=== PATIENT | male | born 1940 | race Caucasian/White ===

== ENCOUNTER → 2019-10-11 15:04 | Outpatient (BNVA) | payer MEDICARE, SELFPAY | PROVIDERS: Family Provider Internal Medicine; PCP Internal Medicine; Visit Provider Specialist | DX: M19.011 Primary osteoarthritis, right shoulder (principal); S46.001A Unspecified injury of muscle(s) and tendon(s) of the rotator cuff of right shoulder, initial encounter; X58.XXXA Exposure to other specified factors, initial encounter | CPT/HCPCS: 73030 ==

== ENCOUNTER 2019-10-12 20:00 | Outpatient (CLI) | payer MEDICARE, SELFPAY | END 2019-10-12 20:01 | disposition home or self-care (01) | LOC: SLEEP 10-13 09:45 | PROVIDERS: Family Provider Internal Medicine; PCP Internal Medicine; Visit Provider Student in an Organized Health Care Education/Training Program | DX: G47.33 Obstructive sleep apnea (adult) (pediatric) (principal) | CPT/HCPCS: 95810 ==

== ENCOUNTER 2019-11-13 20:00 | Outpatient (CLI) | payer MEDICARE, SELFPAY | END 2019-11-13 20:01 | disposition home or self-care (01) | LOC: SLEEP 11-14 08:49 | PROVIDERS: Family Provider Internal Medicine; PCP Internal Medicine; Visit Provider Student in an Organized Health Care Education/Training Program | DX: G47.33 Obstructive sleep apnea (adult) (pediatric) (principal) | CPT/HCPCS: 95810; 95811 ==

== ENCOUNTER → 2019-12-06 15:41 | Outpatient (BNVA) | payer MEDICARE, SELFPAY | PROVIDERS: Family Provider Internal Medicine; PCP Internal Medicine; Visit Provider Specialist | DX: M25.562 Pain in left knee (principal); M17.12 Unilateral primary osteoarthritis, left knee | CPT/HCPCS: 73560; 73565 ==

== ENCOUNTER → 2019-12-12 13:09 | Outpatient (BNVA) | payer MEDICARE, SELFPAY | PROVIDERS: Family Provider Internal Medicine; PCP Internal Medicine; Visit Provider Urology | DX: N40.1 Benign prostatic hyperplasia with lower urinary tract symptoms (principal); N13.8 Other obstructive and reflux uropathy | CPT/HCPCS: 81001 ==

== ENCOUNTER 2019-12-18 08:00 | Day surgery (SDC) | payer MEDICARE, SELFPAY ==
--- NOTE | 2019-12-18 09:43 | ECG_ITS ---
Measurements Intervals [place] Rate: 56 P: 29 [place]: 253 QRS: -17 QRSD: 107 T: -13 QT: 408 QTc: 396 SINUS BRADYCARDIA WITH FIRST DEGREE AV BLOCK VOLTAGE CRITERIA FOR LVH [MEETS CRITERIA IN ONE OF: R(aVL), S(V1), R(V5), R(V5/V6) +S(V1)] INFERIOR MYOCARDIAL INFARCTION [40+ ms Q WAVE AND/OR ST/T ABNORMALITY IN II/aVF], PROBABLY OLD Compared to ECG 11/23/2018 10:07:38 Sinus rhythm no longer present Myocardial infarct finding still present Electronically Signed On 12-18-2019 19:28:27 CDT by Kim Locke M.D. [id number]
--- NOTE | 2019-12-18 10:12 | ANES.PREANE2 ---
Pre-Anesthetic Assessment Pre-Anesthetic Assessment: Height/Weight: Height 1.88 m Weight 91.626 kg Preop Diagnosis: Left knee DJD Proposed Procedure: Operation Date: 12/26/19 07:00 Proposed Procedures p Total Knee Arthroplasty 76609 M17.12(Left) - Estella Luciano MD Familial anesthetic complications: None Social: Social History: No alcohol and No tobacco Comment: former smoker Exam: Pre-Anes Outpt Exam: alert, oriented x 3, clear to auscultation bilaterally and regular rate & rhythm Airway: Cervical ROM: WNL MP: 3 Additional comments: upper dentures Pulmonary: Pulmonary: Sleep apnea (has gotten his machine yet) CV/HEM: CV/HEM: CAD and HTN Comments: 2 stents ( 7 months ago) - not sure if its KRISTINA or BMS, states he on blood thinner but he's not sure which one, per patient dr. gruber said he could do surgery 6 months out EKG - Sinus norberto w/ 1st heartblock, old inferior OK : : None reported Hepatic: Hepatic: None reported GI: GI: None reported Metabolic: Metabolic: DM Musc/skel: Musc/skel: OA/DJD Neuropsych: Neuropsych: None reported Anesthetic Plan: ASA status: 3 Anesthesia: General and Regional (specify below) Risk of > 500 ml blood loss (7ml/kg in children): No PFSH Anesthesia PFSH: Surgical History History of heart artery stent Social History (Updated 12/08/19 @ 15:34 by STEPH Hagen) Smoking and tobacco status: former smoker Alcohol intake: former Adopted: No Caregiver/support person: No Lives independently: No Household members: spouse Marital status: Current occupational status: retired History of recent travel: No Current gender identity: Male Data Anesthesia Cardiac Studies: No Data to Display
[2019-12-18 10:23] LABS: Basophils % 0.4 %; Eosinophils # 0.1 10^3/uL (0.0-0.8); Eosinophils % 3.7 %; Hematocrit 32.1 % (42.0-52.0); Hemoglobin 10.7 g/dL (11.7-16.6); Lymphocytes # 0.6 10^3/uL (0.8-4.8); Lymphocytes % 22.7 %; Mean Corpuscular HGB Conc 33.3 g/dL (30.0-36.0); Mean Corpuscular Hemoglobin 33.4 pg (28.0-34.0); Mean Corpuscular Volume 100.3 fL (80-94); Mean Platelet Volume 11.5 fL (7.4-10.4); Monocytes # 0.6 10^3/uL (0.2-0.9); Monocytes % 20.4 %; Neutrophils # 1.4 10^3/uL (1.8-7.7); Neutrophils % 52.4 %; Nucleated Red Blood Cells % 0 %; Platelet Count 262 10^3/cmm (130-400); Red Cell Distribution Width 14.9 % (12.1-15.1); White Blood Count 2.7 10^3/uL (4.0-10.0)
--- NOTE | 2019-12-18 10:27 | PC.NURSE ---
Notified Dr. Luciano's office of abnormal preop labs. left message with CHELO.
[2019-12-18 10:29] LABS: Add Urine Microscopic? YES; Bilirubin Urine Neg (NEGATIVE); Blood Urine Neg (Negative); Glucose Urine UA 4+ (Normal); Ketones Urine Negative (Negative); Leukocyte Esterase Urine Negative (Negative); Nitrate Urine Negative (Negative); Protein Urine 1+ (Negative); Urine Appearance Clear (CLEAR); Urine Color Yellow (Yellow); Urobilinogen Urine Norm (Negative); pH Urine 5 (5-7)
[2019-12-18 10:35] LABS: Add Urine Culture? No; Bacteria Urine TRACE; Hyaline Casts Urine 0-4; Squamous Epithelial Cell Urine 0-4 (0-5)
[2019-12-18 10:40] LABS: Alanine Aminotransferase 15 U/L (0-41); Albumin Level 4.3 g/dL (3.5-5.2); Alkaline Phosphatase 48 IU/L (40-130); Anion Gap 18.8 (5-19); Aspartate Amino Transferase 18 U/L (0-40); Blood Urea Nitrogen 26 mg/dL (8-23); Calcium 9.7 mg/dL (8.5-10.5); Carbon Dioxide 25 mmol/L (22-29); Chloride 98 mmol/L (98-107); Globulin 2.6 g/dL (1.3-4.6); Glucose 301 mg/dL (65-115); Osmolality Calculated 294 mOsm/kg (285-295); Potassium 3.8 mmol/L (3.5-5.1); Sodium 138 mmol/L (136-145); Total Bilirubin 0.7 mg/dL (0.15-1.2); Total Protein 6.9 g/dL (6.6-8.7)
== END 2019-12-18 09:00 | disposition home or self-care (01) ==
LOC: OR 05-14 14:04
PROVIDERS: PCP Internal Medicine; Visit Provider Specialist
DX: Z01.818 Encounter for other preprocedural examination (principal); I44.0 Atrioventricular block, first degree; G47.30 Sleep apnea, unspecified; I25.10 Atherosclerotic heart disease of native coronary artery without angina pectoris; I25.2 Old myocardial infarction; I10 Essential (primary) hypertension; E11.9 Type 2 diabetes mellitus without complications; Z87.891 Personal history of nicotine dependence; Z95.5 Presence of coronary angioplasty implant and graft
CPT/HCPCS: 36415; 80053; 81001; 85025; 93005

== ENCOUNTER → 2020-01-17 11:26 | Outpatient (BNVA) | payer MEDICARE, SELFPAY | PROVIDERS: Family Provider Internal Medicine; PCP Internal Medicine; Visit Provider Specialist | DX: M25.512 Pain in left shoulder (principal) | CPT/HCPCS: 73030 ==

== ENCOUNTER 2020-01-22 09:50 | Outpatient (CLI) | payer MEDICARE, SELFPAY ==
--- NOTE | 2020-01-22 09:58 | MR_ITS ---
WS: [id number] MRI LEFT SHOULDER NONCONTRAST TECHNIQUE: Sagittal T2, coronal T1, T2 and proton density imaging. Axial gradient PDE imaging. CLINICAL INFORMATION: pain COMPARISON: None. FINDINGS: Prior postoperative changes rotator cuff surgery with rotator cuff anchors. Susceptibility artifact f rom rotator cuff anchors degraded images. Moderate degenerative arthritis at the AC joint with mild d ownsloping of the acromion. Small amount of subacromial/subdeltoid fluid. Supraspinatus and infraspin atus appear intact. Normal teres minor. Subscapularis is intact distally. Biceps tendon not visualized in the bicipital g roove. This is likely chronically torn with atrophy. Glenoid labrum appears grossly intact. Degenerat dc arthritis glenohumeral joint. Normal visualized soft tissues. MR/MR shoulder LT wo con* [id number] IMPRESSION: 1. Prior postoperative changes rotator cuff anchors. 2. Rotator cuff appears intact. No full-thickness rotator cuff tears. 3. Biceps tendon is absent within the bicipital groove likely due to chronic t ear with atrophy. 4. Glenoid labrum appears grossly intact. 5. Moderate degenerative arthritis AC joint with a small amount of subacromial /subdeltoid fluid.
== END 2020-01-22 09:51 | disposition home or self-care (01) ==
LOC: RADWPI 09:56
PROVIDERS: Family Provider Internal Medicine; PCP Internal Medicine; Visit Provider Specialist
DX: M25.512 Pain in left shoulder (principal); M19.012 Primary osteoarthritis, left shoulder
CPT/HCPCS: 73221

== ENCOUNTER 2020-02-27 09:54 | Observation (INO) | payer MEDICARE, SELFPAY ==
[2020-02-20 09:16] LABS: Add Urine Culture? No; Add Urine Microscopic? YES; Bacteria Urine TRACE; Bilirubin Urine Neg (NEGATIVE); Blood Urine Neg (Negative); Glucose Urine UA 4+ (Normal); Ketones Urine Negative (Negative); Leukocyte Esterase Urine Negative (Negative); Nitrate Urine Negative (Negative); Protein Urine 1+ (Negative); Specific Gravity, Urine 1.015 (1.005-1.030); Squamous Epithelial Cell Urine 0-4 (0-5); Urine Appearance Clear (CLEAR); Urine Color Yellow (Yellow); Urobilinogen Urine Norm (Negative)
--- NOTE | 2020-02-20 09:18 | SUR.PREOP ---
Anesthesia was involved with an epidural and suggested to run off Anesthesia evaluation when patient was here for preop in November 2019 and then canceled. And they would update it day of surgery. 02/27/20
[2020-02-20 09:22] LABS: Basophils % 0.4 %; Eosinophils # 0.1 10^3/uL (0.0-0.8); Eosinophils % 3.5 %; Hematocrit 32.5 % (42.0-52.0); Hemoglobin 10.8 g/dL (11.7-16.6); Lymphocytes # 0.6 10^3/uL (0.8-4.8); Lymphocytes % 23.2 %; Mean Corpuscular HGB Conc 33.2 g/dL (30.0-36.0); Mean Corpuscular Hemoglobin 32.5 pg (28.0-34.0); Mean Corpuscular Volume 97.9 fL (80-94); Mean Platelet Volume 11.3 fL (7.4-10.4); Monocytes # 0.4 10^3/uL (0.2-0.9); Monocytes % 17.3 %; Neutrophils # 1.4 10^3/uL (1.8-7.7); Neutrophils % 55.2 %; Nucleated Red Blood Cells % 0 %; Platelet Count 269 10^3/cmm (130-400); Red Blood Count 3.32 10^6/uL (4.1-5.3); Red Cell Distribution Width 14.6 % (12.1-15.1); White Blood Count 2.5 10^3/uL (4.0-10.0)
[2020-02-20 09:53] LABS: Alanine Aminotransferase 19 U/L (0-41); Albumin Level 4.4 g/dL (3.5-5.2); Alkaline Phosphatase 48 IU/L (40-130); Anion Gap 16.7 (5-19); Aspartate Amino Transferase 20 U/L (0-40); Blood Urea Nitrogen 33 mg/dL (8-23); Calcium 9.9 mg/dL (8.5-10.5); Carbon Dioxide 25 mmol/L (22-29); Chloride 97 mmol/L (98-107); Globulin 2.9 g/dL (1.3-4.6); Glucose 265 mg/dL (65-115); Osmolality Calculated 287 mOsm/kg (285-295); Potassium 3.7 mmol/L (3.5-5.1); Sodium 135 mmol/L (136-145); Total Protein 7.3 g/dL (6.6-8.7)
[2020-02-27] VITALS (22 sets, daily range): BP systolic 91–148; BP diastolic 61–96; PULSE 56–113; RESP 12–26; TEMP 36.2–37.2; O2SAT 91–98
[2020-02-27 06:01] LABS: Glucose Point of Care 258 mg/dL (70-110)
[2020-02-27] MEDS: sodium chloride 0.9% 1,000 ML 30 ML IV (06:09)
--- NOTE | 2020-02-27 06:53 | W.PM.OPSUD ---
Surgery/Procedure H&P Update DATE OF PROCEDURE: February 27, 2020 DATE H&P PERFORMED: 12/06/19 H&P UPDATE INFORMATION: I have reviewed H&P completed within last 30 days, I have examined patient prior to procedure and H&P is in [facility] EMR on date indicated PREOP DIAGNOSIS: Left knee DJD PLANNED PROCEDURE: Operation Date: 02/27/20 07:00 Proposed Procedures p Total Knee Arthroplasty 79745 M17.11(Left) - Estella Luciano MD
[2020-02-27] MEDS: fentaNYL 50 mcg/mL INJ 2mL 100 MCG IVP (07:05)
[2020-02-27] MEDS: midazolam 1 mg/mL INJ 2 mL 2 MG IVP (07:06)
--- NOTE | 2020-02-27 07:08 | P.ANESASSM_ITS ---
Pre-Anesthetic Assessment Pre-Anesthetic Assessment: Height/Weight: Height 1.88 m Weight 92.079 kg Temp Pulse Resp BP Pulse Ox 97.2 F L 87 18 118/96 95 02/27/20 05:59 02/27/20 05:59 02/27/20 05:59 02/27/20 05:59 02/27/20 05:59 Preop Diagnosis: Left knee DJD Proposed Procedure: Operation Date: 02/27/20 07:00 Proposed Procedures p Total Knee Arthroplasty 25801 M17.11(Left) - Estella Luciano MD Last intake: Intake Last Liquid Date 02/27/20 Last Liquid Time 04:00 Last Solid Date 02/26/20 Last Solid Time 18:00 Social: Social History: No alcohol and No tobacco Exam: Pre-Anes Outpt Exam: alert, oriented x 3, clear to auscultation bilat erally and regular rate & rhythm Airway: Submandibular: WNL Cervical ROM: WNL MP: 2 Dentition: Other (teeth ok) History/ROS: No significant history except as noted Pulmonary: Pulmonary: COPD CV/HEM: CV/HEM: CAD and HTN : : None reported Hepatic: Hepatic: None reported GI: GI: GERD Metabolic: Metabolic: Hyperlipidemia Musc/skel: Musc/skel: OA/DJD Neuropsych: Neuropsych: None reported Anesthetic Plan: ASA status: 3 Anesthesia: Anesthesia Evaluation, Eval. for regional block and General Risk of > 500 ml blood loss (7ml/kg in children): Yes, adequate IV access and fluids planned Meds/Allergies Current Medications: Current Medications Generic Name Dose Route Start Last Admin Trade Name Freq PRN Reason Stop Dose Admin Sodium Chloride 1,000 mls @ 30 ml s/hr 02/27/20 06:15 02/27/20 06:09 Sodium Chloride 0.9% IV 02/28/20 06:14 30 mls/hr .Q24H NIMO Administration Midazolam HCl 2 mg 02/27/20 06:04 02/27/20 07:06 Versed IVP 2 mg Q5M PRN Administration Preop Anxiety PFSH Anesthesia PFSH: Medical History Abnormal PSA Atherosclerotic heart disease Benign essential hypertension with target blood pressure below 140/90 BPH NOS w ur obs/LUTS CAD (coronary artery disease) Depression Dyslipidemia Erectile dysfunction due to diseases classified elsewhere Hyperlipidemia Hypertension Hypogonadism male SOB (shortness of breath) Type 2 diabetes mellitus Surgical History History of heart artery stent Hx of cholecystectomy Status post laser cataract surgery of both eyes Family History Father , AT AGE 86 HEART DISEASE,[place],DIABETES Diabetes CAD (coronary artery disease) Mother , AT AGE 80 No problems noted. Social History Smoking and tobacco status: former smoker Alcohol intake: former Adopted: No Caregiver/support person: No Lives independently: No Household members: spouse Marital status: Current occupational status: retired History of recent travel: No Current gender identity: Male Data Anesthesia CBC & Chem 7: 02/20/20 09:07 02/20/20 09:07 Other Labs: Laboratory Results - last 48 hr 02/27/20 05:57 POC Glucose 258 Cardiac Studies: No Data to Display
[2020-02-27] MEDS: ceFAZolin 1,000 mg SDV 1000 MG IRRIGATION ×2 (07:51)
[2020-02-27] MEDS: vancomycin 1,000 MG SDV 1000 MG XX (07:51)
--- NOTE | 2020-02-27 08:14 | SUR.OPER ---
ATTEMPTED TO CALL FAMILY TO GIVE AN UPDATE ON SURGERY. NO ONE ANSWERED THE PHONE NUMBERS I HAVE AVAILABLE.
--- NOTE | 2020-02-27 09:48 | SUR.PHASEI ---
0944 PATIENT TO PACU AT THIS TIME FROM OR. RR EVEN AND UNLABORED. ORAL AIRWAY IN PLACE. DRESSING TO LEFT HIP, CDI, LEFT PEDAL PULSE MARKED. WARREN CATH IN PLACE, DRAINING CLEAR, YELLOW URINE.
--- NOTE | 2020-02-27 10:02 | XR_ITS ---
WS: [id number] XR knee LT 1-2V 90311 REASON FOR EXAM: Status post total knee arthroplasty FINDINGS: Total knee arthroplasty on the left side in satisfactory alignment. The prosthesis are seen in good position. There is soft tissue air under the anterior aspects of the knee. XR/XR knee LT 1-2V [id number] IMPRESSION: Total knee replacement satisfactory aligned on the left knee.
--- NOTE | 2020-02-27 10:02 | SUR.PHASEI ---
1001 ORAL AIRWAY REMOVED AT THIS TIME. SPO2 94% ON SIMPLE MASK AT 8L.
--- NOTE | 2020-02-27 10:17 | PM.OP ---
Operative Report Date of procedure: February 27, 2020 Pre-op Diagnosis: Left knee DJD Post-op diagnosis: same Post-op Findings: Severe varus deformity which was not correctable even under general anesthesia Procedure Done: Left Total knee arthroplasty utilizing the following components of the [place] triathlon total knee system: A size 5 triathlon Tritanium posterior stabilized right femoral component, a size 6 triathlon titanium tibial component with a size 6 x 11 mm X3 posterior stabilized tibial bearing insert, and an asymmetric patella size 35 mm x 1 mm Specimens removed/disposition: Bone, disposed of Pathology: none sent Surgeon: Estella Luciano Aircraft Lay Out Worker: [facility] OR technicians Anesthesia: General (Intubated, ASA 3, with preoperative regional block) Estimated blood loss (mL): 25 Tourniquet time (min): 106 Tourniquet time: at 250 mmHg IV fluids (mL): 800 Urine output (mL): 200 Complications: None Findings: Significant degenerative osteoarthritis with fixed varus flexion contracture Condition: stable Disposition: PACU (Then to floor for observation, pain management, and gait training.) Brief History: This 79-year-old gentleman presented with complaints of severe left knee pain. He is having significant impact in his activities of daily living from his left knee. He wishes to proceed with total knee arthroplasty. Risks and complications are explained to him. Consents are signed. Questions are answered. Procedure: The patient was brought to the operating theater, and after undergoing adequate general intubated anesthesia with supplemental regional block, the left lower extremity was prepped with Dura-Prep and draped in usual fashion following placement of a tourniquet high on the leg. The leg was then draped free. Following prepping and draping, the leg was exsanguinated, and the tourniquet was elevated to 250 mmHg for a total tourniquet time of 106 minutes. Prior to elevation of the tourniquet, but following exposure of the site of surgery, a surgical pause was performed. At the time of the surgical pause, we confirmed the site and side of surgery. Additionally, we confirmed the appropriate and timely administration of preoperative antibiotics, Ancef 2 g and transexemic acid 1 g. The availability of equipment was confirmed, and the patient's identity was verbalized as well. Following the surgical pause, an incision was made centering over the patella continuing proximally and distally as necessary to allow access to the knee joint. Dissection continued through skin and soft tissues using a scalpel. Hemostasis was obtained using electrocautery. The skin incision was followed by a median parapatellar arthrotomy. The leg was extended and the patella was everted. Following this, the leg was returned to flexed position. The distal femur was exposed and a drill hole was made in this for placement of the distal femoral jig. The distal femoral jig was set at 5? of valgus. The distal femoral cutting block was then placed in appropriate position, and an ludin wing was used to confirm an appropriate amount of distal femur would be resected. The distal femoral resection was accomplished with 8 mm of bone being resected distally. After the distal femoral resection had been accomplished, the femur was measured and it measured a size 5. Medial lateral dimension also measured a size 5. A size 5 femoral cutting block was placed in position, and we were then able to accomplish the anterior, posterior and chamfer cuts. This jig was then removed and the notch guide was placed in position. With the notch guide in appropriate position, the notch was excised including resection of the anterior and posterior cruciate ligaments. This notch was to allow for the posterior stabilized femoral component. At this point, the femur was prepared and attention was directed to the proximal tibia. The posterior knee retractor was placed along with medial and lateral retractors. Further resection of the menisci was accomplished as we had better visualization. A complete meniscectomy was performed both medially and laterally with care being taken to protect the popliteus. Retractors were then placed so that the proximal tibia was well visualized. A drill hole was then made in the tibia for placement of the intramedullary guide. This guide was placed so that approximately 2 mm of bone would be resected from the deficient medial tibial plateau. The intramedullary guide was utilized supplemented with an extramedullary guide to assure appropriate alignment for the proximal tibial resection. The proximal tibial jig was then evaluated, pinned in position, and the proximal tibial resection was accomplished without difficulty. The jig was removed and the proximal tibia was measured. It measured a size 6. Initially, a trial reduction was accomplished with a 9 mm insert, but there was imbalance to the knee. Medial release was more extensively accomplished. We then had good balance to the knee with full extension and excellent varus valgus stability when we performed a trial reduction with an 11 mm insert into the size 6 tray. The femoral component was placed in position for the trial reduction, and the knee was placed through range of motion. There was excellent stability with excellent varus-valgus alignment with appropriate patellar tracking. This was felt to be the appropriate size insert. There was full extension and flexion without lift off and the rotation of the tibia was marked. Alignment was checked from the hip to the ankle, and this was noted to be appropriate as well. Attention was then directed to the patella. The patella was measured with a caliper. We resected sufficient patella to leave approximately 15 mm of patella remaining. Measurements of the patella then indicated that a size asymmetric 35 mm x 10 mm was the appropriate patellar size. We then placed the jig to drill for the 3 pegs of the press-fit patella, and these drill holes were made without incident. A trial patella was then placed and the knee was placed through range of motion. The patella was noted to track nicely without evidence of subluxation. The femur was prepared for a press-fit femur by drilling 2 holes for the femoral pegs. All trial components were subsequently removed. The tibial tray was then pinned into position, and we broached the tibia for the stem of the tibial component. Subsequently, 4 drill holes were made for placement of the press-fit tibia. This was accomplished without difficulty. Care was taken to assure appropriate rotation of the tibia as well as appropriate position on the proximal tibia. The tibial tray was completely seated on the proximal tibia. Following broaching, the tibial guide was removed, and all surfaces were copiously irrigated. The surfaces were then dried and a bone plug was placed into the distal femur. Exparel was also injected at this point. The Tritanium tibia was impacted into position. The beaded femur was then impacted into position in a cementless fashion. The tibial insert was placed. The patella was pressed into position with a patellar clamp. The knee was irrigated with 20 mL of Betadine and 500 mL of normal saline, and this was allowed to remain in the knee for 3-4 minutes. The knee was then copiously irrigated and suctioned dry. Attention was then directed to closure. Closure was accomplished with 0 Vicryl in the fascial tissues, 2-0 Monocryl was used in the subcutaneous tissues, and the skin was closed with skin shasta followed by Exofin. A sterile dressing was then placed consisting of Telfa, 4 x 4's, ABDs, sterile soft roll, and an Joe wrap. The patient was returned the Recovery Room in a satisfactory condition. X-rays were obtained there. The patient will be discharged to the floor for postoperative rehabilitation and pain management. He'll be under observation status with plans to discharge home with home health. Associated Problem List Diagnoses (1) Osteoarthritis of left knee: Qualifiers: Osteoarthritis type: primary Qualified Code(s): M17.12 - Unilateral primary osteoarthritis, left knee
--- NOTE | 2020-02-27 10:20 | ANES.PROC ---
Anesthesia Procedures Procedure/Date: 02/27/20 Nerve Block ^: Nerve Block 1: Main Anesthesia: general anesthesia Time Out Performed: Yes Consent: requested by attending/covering physician, risks and benefits reviewed and patient agrees to proceed Nerve block location: adductor canal (left) and popliteal (left) Anesthesia monitors applied: pulse oximetry, EKG, BP cuff and oxygen Nerve block position: other (supine for the AC and RLD for the Pop) Anesthetic Used: ropivicaine 0.5% Amount of anesthesia used (mL): 40 (20ml for each blk) Ultrasound used to: recognize landmarks Nerve Stimulator Used?: Yes Interscalene/Femoral BLK: 4 stimuplex 21 g needle used for position and inplane approach, visualize local anesthetic spread and no vascular puncture identified Injection: neg aspiration of heme Patient Tolerated Procedure: well and no complications Complications: none
--- NOTE | 2020-02-27 11:06 | SUR.PHASEI ---
1058 PATIENT TO MED SURG AT THIS TIME. DENIES PAIN. DRESSING TO LEFT KNEE, CDI.
[2020-02-27] MEDS: chlorhexidine gluconate 0.12% Btl 473 mL 30 ML MUCOUS MEM ×3 (13:23→21:12)
[2020-02-27] MEDS: metformin 500 mg Tablet 1000 MG PO (16:45)
[2020-02-27] MEDS: calcium carbonate 500 mg Chew Tablet 1000 MG PO (16:45)
[2020-02-27] MEDS: sodium chloride 0.9% 1,000 ML 50 ML IV (16:45)
[2020-02-27] MEDS: iron polysaccharide complex 150 mg Capsule PO (16:45)
[2020-02-27] MEDS: sennosides-docusate Tablet 2 TAB PO (16:46)
[2020-02-27] MEDS: tamsulosin 0.4 mg Capsule PO (16:46)
--- NOTE | 2020-02-27 18:15 | NUR.SHIFT ---
SHIFT SUMMARY PATIENT HAS DONE WELL AFTER SURGERY TODAY. SURGICAL INCISION DRESSING IS C/D/I. GOOD NEUROVASCULAR CHECKS. 1000ML OF URINE OUTPUT. PATIENT HAS HAD ZERO COMPLAINTS OF PAIN. UP WITH PHYSICAL THERAPY AND ON THE CPM. TOLERATING WELL.
[2020-02-28] VITALS (7 sets, daily range): BP systolic 129–150; BP diastolic 72–79; PULSE 66–117; RESP 16–20; TEMP 36.6–37.4; O2SAT 96–98
[2020-02-28 04:46] LABS: Basophils % 0.1 %; Hematocrit 27.6 % (42.0-52.0); Lymphocytes # 0.5 10^3/uL (0.8-4.8); Lymphocytes % 4.4 %; Mean Corpuscular HGB Conc 32.6 g/dL (30.0-36.0); Mean Corpuscular Volume 101.1 fL (80-94); Mean Platelet Volume 11.9 fL (7.4-10.4); Monocytes # 1.4 10^3/uL (0.2-0.9); Neutrophils # 8.9 10^3/uL (1.8-7.7); Neutrophils % 81.9 %; Nucleated Red Blood Cells % 0 %; Platelet Count 219 10^3/cmm (130-400); Red Blood Count 2.73 10^6/uL (4.1-5.3); Red Cell Distribution Width 15.3 % (12.1-15.1); White Blood Count 10.9 10^3/uL (4.0-10.0)
[2020-02-28] MEDS: oxyCODONE 5 mg IR Tab/Cap PO ×2 (04:53→11:13)
[2020-02-28 04:58] LABS: Blood Urea Nitrogen 29 mg/dL (8-23); Calcium 8.3 mg/dL (8.5-10.5); Carbon Dioxide 23 mmol/L (22-29); Chloride 99 mmol/L (98-107); Glucose 331 mg/dL (65-115); Osmolality Calculated 290 mOsm/kg (285-295); Sodium 135 mmol/L (136-145)
--- NOTE | 2020-02-28 07:47 | ANE.PACU2 ---
Inpatient post-anesthesia follow up: Airway intact: Yes Vital signs: Temperature 98.5 F Pulse Rate 66 Respiratory Rate 18 Blood Pressure 130/72 Pulse Oximetry 98 Oxygen Delivery Me thod Room Air Oxygen Flow Rate 3 Fraction of Inspir ed Oxygen Hydration adequate: Yes Nausea and vomiting: No Pain level: 7 Mental status: Baseline
[2020-02-28] MEDS: escitalopram 10 mg Tablet 20 MG PO (08:24)
[2020-02-28] MEDS: amitriptyline 25 mg Tablet PO (08:25)
[2020-02-28] MEDS: calcium carbonate 500 mg Chew Tablet 1000 MG PO (08:25)
[2020-02-28] MEDS: metformin 500 mg Tablet 1000 MG PO (08:26)
[2020-02-28] MEDS: atorvastatin 40 mg Tablet 20 MG PO (08:26)
[2020-02-28] MEDS: finasteride 5 mg Tablet PO (08:26)
[2020-02-28] MEDS: aspirin 325 mg EC Tablet PO (08:27)
[2020-02-28] MEDS: cholecalciferol (vitamin D3) 1,000 unit Tablet 1000 UNIT PO (08:27)
[2020-02-28] MEDS: sennosides-docusate Tablet 2 TAB PO (08:27)
[2020-02-28] MEDS: tamsulosin 0.4 mg Capsule PO (08:27)
[2020-02-28] MEDS: multivitamin therapeutic Tablet 1 TAB PO (08:27)
[2020-02-28] MEDS: metoprolol succinate ER (24 HR) 50 mg Tablet PO (08:27)
[2020-02-28] MEDS: iron polysaccharide complex 150 mg Capsule PO (08:28)
[2020-02-28] MEDS: clopidogrel 75 mg Tablet PO (08:28)
[2020-02-28] MEDS: chlorhexidine gluconate 0.12% Btl 473 mL 30 ML MUCOUS MEM (08:28)
[2020-02-28] MEDS: TRAMadol 50 mg Tablet PO ×2 (08:36→14:36)
[2020-02-28] MEDS: mupirocin oint 22 gm 1 APPLIC NASAL (08:37)
--- NOTE | 2020-02-28 08:53 | PC.CHAP ---
Pastoral Care Encounter/Spiritual Assessment Type of Contact [] Declined resistor tester visit [] Patient/Family/Request visit [] Outpatient visit [] Follow-up visit [] Physician referral [] Code/Alert [x] Routine visit [] Staff referral [] Actively dying [] Patient sleeping [] Family support [] [] Out of room [] Palliative care [] [] Receiving care in room [] Pre-surgical visit [] Trauma [] Long length of stay [] ICU visit [] Other: Relational/Emotional Strength [] Patient feels connected with others/family/visitors/staff [] Distress [] Loneliness/isolation [] Abandonment Spirituality of Patient [] Person of Linn [] Attends Uatsdin of their Linn [] Believes in Prayer [] Reads Bible or Mormonism materials [] There are Spiritual issues to be addressed Manager Trading Interventions [x] Prayer [] Active listening [] Non-anxious presence [] Spiritual/emotional support [] Crisis/trauma care [] Spiritual counseling [] Bereavement support [] Provided bereavement packet [] Provided Bible/devotional materials [] Provided toy/stuffed animal, coloring book to patient or family member [] Provided Communion [] Anointing/[place] [] Salvation [x] Completed spiritual assessment [] Other: Impact on Illness or Injury [] Angry [] Fearful [] Anxious [] Often cries [] Exhaustion [] Unable to work [] Unable to attend caodaism [] Unable to walk/stand [] Unable to read [] Unable to drive [] Unable to eat/drink [] Unable to sleep [] Unable to be with family [] Patient intubated [] Other: Summary Patient ready to discharge. Surgery went well. Patient has questions before leaving. Time spent with patient 15min
[2020-02-28] MEDS: acetaminophen 500 mg Tablet 1000 MG PO (14:36)
--- NOTE | 2020-02-28 16:46 | P.DS_ITS ---
Discharge Providers Date of Admission: 02/27/20 09:54 Date of Discharge: February 28, 2020 Attending Provider at Admission: Estella Luciano MD Attending Provider at Discharge: Estella Luciano MD Primary Care Provider: Ferdinand Arteaga MD Diagnoses at Discharge Discharge Diagnosis (1) Osteoarthritis of left knee: Status: Acute Qualifiers: Osteoarthritis type: primary Qualified Code(s): M17.12 - Unilateral primary osteoarthritis, left knee Reason for Visit Reason for Visit: Osteoarthritis of the left knee Hospital Course Hospital Course: Patient was admitted for same-day surgery for the following procedure: Left Total knee arthroplasty utilizing the following components of the Genemation triathlon total knee system: A size 5 triathlon Tritanium posterior stabilized right femoral component, a size 6 triathlon titanium tibial component with a size 6 x 11 mm X3 posterior stabilized tibial bearing insert, and an asymmetric patella size 35 mm x 10 mm. His procedure was uneventful, and he did well on the first postoperative day. On the second postoperative day, he did have some posterior knee pain, but he felt comfortable and confident enough with his physical therapy to be discharged to home. Therefore, the patient was discharged home on the first postoperative day. He was given tramadol for pain. He will follow-up with me as scheduled. Discharge Summary: Patient was admitted for same-day surgery and was discharged the following day to follow-up with me in the office as scheduled. Physical Exam Const: COMMON NORMALS: no acute distress, average body habitus, patient orien david x3 and alert GENERAL APPEARANCE: cooperative and comfortable ORIENTATION/CONSCIOUSNESS: Yes awake HENMT: COMMON NORMALS: normocephalic and atraumatic HEAD & SCALP: normocephalic and atraumatic Eye: GENERAL EYE: appearance normal, both eyes and all related structures Chest: COMMONS NORMALS: normal inspection of the chest Resp: COMMON NORMALS: normal respiratory effort EFFORT & INSPECTION: Yes able to speak in complete sentences and Yes symmetric chest movement Extremity: GENERAL: Yes normal exam except as noted LEFT LOWER EXTREMITY: Yes knee joint Left knee: Yes inspection (Dressing is removed. The wound is benign. There is no evidence of DVT, no drainage, and no ecchymosis.), Yes palpation (Minimal tenderness to palpation.) and Yes neurovascular exam (Intact with no evidence of DVT.) Neuro: COMMON NORMALS: patient oriented x3 SENSORIUM/ORIENTATION: Yes alert Psych: COMMON NORMALS: mental status grossly normal APPEARANCE: Yes grossly normal ATTITUDE: Yes calm and Yes engaged ATTENTION/CONCENTRATION: Yes attention grossly intact Skin: COMMON NORMALS: no rashes or lesions noted GENERAL SKIN EXAM: no rashes or lesions noted Urinary Catheter Management^: F: Cath Placed During This Visit: yes Reason for Continuing Indwelling Catheter: Assist Healing of Perineal & Sacral Wounds- Incontinent Patients Urinary Catheter Date of Insertion: 02/27/20 Urinary Catheter Time of Insertion: 07:30 Discharge Data Data Completed and Pending: Completed Studies During Hospitalization Category Date Time Status XR knee LT 1-2V 7 3560 Routine Exams 02/27/20 10:02 Completed Labs from last 24 hours 02/28/20 02/28/20 04:20 04:20 WBC 10.9 H RBC 2.73 L Hgb 9.0 L Hct 27.6 L MCV 101.1 H MCH 33.0 MCHC 32.6 RDW 15.3 H Plt Count 219 MPV 11.9 H Neut % (Auto) 81.9 Lymph % (Auto) 4.4 [place] % (Auto) 13.0 Eos % (Auto) 0.0 Baso % (Auto) 0.1 Neut # (Auto) 8.9 H Lymph # (Auto) 0.5 L [place] # (Auto) 1.4 H Eos # (Auto) 0.0 Baso # (Auto) 0.0 Nucleated RBC % (a uto) 0 Nucleated RBCs # 0.0 Sodium 135 L Potassium 4.0 Chloride 99 Carbon Dioxide 23 Anion Gap 17.0 BUN 29 H Creatinine 1.6 H Glucose 331 H Calculated Osmolal ity 290 Calcium 8.3 L Vitals: Last Vital Signs Temp 99.4 F 02/28/20 11:07 Pulse 95 02/28/20 11:07 Resp 20 H 02/28/20 15:06 BP 136/77 02/28/20 11:07 Pulse Ox 96 02/28/20 11:07 Discharge Plan Discharge Patient Disposition: Home Health Service Condition: Stable Prescriptions: New acetaminophen 500 mg Tablet 1,000 mg PO Q8H 15 Days Qty: 0 RF: 0 aspirin 325 mg Tablet,Delayed Release (Dr/Ec) 325 mg PO DAILY 30 Days Qty: 0 RF: 0 tramadol 50 mg Tablet 50 mg PO Q4H PRN (Reason: Mild To Moderate Pain) Qty: 30 RF: 0 Continued escitalopram oxalate 20 mg tablet 20 mg PO DAILY RF: 0 simvastatin 40 mg tablet 40 mg PO DAILY RF: 0 amitriptyline 25 mg tablet 25 mg PO DAILY RF: 0 aspirin [Adult Aspirin Regimen] 81 mg tablet,delayed release (DR/EC) 81 mg PO DAILY RF: 0 metformin 500 mg tablet 1,000 mg PO BID RF: 0 triamterene-hydrochlorothiazid 75-50 mg tablet 0.5 tab PO DAILY RF: 0 diltiazem HCl 120 mg capsule,extended release 12 hr 120 mg PO BID RF: 0 metoprolol succinate 50 mg capsule,sprinkle,ER 24hr 50 mg PO DAILY RF: 0 triamcinolone acetonide 0.05 % ointment 1 applic TOPICAL BID PRN (Reason: Skin Irritation) RF: 0 testosterone cypionate 200 mg/mL kit 200 mg IM .ONCE MONTHLY RF: 0 multivitamin Tablet 1 tab PO DAILY RF: 0 tamsulosin 0.4 mg capsule 0.4 mg PO BID Qty: 180 RF: 3 clopidogrel 75 mg tablet 75 mg PO DAILY Qty: 90 RF: 3 finasteride 5 mg tablet 5 mg PO DAILY RF: 0 naproxen sodium [Aleve] 220 mg Tablet 440 mg PO BID RF: 0 docusate sodium 100 mg Tablet 100 mg PO BID PRN (Reason: Constipation) RF: 0 Discharge Orders: Discharge Order (Routine); Ordered 02/27/20 Ordered By: Estella Luciano Other Ambulatory Orders: DME: Walker (Order) Location: None Selected Ordered By: Estella Luciano Referrals: Estella Luciano MD [Physician] - 03/13/20 11:45 am (Follow-up for x-ray and wound evaluation.) Discharge Diet: Advance as tolerated and Cardiac Discharge Activity: Increase activity as tolerated, Use walker/crutches as instructed and As per PT/OT instructions Patient Instructions: Acetaminophen (By mouth), Aspirin (By mouth), Tramadol (By mouth), Total Knee Replacement (DC) Activity Restrictions/Additional Instructions: Ice and elevation to left lower extremity. Range of motion, ambulation, and strengthening as instructed by physical therapy. Discharge Date/Time: 02/28/20 15:06 Discharge Attestations Time Spent in Discharge Care*: greater than 30 min Specific Discharge Activities: Specific discharge activities: educating patient, discussing with hospice case manager/social workers/dc planners and docu menting/other paperwork Status at Discharge: Cognitive status at discharge: cognitively intact , Behavioral status at discharge: cooperative , Functional status at discharge: uses cane/walker Quality Metrics Clinical Quality Measures During this hospital stay, did patient experience: None Coding Level of Care Code Acute Floor Associate for Gissel Fontenot Diagnoses Osteoarthritis of left knee M17.12 Osteoarthritis type: primary
== END 2020-02-28 15:06 | disposition home health service (06) ==
LOC: MEDSURG 09:54
PROVIDERS: Admitting Provider Specialist; PCP Internal Medicine; Visit Provider Specialist
PROC: (CPT 27447; principal; 2020-02-27 07:00)
DX: M17.12 Unilateral primary osteoarthritis, left knee (principal); J44.9 Chronic obstructive pulmonary disease, unspecified; I25.10 Atherosclerotic heart disease of native coronary artery without angina pectoris; I10 Essential (primary) hypertension; K21.9 Gastro-esophageal reflux disease without esophagitis; E78.5 Hyperlipidemia, unspecified; M19.90 Unspecified osteoarthritis, unspecified site; N40.1 Benign prostatic hyperplasia with lower urinary tract symptoms; N13.8 Other obstructive and reflux uropathy; F32.9 Major depressive disorder, single episode, unspecified; E11.9 Type 2 diabetes mellitus without complications; Z79.82 Long term (current) use of aspirin; Z79.84 Long term (current) use of oral hypoglycemic drugs
CPT/HCPCS: 27447; 12345; 36415; 36416; 51702; 73560; 80048; 80053; 81001; 82962; 85025; 96365; 96374; 96375; 97116; 97162; 97165; 97530; A9281; C1776; C9290; G0378; J0131; J0690; J1100; J2001; J2250; J2270; J2405; J2704; J2710; J2795; J3010; J3370; J3490; J7030

== ENCOUNTER → 2020-03-11 16:12 | Outpatient (BNVA) | payer MEDICARE, SELFPAY | PROVIDERS: PCP Internal Medicine; Visit Provider Specialist | DX: Z96.652 Presence of left artificial knee joint (principal); Z47.1 Aftercare following joint replacement surgery | CPT/HCPCS: 73560; 73565 ==

== ENCOUNTER → 2020-03-28 08:03 | Outpatient (BNVA) | payer MEDICARE, SELFPAY | PROVIDERS: PCP Internal Medicine; Visit Provider Specialist | DX: Z96.652 Presence of left artificial knee joint (principal) | CPT/HCPCS: 73560; 73565 ==

== ENCOUNTER 2020-04-09 15:27 | Inpatient (IN) | payer MEDICARE, SELFPAY ==
[2020-04-09] VITALS (7 sets, daily range): BP systolic 107–144; BP diastolic 71–95; PULSE 79–139; RESP 15–21; TEMP 36.5–36.8; O2SAT 94–99; BMI 25.0
--- NOTE | 2020-04-09 16:16 | ECG_ITS ---
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 Measurements Intervals [place] Rate: 105 P: 55 MD: 227 QRS: -32 QRSD: 88 T: 59 QT: 360 QTc: 478 Interpretive Statements SINUS TACHYCARDIA WITH FIRST DEGREE AV BLOCK WITH FREQUENT SUPRAVENTRICULAR PREMATURE COMPLEXES LEFT AXIS DEVIATION [QRS AXIS < -30] MODERATE VOLTAGE CRITERIA FOR LVH, CONSIDER NORMAL VARIANT [MEETS CRITERIA IN ONE OF: R(aVL), S(V1), R(V5), R(V5/V6)+S(V1)] INFERIOR MYOCARDIAL INFARCTION , PROBABLY OLD [40+ ms Q WAVE AND/OR ST/T ABNORMALITY IN II/aVF] Compared to ECG 12/18/2019 10:03:47 Left-axis deviation now present Sinus bradycardia no longer present Myocardial infarct finding still present Electronically Signed On 04-09-2020 19:17:50 CDT by Salena Zepeda M.D. [email or web address]/[id number]
[2020-04-09 17:05] LABS: Troponin(5th) Baseline 65 ng/L (0-15)
--- NOTE | 2020-04-09 17:17 | XRR_ITS ---
PROCEDURE INFORMATION: Exam: XR Chest, 1 View Exam date and time: 04/09/2020 5:27 PM Age: 79 years old Clinical indication: Other: Post exercise; Prior surgery; Surgery date: 6+ months; Surgery type: Stents. Recent knee replacement; Patient HX: C/O irregular hr; Chest pain after physical therapy TECHNIQUE: Imaging protocol: XR of the chest Views: 1 view. COMPARISON: No relevant prior studies available. FINDINGS: Lungs: No pneumonia or pulmonary edema. Suspect atelectasis in the posteromedial left lower lobe adjacent to the descending thoracic aorta. Pleural space: No pleural effusion or pneumothorax. Heart/Mediastinum: The cardiac silhouette is not enlarged. The mediastinal contours are normal. Vasculature: The thoracic aorta is atherosclerotic and slightly tortuous. Bones/joints: Degenerative changes present in the shoulders, more so on the right. Prior left rotator cuff surgery with 2 humeral anchors present. XR/XR chest 1V portable [id number] IMPRESSION: No pneumonia or pulmonary edema.
[2020-04-09 17:50] LABS: Basophils % 0.4 %; Eosinophils # 0.1 10^3/uL (0.0-0.8); Eosinophils % 1.9 %; Hematocrit 29.4 % (42.0-52.0); Hemoglobin 9.1 g/dL (11.7-16.6); Lymphocytes # 0.8 10^3/uL (0.8-4.8); Lymphocytes % 31.1 %; Mean Corpuscular Hemoglobin 32.3 pg (28.0-34.0); Mean Corpuscular Volume 104.3 fL (80-94); Mean Platelet Volume 11.2 fL (7.4-10.4); Monocytes # 0.5 10^3/uL (0.2-0.9); Monocytes % 18.1 %; Neutrophils % 48.1 %; Nucleated Red Blood Cells % 0 %; Platelet Count 347 10^3/cmm (130-400); Red Blood Count 2.82 10^6/uL (4.1-5.3); Red Cell Distribution Width 15.9 % (12.1-15.1); White Blood Count 2.7 10^3/uL (4.0-10.0)
[2020-04-09 17:56] LABS: INR 1.12 (0.8-1.2)
[2020-04-09 17:59] LABS: D Dimer 3.74 ug/mIFEU (0-0.59)
[2020-04-09 18:02] LABS: Alanine Aminotransferase 16 U/L (0-41); Albumin Level 4.3 g/dL (3.5-5.2); Alkaline Phosphatase 71 IU/L (40-130); Anion Gap 19.9 (5-19); Aspartate Amino Transferase 19 U/L (0-40); Blood Urea Nitrogen 33 mg/dL (8-23); Calcium 9.5 mg/dL (8.5-10.5); Carbon Dioxide 22 mmol/L (22-29); Chloride 98 mmol/L (98-107); Globulin 2.5 g/dL (1.3-4.6); Glucose 156 mg/dL (65-115); Lactate (Lactic Acid level) 3.3 mmol/L (0.5-2.2); Osmolality Calculated 282 mOsm/kg (285-295); Potassium 3.9 mmol/L (3.5-5.1); Sodium 136 mmol/L (136-145); Total Bilirubin 0.6 mg/dL (0.15-1.2); Total Protein 6.8 g/dL (6.6-8.7)
--- NOTE | 2020-04-09 18:18 | ECG_ITS ---
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 Measurements Intervals [place] Rate: 125 P: 11 IN: 225 QRS: -30 QRSD: 103 T: 46 QT: 369 QTc: 533 Interpretive Statements SINUS TACHYCARDIA WITH FIRST DEGREE AV BLOCK VOLTAGE CRITERIA FOR LVH [MEETS CRITERIA IN ONE OF: R(aVL), S(V1), R(V5), R(V5/V6)+S(V1)] INFERIOR MYOCARDIAL INFARCTION , PROBABLY OLD [40+ ms Q WAVE AND/OR ST/T ABNORMALITY IN II/aVF] Compared to ECG 04/09/2020 16:30:01 Left-axis deviation no longer present Myocardial infarct finding still present Electronically Signed On 04-10-2020 22:46:54 CDT by Lorri Lin M.D. [id number]
--- NOTE | 2020-04-09 19:09 | PC.NURSE ---
Report received from YAMILA Diez and care transferred to YAMILA [place]
[2020-04-09 19:10] LABS: Troponin 5 2HR 69.28 ng/L (0-15); Troponin 5 2HR Delta 4.28 ABS# (0-10)
--- NOTE | 2020-04-09 19:12 | ED_ITS ---
HPI - General Adult General: Chief complaint: General Medical Stated complaint: irregular hr Time Seen by Provider: 04/09/20 16:25 History of Present Illness: HPI narrative: This patient is a pleasant 79-year-old gentleman presenting with rapid heart rate. He was at physical therapy for his recent total knee replacement and the physical therapist noted a fast and irregular heart rate. She thought he was probably in atrial fibrillation and sent him over to the ER at his doctor's recommendation. The patient says he has been having dizzy spells and a little bit of chest pain off and on. He has never had any problems with an irregular heart rate before. He has had stents most recently in November 2018. He sees Dr. Locke for his carbonator. He says that he took his blood pressure and heart rate at home a couple of days ago because he was not feeling well and at that time his heart rate was in the 150s. He says that he recently saw Dr. Locke and he took him off a couple of his blood pressure medicines but is not sure which ones. Associated symptoms: Reports chest pain and dyspnea; Deny headache(s), malaise, nausea, rash or vomiting Review of Systems General: Reports: 10 or more systems reviewed and unremarkable except in HPI and below Const: Denies: fever(s), chills, fatigue or malaise Eyes: Denies: change in vision ENMT: Denies: odynophagia Card: Reports: chest pain; Denies: swelling of feet/ankles Resp: Reports: dyspnea; Denies: productive cough or non-productive cough GI: Denies: abdominal pain, nausea or vomiting : Denies: flank pain Musc: Denies: neck pain or back pain Skin/Breast: Denies: rash Neuro: Reports: dizziness; Denies: headache(s), numbness in extremities or weakness in extremities Arsen/Lymph: Denies: easy bruising or easy bleeding PFSH ED PFSH: Medical History Abnormal PSA Atherosclerotic heart disease Benign essential hypertension with target blood pressure below 140/90 BPH NOS w ur obs/LUTS CAD (coronary artery disease) Depression Dyslipidemia Erectile dysfunction due to diseases classified elsewhere Hyperlipidemia Hypertension Hypogonadism male SOB (shortness of breath) Type 2 diabetes mellitus Surgical History History of heart artery stent Hx of cholecystectomy Status post laser cataract surgery of both eyes Family History Father , AT AGE 86 HEART DISEASE,AL,DIABETES Diabetes CAD (coronary artery disease) Mother , AT AGE 80 No problems noted. Social History Smoking and tobacco status: former smoker Alcohol intake: former Adopted: No Caregiver/support person: No Lives independently: No Household members: spouse Marital status: Current occupational status: retired History of recent travel: No Current gender identity: Male Physical Exam Const: COMMON NORMALS: no acute distress, patient oriented x3, no limitations and alert GENERAL APPEARANCE: cooperative and comfortable HENMT: HEAD & SCALP: normal to inspection FACE & SINUS: normal facial exam Eye: GENERAL EYE: appearance normal, both eyes and all related structures Neck/C-Spine: COMMON NORMALS: supple, no meningeal signs and no JVD Chest: COMMONS NORMALS: normal inspection of the chest Resp: COMMON NORMALS: normal respiratory effort, No use of accessory muscles and clear to auscultation bilaterally AUSCULTATION: clear to auscultation bilaterally Cardio: COMMON NORMALS: no JVD and No murmurs present (Cardio) RATE: tachycardic RHYTHM: abnormal rhythm irregularly irregular GI: COMMON NORMALS: Normal to inspection, nondistended, normoactive bowel sounds present, Soft to palpation and non-tender INSPECTION: Yes normal to inspection AUSCULTATION: Yes normoactive bowel sounds PALPATION: Yes Soft to palpation Back/Pelvis: COMMON NORMALS: thoracic and lumbar spine normal to inspection Extremity: COMMON NORMALS: normal to inspection Neuro: COMMON NORMALS: patient oriented x3, moves all extremities, no focal motor deficits and no sensory deficits noted SENSORIUM/ORIENTATION: Yes alert MENINGEAL SIGNS: Yes no meningeal signs Psych: COMMON NORMALS: mental status grossly normal, cooperative and normal affect Skin: COMMON NORMALS: no rashes or lesions noted and turgor normal GENERAL SKIN EXAM: no rashes or lesions noted and turgor normal Course ED course: Patient will be admitted to the hospitalist. He continues to have normal sinus rhythm although with a significant NH lengthening and first-degree AV block. Then he will have rapid heart rate in the 140s which appears to be sinus. At times he has ectopy which makes the rate irregular but for the most part he appears to be in sinus either normal sinus or sinus tachycardia. I gave a dose of IV metoprolol with really not much significant change. D-dimer was markedly elevated but his creatinine is 1.9, precluding a CT scan. I gave him a dose of Lovenox on a prophylactic basis and perhaps a nuclear medicine study can be done tomorrow or a CT can be done if his renal function improves with some hydration. Vital Signs: Vital signs: Vital Signs Temperature 97.7 F 04/09/20 16:09 Pulse Rate 82 04/09/20 19:23 Respiratory Rate 15 04/09/20 19:23 Blood Pressure 141/91 04/09/20 19:23 Pulse Oximetry 97 04/09/20 19:23 MDM - General Adult MDM Narrative: Medical decision making narrative: Irregular rate and tachycardia. Initially thought the patient was in A. fib as well however the EKG and monitor actually show what seems to be a sinus rhythm with multiple ectopic beats. Is rate consistently varies from 80s to 150s. He is symptomatic with the rapid heart rate. He was previously on Cardizem and metoprolol for blood pressure and apparently these were the meds that were stopped. This may be contributing to his irregular heart rate now. We will give him a dose of metoprolol here in the ER and see if that makes a difference. As he is symptomatic and persistently tachycardic at times I think he should probably be admitted for further management of these symptoms. He also has chronic cytopenia with a low white count and anemia. This is been going on for some time. His renal function is poor with a creatinine 1.9 and this is similar to recent tests although new over the past few years. Lab Data: Labs: Lab Results 04/09/20 04/09/20 04/09/20 Range/Units 16:30 16:30 16:30 WBC 2.7 L (4.0-10.0) 10^3/ uL RBC 2.82 L (4.1-5.3) 10^6/u L Hgb 9.1 L (11.7-16.6) g/dL Hct 29.4 L (42.0-52.0) % MCV 104.3 H (80-94) fL MCH 32.3 (28.0-34.0) pg MCHC 31.0 (30.0-36.0) g/dL RDW 15.9 H (12.1-15.1) % Plt Count 347 (130-400) 10^3/c mm MPV 11.2 H (7.4-10.4) fL Neut % (Auto) 48.1 % Lymph % (Auto) 31.1 % [place] % (Auto) 18.1 % Eos % (Auto) 1.9 % Baso % (Auto) 0.4 % Neut # (Auto) 1.30 L (1.8-7.7) 10^3/u L Lymph # (Auto) 0.8 (0.8-4.8) 10^3/u L [place] # (Auto) 0.5 (0.2-0.9) 10^3/u L Eos # (Auto) 0.1 (0.0-0.8) 10^3/u L Baso # (Auto) 0.0 (0.0-0.1) 10^3/u L Nucleated RBC % (a uto) 0 % Nucleated RBCs # 0.0 /100WBC PT 14.70 H (10.5-13.3) SECO NDS INR 1.12 (0.8-1.2) D-Dimer 3.74 H (0-0.59) ug/mIFE U Sodium (136-145) mmol/L Potassium (3.5-5.1) mmol/L Chloride (98-107) mmol/L Carbon Dioxide (22-29) mmol/L Anion Gap (5-19) BUN (8-23) mg/dL Creatinine (0.7-1.2) mg/dL Glucose (65-115) mg/dL Calculated Osmolal ity (285-295) mOsm/k g Lactate (0.5-2.2) mmol/L Calcium (8.5-10.5) mg/dL Total Bilirubin (0.15-1.2) mg/dL AST (0-40) U/L ALT (0-41) U/L Alkaline Phosphata se (40-130) IU/L Troponin T Baselin e 65 H (0-15) ng/L Troponin T 120 Min [place] (0-15) ng/L Delta Troponin T (0-10) ABS# Total Protein (6.6-8.7) g/dL Albumin (3.5-5.2) g/dL Globulin (1.3-4.6) g/dL 04/09/20 04/09/20 04/09/20 Range/Units 16:30 16:30 18:43 WBC (4.0-10.0) 10^3/ uL RBC (4.1-5.3) 10^6/u L Hgb (11.7-16.6) g/dL Hct (42.0-52.0) % MCV (80-94) fL MCH (28.0-34.0) pg MCHC (30.0-36.0) g/dL RDW (12.1-15.1) % Plt Count (130-400) 10^3/c mm MPV (7.4-10.4) fL Neut % (Auto) % Lymph % (Auto) % [place] % (Auto) % Eos % (Auto) % Baso % (Auto) % Neut # (Auto) (1.8-7.7) 10^3/u L Lymph # (Auto) (0.8-4.8) 10^3/u L [place] # (Auto) (0.2-0.9) 10^3/u L Eos # (Auto) (0.0-0.8) 10^3/u L Baso # (Auto) (0.0-0.1) 10^3/u L Nucleated RBC % (a uto) % Nucleated RBCs # /100WBC PT (10.5-13.3) SECO NDS INR (0.8-1.2) D-Dimer (0-0.59) ug/mIFE U Sodium 136 (136-145) mmol/L Potassium 3.9 (3.5-5.1) mmol/L Chloride 98 (98-107) mmol/L Carbon Dioxide 22 (22-29) mmol/L Anion Gap 19.9 H (5-19) BUN 33 H (8-23) mg/dL Creatinine 1.9 H (0.7-1.2) mg/dL Glucose 156 H (65-115) mg/dL Calculated Osmolal ity 282 L (285-295) mOsm/k g Lactate 3.3 H (0.5-2.2) mmol/L Calcium 9.5 (8.5-10.5) mg/dL Total Bilirubin 0.6 (0.15-1.2) mg/dL AST 19 (0-40) U/L ALT 16 (0-41) U/L Alkaline Phosphata se 71 (40-130) IU/L Troponin T Baselin e (0-15) ng/L Troponin T 120 Min [place] 69.28 H (0-15) ng/L Delta Troponin T 4.28 (0-10) ABS# Total Protein 6.8 (6.6-8.7) g/dL Albumin 4.3 (3.5-5.2) g/dL Globulin 2.5 (1.3-4.6) g/dL Discharge Plan Discharge Patient Disposition: Placed in Observation Clinical Impression: Tachycardia Condition: Stable Referrals: Ferdinand Arteaga MD [Primary Care Provider] - Coding Level of Care Code ED Senior Software Development Engineer for Chg Fwd Exam Comprehensive
[2020-04-09] MEDS: metoprolol tartrate 1 mg/1 mL SDV 5 mL 5 MG IV (19:20)
--- NOTE | 2020-04-09 19:59 | PC.NURSE ---
EKG done [id number] and shown to ER doctor
[2020-04-09] MEDS: enoxaparin 100 mg/mL Syringe 90 MG SUBCUT (20:30)
--- NOTE | 2020-04-09 21:50 | PC.NURSE ---
PATIENT UP TO BATHROOM
--- NOTE | 2020-04-09 22:18 | ECG_ITS ---
[facility] Test Date: 2020-04-10 Pat Name: Nicolás Menjivar Department: Room: 104 Gender: Male Recruiting Internship: LYNN : 1940 Requested By: Jovanna Sanchez Order Number: [id number] Funmilayo MD: Lorri Lin M.D. Measurements Intervals [place] Rate: 132 P: 250 AR: 173 QRS: -24 QRSD: 89 T: 11 QT: 214 QTc: 318 Interpretive Statements SINUS TACHYCARDIA MODERATE VOLTAGE CRITERIA FOR LVH, CONSIDER NORMAL VARIANT INFERIOR MYOCARDIAL INFARCTION, PROBABLY OLD WARNING: DATA QUALITY MAY AFFECT INTERPRETATION Compared to ECG 04/09/2020 20:02:08 First degree AV block no longer present Myocardial infarct finding still present Electronically Signed On 04-10-2020 17:02:08 CDT by Lorri Lin M.D. [email or web address]/store/[id number]
--- NOTE | 2020-04-09 22:45 | PC.NURSE ---
Patient arrived from ER via wheelchair. Patient alert and oriented. Patient placed on telemetry and vitals obtained. Patient visrosita Sykes Terry his and patient has a mask in his room. Dr. Anaya updated on patient Heartrate and awAITING further orders.
[2020-04-09 22:54] LABS: Troponin 5 6HR 62.03 ng/L (0-15)
[2020-04-09 22:57] LABS: Troponin 5 6HR Delta -2.97 ng/L (0-12)
--- NOTE | 2020-04-09 23:51 | PC.NURSE ---
PASSWORD: [id number]
[2020-04-10] VITALS (29 sets, daily range): BP systolic 119–173; BP diastolic 68–111; PULSE 56–126; RESP 8–25; TEMP 36.4–36.8; O2SAT 91–98
[2020-04-10 00:26] LABS: Magnesium 1.7 mg/dL (1.7-2.3); Thyroid Stimulating Hormone 3.01 uIU/mL (0.27-4.20)
--- NOTE | 2020-04-10 01:19 | P.HP_ITS ---
Providers/Chief Complaint Admitting Physician: Kade Crockett Primary Care Provider: Ferdinand Arteaga MD Chief Complaint: irregular hr History of Present Illness Nicolás Menjivar is a very pleasant 79 year old male with recurrent episodes of dizziness due to which he recently discontinued taking his diltiazem and metoprolol, he normally follows with cardiology Dr. Locke in office for coronary disease for which he had [facility] stenting back in November in [facility], although with noted other foci of coronary disease at the time, in February has also undergone left TKA, for which has been undergoing physical therapy currently, and while in therapy was noted to have fast heart rate up to 130s-140s. Irregular. There was concern for possible A. fib with RVR, although on evaluation in ER does appear to have P waves present. With MO prolongation. He says has been having some occasional twinge of chest discomfort in the left side on and off for last several days, however, nothing persistent. He otherwise has not been symptomatic from the tachycardia. 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 His heart rates are variable, with episodes of fast heart rates into 120s, intermittently blood pressures have remained stable. Troponin initially the 70s. With mild elevation, without significant rise on 2- hour 65-69.28. Review of Systems Const: Denies: fever(s), chills, body aches or malaise Eyes: Denies: change in vision or eye redness ENMT: Denies: throat pain, oral sores or ear or mastoid pain Card: Reports: pre-syncope (Intermittent episodes of dizziness); Denies: chest pain, edema or dyspnea on exertion Resp: Denies: dyspnea, productive cough, change in phlegm color or hemoptysis GI: Denies: abdominal pain, nausea, vomiting, diarrhea, constipation, hematochezia or melena : Denies: flank pain, difficulty urinating, urinary frequency or hematuria Musc: Denies: back pain, joint swelling or joint redness Skin/Breast: Denies: rash, sores or new lesions Neuro: Denies: headache(s), numbness in extremities, weakness in extremities, dizziness, confusion or seizure-like activity Endo: Denies: polyuria or polydipsia Arsen/Lymph: Denies: easy bleeding or purpura All/Imm: Denies: urticaria, throat swelling or tongue swelling Medications/Allergies Home Medications Medication Instructions Recorded Confirmed Last Taken Type amitriptyline 25 mg tablet 25 mg PO DAILY 10/11/19 04/08/20 02/26/20 History diltiazem HCl 120 mg 120 mg PO BID 10/11/19 04/08/20 02/26/20 History capsule,extended release 12 hr escitalopram oxalate 20 mg tablet 20 mg PO DAILY 10/11/19 04/08/20 02/26/20 History metformin 500 mg tablet 1,000 mg PO BID tab 10/11/19 04/08/20 02/26/20 History metoprolol succinate 50 mg capsule 50 mg PO DAILY 10/11/19 04/08/20 02/27/20 04:00 History sprinkle, ext. release 24 hr simvastatin 40 mg tablet 40 mg PO DAILY 10/11/19 04/08/20 02/26/20 History triamterene 75 0.5 tab PO DAILY 10/11/19 04/08/20 02/26/20 History mg-hydrochlorothiazide 50 mg tablet multivitamin 1 tab PO DAILY 12/12/19 04/08/20 02/26/20 History testosterone cypionate 200 mg/mL 200 mg IM .ONCE MONTHLY each 12/12/19 04/08/20 12/17/19 History intramuscular kit tamsulosin 0.4 mg capsule 0.4 mg PO BID #180 cap 12/15/19 04/08/20 02/26/20 Rx docusate sodium 100 mg PO BID PRN 12/18/19 04/08/20 02/26/20 History finasteride 5 mg PO DAILY 12/18/19 04/08/20 02/26/20 History naproxen sodium [Aleve] 440 mg PO BID 12/18/19 04/08/20 02/26/20 History clopidogrel 75 mg tablet 75 mg PO DAILY #90 tab 01/15/20 04/08/20 02/06/20 Rx tramadol 50 mg PO Q4H PRN #30 tab 02/28/20 04/08/20 Unknown Rx clindamycin HCl 300 mg capsule 300 mg PO Q6H #40 cap 02/29/20 04/08/20 Unknown Rx oxycodone 5 mg capsule 5 mg PO Q6H PRN 7 Days #28 cap 02/29/20 04/08/20 Unknown Rx oxycodone 5 mg tablet,oral ONLY 5 mg PO Q6H PRN 7 Days #28 each 02/29/20 04/08/20 Unknown Rx (not feeding tubes) sulfamethoxazole 800 1 tab PO BID 10 Days #20 tab 03/28/20 04/08/20 Unknown Rx mg-trimethoprim 160 mg tablet acetaminophen 500 mg tablet 1,000 mg PO Q8H PRN tab 04/01/20 04/08/20 Unknown History aspirin 325 mg tablet 325 mg PO DAILY 04/01/20 04/08/20 Unknown History furosemide 40 mg tablet 40 mg PO DAILY 04/01/20 04/08/20 Unknown History glipizide 5 mg tablet 5 mg PO BID tab 04/01/20 04/08/20 Unknown History isosorbide mononitrate 30 mg 30 mg PO DAILY tab 04/01/20 04/08/20 Unknown History tablet,extended release 24 hr metoprolol tartrate 50 mg tablet 50 mg PO BID 04/01/20 04/08/20 Unknown History pyridoxine (vitamin B6) 100 mg 100 mg PO QID 04/01/20 04/08/20 Unknown History tablet tizanidine 4 mg tablet 4 mg PO TID PRN tab 04/01/20 04/08/20 Unknown History vitamin B complex 1 tab PO DAILY 04/01/20 04/08/20 Unknown History Allergies Allergy/AdvReac Type Severity Reaction Status Date / Time bupropion [From Wellbutrin] Allergy Unknown Unknown Verified 04/09/20 16:14 celecoxib [From Celebrex] Allergy Unknown Unknown Verified 04/09/20 16:14 rofecoxib [From Vioxx] Allergy Unknown Verified 04/09/20 16:14 PFSH Acute PFSH: Medical History Abnormal PSA Atherosclerotic heart disease Benign essential hypertension with target blood pressure below 140/90 BPH NOS w ur obs/LUTS CAD (coronary artery disease) Depression Dyslipidemia Erectile dysfunction due to diseases classified elsewhere Hyperlipidemia Hypertension Hypogonadism male SOB (shortness of breath) Type 2 diabetes mellitus Surgical History History of heart artery stent Hx of cholecystectomy Status post laser cataract surgery of both eyes Family History Father , AT AGE 86 HEART DISEASE,IN,DIABETES Diabetes CAD (coronary artery disease) Mother , AT AGE 80 No problems noted. Social History Smoking and tobacco status: former smoker Alcohol intake: former Adopted: No Caregiver/support person: No Lives independently: No Household members: spouse Marital status: Current occupational status: retired History of recent travel: No Current gender identity: Male Vitals/I&O/Wt Last Vital Signs Temp 98.2 F 04/09/20 22:49 Pulse 125 H 04/09/20 22:49 Resp 21 H 04/09/20 22:49 BP 110/95 04/09/20 22:49 Pulse Ox 96 04/09/20 22:49 Weight last 48 hrs Weight 88.451 kg Physical Exam Const: COMMON NORMALS: no acute distress and patient oriented x3 GENERAL APPEARANCE: frail appearing HENMT: COMMON NORMALS: oropharynx normal Neck/C-Spine: COMMON NORMALS: no JVD Resp: COMMON NORMALS: normal respiratory effort and clear to auscultation bilaterally AUSCULTATION: clear to auscultation bilaterally Cardio: COMMON NORMALS: no JVD, regular rhythm, S1 normal heart sound present, S2 normal heart sound present and No murmurs present (Cardio) RATE: tach ycardic RHYTHM: regular rhythm HEART SOUNDS: S1 normal heart sound present and S2 normal heart sound present GI: COMMON NORMALS: Normal to inspection, nondistended, normoactive bowel sounds present, Soft to palpation and non-tender PALPATION: Yes Soft to palpation Extremity: COMMON NORMALS: no joint enlargement and no pedal edema OTHER: Left TKA wound appears clean, no erythema, no drainage or bleeding. Minimal if any swelling around the knee, down the left distal leg. Neuro: COMMON NORMALS: patient oriented x3 and moves all extremities Skin: COMMON NORMALS: no rashes or lesions noted GENERAL SKIN EXAM: no rashes or lesions noted Data : 04/09/20 16:30 04/09/20 16:30 A&P Assessment and plan (1) Tachycardia: Episodes of tachycardia, unclear exact etiology. At times appears irregular, but with ectopic beats. Intermittent sinus rhythm with prolonged MO. At the same time does appear to have progressive prolongation, and occasionally dropped beat, and appears may have Mobitz 1 second-degree block. Tachycardia is intermittently in 130s, possibly junctional escape rhythm. At this time does not have chest pain, although reports occasional twinge in the left side of the chest over the past week. Mild ovation of troponin 65-69. Will complete series to exclude myocardial ischemia given known coronary disease. Check TSH, magnesium. Last TTE in October 2018, EF 55%, no significant valvular abnormality. Will request for TTE, although this may be difficult to obtain right away given episodes of tachycardia. He has been stable in terms of blood pressure, and asymptomatic, so at this time given concern for second-degree block we will hold off restarting his metoprolol or Cardizem. He will require additional evaluation by cardiology. Given also tachycardia, recent orthopedic surgery, occasional mild chest discomfort, for now we will continue anticoagulation, request VQ scan, lower extremity Dopplers. Discussed patient's condition, as well as the assessment and plan with him, and he verbalized understanding, as well as agreement to proceed. Status: Acute (2) S/P total knee arthroplasty: On 02/26. Has been undergoing physical therapy. There is mild swelling below the left knee, possibly postoperative. Will request for venous duplex to rule out DVT. Status: Acute Qualifiers: Laterality: left Qualified Code(s): Z96.652 - Presence of left artificial knee joint (3) Acute kidney injury superimposed on CKD: Creatinine up to 1.9. Baseline appears to be around 1.6. At this time would discontinue Aleve. Appears perhaps secondary to NSAID. Hold also transferring-HCTZ. Monitor renal function, ANNA. Does have history of BPH, although does not give history of retention. Will request for renal ultrasound. Status: Acute Additional A&P Information Elevated troponin: 65-69.2. With known coronary disease. Currently does not have persistent chest pain. At this time acute IN is not suspected, however will complete troponin EKG series. Please follow-up symptoms and laboratory results. [place] leukopenia: no sign of acute infection on preliminary studies so far. Please reassess. Follow up counts. Follow up on outpatient basis as may need additional evaluation. Anemia: macrocytic. Hemoglobin appears stable. Consider additional evaluation on nonemergent basis. Attestations Medical Necessity Statement*: Admission of over 2 midnights is going to needed for assessment of management of arrhythmia, heart block, in the setting of known coronary disease, assessment for possible PE given recent orthopedic surgery, acute kidney injury, in the setting of other chronic medical comorbidities. Coding Level of Care Code Acute Diamond Setter for g Fwd Exam Comprehensive Diagnoses Tachycardia R00.0 S/P total knee arthroplasty Z96.652 Laterality: left Acute kidney injury superimposed on CKD N17.9; N18.9
--- NOTE | 2020-04-10 01:31 | USCV_ITS ---
Nicolás Menjivar Age: 79 Gender: M : 1940 Exam Date: 04/10/2020 07:59 Ordering Phys: Kade Crockett MD Technologist: Jonelle Doe Exam Location: [facility] – [place] Indication: TACHY DVT HISTORY: Tachy PROCEDURES: The venous duplex Doppler examination of both lower extremities was performed in the standard fashion. The following venous structures were evaluated: common femoral vein, profunda vein, proximal portion of the greater saphenous vein, superficial femoral vein, and the popliteal vein. In addition, the posterior tibial and peroneal trunk were evaluated. Serial compression, augmentation maneuvers, and spectral Doppler flow evaluation were performed. FINDINGS: No DVT seen in any vessel examined The veins were found to be easily compressible with spontaneous blood flow. Non pulsatile flow pattern. CONCLUSIONS No evidence of DVT in the above-mentioned identifiable veins. Dr Kim Locke MD [facility] (Electronically Signed) Final Date: 10 April 2020 22:34 S
--- NOTE | 2020-04-10 01:32 | NM_ITS ---
WS: [id number] NUCLEAR MEDICINE LUNG VENTILATION AND PERFUSION CLINICAL INFORMATION: assess for PE TECHNIQUE: Ventilation/perfusion lung scan with 27.3 mCi technetium 99m DTPA. 4.6 mCi technetium 99m MAA COMPARISON: None. FINDINGS: Radiographs August 10, 2020 reviewed. Patchy radiotracer deposition on the ventilation images with deposition along the central bronchi. Pa tchy uptake due to emphysematous changes. Normal symmetric perfusion images. No mismatched ventilation/perfusion defects to indicate pulmonary embolus. No lobar defects. Exam interpreted using the PIOPED II criteria 2008: 1. Normal 2. High probability (> 80%) 3. Intermediate probability (20-79%) 4. Low probability (10-19%) 5. Very low probability (<10%) JNM 2006 6. Indeterminate NM/NM pul vent and perfus* [id number] IMPRESSION: 1. Low probability for pulmonary embolus.
--- NOTE | 2020-04-10 01:43 | US_ITS ---
WS: [id number] ULTRASOUND RENAL TECHNIQUE: Ultrasound examination of both kidneys. CLINICAL INFORMATION: CHRISTIAN on CKD COMPARISON: None. FINDINGS: RIGHT: Right kidney is normal in size and appearance. Echogenicity: Normal. Cortical thickness: 1.5 cm; Normal. Hydronephrosis: None. Perinephric fluid: None. Right kidney measures: 11.4 cm x 6.0 cm x 7.0 cm. LEFT: Left kidney is normal in size and appearance. Echogenicity: Normal. Cortical thickness: cm; Normal. Hydronephrosis: None. Perinephric fluid: None. Left kidney measures: 11.3 cm x 6.5 cm x 6.0 cm. Normal visualized aorta. Distended bladder US/US renal BI with bladder IMPRESSION: 1. NORMAL RENAL ULTRASOUND. 2. DISTENDED BLADDER. 3. ENLARGED PROSTATE MEASURING 6.3 CM. RECOMMEND CORRELATION FOR BLADDER OUTLE T OBSTRUCTION
[2020-04-10 02:27] LABS: Magnesium 1.8 mg/dL (1.7-2.3)
[2020-04-10] MEDS: magnesium sulfate premix 2 GM/50 ML PIGGYBACK IV (02:36)
[2020-04-10 04:28] LABS: Magnesium 2.4 mg/dL (1.7-2.3)
--- NOTE | 2020-04-10 06:03 | PC.NURSE ---
PT HR RANGES FROM 110'S TO 150'S. HOSPITALIST IS AWARE AND DOESN'T WANT TO GIVE ANYTHING AT THIS TIME. DR IS AWAITING DR ATKINS TO ASSESS PT. PT DENIES PAIN AT THIS TIME. WILL GIVE REPORT TO ON COMING NURSE.
[2020-04-10 06:52] LABS: Glucose Point of Care 180 mg/dL (70-110)
[2020-04-10] MEDS: metoprolol tartrate 1 mg/1 mL SDV 5 mL 5 MG IV (07:34)
--- NOTE | 2020-04-10 07:39 | PC.NURSE ---
Physician Notification Patient in SVT on telemetry. Nurse assessed patient. Patient asymptomatic. BP WNL. Nurse instructed patient on vagal maneuvers at bedside. Patient HR would drop to 80s for a small period of time before returning to 130-140s a fib. Dr. Locke notified via telephone at 0710. Physician gave order for nurse to administer 5 mg of metoprolol IVP. Administer slowly and watch HR and BP closely, RBVO.
--- NOTE | 2020-04-10 07:45 | PC.NURSE ---
Metoprolol administration Patient briefly converted to NSR while metoprolol was administered but would return to afib rvr. Dr. Locke notified. Physician gave telephone order to start patient on a cardizem gtt at 10 mg/hr after a cardizem bolus of 10 mg, RBVO. Physician also gave telephone order for patient to receive breakfast since he is asymptomatic.
--- NOTE | 2020-04-10 08:34 | P.CONIM_ITS ---
Providers/Reason For Consult Consulting Physican/Specialty*: Mushtaq Locke MD/cardiology Reason for Consult*: Patient with tachycardia/ASHD Attending Physician: Kimberly Sheriff MD Primary Care Provider: Ferdinand Arteaga MD History of Present Illness History of Present Illness Nicolás Menjivar is a 79 year old male with a history of coronary artery disease, status post PCI of the LAD lesions in October 2018, history of essential benign hypertension, dyslipidemia is now presenting with new onset of tachyarrhythmia. Patient had a recent knee surgery. He has been undergoing physical therapy in the rehab facility. He was found to have a tachyarrhythmia with a heart rate in the 120s and 130s while being at the rehab place. For this reason, he was sent to the emergency room. In the emergency room, he was found to have episodes of tachycardia and bradycardia arrhythmias. The heart rate may go down to the axes and then goes up into the 130- 40 range. He also had some questionable episodes of heart blocks, based on the ER note. However there is no documented rhythm strip or EKG to substantiate this statement. According the patient, he was getting dizzy and lightheaded after his surgery. For that reason, he stopped taking his blood pressure medications, both Cardizem and metoprolol. Since then, patient has significant improvement of the symptoms. He denies any fever or chills. No cough. No syncopal episodes. Patient had the most recent cardiac authorization in November 2018. At that time, he was found to have high-grade lesions in the proximal and distal LAD. Moderate to high-grade lesions in the intermedius artery and distal branch of the PLV. The LAD lesions were stented. Since then, the patient has been doing okay with no chest pain or any unusual shortness of breath. Denies any fever, chills or cough. No other specific complaints. Review of Systems Narrative: CONSTITUTIONAL: No fever or chills. EYES: No blurring of vision or other visual disturbances lately. ENT: No hoarseness of voice, auditory disturbances or sore throat. CARDIOVASCULAR: Has been having episodes of dizziness and palpitations for the last few weeks RESPIRATORY: Has been having episodes of shortness of breath with the dizzy spells. GASTROINTESTINAL: No hematemesis or melena. GENITOURINARY: No dysuria or hematuria. INTEGUMENTARY: No skin rashes or history of skin cancer. NEURO: Dizzy spells as mentioned above PSYCHIATRIC: No history of psychosis or major depression. HEMATOLOGIC: No bleeding disorders or significant anemia. ENDOCRINE: Type 2 diabetes MUSCULOSKELETAL: Recent left knee surgery ALLERGY/IMMUNOLOGY: As mentioned above. Meds/Allergies Home Medications and Allergies Home Medications Medication Instructions Recorded Confirmed Last Taken Type amitriptyline 25 mg tablet 25 mg PO DAILY 10/11/19 04/10/20 02/26/20 History escitalopram oxalate 20 mg tablet 20 mg PO DAILY 10/11/19 04/10/20 02/26/20 History metformin 500 mg tablet 1,000 mg PO BID tab 10/11/19 04/10/20 02/26/20 History simvastatin 40 mg tablet 40 mg PO DAILY 10/11/19 04/10/20 02/26/20 History multivitamin 1 tab PO DAILY 12/12/19 04/10/20 02/26/20 History testosterone cypionate 200 mg/mL 200 mg IM .ONCE MONTHLY each 12/12/19 04/10/20 12/17/19 History intramuscular kit tamsulosin 0.4 mg capsule 0.4 mg PO BID #180 cap 12/15/19 04/10/20 02/26/20 Rx docusate sodium 100 mg PO BID PRN 12/18/19 04/10/20 02/26/20 History finasteride 5 mg PO DAILY 12/18/19 04/10/20 02/26/20 History naproxen sodium [Aleve] 440 mg PO BID 12/18/19 04/10/20 02/26/20 History clopidogrel 75 mg tablet 75 mg PO DAILY #90 tab 01/15/20 04/10/20 02/06/20 Rx tramadol 50 mg PO Q4H PRN #30 tab 02/28/20 04/10/20 Unknown Rx oxycodone 5 mg tablet,oral ONLY 5 mg PO Q6H PRN 7 Days #28 each 02/29/20 04/10/20 Unknown Rx (not feeding tubes) acetaminophen 500 mg tablet 1,000 mg PO Q8H PRN tab 04/01/20 04/10/20 Unknown History aspirin 325 mg tablet 325 mg PO DAILY 04/01/20 04/10/20 Unknown History furosemide 40 mg tablet 40 mg PO DAILY 04/01/20 04/10/20 Unknown History glipizide 5 mg tablet 5 mg PO BID tab 04/01/20 04/10/20 Unknown History isosorbide mononitrate 30 mg 30 mg PO DAILY tab 04/01/20 04/10/20 Unknown History tablet,extended release 24 hr pyridoxine (vitamin B6) 100 mg 100 mg PO QID 04/01/20 04/10/20 Unknown History tablet tizanidine 4 mg tablet 4 mg PO TID PRN tab 04/01/20 04/10/20 Unknown History vitamin B complex 1 tab PO DAILY 04/01/20 04/10/20 Unknown History triamterene-hydrochlorothiazid 0.5 tab PO DAILY 04/10/20 04/10/20 Unknown History Allergies Allergy/AdvReac Type Severity Reaction Status Date / Time bupropion [From Wellbutrin] Allergy Unknown Unknown Verified 04/09/20 16:14 celecoxib [From Celebrex] Allergy Unknown Unknown Verified 04/09/20 16:14 rofecoxib [From Vioxx] Allergy Unknown Verified 04/09/20 16:14 Current Medications Current Medications Generic Name Dose Route Start Last Admin Trade Name Freq PRN Reason Stop Dose Admin Insulin Aspart 0 unit 04/10/20 08:00 04/10/20 07:33 Novolog SUBCUT 2 unit TIDWM NIMO Administration Protocol PFSH Acute PFSH: Medical History (Updated 04/10/20 @ 12:40 by Kimberly Sheriff MD) Abnormal PSA Atherosclerotic heart disease Atherosclerotic heart disease of [place] coronary artery without angina pectoris Benign essential hypertension with target blood pressure below 140/90 BPH NOS w ur obs/LUTS CAD (coronary artery disease) Depression Dyslipidemia Erectile dysfunction due to diseases classified elsewhere Hyperlipidemia Hypertension Hypogonadism male SOB (shortness of breath) Transient atrial fibrillation/flutter Type 2 diabetes mellitus Surgical History (Updated 04/10/20 @ 12:35 by Kimberly Sheriff MD) History of heart artery stent History of knee replacement procedure of left knee Hx of cholecystectomy Status post laser cataract surgery of both eyes Family History Father , AT AGE 86 HEART DISEASE,ND,DIABETES Diabetes CAD (coronary artery disease) Mother , AT AGE 80 No problems noted. Social History Smoking and tobacco status: former smoker Alcohol intake: former Adopted: No Caregiver/support person: No Lives independently: No Household members: spouse Marital status: Current occupational status: retired History of recent travel: No Current gender identity: Male Vitals/I&O/Wt Last Vital Signs Temp 98.3 F 04/10/20 07:31 Pulse 83 04/10/20 07:31 Resp 16 04/10/20 07:31 BP 137/95 04/10/20 07:31 Pulse Ox 95 04/10/20 07:31 04/09/20 04/10/20 04/10/20 22:59 06:59 14:59 Intake Total 50 / 50 Output Total 300 / 300 250 / 250 Balance -300 / -300 -200 / -200 Weight last 48 hrs Weight 187 lb 6.4 oz Weight 195 lb Physical Exam Narrative: EXAM NARRATIVE: GENERAL: The patient is alert and oriented times three. Not in any acute distress. HEENT: No significant pallor, icterus or lymphadenopathy. The pupils are reactant to light. Oral cavity: There are no mucous membrane lesions. Funduscopic examination: The disk margins appear to be sharp with no exudates or hemorrhages. NECK: Trachea appears to be central. No masses noted. No JVD or thyromegaly appreciated. No carotid bruit. RESPIRATORY: Chest is symmetrical. No intercostals muscle retraction or any accessory muscle activation. There is no chest wall tenderness. Breath sounds are heard bilaterally. No rales or rhonchi heard. No evidence of any consolidation. BREASTS: Deferred. HEART: The PMI is in the 5th left intercostals space just inside the midclavicular line. No palpable precordial events. S1 and S2 are normal. No S3 or S4 heard. No pericardial rub or any click heard. ABDOMEN: No vessel pulsations or distention. No tenderness. No organomegaly appreciated. No abdominal bruit. Bowel sounds are normally heard. : Deferred. RECTAL: Deferred. LYMPHATIC: No lymphadenopathy noted in the neck or groin. EXTREMITIES: No edema or cyanosis. No clubbing. The pulses are symmetrical bilaterally. The radial, femoral, dorsalis pedis and the posterior tibial pulses are palpated and found to be in good volume and amplitude. MUSCULOSKELETAL: No acute joint deformities or swelling. Healthy scar over the left knee SKIN: There are no significant scars or skin rash noted. NEUROPSYCHIATRIC: The patient is alert and oriented x3. Appears to be in a good mood. The higher functions are grossly within normal limits. No tremors or rigidity noted. Data Labs: Other Labs: Laboratory Last Values WBC 2.7 10^3/uL (4.0- 10.0) L 04/09/20 16:30 RBC 2.82 10^6/uL (4.1 -5.3) L 04/09/20 16:30 Hgb 9.1 g/dL (11.7-16 .6) L 04/09/20 16: Hct 29.4 % (42.0-52.0 ) L 04/09/20 16: MCV 104.3 fL (80-94) H 04/09/20 16:30 MCH 32.3 pg (28.0-34. 0) 04/09/20 16: MCHC 31.0 g/dL (30.0-3 6.0) 04/09/20 16: RDW 15.9 % (12.1-15.1 ) H 04/09/20 16:30 Plt Count 347 10^3/cmm (130 -400) 04/09/20 16: MPV 11.2 fL (7.4-10.4 ) H 04/09/20 16:30 Neut % (Auto) 48.1 % 04/09/20 16:30 Lymph % (Auto) 31.1 % 04/09/20 16: [place] % (Auto) 18.1 % 04/09/20 16: Eos % (Auto) 1.9 % 04/09/20 16: Baso % (Auto) 0.4 % 04/09/20 16: Neut # (Auto) 1.30 10^3/uL (1.8 -7.7) L 04/09/20 16:30 Lymph # (Auto) 0.8 10^3/uL (0.8- 4.8) 04/09/20 16:30 [place] # (Auto) 0.5 10^3/uL (0.2- 0.9) 04/09/20 16:30 Eos # (Auto) 0.1 10^3/uL (0.0- 0.8) 04/09/20 16:30 Baso # (Auto) 0.0 10^3/uL (0.0- 0.1) 04/09/20 16:30 Nucleated RBC % (a uto) 0 % 04/09/20 16:30 Nucleated RBCs # 0.0 /100WBC 04/09/20 16:30 PT 14.70 SECONDS (10 .5-13.3) H 04/09/20 16:30 INR 1.12 (0.8-1.2) 04/09/20 16:30 D-Dimer 3.74 ug/mIFEU (0- 0.59) H 04/09/20 16:30 Sodium 136 mmol/L (136-1 45) 04/09/20 16:30 Potassium 3.9 mmol/L (3.5-5 .1) 04/09/20 16:30 Chloride 98 mmol/L (98-107 ) 04/09/20 16:30 Carbon Dioxide 22 mmol/L (22-29) 04/09/20 16:30 Anion Gap 19.9 (5-19) H 04/09/20 16:30 BUN 33 mg/dL (8-23) H 04/09/20 16:30 Creatinine 1.9 mg/dL (0.7-1. 2) H 04/09/20 16:30 Glucose 156 mg/dL (65-115 ) H 04/09/20 16:30 POC Glucose 180 mg/dL (70-110 ) 04/10/20 06:45 Calculated Osmolal ity 282 mOsm/kg (285- 295) L 04/09/20 16:30 Lactate 3.3 mmol/L (0.5-2 .2) H 04/09/20 16:30 Calcium 9.5 mg/dL (8.5-10 .5) 04/09/20 16:30 Magnesium 2.4 mg/dL (1.7-2. 3) H 04/10/20 03:45 Total Bilirubin 0.6 mg/dL (0.15-1 .2) 04/09/20 16:30 AST 19 U/L (0-40) 04/09/20 16:30 ALT 16 U/L (0-41) 04/09/20 16:30 Alkaline Phosphata se 71 IU/L (40-130) 04/09/20 16:30 Troponin T Baselin e 65 ng/L (0-15) H 04/09/20 16:30 Troponin T 120 Min [place] 69.28 ng/L (0-15) H 04/09/20 18:43 Delta Troponin T 4.28 ABS# (0-10) 04/09/20 18:43 Troponin T Hi Sens 6Hr 62.03 ng/L (0-15) H 04/09/20 22:24 Troponin T Hi Sens 6Hr Delta -2.97 ng/L (0-12) L 04/09/20 22:24 Total Protein 6.8 g/dL (6.6-8.7 ) 04/09/20 16:30 Albumin 4.3 g/dL (3.5-5.2 ) 04/09/20 16:30 Globulin 2.5 g/dL (1.3-4.6 ) 04/09/20 16:30 TSH 3.20 uIU/mL (0.27 -4.20) 04/10/20 01:47 ECHOCARDIOGRAPHY, COMPLETE ([id number]) 11/11/2018 Normal left ventricular size and systolic function, EF 55 %. Mild left ventricular hypertrophy. No regional wall motion abnormalities. Grade I/IV diastolic dysfunction (abnormal relaxation filling pattern), normal to mildly elevated filling pressures. Mildly increased left atrial size. Thickened mitral valve. Moderate mitral annular calcification. Thickened aortic valve. Trace tricuspid valve regurgitation. Estimated pulmonary artery peak systolic pressure of 33 mmHg Mild pulmonary valve regurgitation. There is no pericardial effusion. No previous study is available for comparison. Myocardial perfusion imaging on 05/12/2019 Medium-size area of old myocardial infarction versus scarring noted in basal to distal inferior and basal to mid inferolateral wall without snehal infarct ischemia. TID ratio is elevated which could be secondary to left ventricle hypertrophy however multivessel coronary artery disease is a possibility. This study is negative for ischemia. EKG segment will be documented separately. LEXISCAN SPECT CARDIAC STRESS TEST ([id number]) 11/11/2018 1. Nonspecific EKG changes with the LexiScan infusion 2. No LexiScan induced chest pain or cardiac arrhythmia 3. Normal blood pressure and heart rate response #1. Myocardial perfusion imaging revealing a moderate area for severely decreased tracer uptake in the inferolateral, inferior and apical lateral segments with some reversibility in the inferolateral region, suggestive of myocardial scarring mostly in the distribution of the left circumflex artery with a very small area of snehal-infarction ischemia. #2. Normal LV ejection fraction of 55%. #3. LV wall motion analysis revealing mild hypokinesia of the LV apex. #4. Mildly dilated LV cavity with an end systolic volume of 57 mL. No similar previous studies available for comparison. A LHC was done 11/25/2018. He was found tohave a high-grade lesion in the proximal and distal LAD. High-grade lesion in the small to medium sized intermedius artery, in the proximal segment. High-grade lesions also were noted in the distal PLV branch of the rightcoronary artery. Moderate disease in the other vessels. LVEDP was 21 mmHg. Proximal Left Anterior Descending Coronary Artery was successfully treated with Drug Eluting Stent. Distal Left Anterior Descending Coronary Artery was successfully treated with Drug Eluting Stent. A&P Assessment and plan (1) Transient atrial fibrillation/flutter: Patient has intermittent atrial flutter/fibrillation on the monitor. This appears to be new onset. Since he already has been taking the metoprolol and Cardizem, I may start him on Betapace 80 mg now and twice daily. The IV Cardizem may be tapered off over the next 4 hours, if he remains in sinus rhythm. Also may consider starting him on oral anticoagulation. We will go ahead and do an echocardiogram today to look at the LV function , atrial sizes and to rule out any other abnormalities Status: Acute (2) Atherosclerotic heart disease of [place] coronary artery without angina pectoris: Patient has no specific symptoms of coronary insufficiency. He may continue on the current medications. Once we start him on oral anticoagulation, may discontinue the aspirin Status: Acute Qualifiers: [place] vs. transplanted heart: [place] heart Qualified Code(s): I25.10 - Atherosclerotic heart disease of [place] coronary artery without angina pectoris (3) Dyslipidemia: Continue on the current medications. Status: Chronic (4) Benign essential hypertension with target blood pressure below 140/90: Currently normotensive. Continue on the antihypertensive medications. Status: Chronic Additional A&P Information Based on the patient's clinical progress, further management decisions will be made. Thank you for the opportunity to evaluate this patient make these recommendations Coding Level of Care Code Acute Porcelain Enamel Installer for Gissel Fontenot Diagnoses Transient atrial fibrillation/flutter Atherosclerotic heart disease of [place] coronary artery without angina pectoris I25.10 [place] vs. transplanted heart: [place] heart Dyslipidemia E78.5 Benign essential hypertension with target blood pressure below 140/90 I10
--- NOTE | 2020-04-10 08:51 | PC.NURSE ---
Cardizem 10 mg IV bolus given with primary bag. Patient tolerated well. Nurse to continue to monitor.
--- NOTE | 2020-04-10 08:56 | USCV_ITS ---
Nicolás Menjivar Age: 79 Gender: M : 1940 Exam Date: 04/10/2020 12:44 Ordering Phys: Kim Locke MD ([email or web address]) Technologist: Jonelle Doe Exam Location: [facility] [place] Indication: CHEST PAIN AFIB BP: 123 / 74 HR: 52 Rhythm: Sinus Technical Quality: MEASUREMENTS (Male / Female) Normal Values 2D ECHO LV Diastolic Diameter PLAX 5.1 cm 4.2 - 5.9 / 3.9 - 5.3 cm LV Systolic Diameter PLAX 3.1 cm LV Chamber Size 3.4 cm IVS Diastolic Thickness 1.3 cm 0.6 - 1.0 / 0.6 - 0.9 cm IVS Systolic Thickness 2.2 cm LVPW Diastolic Thickness 1.3 cm 0.6 - 1.0 / 0.6 - 0.9 cm LVPW Systolic Thickness 2.3 cm RV Chamber Size 3.2 cm LVOT Diameter 2.0 cm LV Ejection Fraction 2D Teich 69.1 % LV Ejection Fraction MOD 2C 50.4 % LV Ejection Fraction 2C AL 50.0 % LA Diameter 4.8 cm LA Width 3.8 cm LA Height 5.6 cm RA Width 4.3 cm RA Height 5.5 cm Aorta at Sinotubular Diameter 3.5 cm M-MODE LV Diastolic Diameter MM 3.3 cm 4.2 - 5.9 / 3.9 - 5.3 cm LV Systolic Diameter MM 2.1 cm LV Ejection Fraction MM Teich 68.5 % IVS Diastolic Thickness MM 1.0 cm 0.6 - 1.0 / 0.6 - 0.9 cm IVS Systolic Thickness MM 1.2 cm LVPW Diastolic Thickness MM 1.2 cm 0.6 - 1.0 / 0.6 - 0.9 cm LVPW Systolic Thickness MM 1.2 cm RV Diastolic Diameter MM 1.3 cm Aortic Annulus Diameter 3.8 cm LA Ao Ratio MM 1.3 MV E Point Septal Separation 0.5 cm DOPPLER AV Peak Velocity 152.0 cm/s LVOT Peak Velocity 93.0 cm/s AV Area Cont Eq vti 2.0 cm squared AV Area Cont Eq pk 2.0 cm squared MV Area PHT 4.4 cm squared Mitral E to A Ratio 1.6 MV E' Velocity 9.0 cm/s Mitral E to MV E' Ratio 13.5 Mitral E to LV E' Lateral Ratio 13.8 Mitral E to LV E' Septal Ratio 13.4 TR Peak Velocity 308.2 cm/s TR Peak Gradient 38.0 mmHg TR Mean Velocity 239.6 cm/s TR Mean Gradient 25.4 mmHg TR Velocity Time Integral 78.8 cm TV Peak E Velocity 91.0 cm/s Right Atrial Pressure 8.0 mmHg Pulmonary Artery Systolic Pressu 46.0 mmHg PV Peak Velocity 53.0 cm/s RV Acceleration Time 0.1 s RV Ejection Time 0.3 s RV AcT/ET 0.3 FINDINGS Left Ventricle Normal left ventricular size and systolic function, EF 57 %. Mild left ventricular hypertrophy. No regional wall motion abnormalities. Grade III/IV diastolic dysfunction (restrictive filling pattern), severely elevated filling pressures. Right Ventricle The right ventricle is normal in size and function. Right Atrium Mildly increased right atrial size. Left Atrium Mildly increased left atrial size. Mitral Valve Thickened mitral valve. Moderate mitral annular calcification. Mild to moderate mitral valve regurgitation. Aortic Valve Thickened aortic valve. Aortic valve sclerosis. Tricuspid Valve Moderate tricuspid valve regurgitation. Mild pulmonary hypertension with estimated pulmonary artery peak systolic pressure of 46 mmHg. Pulmonic Valve No gross abnormalities noted Pericardium Normal pericardium without effusion. Aorta Normal ascending aorta dimension. CONCLUSIONS Normal left ventricular size and systolic function, EF 57 %. Mild left ventricular hypertrophy. No regional wall motion abnormalities. Grade III/IV diastolic dysfunction (restrictive filling pattern), severely elevated filling pressures. Mild biatrial enlargementThickened mitral valve. Moderate mitral annular calcification. Mild to moderate mitral valve regurgitation. Moderate tricuspid valve regurgitation. Mild pulmonary hypertension with estimated pulmonary artery peak systolic pressure of 46 mmHg. Features of aortic valve sclerosis There is no pericardial effusion. There are no intracardiac masses. Compared to the study from 11/11/2018, there is development of pulmonary hypertension, more prominent mitral and tricuspid regurgitation and worsening of the diastolic dysfunction Dr Kim Locke MD [facility] (Electronically Signed) Final Date: 11 April 2020 09:12 S
--- NOTE | 2020-04-10 09:37 | PC.CHAP ---
Pastoral Care Encounter/Spiritual Assessment Type of Contact [] Declined dean for student affairs visit [] Patient/Family/Request visit [] Outpatient visit [] Follow-up visit [] Physician referral [] Code/Alert [x] Routine visit [] Staff referral [] Actively dying [] Patient sleeping [] Family support [] [] Out of room [] Palliative care [] [] Receiving care in room [] Pre-surgical visit [] Trauma [] Long length of stay [] ICU visit [] Other: Relational/Emotional Strength [] Patient feels connected with others/family/visitors/staff [] Distress [] Loneliness/isolation [] Abandonment Spirituality of Patient [] Person of [place] [] Attends Methodist of their [place] [] Believes in Prayer [] Reads Bible or Roman Catholic materials [] There are Spiritual issues to be addressed Wire Frame Maker Interventions [x] Prayer [x] Active listening [x] Non-anxious presence [x] Spiritual/emotional support [] Crisis/trauma care [] Spiritual counseling [] Bereavement support [] Provided bereavement packet [] Provided Bible/devotional materials [] Provided toy/stuffed animal, coloring book to patient or family member [] Provided Communion [] Anointing/[place] [] Salvation [x] Completed spiritual assessment [] Other: Impact on Illness or Injury [] Angry [] Fearful [] Anxious [] Often cries [] Exhaustion [] Unable to work [] Unable to attend nondenominational [] Unable to walk/stand [] Unable to read [] Unable to drive [] Unable to eat/drink [] Unable to sleep [] Unable to be with family [] Patient intubated [] Other: Summary Patient resting well Time spent with patient 5 min
[2020-04-10] MEDS: sotalol 80 mg Tablet PO ×2 (09:52→21:30)
--- NOTE | 2020-04-10 10:00 | ECG_ITS ---
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 Measurements Intervals [place] Rate: 97 P: 76 TX: 295 QRS: -28 QRSD: 101 T: 34 QT: 354 QTc: 450 Interpretive Statements SINUS RHYTHM WITH MARKED SINUS ARRHYTHMIA WITH FIRST DEGREE AV BLOCK MODERATE VOLTAGE CRITERIA FOR LVH, CONSIDER NORMAL VARIANT [MEETS CRITERIA IN ONE OF: R(aVL), S(V1), R(V5), R(V5/V6)+S(V1)] INFERIOR MYOCARDIAL INFARCTION [40+ ms Q WAVE AND/OR ST/T ABNORMALITY IN II/aVF], PROBABLY OLD Compared to ECG 04/10/2020 05:34:56 First degree AV block now present Sinus tachycardia no longer present Myocardial infarct finding still present Electronically Signed On 04-10-2020 22:43:46 CDT by Lorri Lin M.D. [email or web address]
--- NOTE | 2020-04-10 10:26 | PC.NURSE ---
Sotalol Starting time for sotalol clarified with Dr. Locke. Dr. Locke gave telephone order to start the first administration time to now, RBVO. Physician informed that Cardizem gtt running at 5 ml/hr. Nurse to continue to monitor. EKG was obtained before first administration of sotalol.
[2020-04-10 11:52] LABS: Glucose Point of Care 258 mg/dL (70-110)
--- NOTE | 2020-04-10 12:28 | P.PN_ITS ---
Subjective Subjective: Interval history: Chart reviewed, VSS, intermittent tachycardia and bradycardia. Had 300 mL urine output overnight. V/Q scan shows low probability for PE, pending Echo and venous duplex. On therapeutic Lovenox. Started on Sotalol per Dr. Locke. Resting in bed, very pleasant, no apparent distress. Medications: Reviewed: Yes Medication Review Details: Active Medications Generic Name Dose Route Start Last Admin Trade Name Freq PRN Reason Stop Dose Admin Acetaminophen 650 mg 04/10/20 01:50 Tylenol PO Q6H PRN Mild/Mod Pain Or Temp >/= 101 Dextrose 25 ml 04/10/20 01:53 D50w IVP ONCE PRN hypoglycemia prot ocol Protocol Dextrose 50 ml 04/10/20 01:53 D50w IVP PRN PRN hypoglycemia prot ocol Protocol Enoxaparin Sodium 90 mg 04/10/20 19:30 Lovenox 1 mg/kg (90 mg) SUBCUT Q24H NIMO Glucagon 1 mg 04/10/20 01:53 Glucagen IM ONCE PRN Adult Acute Hypog lycemia Prot. Protocol Dextrose 500 mls @ 100 mls /hr 04/10/20 01:53 D5w IV ONCE PRN Adult Acute Hypog lycemia Prot Protocol Diltiazem HCl 125 mg/ Sodium 125 mls @ 0 mls/h r 04/10/20 08:00 04/10/20 09:15 Chloride IV 5 mg/hr .Q0M NIMO 5 mls/hr Titration Protocol Per Protocol Insulin Aspart 0 unit 04/10/20 08:00 04/10/20 12:07 Novolog SUBCUT 6 unit TIDWM NIMO Administration Protocol Sotalol HCl 80 mg 04/10/20 09:45 04/10/20 09:52 Betapace PO 80 mg BID@0900,2100 NIMO Administration bupropion [From Wellbutrin] Allergy (Unknown, Verified 04/09/20 16:14) Unknown celecoxib [From Celebrex] Allergy (Unknown, Verified 04/09/20 16:14) Unknown rofecoxib [From Vioxx] Allergy (Verified 04/09/20 16:14) Unknown Vitals/I&O/Wt Last Vital Signs Temp 97.5 F L 04/10/20 11:23 Pulse 57 L 04/10/20 11:23 Resp 12 04/10/20 11:23 BP 128/68 04/10/20 11:23 Pulse Ox 98 04/10/20 11:23 04/09/20 04/10/20 04/10/20 22:59 06:59 14:59 Intake Total 64.333 / 64.333 Output Total 300 / 300 250 / 250 Balance -300 / -300 -185.667 / -185.667 Weight last 48 hrs Weight 85.003 kg Weight 88.451 kg Physical Exam Const: COMMON NORMALS: no acute distress and patient oriented x3 GENERAL APPEARANCE: cooperative and comfortable ORIENTATION/CONSCIOUSNESS: Yes awake OTHER: -looks appropriate for age HENMT: COMMON NORMALS: normocephalic, atraumatic, hearing grossly normal bilaterally and moist oral mucous membranes HEAD & SCALP: normocephalic and atraumatic Eye: COMMON NORMALS: Equal, round and reactive pupils present, EOMs intact bilaterally and conjunctivae normal CONJUNCTIVA: Yes conjunctivae normal PUPIL: Yes Equal, round and reactive pupils present Neck/C-Spine: COMMON NORMALS: full ROM GENERAL: Yes normal visual inspection and Yes trachea midline Resp: COMMON NORMALS: normal respiratory effort, No retractions, No use of accessory muscles and clear to auscultation bilaterally EFFORT & INSPECTION: Yes able to speak in complete sentences, Yes symmetric chest movement and No tachypneic AUSCULTATION: clear to auscultation bilaterally Cardio: COMMON NORMALS: S1 normal heart sound present, S2 normal heart sound present and No murmurs present (Cardio) RATE: Other (seems to alternate between tachycardia and bradycardia) RHYTHM: abnormal rhythm irregularly irregular HEART SOUNDS: S1 normal heart sound present and S2 normal heart sound present GI: COMMON NORMALS: Normal to inspection, nondistended, normoactive bowel sounds present, Soft to palpation and non-tender PALPATION: Yes Soft to palpation Extremity: COMMON NORMALS: normal to inspection, full ROM and no clubbing, cyanosis or edema; negative for no pedal edema Neuro: COMMON NORMALS: patient oriented x3, moves all extremities, no focal motor deficits and no sensory deficits noted Psych: COMMON NORMALS: mental status grossly normal, Normal thought process present, cooperative, normal affect and speech normal SPEECH: Yes normal speech THOUGHT PROCESS: Normal thought process present Skin: COMMON NORMALS: no rashes or lesions noted, no jaundice, no petechiae and no mottling GENERAL SKIN EXAM: no rashes or lesions noted Data : 04/09/20 16:30 04/09/20 16:30 A&P Assessment and plan (1) Transient atrial fibrillation/flutter: -appears to be new onset arrhythmia -had previously been on Metoprolol and Diltiazem which he discontinued on his own due to dizziness -started on sotalol 80 mg BID; already on Cardizem drip, wean as tolerated -appreciate evaluation by Dr. Locke -telemetry monitoring -VSS; continue to monitor -Echo pending -on therapeutic Lovenox due to D-dimer elevation -[id number]-[id number] score of 5; will need longterm oral anticoagulation Status: Acute (2) Acute kidney injury superimposed on CKD: -noted acute renal impairment; baseline Cr appears to be around 1-1.5 -avoid nephrotoxins, renally dose meds -continue to monitor renal function Status: Acute (3) S/P total knee arthroplasty: -s/p L total knee arthroplasty done on 02/27/2020 due to hx of severe OA -done by Dr. Luciano -had been started on full dose ASA for DVT ppx post op -noted D-dimer elevation (3.74), low probability of PE on V/Q scan (no CT due to renal impairment); pending venous duplex. On therapeutic Lovenox -fall precautions -has been doing outpatient PT Status: Chronic Qualifiers: Laterality: left Qualified Code(s): Z96.652 - Presence of left artificial knee joint (4) Benign essential hypertension with target blood pressure below 140/90: -BP stable, continue to monitor -lasix, triamterene-HCTZ on hold due to renal impairment Status: Chronic (5) Atherosclerotic heart disease: -has had prior stenting -cardiac workup done in 2019 with nuclear stress testing being negative for ischemia; Echo-EF=55%, mild LVH, no RWMA, trace TR, mild [place] -on ASA, statin Status: Chronic Qualifiers: Associated angina: without angina Coronary Disease-Associated Artery/Lesion type: [place] artery [place] vs. transplanted heart: [place] heart Qualified Code(s): I25.10 - Atherosclerotic heart disease of [place] coronary artery without angina pectoris (6) Dyslipidemia: -on statin Status: Chronic Additional A&P Information -Advanced age -BPH; tamsulosin and finasteride on hold -Chronic OA; pain control as needed -NIDDM type II; accuchecks, ISS, hypoglycemia precautions -cardiac diet as tolerated -DVT ppx not needed as on therapeutic AC -Dispo: home -Code status: FULL code Attestations Medical Necessity Statement*: Patient requires hospitalization for continued management of new onset arrhythmia on Cardizem drip, therapeutic anticoagulati on, needs continued telemetry monitoring. Time Spent in Patient Care: Greater than 35 minutes (>than 50% of time spent in counselling and/or direct pt care on unit) . Coding Level of Care Code Acute Director Of Clinical Services for g Fwd Exam Comprehensive Diagnoses Transient atrial fibrillation/flutter Acute kidney injury superimposed on CKD N17.9; N18.9 S/P total knee arthroplasty Z96.652 Laterality: left Benign essential hypertension with target blood pressure below 140/90 I10 Atherosclerotic heart disease I25.10 Associated angina: without angina Coronary Disease-Associated Artery/Lesion type: [place] artery [place] vs. transplanted heart: [place] heart Dyslipidemia E78.5
--- NOTE | 2020-04-10 14:12 | PC.NURSE ---
Cardizem gtt 4 hours have passed since administration of sotalol. Patient has maintained sinus rhythm to sinus tach. Drip to be paused according to Dr. Locke's order. Nurse to continue to monitor.
[2020-04-10 15:55] LABS: Glucose Point of Care 179 mg/dL (70-110)
[2020-04-10 21:06] LABS: Glucose Point of Care 285 mg/dL (70-110)
[2020-04-10] MEDS: enoxaparin 100 mg/mL Syringe 90 MG SUBCUT (21:30)
[2020-04-10] MEDS: acetaminophen 325 mg Tablet 650 MG PO (21:31)
--- NOTE | 2020-04-10 22:05 | PC.NURSE ---
Dr. Crockett notified of patient asking for something for indigestion, complaining that I feel like a need to burp, but can't get it to come up. PRN Elainas ordered.
[2020-04-10] MEDS: calcium carbonate 500 mg Chew Tablet 1000 MG PO (22:12)
--- NOTE | 2020-04-10 22:12 | ECG_ITS ---
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 Measurements Intervals [place] Rate: 113 P: 218 [place]: 210 QRS: -24 QRSD: 123 T: 46 QT: 374 QTc: 513 Interpretive Statements Possible atrial flutter with a fixed AV block MODERATE VOLTAGE CRITERIA FOR LVH, CONSIDER NORMAL VARIANT [MEETS CRITERIA IN ONE OF: R(aVL), S(V1), R(V5), R(V5/V6)+S(V1)] POSSIBLE INFERIOR MYOCARDIAL INFARCTION [30 ms Q WAVE IN II/aVF], PROBABLY OLD Compared to ECG 04/10/2020 09:50:09 Sinus rhythm no longer present Sinus arrhythmia no longer present Myocardial infarct finding still present Electronically Signed On 04-12-2020 0:06:07 CDT by Kim Locke M.D. [id number]
--- NOTE | 2020-04-10 22:33 | PC.NURSE ---
Dr. Crockett notified that when nurse went into room to give Tums, patient stated that the pain was going into his left shoulder. EKG taken. Patient stated the pain has eased up a lot now. Doctor notified. Will monitor.
[2020-04-11] VITALS (7 sets, daily range): BP systolic 116–167; BP diastolic 67–98; PULSE 60–122; RESP 14–19; TEMP 36.4–36.8; O2SAT 94–98
--- NOTE | 2020-04-11 01:19 | PC.NURSE ---
Patient states that he is not having any pain at this time. Will monitor.
[2020-04-11 04:45] LABS: Basophils % 0.4 %; Eosinophils # 0.1 10^3/uL (0.0-0.8); Eosinophils % 2.9 %; Hematocrit 27.4 % (42.0-52.0); Mean Corpuscular HGB Conc 32.8 g/dL (30.0-36.0); Mean Corpuscular Hemoglobin 33.6 pg (28.0-34.0); Mean Corpuscular Volume 102.2 fL (80-94); Mean Platelet Volume 11.1 fL (7.4-10.4); Monocytes # 0.3 10^3/uL (0.2-0.9); Monocytes % 14.2 %; Neutrophils # 1.01 10^3/uL (1.8-7.7); Neutrophils % 42.1 %; Nucleated Red Blood Cells % 0 %; Platelet Count 312 10^3/cmm (130-400); Red Blood Count 2.68 10^6/uL (4.1-5.3); Red Cell Distribution Width 16.2 % (12.1-15.1); White Blood Count 2.4 10^3/uL (4.0-10.0)
[2020-04-11 05:09] LABS: Anion Gap 14.5 (5-19); Blood Urea Nitrogen 25 mg/dL (8-23); Calcium 8.8 mg/dL (8.5-10.5); Carbon Dioxide 23 mmol/L (22-29); Chloride 103 mmol/L (98-107); Glucose 165 mg/dL (65-115); Osmolality Calculated 285 mOsm/kg (285-295); Potassium 3.5 mmol/L (3.5-5.1); Sodium 137 mmol/L (136-145)
[2020-04-11 06:30] LABS: Glucose Point of Care 192 mg/dL (70-110)
[2020-04-11] MEDS: sotalol 80 mg Tablet PO (08:11)
--- NOTE | 2020-04-11 09:43 | PM.PN ---
Subjective Subjective: Interval history: BP trending up, had 500 mL urine output overnight, venous duplex negative for DVT, Echo report pending. Weaned off cardizem drip. Improving renal function, stable hemoglobin. Resting comfortably in bed, no apparent distress, no complaints currently. Medications: Reviewed: Yes Medication Review Details: Active Medications Generic Name Dose Route Start Last Admin Trade Name Freq PRN Reason Stop Dose Admin Acetaminophen 650 mg 04/10/20 01:50 04/10/20 21:31 Tylenol PO 650 mg Q6H PRN Administration Mild/Mod Pain Or Temp >/= 101 Calcium Carbonate 1,000 mg 04/10/20 22:05 04/10/20 22:12 Tums PO 1,000 mg Q4H PRN Administration HEARTBURN Dextrose 25 ml 04/10/20 01:53 D50w IVP ONCE PRN hypoglycemia prot ocol Protocol Dextrose 50 ml 04/10/20 01:53 D50w IVP PRN PRN hypoglycemia prot ocol Protocol Enoxaparin Sodium 90 mg 04/10/20 19:30 04/10/20 21:30 Lovenox 1 mg/kg (90 mg) 90 mg SUBCUT Administration Q24H NIMO Glucagon 1 mg 04/10/20 01:53 Glucagen IM ONCE PRN Adult Acute Hypog lycemia Prot. Protocol Dextrose 500 mls @ 100 mls /hr 04/10/20 01:53 D5w IV ONCE PRN Adult Acute Hypog lycemia Prot Protocol Diltiazem HCl 125 mg/ Sodium 125 mls @ 0 mls/h r 04/10/20 08:00 04/10/20 14:14 Chloride IV 0 mg/hr .Q0M NIMO 0 mls/hr Titration Protocol Per Protocol Insulin Aspart 0 unit 04/10/20 08:00 04/11/20 08:11 Novolog SUBCUT 4 unit TIDWM NIMO Administration Protocol Sotalol HCl 80 mg 04/10/20 09:45 04/11/20 08:11 Betapace PO 80 mg BID@0900,2100 NIMO Administration bupropion [From Wellbutrin] Allergy (Unknown, Verified 04/09/20 16:14) Unknown celecoxib [From Celebrex] Allergy (Unknown, Verified 04/09/20 16:14) Unknown rofecoxib [From Vioxx] Allergy (Verified 04/09/20 16:14) Unknown Vitals/I&O/Wt Last Vital Signs Temp 98.1 F 04/11/20 07:53 Pulse 77 04/11/20 07:53 Resp 19 H 04/11/20 07:53 BP 167/94 04/11/20 07:53 Pulse Ox 96 04/11/20 07:53 04/10/20 04/11/20 04/11/20 22:59 06:59 14:59 Intake Total 240 / 569.250 200 / 769.250 360 / 360 Output Total 600 / 850 300 / 1150 225 / 225 Balance -360 / -280.750 -100 / -380.750 135 / 135 Weight last 48 hrs Weight 84.096 kg Weight 85.003 kg Weight 88.451 kg Physical Exam Const: COMMON NORMALS: no acute distress and patient oriented x3 GENERAL APPEARANCE: cooperative and comfortable ORIENTATION/CONSCIOUSNESS: Yes awake OTHER: -looks appropriate for age HENMT: COMMON NORMALS: normocephalic, atraumatic, hearing grossly normal bilaterally and moist oral mucous membranes HEAD & SCALP: normocephalic and atraumatic Eye: COMMON NORMALS: Equal, round and reactive pupils present, EOMs intact bilaterally and conjunctivae normal CONJUNCTIVA: Yes conjunctivae normal PUPIL: Yes Equal, round and reactive pupils present Neck/C-Spine: COMMON NORMALS: full ROM GENERAL: Yes normal visual inspection and Yes trachea midline Resp: COMMON NORMALS: normal respiratory effort, No retractions, No use of accessory muscles and clear to auscultation bilaterally EFFORT & INSPECTION: Yes able to speak in complete sentences, Yes symmetric chest movement and No tachypneic AUSCULTATION: clear to auscultation bilaterally Cardio: COMMON NORMALS: S1 normal heart sound present, S2 normal heart sound present and No murmurs present (Cardio) RATE: Other (seems to alternate between tachycardia and bradycardia) RHYTHM: abnormal rhythm irregularly irregular HEART SOUNDS: S1 normal heart sound present and S2 normal heart sound present GI: COMMON NORMALS: Normal to inspection, nondistended, normoactive bowel sounds present, Soft to palpation and non-tender PALPATION: Yes Soft to palpation Extremity: COMMON NORMALS: normal to inspection, full ROM and no clubbing, cyanosis or edema; negative for no pedal edema Neuro: COMMON NORMALS: patient oriented x3, moves all extremities, no focal motor deficits and no sensory deficits noted Psych: COMMON NORMALS: mental status grossly normal, Normal thought process present, cooperative, normal affect and speech normal SPEECH: Yes normal speech THOUGHT PROCESS: Normal thought process present Skin: COMMON NORMALS: no rashes or lesions noted, no jaundice, no petechiae and no mottling GENERAL SKIN EXAM: no rashes or lesions noted Data : 04/11/20 04:05 04/11/20 04:05 A&P Assessment and plan (1) Transient atrial fibrillation/flutter: -appears to be new onset arrhythmia -had previously been on Metoprolol and Diltiazem which he discontinued on his own due to dizziness -on sotalol 80 mg BID; already on Cardizem drip, wean as tolerated -appreciate evaluation by Dr. Locke -telemetry monitoring -VSS; continue to monitor -Echo: EF=57%, G3DD, mild LVH, no RWMA, mild to moderate MR, moderate TR, mild pulmonary HTN -has been on therapeutic Lovenox due to D-dimer elevation; VTE r/o so will start on Eliquis -[id number]-MMAa score of 5; will need senior care oral anticoagulation Status: Acute (2) Acute kidney injury superimposed on CKD: -noted acute renal impairment which is improving; baseline Cr appears to be around 1-1.5 -avoid nephrotoxins, renally dose meds -continue to monitor renal function Status: Acute (3) S/P total knee arthroplasty: -s/p L total knee arthroplasty done on 02/27/2020 due to hx of severe OA -done by Dr. Luciano -had been started on full dose ASA for DVT ppx post op. With initiation of Eliquis, will d/c ASA -noted D-dimer elevation (3.74), low probability of PE on V/Q scan (no CT due to renal impairment); venous duplex negative for DVT. -fall precautions -has been doing outpatient PT Status: Chronic Qualifiers: Laterality: left Qualified Code(s): Z96.652 - Presence of left artificial knee joint (4) Benign essential hypertension with target blood pressure below 140/90: -BP trending up, continue to monitor -resume low dose HCTZ with improvement in renal function Status: Chronic (5) Atherosclerotic heart disease: -has had prior stenting -cardiac workup done in 2019 with nuclear stress testing being negative for ischemia; Echo-EF=55%, mild LVH, no RWMA, trace TR, mild [place] -on ASA, statin Status: Chronic Qualifiers: Associated angina: without angina Coronary Disease-Associated Artery/Lesion type: [place] artery [place] vs. transplanted heart: [place] heart Qualified Code(s): I25.10 - Atherosclerotic heart disease of [place] coronary artery without angina pectoris (6) Dyslipidemia: -on statin Status: Chronic Additional A&P Information -Advanced age -BPH; resume tamsulosin and finasteride -Chronic OA; pain control as needed -NIDDM type II; accuchecks, ISS, hypoglycemia precautions -cardiac diet as tolerated -DVT ppx not needed as on therapeutic AC -Dispo: home -Code status: FULL code Attestations Medical Necessity Statement*: Patient requires hospitalization for continued management of new onset arrhythmia, including antiarrhythmic, anticoagulation and continued telemetry monitoring. Time Spent in Patient Care: 16 - 35 minutes (>than 50% of time spent in counselling and/or direct pt care on unit). Coding Level of Care Code Acute Partnership Manager for g Fwd Exam Comprehensive Diagnoses Transient atrial fibrillation/flutter Acute kidney injury superimposed on CKD N17.9; N18.9 S/P total knee arthroplasty Z96.652 Laterality: left Benign essential hypertension with target blood pressure below 140/90 I10 Atherosclerotic heart disease I25.10 Associated angina: without angina Coronary Disease-Associated Artery/Lesion type: [place] artery [place] vs. transplanted heart: [place] heart Dyslipidemia E78.5
--- NOTE | 2020-04-11 10:00 | ECG_ITS ---
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 Measurements Intervals [place] Rate: 116 P: 33 [place]: 231 QRS: -27 QRSD: 116 T: 29 QT: 372 QTc: 518 Interpretive Statements Possible atrial flutter with a fixed AV block MODERATE VOLTAGE CRITERIA FOR LVH, CONSIDER NORMAL VARIANT [MEETS CRITERIA IN ONE OF: R(aVL), S(V1), R(V5), R(V5/V6)+S(V1)] INFERIOR MYOCARDIAL INFARCTION [40+ ms Q WAVE AND/OR ST/T ABNORMALITY IN II/aVF], PROBABLY OLD Compared to ECG 04/10/2020 22:26:29 No significant changes Electronically Signed On 04-12-2020 1:38:30 CDT by Kim Locke M.D. [id number]
[2020-04-11] MEDS: hydroCHLOROthiazide 25 mg Tablet 12.5 MG PO (10:36)
[2020-04-11] MEDS: tamsulosin 0.4 mg Capsule PO (10:36)
[2020-04-11] MEDS: apixaban 5 mg Tablet PO ×2 (10:36→17:51)
[2020-04-11] MEDS: multivitamin therapeutic Tablet 1 TAB PO (10:36)
[2020-04-11] MEDS: finasteride 5 mg Tablet PO (10:36)
[2020-04-11 11:32] LABS: Glucose Point of Care 207 mg/dL (70-110)
[2020-04-11 17:33] LABS: Glucose Point of Care 203 mg/dL (70-110)
--- NOTE | 2020-04-11 18:31 | P.PN_ITS ---
Subjective Subjective: Interval history: Patient is feeling better. He has not had any significant palpitations, since yesterday. Seems to be tolerating the Betapace so far well. Denies any other specific complaints. Medications: Medication Review Details: Current Medications Acetaminophen (Tylenol) 650 mg PO Q6H PRN PRN Reason: Mild/Mod Pain Or Temp >/= 101 Last Admin: 04/10/20 21:31 Dose: 650 mg Documented by: Apixaban (Eliquis) 5 mg PO BID [facility] Last Admin: 04/11/20 17:51 Dose: 5 mg Documented by: Atorvastatin Calcium (Lipitor) 40 mg PO BEDTIME [facility] Calcium Carbonate (Tums) 1,000 mg PO Q4H PRN PRN Reason: HEARTBURN Last Admin: 04/10/20 22:12 Dose: 1,000 mg Documented by: Dextrose (D50w) 25 ml IVP ONCE PRN; Protocol PRN Reason: hypoglycemia protocol Dextrose (D50w) 50 ml IVP PRN PRN; Protocol PRN Reason: hypoglycemia protocol Finasteride (Proscar) 5 mg PO DAILY [facility] Last Admin: 04/11/20 10:36 Dose: 5 mg Documented by: Glucagon (Glucagen) 1 mg IM ONCE PRN; Protocol PRN Reason: Adult Acute Hypoglycemia Prot. Hydrochlorothiazide (Hctz) 12.5 mg PO DAILY [facility] Last Admin: 04/11/20 10:36 Dose: 12.5 mg Documented by: Dextrose (D5w) 500 mls @ 100 mls/hr IV ONCE PRN; Protocol PRN Reason: Adult Acute Hypoglycemia Prot Diltiazem HCl 125 mg/ Sodium (Chloride) 125 mls @ 0 mls/hr IV .Q0M [facility]; Protocol Last Titration: 04/10/20 14:14 Dose: 0 mg/hr, 0 mls/hr Documented by: Insulin Aspart (Novolog) 0 unit SUBCUT TIDWM [facility]; Protocol Last Admin: 04/11/20 17:51 Dose: 4 unit Documented by: Multivitamins Therapeutic (Multivitamin Tab) 1 tab PO DAILY [facility] Last Admin: 04/11/20 10:36 Dose: 1 tab Documented by: Sotalol HCl (Betapace) 80 mg PO BID@0900,2100 [facility] Last Admin: 04/11/20 08:11 Dose: 80 mg Documented by: Tamsulosin HCl (Flomax) 0.4 mg PO DAILY [facility] Last Admin: 04/11/20 10:36 Dose: 0.4 mg Documented by: Tramadol HCl (Ultram) 50 mg PO Q4H PRN PRN Reason: MODERATE PAIN Vitals/I&O/Wt Last Vital Signs Temp 97.8 F 04/11/20 16:00 Pulse 62 04/11/20 16:00 Resp 19 H 04/11/20 16:00 BP 121/70 04/11/20 16:00 Pulse Ox 96 04/11/20 16:00 04/11/20 04/11/20 04/11/20 06:59 14:59 22:59 Intake Total 200 / 769.250 360 / 360 240 / 600 Output Total 300 / 1150 375 / 375 550 / 925 Balance -100 / -380.750 -15 / -15 -310 / -325 Weight last 48 hrs Weight 185 lb 6.4 oz Weight 187 lb 6.4 oz Physical Exam Narrative: EXAM NARRATIVE: GENERAL: The patient is alert and oriented times three. Not in any acute distress. HEENT: No significant pallor, icterus or lymphadenopathy. The pupils are reactant to light. Oral cavity: There are no mucous membrane lesions. NECK: Trachea appears to be central. No masses noted. No JVD or thyromegaly appreciated. No carotid bruit. RESPIRATORY: Chest is symmetrical. No intercostals muscle retraction or any accessory muscle activation. There is no chest wall tenderness. Breath sounds are heard bilaterally. No rales or rhonchi heard. No evidence of any consolidation. BREASTS: Deferred. HEART: The heart sounds are normal no S3-S4. Short systolic murmur in the left sternal border. No diastolic murmurs. No pericardial rub. ABDOMEN: No vessel pulsations or distention. No tenderness. No organomegaly appreciated. No abdominal bruit. Bowel sounds are normally heard. : Deferred. RECTAL: Deferred. LYMPHATIC: No lymphadenopathy noted in the neck or groin. EXTREMITIES: No edema or cyanosis. No clubbing. The pulses are symmetrical b ilaterally. The radial, femoral, dorsalis pedis and the posterior tibial pulses are palpated and found to be in good volume and amplitude. MUSCULOSKELETAL: No acute joint deformities or swelling. Healthy scar over the left knee SKIN: There are no significant scars or skin rash noted. NEUROPSYCHIATRIC: The patient is alert and oriented x3. Appears to be in a good mood. The higher functions are grossly within normal limits. No tremors or rigidity noted. Data : 04/12/20 05:07 04/12/20 05:07 EKG 1: My Interpretation: The EKG showed regular rhythm at a rate of 116/min. Possible atrial flutter with controlled ventricular response rate. Diffuse nonspecific T wave changes. The QTC was 518?. A&P Assessment and plan (1) Transient atrial fibrillation/flutter: Patient seems to be tolerating Betapace so far well. Advised to continue on the current dose of the medication. The QTC was prolonged this morning around 520. We will go ahead and do a repeat EKG this evening. Based on the QTC, dose adjustments will be made. Status: Acute (2) Atherosclerotic heart disease of [place] coronary artery without angina pectoris: Patient has no specific symptoms of coronary insufficiency. He may continue on the current medications. Once we start him on oral anticoagulation, may discontinue the aspirin Status: Acute Qualifiers: [place] vs. transplanted heart: [place] heart Qualified Code(s): I25.10 - Atherosclerotic heart disease of [place] coronary artery without angina pectoris (3) Dyslipidemia: Continue on the current medications. Status: Chronic (4) Benign essential hypertension with target blood pressure below 140/90: Currently normotensive. Continue on the antihypertensive medications. Status: Chronic Additional A&P Information This patient needs to be monitored on telemetry for 48 to 72 hours on Betapace. After reviewing the repeat EKG this evening, further management decisions will be made. Attestations Medical Necessity Statement*: Patient requires continued hospital stay for close monitoring and further management Coding Level of Care Code Acute Pack Puller for g Fwd Diagnoses Transient atrial fibrillation/flutter Atherosclerotic heart disease of [place] coronary artery without angina pectoris I25.10 [place] vs. transplanted heart: [place] heart Dyslipidemia E78.5 Benign essential hypertension with target blood pressure below 140/90 I10
--- NOTE | 2020-04-11 18:39 | ECG_ITS ---
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 Measurements Intervals [place] Rate: 60 P: 39 VT: 273 QRS: -23 QRSD: 89 T: 1 QT: 435 QTc: 437 Interpretive Statements SINUS RHYTHM WITH FIRST DEGREE AV BLOCK WITH OCCASIONAL SUPRAVENTRICULAR PREMATURE COMPLEXES VOLTAGE CRITERIA FOR LVH [MEETS CRITERIA IN ONE OF: R(aVL), S(V1), R(V5), R(V5/V6)+S(V1)] POSSIBLE INFERIOR MYOCARDIAL INFARCTION [30 ms Q WAVE IN II/aVF], PROBABLY OLD Compared to ECG 04/11/2020 12:29:04 Sinus tachycardia no longer present Myocardial infarct finding still present Electronically Signed On 04-12-2020 1:39:48 CDT by Kim Locke M.D. [id number]
--- NOTE | 2020-04-11 19:23 | PC.NURSE ---
Called Dr. Locke to discuss EKG results compared to previous EKG. Ordered to decrease dose of Sotalol to 40mg and have nurse tomorrow call him before the Sotalol dose is given.
--- NOTE | 2020-04-11 19:37 | PC.NURSE ---
Asked patient if he wanted to bath/shower. Patient stated That his helped clean up .
[2020-04-11] MEDS: atorvastatin 40 mg Tablet PO (19:41)
[2020-04-11] MEDS: acetaminophen 325 mg Tablet 650 MG PO (19:41)
[2020-04-11] MEDS: sotalol 80 mg Tablet 40 MG PO (19:42)
--- NOTE | 2020-04-11 20:47 | PC.NURSE ---
Patient does not have any pain or any complaints at this time. VSS. Will monitor.
[2020-04-11 20:55] LABS: Glucose Point of Care 166 mg/dL (70-110)
[2020-04-12 04:00] VITALS: BP 133/79; PULSE 72; RESP 14; TEMP 36.6; O2SAT 96
--- NOTE | 2020-04-12 05:45 | PC.NURSE ---
Patient does not have any complaints at this time. Will monitor.
[2020-04-12 05:51] LABS: Basophils % 0.4 %; Eosinophils % 1.7 %; Hematocrit 28.4 % (42.0-52.0); Hemoglobin 9.1 g/dL (11.7-16.6); Lymphocytes # 0.7 10^3/uL (0.8-4.8); Lymphocytes % 31.2 %; Mean Corpuscular Hemoglobin 33.7 pg (28.0-34.0); Mean Corpuscular Volume 105.2 fL (80-94); Mean Platelet Volume 11.5 fL (7.4-10.4); Monocytes # 0.4 10^3/uL (0.2-0.9); Monocytes % 15.2 %; Neutrophils # 1.17 10^3/uL (1.8-7.7); Neutrophils % 50.6 %; Nucleated Red Blood Cells % 0 %; Platelet Count 285 10^3/cmm (130-400); Red Cell Distribution Width 15.9 % (12.1-15.1); White Blood Count 2.3 10^3/uL (4.0-10.0)
[2020-04-12 06:33] LABS: Glucose Point of Care 208 mg/dL (70-110)
[2020-04-12 07:16] VITALS: BP 145/79; PULSE 69; RESP 19; TEMP 36.9; O2SAT 96
[2020-04-12 07:17] LABS: Anion Gap 18.3 (5-19); Blood Urea Nitrogen 22 mg/dL (8-23); Calcium 8.5 mg/dL (8.5-10.5); Carbon Dioxide 21 mmol/L (22-29); Chloride 101 mmol/L (98-107); Glucose 171 mg/dL (65-115); Osmolality Calculated 285 mOsm/kg (285-295); Potassium 3.3 mmol/L (3.5-5.1); Sodium 137 mmol/L (136-145)
--- NOTE | 2020-04-12 09:05 | PC.NURSE ---
Sotalol QTc interval reviewed by Dr. Locke. Physician ordered for nurse to give 80 mg now and recheck EKG at 1700 before administering evening dose of sotalol.
--- NOTE | 2020-04-12 09:13 | PM.PN ---
Subjective Subjective: Interval history: Patient is feeling okay. No chest pain or palpitations. He had EKG this morning. The QTC is within normal limits. Medications: Reviewed: Yes Medication Review Details: Current Medications Acetaminophen (Tylenol) 650 mg PO Q6H PRN PRN Reason: Mild/Mod Pain Or Temp >/= 101 Last Admin: 04/10/20 21:31 Dose: 650 mg Documented by: Apixaban (Eliquis) 5 mg PO BID [facility] Last Admin: 04/11/20 17:51 Dose: 5 mg Documented by: Atorvastatin Calcium (Lipitor) 40 mg PO BEDTIME [facility] Calcium Carbonate (Tums) 1,000 mg PO Q4H PRN PRN Reason: HEARTBURN Last Admin: 04/10/20 22:12 Dose: 1,000 mg Documented by: Dextrose (D50w) 25 ml IVP ONCE PRN; Protocol PRN Reason: hypoglycemia protocol Dextrose (D50w) 50 ml IVP PRN PRN; Protocol PRN Reason: hypoglycemia protocol Finasteride (Proscar) 5 mg PO DAILY [facility] Last Admin: 04/11/20 10:36 Dose: 5 mg Documented by: Glucagon (Glucagen) 1 mg IM ONCE PRN; Protocol PRN Reason: Adult Acute Hypoglycemia Prot. Hydrochlorothiazide (Hctz) 12.5 mg PO DAILY [facility] Last Admin: 04/11/20 10:36 Dose: 12.5 mg Documented by: Dextrose (D5w) 500 mls @ 100 mls/hr IV ONCE PRN; Protocol PRN Reason: Adult Acute Hypoglycemia Prot Diltiazem HCl 125 mg/ Sodium (Chloride) 125 mls @ 0 mls/hr IV .Q0M [facility]; Protocol Last Titration: 04/10/20 14:14 Dose: 0 mg/hr, 0 mls/hr Documented by: Insulin Aspart (Novolog) 0 unit SUBCUT TIDWM [facility]; Protocol Last Admin: 04/11/20 17:51 Dose: 4 unit Documented by: Multivitamins Therapeutic (Multivitamin Tab) 1 tab PO DAILY [facility] Last Admin: 04/11/20 10:36 Dose: 1 tab Documented by: Sotalol HCl (Betapace) 80 mg PO BID@0900,2100 [facility] Last Admin: 04/11/20 08:11 Dose: 80 mg Documented by: Tamsulosin HCl (Flomax) 0.4 mg PO DAILY [facility] Last Admin: 04/11/20 10:36 Dose: 0.4 mg Documented by: Tramadol HCl (Ultram) 50 mg PO Q4H PRN PRN Reason: MODERATE PAIN Vitals/I&O/Wt Last Vital Signs Temp 98.5 F 04/12/20 07:16 Pulse 69 04/12/20 07:16 Resp 19 H 04/12/20 07:16 BP 145/79 04/12/20 07:16 Pulse Ox 96 04/12/20 07:16 04/11/20 04/12/20 04/12/20 22:59 06:59 14:59 Intake Total 240 / 600 200 / 800 240 / 240 Output Total 750 / 1125 200 / 1325 Balance -510 / -525 0 / -525 240 / 240 Weight last 48 hrs Weight 186 lb 6.4 oz Weight 185 lb 6.4 oz Physical Exam Narrative: EXAM NARRATIVE: GENERAL: The patient is alert and oriented times three. Not in any acute distress. HEENT: No significant pallor, icterus or lymphadenopathy. The pupils are reactant to light. Oral cavity: There are no mucous membrane lesions. NECK: Trachea appears to be central. No masses noted. No JVD or thyromegaly appreciated. No carotid bruit. RESPIRATORY: Chest is symmetrical. No intercostals muscle retraction or any accessory muscle activation. There is no chest wall tenderness. Breath sounds are heard bilaterally. No rales or rhonchi heard. No evidence of any consolidation. BREASTS: Deferred. HEART: The heart sounds are normal no S3-S4. Short systolic murmur in the left sternal border. No diastolic murmurs. No pericardial rub. ABDOMEN: No vessel pulsations or distention. No tenderness. No organomegaly appreciated. No abdominal bruit. Bowel sounds are normally heard. : Deferred. RECTAL: Deferred. LYMPHATIC: No lymphadenopathy noted in the neck or groin. EXTREMITIES: No edema or cyanosis. No clubbing. The pulses are symmetrical bilaterally. The radial, femoral, dorsalis pedis and the posterior tibial pulses are palpated and found to be in good volume and amplitude. MUSCULOSKELETAL: No acute joint deformities or swelling. Healthy scar over the left knee SKIN: There are no significant scars or skin rash noted. NEUROPSYCHIATRIC: The patient is alert and oriented x3. No focal neurological deficit. Data : 04/12/20 05:07 07/17/20 05:07 Other Labs: Laboratory Last Values WBC 2.3 10^3/uL (4.0-10.0) L 04/12/20 05:07 RBC 2.70 10^6/uL (4.1-5.3) L 04/12/20 05:07 Hgb 9.1 g/dL (11.7-16.6) L 04/12/20 05:07 Hct 28.4 % (42.0-52.0) L 04/12/20 05:07 MCV 105.2 fL (80-94) H 04/12/20 05:07 MCH 33.7 pg (28.0-34.0) 04/12/20 05:07 MCHC 32.0 g/dL (30.0-36.0) 04/12/20 05:07 RDW 15.9 % (12.1-15.1) H 04/12/20 05:07 Plt Count 285 10^3/cmm (130-400) 04/12/20 05:07 MPV 11.5 fL (7.4-10.4) H 04/12/20 05:07 Neut % (Auto) 50.6 % 04/12/20 05:07 Lymph % (Auto) 31.2 % 04/12/20 05:07 [place] % (Auto) 15.2 % 04/12/20 05:07 Eos % (Auto) 1.7 % 04/12/20 05:07 Baso % (Auto) 0.4 % 04/12/20 05:07 Neut # (Auto) 1.17 10^3/uL (1.8-7.7) L 04/12/20 05:07 Lymph # (Auto) 0.7 10^3/uL (0.8-4.8) L 04/12/20 05:07 [place] # (Auto) 0.4 10^3/uL (0.2-0.9) 04/12/20 05:07 Eos # (Auto) 0.0 10^3/uL (0.0-0.8) 04/12/20 05:07 Baso # (Auto) 0.0 10^3/uL (0.0-0.1) 04/12/20 05:07 Nucleated RBC % (auto) 0 % 07/17/20 05:07 Nucleated RBCs # 0.0 /100WBC 04/12/20 05:07 PT 14.70 SECONDS (10.5-13.3) H 04/09/20 16:30 INR 1.12 (0.8-1.2) 04/09/20 16:30 D-Dimer 3.74 ug/mIFEU (0-0.59) H 04/09/20 16:30 Sodium 137 mmol/L (136-145) 04/12/20 05:07 Potassium 3.3 mmol/L (3.5-5.1) L 04/12/20 05:07 Chloride 101 mmol/L (98-107) 04/12/20 05:07 Carbon Dioxide 21 mmol/L (22-29) L 04/12/20 05:07 Anion Gap 18.3 (5-19) 04/12/20 05:07 BUN 22 mg/dL (8-23) 04/12/20 05:07 Creatinine 1.2 mg/dL (0.7-1.2) 04/12/20 05:07 Glucose 171 mg/dL (65-115) H 04/12/20 05:07 POC Glucose 208 mg/dL (70-110) 04/12/20 06:26 Calculated Osmolality 285 mOsm/kg (285-295) 04/12/20 05:07 Lactate 3.3 mmol/L (0.5-2.2) H 04/09/20 16:30 Calcium 8.5 mg/dL (8.5-10.5) 04/12/20 05:07 Magnesium 2.4 mg/dL (1.7-2.3) H 04/10/20 03:45 Total Bilirubin 0.6 mg/dL (0.15-1.2) 04/09/20 16:30 AST 19 U/L (0-40) 04/09/20 16:30 ALT 16 U/L (0-41) 04/09/20 16:30 Alkaline Phosphatase 71 IU/L (40-130) 04/09/20 16:30 Troponin T Baseline 65 ng/L (0-15) H 04/09/20 16:30 Troponin T 120 Minute 69.28 ng/L (0-15) H 04/09/20 18:43 Delta Troponin T 4.28 ABS# (0-10) 04/09/20 18:43 Troponin T Hi Sens 6Hr 62.03 ng/L (0-15) H 04/09/20 22:24 Troponin T Hi Sens 6Hr Delta -2.97 ng/L (0-12) L 04/09/20 22:24 Total Protein 6.8 g/dL (6.6-8.7) 04/09/20 16:30 Albumin 4.3 g/dL (3.5-5.2) 04/09/20 16:30 Globulin 2.5 g/dL (1.3-4.6) 04/09/20 16:30 TSH 3.20 uIU/mL (0.27-4.20) 04/10/20 01:47 EKG 3: My Interpretation: The EKG revealed a normal sinus rhythm with QTC of 440. A&P Assessment and plan (1) Transient atrial fibrillation/flutter: Patient seems to be tolerating Betapace so far well. Advised to continue on the current dose of the medication. The QTC was within normal limits this morning. He was given 80 mg of Betapace. Before the evening dose we will repeat the EKG. Based on the QTC, the evening dose will be decided. Status: Acute (2) Atherosclerotic heart disease of [place] coronary artery without angina pectoris: Patient has no specific symptoms of coronary insufficiency. He may continue on the current medications. Patient may be taken off the aspirin and continue the Eliquis and Plavix Status: Acute Qualifiers: [place] vs. transplanted heart: [place] heart Qualified Code(s): I25.10 - Atherosclerotic heart disease of [place] coronary artery without angina pectoris (3) Dyslipidemia: Continue on the current medications. Status: Chronic (4) Benign essential hypertension with target blood pressure below 140/90: Currently normotensive. Continue on the antihypertensive medications. Status: Chronic Additional A&P Information Other problems are Anemia Hypokalemia-needs to be supplemented this patient needs to be monitored on telemetry for 48 to 72 hours on Betapace. After reviewing the repeat EKG this evening, further management decisions will be made. Attestations Medical Necessity Statement*: Patient requires continued hospital stay for close monitoring and further management. If the patient continues remain stable, may be discharged home tomorrow. Coding Level of Care Code Acute Nutrition Instructor for g Fwd Diagnoses Transient atrial fibrillation/flutter Atherosclerotic heart disease of [place] coronary artery without angina pectoris I25.10 [place] vs. transplanted heart: [place] heart Dyslipidemia E78.5 Benign essential hypertension with target blood pressure below 140/90 I10
[2020-04-12] MEDS: sotalol 80 mg Tablet PO (09:52)
[2020-04-12] MEDS: hydroCHLOROthiazide 25 mg Tablet 12.5 MG PO (09:52)
[2020-04-12] MEDS: apixaban 5 mg Tablet PO ×2 (09:52→17:06)
[2020-04-12] MEDS: tamsulosin 0.4 mg Capsule PO (09:52)
[2020-04-12] MEDS: finasteride 5 mg Tablet PO (09:53)
[2020-04-12] MEDS: multivitamin therapeutic Tablet 1 TAB PO (09:53)
--- NOTE | 2020-04-12 10:00 | ECG_ITS ---
[facility] Test Date: 2020-04-12 Pat Name: Nicolás Menjivar Department: Room: 104 Gender: Male Hha: : 1940 Requested By: Kim Locke Order Number: [id number] Funmilayo MD: Kim Locke M.D. 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 [id number]
--- NOTE | 2020-04-12 11:12 | P.PN_ITS ---
Subjective Subjective: Interval history: Had 925 mL urine output overnight, hemodynamically stable, afebrile, on RA. Stable hemoglobin and renal function. Resting comfortably in bed, reports feeling well, seems to be getting to and from bedside commode with no difficulty, denies chest pain or shortness of breath. Case discussed with Dr. Locke. Noted low potassium, replaced p.o. Medications: Reviewed: Yes Medication Review Details: Active Medications Generic Name Dose Route Start Last Admin Trade Name Freq PRN Reason Stop Dose Admin Acetaminophen 650 mg 04/10/20 01:50 04/11/20 19:41 Tylenol PO 650 mg Q6H PRN Administration Mild/Mod Pain Or Temp >/= 101 Apixaban 5 mg 04/11/20 09:50 04/12/20 09:52 Eliquis PO 5 mg BID NIMO Administration Atorvastatin Calci um 40 mg 04/11/20 21:00 04/11/20 19:41 Lipitor PO 40 mg BEDTIME NIMO Administration Calcium Carbonate 1,000 mg 04/10/20 22:05 04/10/20 22:12 Tums PO 1,000 mg Q4H PRN Administration HEARTBURN Dextrose 25 ml 04/10/20 01:53 D50w IVP ONCE PRN hypoglycemia prot ocol Protocol Dextrose 50 ml 04/10/20 01:53 D50w IVP PRN PRN hypoglycemia prot ocol Protocol Finasteride 5 mg 04/11/20 09:55 04/12/20 09:53 Proscar PO 5 mg DAILY NIMO Administration Glucagon 1 mg 04/10/20 01:53 Glucagen IM ONCE PRN Adult Acute Hypog lycemia Prot. Protocol Hydrochlorothiazid e 12.5 mg 04/11/20 09:50 04/12/20 09:52 Hctz PO 12.5 mg DAILY NIMO Administration Dextrose 500 mls @ 100 mls /hr 04/10/20 01:53 D5w IV ONCE PRN Adult Acute Hypog lycemia Prot Protocol Diltiazem HCl 125 mg/ Sodium 125 mls @ 0 mls/h r 04/10/20 08:00 04/10/20 14:14 Chloride IV 0 mg/hr .Q0M NIMO 0 mls/hr Titration Protocol Per Protocol Insulin Aspart 0 unit 04/10/20 08:00 04/12/20 07:14 Novolog SUBCUT 4 unit TIDWM NIMO Administration Protocol Multivitamins Ther apeutic 1 tab 04/11/20 10:00 04/12/20 09:53 Multivitamin Tab PO 1 tab DAILY NIMO Administration Potassium Chloride 40 meq 04/12/20 11:13 Klor-Con 10 PO 04/12/20 11:14 ONCE ONE Sotalol HCl 80 mg 04/12/20 09:30 04/12/20 09:52 Betapace PO 80 mg BID@0900,2100 NIMO Administration Tamsulosin HCl 0.4 mg 04/11/20 09:55 04/12/20 09:52 Flomax PO 0.4 mg DAILY NIMO Administration Tramadol HCl 50 mg 04/11/20 09:51 Ultram PO Q4H PRN MODERATE PAIN bupropion [From Wellbutrin] Allergy (Unknown, Verified 04/09/20 16:14) Unknown celecoxib [From Celebrex] Allergy (Unknown, Verified 04/09/20 16:14) Unknown rofecoxib [From Vioxx] Allergy (Verified 04/09/20 16:14) Unknown Vitals/I&O/Wt Last Vital Signs Temp 98.5 F 04/12/20 07:16 Pulse 69 04/12/20 07:16 Resp 19 H 04/12/20 07:16 BP 145/79 04/12/20 07:16 Pulse Ox 96 04/12/20 07:16 04/11/20 04/12/20 04/12/20 22:59 06:59 14:59 Intake Total 240 / 600 200 / 800 240 / 240 Output Total 750 / 1125 200 / 1325 525 / 525 Balance -510 / -525 0 / -525 -285 / -285 Weight last 48 hrs Weight 84.55 kg Weight 84.096 kg Physical Exam Const: COMMON NORMALS: no acute distress and patient oriented x3 GENERAL APPEARANCE: cooperative and comfortable ORIENTATION/CONSCIOUSNESS: Yes awake OTHER: -looks appropriate for age HENMT: COMMON NORMALS: normocephalic, atraumatic, hearing grossly normal bilaterally and moist oral mucous membranes HEAD & SCALP: normocephalic and atraumatic Eye: COMMON NORMALS: Equal, round and reactive pupils present, EOMs intact bilaterally and conjunctivae normal CONJUNCTIVA: Yes conjunctivae normal PUPIL: Yes Equal, round and reactive pupils present Neck/C-Spine: COMMON NORMALS: full ROM GENERAL: Yes normal visual inspection and Yes trachea midline Resp: COMMON NORMALS: normal respiratory effort, No retractions, No use of accessory muscles and clear to auscultation bilaterally EFFORT & INSPECTION: Yes able to speak in complete sentences, Yes symmetric chest movement and No tachypneic AUSCULTATION: clear to auscultation bilaterally Cardio: COMMON NORMALS: regular rate, S1 normal heart sound present, S2 normal heart sound present and No murmurs present (Cardio) RATE: regular rate RHYTHM: abnormal rhythm irregularly irregular HEART SOUNDS: S1 normal heart sound present and S2 normal heart sound present GI: COMMON NORMALS: Normal to inspection, nondistended, normoactive bowel sounds present, Soft to palpation and non-tender PALPATION: Yes Soft to palpation Extremity: COMMON NORMALS: normal to inspection, full ROM and no clubbing, cyanosis or edema; negative for no pedal edema Neuro: COMMON NORMALS: patient oriented x3, moves all extremities, no focal motor deficits and no sensory deficits noted Psych: COMMON NORMALS: mental status grossly normal, Normal thought process present, cooperative, normal affect and speech normal SPEECH: Yes normal speech THOUGHT PROCESS: Normal thought process present Skin: COMMON NORMALS: no rashes or lesions noted, no jaundice, no petechiae and no mottling GENERAL SKIN EXAM: no rashes or lesions noted Data : 04/12/20 05:07 04/12/20 05:07 A&P Assessment and plan (1) Transient atrial fibrillation/flutter: -appears to be new onset arrhythmia -had previously been on Metoprolol and Diltiazem which he discontinued on his own due to dizziness -on sotalol 80 mg in AM, 40 mg in PM; off Cardizem drip -appreciate evaluation by Dr. Locke -telemetry monitoring -VSS; continue to monitor -Echo: EF=57%, G3DD, mild LVH, no RWMA, mild to moderate MR, moderate TR, mild pulmonary HTN -has been on therapeutic Lovenox due to D-dimer elevation; VTE r/o so now on Eliquis -[id number] score of 5; will need to continue intermediate designer oral anticoagulation Status: Acute (2) Acute kidney injury superimposed on CKD: -noted acute renal impairment which is improving; baseline Cr appears to be around 1-1.5 -avoid nephrotoxins, renally dose meds -continue to monitor renal function; currently at baseline Status: Acute (3) S/P total knee arthroplasty: -s/p L total knee arthroplasty done on 02/27/2020 due to hx of severe OA -done by Dr. Luciano -had been started on full dose ASA for DVT ppx post op. With initiation of Eliquis, will d/c ASA -noted D-dimer elevation (3.74), low probability of PE on V/Q scan (no CT due to renal impairment); venous duplex negative for DVT. -fall precautions -has been doing outpatient PT Status: Chronic Qualifiers: Laterality: left Qualified Code(s): Z96.652 - Presence of left artificial knee joint (4) Benign essential hypertension with target blood pressure below 140/90: -BP trending up, continue to monitor -will resume lasix and d/c HCTZ to avoid dual diuretics Status: Chronic (5) Atherosclerotic heart disease: -has had prior stenting -cardiac workup done in 2019 with nuclear stress testing being negative for ischemia; Echo-EF=55%, mild LVH, no RWMA, trace TR, mild [place] -on statin, resume Plavix, off ASA due to Eliquis Status: Chronic Qualifiers: Associated angina: without angina Coronary Disease-Associated Artery/Lesion type: [place] artery [place] vs. transplanted heart: [place] heart Qualified Code(s): I25.10 - Atherosclerotic heart disease of [place] coronary art lis[place] without angina pectoris (6) Dyslipidemia: -on statin Status: Chronic Additional A&P Information -Advanced age -BPH; on tamsulosin and finasteride -Chronic OA; pain control as needed -NIDDM type II; accuchecks, ISS, hypoglycemia precautions -cardiac diet as tolerated -DVT ppx not needed as on Eliquis -Dispo: home -Code status: FULL code Attestations Medical Necessity Statement*: Patient requires hospitalization for continued management of new onset arrhythmia, needs continued telemetry monitoring, optimization of medication. Time Spent in Patient Care: 16 - 35 minutes (>than 50% of time spent in counselling and/or direct pt care on unit) . Coding Level of Care Code Acute Microbiology Lab Analyst for g Fwd Exam Comprehensive Diagnoses Transient atrial fibrillation/flutter Acute kidney injury superimposed on CKD N17.9; N18.9 S/P total knee arthroplasty Z96.652 Laterality: left Benign essential hypertension with target blood pressure below 140/90 I10 Atherosclerotic heart disease I25.10 Associated angina: without angina Coronary Disease-Associated Artery/Lesion type: [place] artery [place] vs. transplanted heart: [place] heart Dyslipidemia E78.5
[2020-04-12 11:32] LABS: Glucose Point of Care 224 mg/dL (70-110)
[2020-04-12] MEDS: potassium chloride ER 10 mEq Tablet 40 MEQ PO (11:40)
[2020-04-12] MEDS: FUROsemide 40 mg Tablet PO (11:40)
[2020-04-12 11:42] VITALS: BP 139/72; PULSE 70; RESP 18; TEMP 36.8; O2SAT 96
[2020-04-12] MEDS: clopidogrel 75 mg Tablet PO (15:33)
[2020-04-12 16:00] VITALS: BP 132/67; PULSE 64; RESP 18; TEMP 36.7; O2SAT 97
[2020-04-12 16:51] LABS: Glucose Point of Care 209 mg/dL (70-110)
--- NOTE | 2020-04-12 17:00 | ECG_ITS ---
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 Measurements Intervals [place] Rate: 69 P: 13 [place]: 247 QRS: -29 QRSD: 83 T: -16 QT: 448 QTc: 481 Interpretive Statements SINUS RHYTHM WITH FIRST DEGREE AV BLOCK BORDERLINE LEFT AXIS DEVIATION [QRS AXIS < -20] VOLTAGE CRITERIA FOR LVH [MEETS CRITERIA IN ONE OF: R(aVL), S(V1), R(V5), R(V5/V6)+S(V1)] PROLONGED QT INTERVAL Compared to ECG 04/12/2020 08:38:33 First degree AV block now present Prolonged QT interval now present Atrial fibrillation no longer present Myocardial infarct finding no longer present Electronically Signed On 04-12-2020 23:50:38 CDT by Kim Locke M.D. [id number]
--- NOTE | 2020-04-12 17:44 | PC.NURSE ---
Dr. Locke notified of QTC on EKG. Physician gave telephone order to administer 40 mg of sotalol at 2100 tonight. Continue schedule for patient to receive 80 mg in the morning. Check EKG and notify Dr. Zepeda, teacher education instructor neonatal critical care nurse, of QTC before administering morning dose of 80 mg. RBVO.
[2020-04-12 20:00] VITALS: BP 142/91; PULSE 66; RESP 21; TEMP 36.6; O2SAT 97
--- NOTE | 2020-04-12 20:25 | PC.NURSE ---
Received report from YAMILA Beckham. Patient resting in bed watching tv. Denies any discomforts or complaints. No distress observed. Discussed dose of Sotalol and need for EKG in am. Patient verbalized understanding. Assessment completed as documented.
[2020-04-12] MEDS: atorvastatin 40 mg Tablet PO (20:35)
[2020-04-12] MEDS: sotalol 80 mg Tablet 40 MG PO (20:35)
[2020-04-12] MEDS: TRAMadol 50 mg Tablet PO (20:38)
[2020-04-12 20:39] LABS: Glucose Point of Care 225 mg/dL (70-110)
[2020-04-13] VITALS: BP 160/86; PULSE 68; RESP 15; TEMP 36.8; O2SAT 96
[2020-04-13 04:00] VITALS: BP 180/83; PULSE 71; RESP 17; TEMP 36.6; O2SAT 95
[2020-04-13 06:13] LABS: Basophils % 0.5 %; Eosinophils % 1.8 %; Hematocrit 28.5 % (42.0-52.0); Hemoglobin 9.3 g/dL (11.7-16.6); Lymphocytes # 0.7 10^3/uL (0.8-4.8); Lymphocytes % 29.9 %; Mean Corpuscular HGB Conc 32.6 g/dL (30.0-36.0); Mean Corpuscular Hemoglobin 33.7 pg (28.0-34.0); Mean Corpuscular Volume 103.3 fL (80-94); Mean Platelet Volume 12.5 fL (7.4-10.4); Monocytes # 0.4 10^3/uL (0.2-0.9); Monocytes % 19.5 %; Neutrophils # 1.06 10^3/uL (1.8-7.7); Neutrophils % 47.8 %; Nucleated Red Blood Cells % 0 %; Platelet Count 259 10^3/cmm (130-400); Red Blood Count 2.76 10^6/uL (4.1-5.3); Red Cell Distribution Width 15.7 % (12.1-15.1); White Blood Count 2.2 10^3/uL (4.0-10.0)
[2020-04-13 06:45] LABS: Glucose Point of Care 208 mg/dL (70-110)
[2020-04-13 07:03] LABS: Anion Gap 15.5 (5-19); Blood Urea Nitrogen 23 mg/dL (8-23); Calcium 8.5 mg/dL (8.5-10.5); Carbon Dioxide 26 mmol/L (22-29); Chloride 99 mmol/L (98-107); Glucose 168 mg/dL (65-115); Osmolality Calculated 285 mOsm/kg (285-295); Potassium 3.5 mmol/L (3.5-5.1); Sodium 137 mmol/L (136-145)
--- NOTE | 2020-04-13 08:10 | ECG_ITS ---
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 Measurements Intervals [place] Rate: 69 P: 30 MO: 236 QRS: -25 QRSD: 90 T: -14 QT: 415 QTc: 447 Interpretive Statements SINUS RHYTHM WITH FIRST DEGREE AV BLOCK WITH OCCASIONAL SUPRAVENTRICULAR PREMATURE COMPLEXES MODERATE VOLTAGE CRITERIA FOR LVH, CONSIDER NORMAL VARIANT [MEETS CRITERIA IN ONE OF: R(aVL), S(V1), R(V5), R(V5/V6)+S(V1)] Compared to ECG 04/12/2020 17:16:51 Prolonged QT interval no longer present Electronically Signed On 04-13-2020 22:50:10 CDT by Salena Zepeda M.D. [id number]
--- NOTE | 2020-04-13 08:17 | PM.DCS ---
Discharge Providers Date of Admission: 04/10/20 08:12 Date of Discharge: April 13, 2020 Attending Provider at Admission: Kade Crockett Attending Provider at Discharge: Kimberly Sheriff MD Primary Care Provider: Ferdinand Arteaga MD Diagnoses at Discharge Discharge Diagnosis (1) Transient atrial fibrillation/flutter: Status: Acute Problem details: -appears to be new onset arrhythmia -had previously been on Metoprolol and Diltiazem which he discontinued on his own due to dizziness -on sotalol 80 mg in AM, 40 mg in PM; off Cardizem drip -appreciate evaluation by Dr. 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 Luciano -had been started on full dose ASA for DVT ppx post op. With initiation of Eliquis, will d/c ASA -noted D-dimer elevation (3.74), low probability of PE on V/Q scan (no CT due to renal impairment); venous duplex negative for DVT. -fall precautions -has been doing outpatient PT Qualifiers: Laterality: left Qualified Code(s): Z96.652 - Presence of left artificial knee joint (4) Benign essential hypertension with target blood pressure below 140/90: Status: Chronic Problem details: -BP trending up, continue to monitor -on lasix and HCTZ (5) Atherosclerotic heart disease: Status: Chronic Problem details: -has had prior stenting -cardiac workup done in 2019 with nuclear stress testing being negative for ischemia; Echo-EF=55%, mild LVH, no RWMA, trace TR, mild [place] -on statin, Plavix, off ASA due to Eliquis Qualifiers: Associated angina: without angina Coronary Disease-Associated Artery/Lesion type: [place] artery [place] vs. transplanted heart: [place] heart Qualified Code(s): I25.10 - Atherosclerotic heart disease of [place] coronary artery without angina pectoris (6) Dyslipidemia: Status: Chronic Problem details: -on statin Other Information Additional DC diagnoses/information: -Advanced age -BPH; on tamsulosin and finasteride -Chronic OA; pain control as needed -NIDDM type II; accuchecks, ISS, hypoglycemia precautions -Chronic leukopenia; has been seen by oncology Dr. Santos and has had workup including bone marrow biopsy (03/31/18) showing hypercellular bone marrow, normal trilineage hematopoiesis, normal iron stores; flow cytometry showed no aberrant myeloid or lymphoid population; FISH for MDS showed no abnormality. Reason for Visit Reason for Visit: irregular hr Hospital Course Hospital Course: Patient was admitted to the cardiac stepdown unit after being found to have new onset atrial fibrillation/flutter. He was started on a Cardizem drip and cardiology was formally consulted. Echo was ordered as noted above. Dr. Locke is patient's primary operations officer recommended initiation of sotalol which patient seems to have responded well to. He did require some dose adjustment secondary to noted prolonged QT interval on serial EKG. He was initially started on anticoagulation with therapeutic Lovenox which has been switched to Eliquis. He has been on full dose aspirin following his left knee surgery for DVT prophylaxis. This has been discontinued as he is now on Eliquis. He is to continue Plavix per discussion with cardiology. With treatment of his arrhythmia he symptoms have resolved. He has been ambulatory, tolerating oral intake without difficulty, voiding appropriately. He has been intermittently hypotensive likely due to holding some of his oral antihypertensives specifically his dual diuretics. These can be resumed. He will need appropriate follow-up with his primary care provider, cardiology and will need to continue to follow-up with orthopedic surgery. He is advised to seek medical attention immediately should any of his symptoms recur. Discharge Summary: -Patient to follow-up with his primary care physician within 1 week -Patient to follow-up with Melissa Davison in 1 week for EKG and labs; follow-up with Dr. Locke in 1 month -Patient to continue to follow-up with Dr. Luciano Physical Exam Const: COMMON NORMALS: no acute distress and patient oriented x3 GENERAL APPEARANCE: cooperative and comfortable ORIENTATION/CONSCIOUSNESS: Yes awake OTHER: -looks appropriate for age HENMT: COMMON NORMALS: normocephalic, atraumatic, hearing grossly normal bilaterally and moist oral mucous membranes HEAD & SCALP: normocephalic and atraumatic Eye: COMMON NORMALS: Equal, round and reactive pupils present, EOMs intact bilaterally and conjunctivae normal CONJUNCTIVA: Yes conjunctivae normal PUPIL: Yes Equal, round and reactive pupils present Neck/C-Spine: COMMON NORMALS: full ROM GENERAL: Yes normal visual inspection and Yes trachea midline Resp: COMMON NORMALS: normal respiratory effort, No retractions, No use of accessory muscles and clear to auscultation bilaterally EFFORT & INSPECTION: Yes able to speak in complete sentences, Yes symmetric chest movement and No tachypneic AUSCULTATION: clear to auscultation bilaterally Cardio: COMMON NORMALS: regular rate, S1 normal heart sound present, S2 normal heart sound present and No murmurs present (Cardio) RATE: regular rate RHYTHM: abnormal rhythm irregularly irregular HEART SOUNDS: S1 normal heart sound present and S2 normal heart sound present GI: COMMON NORMALS: Normal to inspection, nondistended, normoactive bowel sounds present, Soft to palpation and non-tender PALPATION: Yes Soft to palpation Extremity: COMMON NORMALS: normal to inspection, full ROM and no clubbing, cyanosis or edema; negative for no pedal edema Neuro: COMMON NORMALS: patient oriented x3, moves all extremities, no focal motor deficits and no sensory deficits noted Psych: COMMON NORMALS: mental status grossly normal, Normal thought process present, cooperative, normal affect and speech normal SPEECH: Yes normal speech THOUGHT PROCESS: Normal thought process present Skin: COMMON NORMALS: no rashes or lesions noted, no jaundice, no petechiae and no mottling GENERAL SKIN EXAM: no rashes or lesions noted Discharge Data Data Completed and Pending: Completed Studies During Hospitalization Category Date Time Status XR chest 1V venkatesh ble [id number] Stat Exams 04/09/20 17:17 Completed NM pul vent and p erfus* [id number] Routi ne Nuc Med 04/10/20 01:32 Completed CV echo complete* [id number] Routine Ultrasound 04/10/20 08:56 [place] [id number] Routin e Ultrasound 04/10/20 01:31 Completed US renal BI with bladder Routine Ultrasound 04/10/20 01:43 Completed Labs from last 24 hours 04/13/20 04/13/20 04/13/20 06:29 03:50 03:50 WBC 2.2 L RBC 2.76 L Hgb 9.3 L Hct 28.5 L MCV 103.3 H MCH 33.7 MCHC 32.6 RDW 15.7 H Plt Count 259 MPV 12.5 H Neut % (Auto) 47.8 Lymph % (Auto) 29.9 [place] % (Auto) 19.5 Eos % (Auto) 1.8 Baso % (Auto) 0.5 Neut # (Auto) 1.06 L Lymph # (Auto) 0.7 L [place] # (Auto) 0.4 Eos # (Auto) 0.0 Baso # (Auto) 0.0 Nucleated RBC % (a uto) 0 Nucleated RBCs # 0.0 Sodium 137 Potassium 3.5 Chloride 99 Carbon Dioxide 26 Anion Gap 15.5 BUN 23 Creatinine 1.2 Glucose 168 H POC Glucose 208 Calculated Osmolal ity 285 Calcium 8.5 04/12/20 04/12/20 04/12/20 20:32 16:22 11:18 WBC RBC Hgb Hct MCV MCH MCHC RDW Plt Count MPV Neut % (Auto) Lymph % (Auto) [place] % (Auto) Eos % (Auto) Baso % (Auto) Neut # (Auto) Lymph # (Auto) [place] # (Auto) Eos # (Auto) Baso # (Auto) Nucleated RBC % (a uto) Nucleated RBCs # Sodium Potassium Chloride Carbon Dioxide Anion Gap BUN Creatinine Glucose POC Glucose 225 209 224 Calculated Osmolal ity Calcium Vitals: Last Vital Signs Temp 98 F 04/13/20 04:00 Pulse 71 04/13/20 04:00 Resp 17 04/13/20 04:00 BP 180/83 04/13/20 04:00 Pulse Ox 95 04/13/20 04:00 Discharge Plan Discharge Patient Disposition: Home, Self-Care Condition: Stable Prescriptions: New sotalol 80 mg Tablet 80 mg PO DAILY 30 Days Qty: 30 RF: 0 sotalol 80 mg Tablet 40 mg PO BEDTIME 30 Days Qty: 30 RF: 0 Eliquis 5 mg Tablet 5 mg PO BID 30 Days Qty: 60 RF: 0 Continued escitalopram oxalate 20 mg tablet 20 mg PO DAILY RF: 0 simvastatin 40 mg tablet 40 mg PO DAILY RF: 0 amitriptyline 25 mg tablet 25 mg PO DAILY RF: 0 metformin 500 mg tablet 1,000 mg PO BID RF: 0 testosterone cypionate 200 mg/mL kit 200 mg IM .ONCE MONTHLY RF: 0 multivitamin Tablet 1 tab PO DAILY RF: 0 isosorbide mononitrate 30 mg tablet extended release 24 hr 30 mg PO DAILY RF: 0 glipizide 5 mg tablet 5 mg PO BID RF: 0 tizanidine 4 mg tablet 4 mg PO TID PRN (Reason: muscle spasticity) RF: 0 furosemide 40 mg tablet 40 mg PO DAILY RF: 0 vitamin B complex [B Complex-Vitamin B12] Tablet 1 tab PO DAILY RF: 0 pyridoxine (vitamin B6) 100 mg tablet 100 mg PO QID RF: 0 acetaminophen [Tylenol Extra Strength] 500 mg tablet 1,000 mg PO Q8H PRN (Reason: Pain) RF: 0 tamsulosin 0.4 mg capsule 0.4 mg PO BID Qty: 180 RF: 3 clopidogrel 75 mg tablet 75 mg PO DAILY Qty: 90 RF: 3 oxycodone 5 mg tablet, oral only 5 mg PO Q6H PRN (Reason: pain) 7 Days Qty: 28 RF: 0 finasteride 5 mg tablet 5 mg PO DAILY RF: 0 naproxen sodium [Aleve] 220 mg Tablet 440 mg PO BID RF: 0 docusate sodium 100 mg Tablet 100 mg PO BID PRN (Reason: Constipation) RF: 0 tramadol 50 mg Tablet 50 mg PO Q4H PRN (Reason: Mild To Moderate Pain) Qty: 30 RF: 0 triamterene-hydrochlorothiazid 75-50 mg Tablet 0.5 tab PO DAILY RF: 0 Discontinued aspirin 325 mg tablet 325 mg PO DAILY RF: 0 Discharge Orders: Discharge Order (Routine); Ordered 04/13/20 Ordered By: Kimberly Sheriff Referrals: Kim Locke MD [Physician] - 1 month (Post hospital discharge follow up. ) Estella Luciano MD [Physician] - 1 week (s/p L TKA) Melissa Davison FNP [Nurse Practitioner] - 1 week (Post hospital follow up, will needs ECG and labs) Ferdinand Arteaga MD [Primary Care Provider] - 4-7 days (Post hospital discharge follow up. Treated for new onset atrial flutter/fibrillation. Started on Eliquis and Sotalol. ) Discharge Diet: Cardiac Discharge Activity: Increase activity as tolerated Activity Restrictions/Additional Instructions: -Please monitor your blood pressure at home at least 2-3 times per week. Keep a log for review with your primary care provider -Please note the change to your medications as reviewed during the discharge Discharge Attestations Time Spent in Discharge Care*: greater than 30 min Specific Discharge Activities: Specific discharge activities: educating patient, discussing with pcp/other providers, discussing with rn field case manager/social workers/dc planners, documenting/other paperwork and evaluating patient/reviewing data Status at Discharge: Cognitive status at discharge: cognitively intact, Behavioral status at discharge: cooperative, Functional status at discharge: independent ambulation Overall status at discharge: patient is progressing back to baseline Quality Metrics Clinical Quality Measures During this hospital stay, did patient experience: None Coding Level of Care Code Acute Paper Latcher for [facility] Fwd Exam Comprehensive Diagnoses Transient atrial fibrillation/flutter Acute kidney injury superimposed on CKD N17.9; N18.9 S/P total knee arthroplasty Z96.652 Laterality: left Benign essential hypertension with target blood pressure below 140/90 I10 Atherosclerotic heart disease I25.10 Associated angina: without angina Coronary Disease-Associated Artery/Lesion type: [place] artery [place] vs. transplanted heart: [place] heart Dyslipidemia E78.5
[2020-04-13] MEDS: hydroCHLOROthiazide 25 mg Tablet 12.5 MG PO (09:20)
[2020-04-13] MEDS: isosorbide mononitrate ER 30 mg Tablet PO (09:21)
[2020-04-13] MEDS: FUROsemide 40 mg Tablet PO (09:21)
[2020-04-13] MEDS: potassium chloride ER 10 mEq Tablet 40 MEQ PO (09:23)
[2020-04-13] MEDS: multivitamin therapeutic Tablet 1 TAB PO (09:24)
[2020-04-13] MEDS: clopidogrel 75 mg Tablet PO (09:24)
[2020-04-13] MEDS: finasteride 5 mg Tablet PO (09:24)
[2020-04-13] MEDS: sotalol 80 mg Tablet PO (09:25)
[2020-04-13] MEDS: tamsulosin 0.4 mg Capsule PO (09:25)
[2020-04-13] MEDS: apixaban 5 mg Tablet PO (09:25)
--- NOTE | 2020-04-13 09:25 | PC.SOCIAL ---
IMM Page 2 of IMM explained to patient. Initialed, dated, and timed and placed in chart. Copy provided to patient.
--- NOTE | 2020-04-13 10:05 | PM.PN ---
Subjective Subjective: Interval history: Denies any complaint. Remains in sinus rhythm heart rate in 80s and normal QT QTC Medications: Reviewed: Yes Medication Review Details: Active Medications Generic Name Dose Route Start Last Admin Trade Name Freq PRN Reason Stop Dose Admin Acetaminophen 650 mg 04/10/20 01:50 04/11/20 19:41 Tylenol PO 650 mg Q6H PRN Administration Mild/Mod Pain Or Temp >/= 101 Apixaban 5 mg 04/11/20 09:50 04/12/20 09:52 Eliquis PO 5 mg BID NIMO Administration Atorvastatin Calci um 40 mg 04/11/20 21:00 04/11/20 19:41 Lipitor PO 40 mg BEDTIME NIMO Administration Calcium Carbonate 1,000 mg 04/10/20 22:05 04/10/20 22:12 Tums PO 1,000 mg Q4H PRN Administration HEARTBURN Dextrose 25 ml 04/10/20 01:53 D50w IVP ONCE PRN hypoglycemia prot ocol Protocol Dextrose 50 ml 04/10/20 01:53 D50w IVP PRN PRN hypoglycemia prot ocol Protocol Finasteride 5 mg 04/11/20 09:55 04/12/20 09:53 Proscar PO 5 mg DAILY NIMO Administration Glucagon 1 mg 04/10/20 01:53 Glucagen IM ONCE PRN Adult Acute Hypog lycemia Prot. Protocol Hydrochlorothiazid e 12.5 mg 04/11/20 09:50 04/12/20 09:52 Hctz PO 12.5 mg DAILY NIMO Administration Dextrose 500 mls @ 100 mls /hr 04/10/20 01:53 D5w IV ONCE PRN Adult Acute Hypog lycemia Prot Protocol Diltiazem HCl 125 mg/ Sodium 125 mls @ 0 mls/h r 04/10/20 08:00 04/10/20 14:14 Chloride IV 0 mg/hr .Q0M NIMO 0 mls/hr Titration Protocol Per Protocol Insulin Aspart 0 unit 04/10/20 08:00 04/12/20 07:14 Novolog SUBCUT 4 unit TIDWM NIMO Administration Protocol Multivitamins Ther apeutic 1 tab 04/11/20 10:00 04/12/20 09:53 Multivitamin Tab PO 1 tab DAILY NIMO Administration Potassium Chloride 40 meq 04/12/20 11:13 Klor-Con 10 PO 04/12/20 11:14 ONCE ONE Sotalol HCl 80 mg 04/12/20 09:30 04/12/20 09:52 Betapace PO 80 mg BID@0900,2100 NIMO Administration Tamsulosin HCl 0.4 mg 04/11/20 09:55 04/12/20 09:52 Flomax PO 0.4 mg DAILY NIMO Administration Tramadol HCl 50 mg 04/11/20 09:51 Ultram PO Q4H PRN MODERATE PAIN bupropion [From Wellbutrin] Allergy (Unknown, Verified 04/09/20 16:14) Unknown celecoxib [From Celebrex] Allergy (Unknown, Verified 04/09/20 16:14) Unknown rofecoxib [From Vioxx] Allergy (Verified 04/09/20 16:14) Unknown Vitals/I&O/Wt Last Vital Signs Temp 98 F 04/13/20 04:00 Pulse 71 04/13/20 04:00 Resp 17 04/13/20 04:00 BP 180/83 04/13/20 04:00 Pulse Ox 95 04/13/20 04:00 04/12/20 04/13/20 04/13/20 22:59 06:59 14:59 Intake Total 240 / 720 480 / 1200 Output Total 300 / 975 300 / 1275 Balance -60 / -255 180 / -75 Weight last 48 hrs Weight 188 lb Weight 186 lb 6.4 oz Physical Exam Narrative: EXAM NARRATIVE: GENERAL: Patient is alert, awake and oriented x3. NECK: No jugular vein distension. HEENT: No cyanosis. No icterus. No pallor. HEART: Regular S1 and S2. No murmur, rub or gallop. LUNGS: Clear to auscultate bilaterally. CENTRAL NERVOUS SYSTEM: Grossly nonfocal. Data : 04/13/20 03:50 04/13/20 03:50 A&P Assessment and plan (1) Transient atrial fibrillation/flutter: Patient is in sinus rhythm. Tolerating Betapace well. QTC within normal limit 441. Continue current regimen of 80 mg in the morning and 40 mg in p.m. From a cardiovascular perspective patient can be discharged home. Patient needs to follow-up with Melissa Davison in 7 days for EKG and to check QT/QTc. Patient then requires follow-up with Dr. Locke in 1 month. Status: Acute (2) Atherosclerotic heart disease of [place] coronary artery without angina pectoris: Stable doing fine from coronary disease perspective. Continue medicine Status: Acute Qualifiers: [place] vs. transplanted heart: [place] heart Qualified Code(s): I25.10 - Atherosclerotic heart disease of [place] coronary artery without angina pectoris (3) Dyslipidemia: Continue statin Status: Chronic (4) Benign essential hypertension with target blood pressure below 140/90: Currently normotensive. Continue on the antihypertensive medications. Status: Chronic Additional A&P Information Other problems are Anemia Hypokalemia-needs to be supplemented this patient needs to be monitored on telemetry for 48 to 72 hours on Betapace. After reviewing the repeat EKG this evening, further management decisions will be made. Attestations Medical Necessity Statement*: From a cardiovascular perspective patient can be discharged Coding Level of Care Code Established Pt Acute Insecticide Expert for Chg Fwd Patient Type Established History Expanded Problem Focused Exam Expanded Problem Focused Medical Decision Making Moderate Complexity Diagnoses Transient atrial fibrillation/flutter Atherosclerotic heart disease of [place] coronary artery without angina pectoris I25.10 [place] vs. transplanted heart: [place] heart Dyslipidemia E78.5 Benign essential hypertension with target blood pressure below 140/90 I10
[2020-04-13 11:03] VITALS: BP 139/70; PULSE 60; RESP 21; TEMP 36.5; O2SAT 96
[2020-04-13 11:49] LABS: Glucose Point of Care 248 mg/dL (70-110)
[2020-04-13 12:00] VITALS: BP 106/65; PULSE 57; RESP 14; TEMP 36.4; O2SAT 94
[2020-04-13 12:27] VITALS: BP 106/65; PULSE 57; RESP 14; TEMP 36.4; O2SAT 94
== END 2020-04-13 13:45 | disposition home or self-care (01) | DRG 309 ==
LOC: ER 19:38 → CSU 22:10
PROVIDERS: Emergency Medicine; Nurse Practitioner Family; Admitting Provider Internal Medicine; PCP Internal Medicine; Visit Provider Family Medicine
DX: I48.92 Unspecified atrial flutter (principal); N17.9 Acute kidney failure, unspecified; I12.9 Hypertensive chronic kidney disease with stage 1 through stage 4 chronic kidney disease, or unspecified chronic kidney disease; E11.22 Type 2 diabetes mellitus with diabetic chronic kidney disease; N18.9 Chronic kidney disease, unspecified; I25.10 Atherosclerotic heart disease of native coronary artery without angina pectoris; R00.0 Tachycardia, unspecified; E78.5 Hyperlipidemia, unspecified; N40.0 Benign prostatic hyperplasia without lower urinary tract symptoms; M19.90 Unspecified osteoarthritis, unspecified site; Z79.84 Long term (current) use of oral hypoglycemic drugs; Z79.02 Long term (current) use of antithrombotics/antiplatelets; Z79.82 Long term (current) use of aspirin; Z87.891 Personal history of nicotine dependence
CPT/HCPCS: 12345; 36415; 36416; 71045; 76770; 76857; 78014; 80048; 80053; 82962; 83605; 83735; 84443; 84484; 85025; 85378; 85610; 93005; 93306; 93970; 96372; 99283; A9540; A9567; G0378; J1650; J1815; J3475; J3490

== ENCOUNTER → 2020-04-18 14:51 | Outpatient (BNVA) | payer MEDICARE, SELFPAY | PROVIDERS: PCP Internal Medicine; Visit Provider Specialist | DX: Z47.1 Aftercare following joint replacement surgery (principal); Z96.652 Presence of left artificial knee joint | CPT/HCPCS: 73560; 73565 ==

== ENCOUNTER → 2020-05-20 14:29 | Outpatient (BNVA) | payer MEDICARE, SELFPAY | PROVIDERS: PCP Internal Medicine; Visit Provider Specialist | DX: G89.18 Other acute postprocedural pain (principal); Z47.1 Aftercare following joint replacement surgery; Z96.652 Presence of left artificial knee joint | CPT/HCPCS: 73560; 73565 ==

== ENCOUNTER → 2020-09-04 15:57 | Outpatient (BNVA) | payer MEDICARE, SELFPAY | PROVIDERS: PCP Internal Medicine; Visit Provider Specialist | DX: Z98.890 Other specified postprocedural states (principal) | CPT/HCPCS: 73560; 73565 ==

== ENCOUNTER 2021-01-30 10:57 | Outpatient (CLI) | payer MEDICARE, SELFPAY ==
[2021-01-30 11:59] LABS: Basophils % 0.3 %; Eosinophils # 0.1 10^3/uL (0.0-0.8); Hematocrit 31.2 % (42.0-52.0); Hemoglobin 10.4 g/dL (11.7-16.6); Lymphocytes # 0.7 10^3/uL (0.8-4.8); Mean Corpuscular HGB Conc 33.3 g/dL (30.0-36.0); Mean Corpuscular Hemoglobin 33.4 pg (28.0-34.0); Mean Corpuscular Volume 100.3 fL (80-94); Mean Platelet Volume 11.7 fL (7.4-10.4); Monocytes # 0.4 10^3/uL (0.2-0.9); Monocytes % 11.8 %; Neutrophils # 2.32 10^3/uL (1.8-7.7); Neutrophils % 66.6 %; Nucleated Red Blood Cells % 0 %; Platelet Count 267 10^3/cmm (130-400); Red Blood Count 3.11 10^6/uL (4.1-5.3); Red Cell Distribution Width 14.8 % (12.1-15.1); Reticulocyte % 1.3 % (0.5-2.0); White Blood Count 3.5 10^3/uL (4.0-10.0)
[2021-01-30 12:19] LABS: Ferritin 113 ng/mL (30-400); Iron 72 ug/dL (59-158); Total Iron Binding Capacity 288 mcg/dl; Unsaturated Iron Binding 216 ug/dL (112-347)
[2021-01-30 12:34] LABS: Vitamin B12 1553 pg/mL (232-1245)
[2021-01-30 12:43] LABS: Folate Level > 20.0 ng/mL (4.5-32.2)
--- NOTE | 2021-01-30 13:28 | ONC FU_ITS ---
Dr. Santos follow up note Patient: Nicolás Menjivar Unit #: [id number]: [id number] Dicatated By: Cynthia Santos M.D.Date of Visit:January 30, 2021 Onc Med Follow-up/Prog Note History of Present Illness: Mr. Nicolás Menjivar is 80-year-old gentleman with history of self-limiting leukopenia 6-7 years ago. And mild anemia for which he underwent bone marrow evaluation on March 31, 2018, which showed hypercellular bone marrow, normal, trilineage hematopoiesis, normal iron stores, flow cytometry showed no aberrant myeloid or lymphoid population. FISH for MDS was unremarkable too., And his follow-up lab work-up done here on July 15, 2018 showed white blood count of was 4 3 hemoglobin was 11.6 hematocrit 34 platelets 260,000 with a normal differential and at that time no further work-up was suggested and patient was advised to follow-up with his PMD and see us on as-needed basis, as per patient, he was told by his PMD that his white blood count is staying low and also his hemoglobin. Patient denies any recent blood transfusion, since his last visit patient undergone left knee replacement and also has coronary artery stenting about a year ago. Patient denies any night sweats denies any weight loss denies any peripheral lymphadenopathy denies any fever. Denies any melena or hematochezia denies any hemoptysis or hematemesis denies any nosebleed or gum bleed, denies any jaundice Medications: Acetaminophen 2 Tablet (of 500 mg) Oral q 6 hours PRN, Albuterol Sulfate 2 Puff(s) (of 108 (90 base) mcg/act) Aerosol Powder, Breath Activated Inhalation PRN, Aleve 1 (220 mg) Tablet Oral q 12 hours PRN, Amitriptyline HCl 1 Tablet (of 25 mg) Oral daily, Betapace 1 Tablet (of 80 mg) Oral b.i.d., Daily Vitamin 1 Tablet Oral daily, Escitalopram Oxalate 0.5 Tablet (of 20 mg) Oral daily, Finasteride 1 Tablet (of 5 mg) Oral daily, GlipiZIDE 1 (5 mg) Tablet Oral b.i.d., Incruse Ellipta 1 Puff(s) (of 62.5 mcg/inh) Aerosol Powder, Breath Activated Inhalation daily, Isosorbide Mononitrate ER 1 Tablet (of 30 mg) Tablet SR 24 HR Oral daily, Levemir Flexpen 15 Units (of 100 Units/mL) Subcutaneous daily, Lotrisone 1 (1-0.05 %) Cream Topical b.i.d., MetFORMIN HCl ER 2 (500 mg) Tablet SR 24 HR Oral b.i.d., Simvastatin 1 Tablet (of 40 mg) Oral daily, Stool Softener 1 Capsule Oral daily, Tamsulosin HCl 1 (0.4 mg) Capsule Oral b.i.d., Testosterone Cypionate 1 mL (of 200 mg/mL) Intramuscular q 4 weeks Allergies: No Known Allergies. Review of Systems: Review of Systems is not available for this patient. Vital Signs: Performed on January 30, 2021 12:35 Height - 74.00 in Weight - 186.0 lbs (LOW) BSA - 2.11 sq.m BMI - 23.88 Temperature - 98.0 F (LOW) Pulse - 103 /min (HIGH) Respiration - 18 /min BP - 143/78 mm(hg) (HIGH) O2 Sat - 98 % Pain - 0 Performance Status: 0 - Fully active, able to carry on all predisease activities without restrictions. (ECOG) Physical Examination: ENMT - No mouth sores, no thrush, no jaundice no cervical lymphadenopathy, Respiratory - Lungs are clear to auscultation, Cardiovascular - Regular rate and rhythm of heart, Abdomen - Soft, bowel sounds present, Extremities - No visible edema. Lab/Imaging: Most recent lab results are not available for this patient. Impression: Mild leukopenia/anemia normocytic normochromic, etiology unclear but possibilities include medication like Dyazide, or nutritional B12/iron deficiency or mineral deficiency like copper deficiency. Or considering his age myelodysplasia cannot be ruled out. Bone marrow done on 03/31/2018 showed hypercellular bone marrow, normal, trilineage hematopoiesis, normal iron stores. Flow cytometry showed no aberrant myeloid or lymphoid population FISH for MDS showed no abnormality Repeat labs on 07/15/2018 showed normalization of leukopenia e.g. her blood count 4.3 hemoglobin 11.6 crit 34 platelets 260,000 neutrophil 70.1% Plan: Discussed with patient regarding his labs white blood count 3.5 hemoglobin 10.4 hematocrit 31.2 platelets 267,000 MCV 100.3 iron studies shows iron saturation 25 ferritin 113 iron 72 B12 1553 reticulocyte count 1.3 Clinically, patient doing reasonably well, now with fluctuating leukopenia and persistent mild/moderate macrocytic anemia, his iron studies and B12 and reticulocyte count within normal range and it appears, considering his age he may have underlying myelodysplasia which would explain both macrocytosis with normal B12 level and suboptimal bone marrow response eg normal reticulocyte count. 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 Signed By: Cynthia Santos M.D. <<Signature on File>>
== END 2021-01-30 10:58 | disposition home or self-care (01) ==
LOC: ONCMED 11:01
PROVIDERS: PCP Internal Medicine; Visit Provider Internal Medicine Hematology & Oncology
DX: D51.9 Vitamin B12 deficiency anemia, unspecified (principal); D50.9 Iron deficiency anemia, unspecified; E61.0 Copper deficiency; D72.829 Elevated white blood cell count, unspecified; Z79.899 Other long term (current) drug therapy
CPT/HCPCS: 36415; 82607; 82728; 82746; 83540; 83550; 85025; 85045; 99214

== ENCOUNTER 2021-02-27 11:06 | Outpatient (CLI) | payer MEDICARE, SELFPAY ==
[2021-02-27 11:38] LABS: Basophils % 0.3 %; Eosinophils # 0.1 10^3/uL (0.0-0.8); Eosinophils % 1.7 %; Hematocrit 29.7 % (42.0-52.0); Hemoglobin 9.8 g/dL (11.7-16.6); Lymphocytes # 0.5 10^3/uL (0.8-4.8); Lymphocytes % 16.8 %; Mean Corpuscular Hemoglobin 33.3 pg (28.0-34.0); Mean Platelet Volume 11.5 fL (7.4-10.4); Monocytes # 0.5 10^3/uL (0.2-0.9); Monocytes % 18.5 %; Neutrophils # 1.82 10^3/uL (1.8-7.7); Neutrophils % 62.4 %; Nucleated Red Blood Cells % 0 %; Platelet Count 247 10^3/cmm (130-400); Red Blood Count 2.94 10^6/uL (4.1-5.3); Red Cell Distribution Width 14.8 % (12.1-15.1); White Blood Count 2.9 10^3/uL (4.0-10.0)
== END 2021-02-27 11:07 | disposition home or self-care (01) ==
PROVIDERS: PCP Internal Medicine; Visit Provider Internal Medicine Hematology & Oncology
DX: D72.819 Decreased white blood cell count, unspecified (principal); D51.9 Vitamin B12 deficiency anemia, unspecified; D50.9 Iron deficiency anemia, unspecified; Z79.899 Other long term (current) drug therapy
CPT/HCPCS: 36415; 85025

== ENCOUNTER 2021-03-04 06:10 | Outpatient (CLI) | payer MEDICARE, SELFPAY ==
--- NOTE | 2021-03-16 14:55 | ONC FU_ITS ---
[facility] Patient Note Patient: Nicolás Menjivar Unit #: [id number]: 1940 Dictated By: Prosper RahmanDate of Visit: Mar 04, 2021 Onc MED Follow-Up/Prog Note Chief Complaint: Leukopenia/anemia History of Present Illness: Mr. Menjivar is an 80-year-old gentleman with history of self-limiting leukopenia 6-7 years ago. He also had mild anemia for which he underwent bone marrow evaluation on March 31, 2018. The bone marrow aspiration biopsy showed hypercellular bone marrow, normal, trilineage hematopoiesis, normal iron stores, and the flow cytometry showed no aberrant myeloid or lymphoid population. FISH for MDS was unremarkable too. His follow-up lab work-up done were obatined on July 15, 2018 and reported white blood count of 4. 3 hemoglobin was 11.6 hematocrit 34 platelets 260,000 with a normal differential and at that time no further work-up was suggested and patient was advised to follow-up with his PMD and see us on as-needed basis, as per patient, he was told by his PMD that his white blood count is staying low and also his hemoglobin. Patient denies any recent blood transfusion, since his last visit patient undergone left knee replacement and also has coronary artery stenting about a year ago. Mr. Menjivar is here today for follow-up. He has no new concerns. He denies any fever or chills. He has had no night infections or Covid exposure at least the last 72 hours. He denies any new concerns today. He denies any fever or chills. He denies any cough or hemoptysis. He denies any urinary symptoms. He states he thinks he is doing pretty good overall. He denies any new concerns today. He states he has not had any discolored skin (jaundice ). He denies any persistent pain. He does have occasional shortness of breath but states this is chronic for him. It is no worse than what is normal. His appetite is fair. He denies any new pain. His ECOG is 1. Past Medical History: Anxiety BPH Depression Hypertension Osteoarthritis Type II diabetes Past Surgical History: Hammer toe surgery in 2016 Left shoulder replacement in 2003 Cholecystectomy in 2002 Left knee surgery in 2000 Allergies: No Known Allergies. Medications: Acetaminophen 2 Tablet (of 500 mg) Oral q 6 hours PRN Albuterol Sulfate 2 Puff(s) (of 108 (90 base) mcg/act) Aerosol Powder, Breath Activated Inhalation PRN Aleve 1 (220 mg) Tablet Oral q 12 hours PRN Amitriptyline HCl 1 Tablet (of 25 mg) Oral daily Betapace 1 Tablet (of 80 mg) Oral b.i.d. Daily Vitamin 1 Tablet Oral daily Escitalopram Oxalate 0.5 Tablet (of 20 mg) Oral daily Finasteride 1 Tablet (of 5 mg) Oral daily GlipiZIDE 1 (5 mg) Tablet Oral b.i.d. Incruse Ellipta 1 Puff(s) (of 62.5 mcg/inh) Aerosol Powder, Breath Activated Inhalation daily Isosorbide Mononitrate ER 1 Tablet (of 30 mg) Tablet SR 24 HR Oral daily Levemir Flexpen 15 Units (of 100 Units/mL) Subcutaneous daily Lotrisone 1 (1-0.05 %) Cream Topical b.i.d. MetFORMIN HCl ER 2 (500 mg) Tablet SR 24 HR Oral b.i.d. Simvastatin 1 Tablet (of 40 mg) Oral daily Stool Softener 1 Capsule Oral daily Tamsulosin HCl 1 (0.4 mg) Capsule Oral b.i.d. Testosterone Cypionate 1 mL (of 200 mg/mL) Intramuscular q 4 weeks Family History: Mr. Menjivar's mother at age 79: Disorder of lung. Mr. Menjivar's father at age 82: heart disease, and type II diabetes. Social History: Mr. Menjivar is and he is retired. Mr. Menjivar quit smoking 12 years ago but had smoked for 55 years. He has no history of drinking. Review Of Symptoms: <See Above> Vital Signs: Performed on Mar 04, 2021 12:59 Height - 74.00 in Weight - 190.0 lbs (HIGH) BSA - 2.13 sq.m BMI - 24.39 Temperature - 96.4 F (LOW) Pulse - 106 /min (HIGH) Respiration - 17 /min BP - 145/79 mm(hg) (HIGH) O2 Sat - 97 % Pain - 0,1 - No physically strenuous activity, but ambulatory and able to carry out light or sedentary work (e.g. office work, light house work). (ECOG) Physical Examination: Constitutional Alert, oriented, no acute distress. Skin pink, warm and dry. Head Normocephalic; atraumatic. Eyes Conjunctivae and sclerae are clear and without icterus. Pupils are reactive and equal. Neck Supple without masses or thyromegaly. No jugular venous distension. Hematologic/Lymphatic No petechiae or purpura. No tender or palpable lymph nodes in the cervical or supraclavicular areas. Respiratory Lungs are clear to auscultation without rhonchi or wheezing. Cardiovascular Regular rate and rhythm of heart without murmurs,clicks, gallops or rubs. Back/Spine Non-tender to palpation. Extremities No visible deformities, no cyanosis, clubbing or edema. Musculoskeletal No tenderness or swelling, normal range of motion without obvious weakness. Integumentary No rashes or lesions. Neurologic No sensory or motor deficits, normal cerebellar function, normal gait. Psychiatric Alert and oriented times three. Coherent speech. Verbalizes understanding of our discussions today. Laboratory: Impression: Mild leukopenia/anemia normocytic normochromic, etiology unclear but possibilities include medication like Dyazide, or nutritional B12/iron deficiency or mineral deficiency like copper deficiency. Or considering his age myelodysplasia cannot be ruled out. Bone marrow done on 03/31/2018 showed hypercellular bone marrow, normal, trilineage hematopoiesis, normal iron stores. Flow cytometry showed no aberrant myeloid or lymphoid population FISH for MDS showed no abnormality Repeat labs on 07/15/2018 showed normalization of leukopenia e.g. her blood count 4.3 hemoglobin 11.6 crit 34 platelets 260,000 neutrophil 70.1% Plan/Problems Addressed at this Visit: Discussed with patient regarding his labs white blood count 3.5 hemoglobin 10.4 hematocrit 31.2 platelets 267,000 MCV 100.3 iron studies shows iron saturation 25 ferritin 113 iron 72 B12 1553 reticulocyte count 1.3 Clinically, patient doing reasonably well, now with fluctuating leukopenia and persistent mild/moderate macrocytic anemia, his iron studies and B12 and reticulocyte count within normal range and it appears, considering his age he may have underlying myelodysplasia which would explain both macrocytosis with normal B12 level and suboptimal bone marrow response eg normal reticulocyte count. 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 he will return to clinic in 1 month with CBC and if there is no improvement in his blood counts once again, will consider bone marrow evaluation, patient agreed. Signed By: Prosper Rahman-ROGER, TASHI Hercules MD <<Signature on File>>
== END 2021-03-04 06:11 | disposition home or self-care (01) ==
LOC: ONCMED 06:14
PROVIDERS: PCP Internal Medicine; Visit Provider Nurse Practitioner
DX: D72.819 Decreased white blood cell count, unspecified (principal); D64.9 Anemia, unspecified; Z79.899 Other long term (current) drug therapy
CPT/HCPCS: 99214

== ENCOUNTER → 2021-03-26 13:40 | Outpatient (BNVA) | payer MEDICARE, SELFPAY | PROVIDERS: PCP Internal Medicine; Visit Provider Urology | DX: N40.1 Benign prostatic hyperplasia with lower urinary tract symptoms (principal); R97.20 Elevated prostate specific antigen [PSA]; N52.1 Erectile dysfunction due to diseases classified elsewhere | CPT/HCPCS: 81003; 84153; 84403 ==

== ENCOUNTER 2021-05-07 10:58 | Emergency (ER) | payer MEDICARE, SELFPAY ==
[2021-05-07 11:15] VITALS: BP 129/65; PULSE 63; RESP 16; TEMP 36.2; O2SAT 97; BMI 24.1
--- NOTE | 2021-05-07 11:43 | ED_ITS ---
HPI - Neck Pain/Injury General: Chief Complaint: Neck Pain/Injury Stated Complaint: Pain in neck/R shoulder Time Seen by Provider: 05/07/21 11:22 History of Present Illness: HPI Narrative: Patient with bilateral knee pains from neck down his shoulders. seen by neurosurgeon this week after having MRI done as stated that he had stenosis. Thought he might be getting better but soon after he saw the neurosurgeon its worse. He complains about pain rating from the neck down the right arm with tingling in both hands. Hurts to move his neck hurts in his jaw with movement of his jaw. MD complaint: neck pain Onset (ago): day(s) Associated symptoms: Reports no associated symptoms; Denies headache(s) or nausea Treatments prior to arrival: none Review of Systems Const: Denies: fever(s), chills or body aches Eyes: Denies: change in vision or blurry vision ENMT: Denies: throat pain or nasal congestion Card: Denies: chest pain or dyspnea on exertion Resp: Denies: dyspnea, productive cough or non-productive cough GI: Denies: abdominal pain, nausea or vomiting : Denies: difficulty urinating Musc: Reports: neck pain and extremity pain Skin/Breast: Denies: rash Neuro: Reports: sensory changes; Denies: headache(s) Psych: Denies: anxiety or depression Arsen/Lymph: Denies: easy bruising PFSH ED PFSH: Medical History Abnormal PSA Atherosclerotic heart disease -has had prior stenting -cardiac workup done in 2019 with nuclear stress testing being negative for ischemia; Echo-EF=55%, mild LVH, no RWMA, trace TR, mild TN -on statin, Plavix, off ASA due to Eliquis Atherosclerotic heart disease of [place] coronary artery without angina pectoris Benign essential hypertension with target blood pressure below 140/90 -BP trending up, continue to monitor -on lasix and HCTZ BPH NOS w ur obs/LUTS CAD (coronary artery disease) Depression Dyslipidemia -on statin Erectile dysfunction due to diseases classified elsewhere Hyperlipidemia Hypertension Hypogonadism Hypogonadism male Intermittent atrial fibrillation SOB (shortness of breath) Transient atrial fibrillation/flutter -appears to be new onset arrhythmia -had previously been on Metoprolol and Diltiazem which he discontinued on his own due to dizziness -on sotalol 80 mg in AM, 40 mg in PM; off Cardizem drip -appreciate evaluation by Dr. 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 Grandfather CAD (coronary artery disease) Chronic kidney disease (CKD) Diabetes Family/Other CAD (coronary artery disease) Social History Smoking and tobacco status: former smoker Alcohol intake: former Marital status: Current occupational status: retired History of recent travel: No Physical Exam Const: COMMON NORMALS: no acute distress and patient oriented x3 GENERAL APPEARANCE: cooperative Neck/C-Spine: CERVICAL SPINE: Yes pain with cervical ROM, Yes Paracervical muscle tenderness and Yes Trapezius muscle tenderness Extremity: OTHER: Able to squeeze both hands. Both extremities are warm to the touch Neuro: COMMON NORMALS: patient oriented x3 SPEECH: speech normal GAIT: Yes Normal gait present MOTOR EXAM: 5/5 motor strength present throughout and Other motor observations present (Patient has tenderness right trapezius especially radiates down with palpat) OTHER: Mild tenderness left trapezius no pain to arm with palpation Course Vital Signs: Vital signs: Vital Signs Temperature 97.1 F L 05/07/21 11:15 Pulse Rate 63 05/07/21 11:15 Respiratory Rate 16 05/07/21 11:15 Blood Pressure 129/65 05/07/21 11:15 Pulse Oximetry 97 05/07/21 11:15 Discharge Plan Discharge Prescriptions: No Action escitalopram oxalate 20 mg tablet 20 mg PO DAILY RF: 0 amitriptyline 25 mg tablet 25 mg PO DAILY RF: 0 metformin 500 mg tablet 1,000 mg PO BID RF: 0 multivitamin Tablet 1 tab PO DAILY RF: 0 triamcinolone acetonide 0.025 % cream 1 applic topical DAILY RF: 0 testosterone cypionate 200 mg/mL oil 200 mg IM .once a month Qty: 1 RF: 5 isosorbide mononitrate 30 mg tablet extended release 24 hr 30 mg PO DAILY RF: 0 glipizide 5 mg tablet 5 mg PO BID RF: 0 furosemide 40 mg tablet 40 mg PO DAILY RF: 0 vitamin B complex [B Complex-Vitamin B12] Tablet 1 tab PO DAILY RF: 0 pyridoxine (vitamin B6) 100 mg tablet 100 mg PO QID RF: 0 acetaminophen [Tylenol Extra Strength] 500 mg tablet 1,000 mg PO Q8H PRN (Reason: Pain) RF: 0 Incruse Ellipta 62.5 mcg/actuation blister with device 1 inh inhalation DAILY RF: 0 albuterol sulfate 90 mcg/actuation HFA aerosol inhaler 2 puff inhalation Q4H PRN (Reason: shortness of breath or wheezing) RF: 0 ferrous sulfate 325 mg (65 mg iron) tablet 325 mg PO DAILY RF: 0 Eliquis 5 mg tablet 5 mg PO BID Qty: 60 RF: 3 simvastatin 40 mg tablet 40 mg PO DAILY Qty: 30 RF: 3 sotalol 80 mg tablet 80 mg PO BID Qty: 135 RF: 3 tamsulosin 0.4 mg capsule See Rx Instructions .ROUTE .COMPLEX Qty: 90 RF: 3 clopidogrel 75 mg tablet 75 mg PO DAILY Qty: 90 RF: 3 finasteride 5 mg tablet 5 mg PO DAILY RF: 0 naproxen sodium [Aleve] 220 mg Tablet 440 mg PO BID RF: 0 docusate sodium 100 mg Tablet 100 mg PO BID PRN (Reason: Constipation) RF: 0 Coding Level of Care Code ED Ward Supervisor for Dayg Corie
[2021-05-07] MEDS: HYDROcodone-acetaminophen 5-325 mg Tablet 1 TAB PO (11:48)
[2021-05-07] MEDS: methylPREDNISolone (DEPO) 80 MG/ML INJ 1 mL IM (11:49)
[2021-05-07 11:54] VITALS: BP 138/88; PULSE 60; RESP 18; O2SAT 98
[2021-05-07 12:06] VITALS: BP 145/79; PULSE 53; RESP 18; O2SAT 98
== END 2021-05-07 12:09 | disposition home or self-care (01) ==
PROVIDERS: Emergency Provider Nurse Practitioner Family; PCP Internal Medicine
DX: M54.2 Cervicalgia (principal); M25.511 Pain in right shoulder; I25.10 Atherosclerotic heart disease of native coronary artery without angina pectoris; I10 Essential (primary) hypertension; E78.5 Hyperlipidemia, unspecified; I48.91 Unspecified atrial fibrillation; E11.9 Type 2 diabetes mellitus without complications; Z79.84 Long term (current) use of oral hypoglycemic drugs; Z87.891 Personal history of nicotine dependence; Z95.5 Presence of coronary angioplasty implant and graft
CPT/HCPCS: 96372; 99283; J1040

== ENCOUNTER → 2021-08-14 10:32 | Outpatient (BNVA) | payer MEDICARE, SELFPAY | PROVIDERS: PCP Internal Medicine; Visit Provider Internal Medicine Cardiovascular Disease | DX: I12.9 Hypertensive chronic kidney disease with stage 1 through stage 4 chronic kidney disease, or unspecified chronic kidney disease (principal); N18.9 Chronic kidney disease, unspecified; I48.0 Paroxysmal atrial fibrillation; I48.91 Unspecified atrial fibrillation; I25.10 Atherosclerotic heart disease of native coronary artery without angina pectoris; D64.9 Anemia, unspecified; R53.1 Weakness; Z79.01 Long term (current) use of anticoagulants; E78.5 Hyperlipidemia, unspecified | CPT/HCPCS: 80053; 84443; 85025; 85610 ==

== ENCOUNTER → 2021-08-18 09:25 | Outpatient (BNVA) | payer MEDICARE, SELFPAY | PROVIDERS: PCP Internal Medicine; Visit Provider Internal Medicine Cardiovascular Disease | DX: I48.0 Paroxysmal atrial fibrillation (principal) | CPT/HCPCS: 85610 ==

== ENCOUNTER → 2021-08-25 16:21 | Outpatient (BNVA) | payer MEDICARE, SELFPAY | PROVIDERS: PCP Internal Medicine; Visit Provider Internal Medicine Cardiovascular Disease | DX: I48.91 Unspecified atrial fibrillation (principal) | CPT/HCPCS: 85610 ==

== ENCOUNTER → 2021-09-24 15:00 | Outpatient (BNVA) | payer MEDICARE, SELFPAY | PROVIDERS: PCP Internal Medicine; Visit Provider Urology | DX: N40.1 Benign prostatic hyperplasia with lower urinary tract symptoms (principal); R79.89 Other specified abnormal findings of blood chemistry | CPT/HCPCS: 81003; 84403 ==

== ENCOUNTER → 2021-10-27 13:04 | Outpatient (BNVA) | payer MEDICARE, SELFPAY | PROVIDERS: PCP Internal Medicine; Visit Provider Nurse Practitioner Family | DX: R53.83 Other fatigue (principal); M79.10 Myalgia, unspecified site; M25.50 Pain in unspecified joint; R05.9 Cough, unspecified; R50.9 Fever, unspecified; J40 Bronchitis, not specified as acute or chronic | CPT/HCPCS: 80053; 85651; 86140; 86200; 86431 ==

== ENCOUNTER → 2021-12-02 09:29 | Outpatient (BNVA) | payer MEDICARE, SELFPAY | PROVIDERS: PCP Internal Medicine; Visit Provider Internal Medicine | DX: R76.8 Other specified abnormal immunological findings in serum (principal); M25.50 Pain in unspecified joint; I10 Essential (primary) hypertension; Z11.59 Encounter for screening for other viral diseases; Z11.1 Encounter for screening for respiratory tuberculosis; E11.42 Type 2 diabetes mellitus with diabetic polyneuropathy; Z79.84 Long term (current) use of oral hypoglycemic drugs; W19.XXXA Unspecified fall, initial encounter; Y93.9 Activity, unspecified; R53.83 Other fatigue; M79.10 Myalgia, unspecified site; R00.1 Bradycardia, unspecified; I44.0 Atrioventricular block, first degree | CPT/HCPCS: 36415; 71110; 72040; 73030; 73120; 84443; 85651; 86140; 86200; 86480; 86704; 86803; 87340; 93005; 99204 ==

== ENCOUNTER 2021-12-02 11:12 | Outpatient (CLI) | payer MEDICARE, SELFPAY ==
[2021-12-02 12:08] LABS: Erythrocyte Sedimentation Rate 29 mm/hr (0-10)
[2021-12-02 12:27] LABS: C Reactive Protein 10.3 mg/L (0.0-4.9)
[2021-12-02 12:38] LABS: Hepatitis B Core AB, Total Non-Reactive (Nonreactive); Hepatitis B Surface Antigen Non-Reactive (Nonreactive); Hepatitis C Virus Antibody Non-Reactive (Nonreactive)
--- NOTE | 2021-12-02 13:11 | ECG_ITS ---
[facility] Test Date: 2021-12-02 Pat Name: Nicolás Menjivar Department: Room: Gender: Male Relief Pilot: : 1940 Requested By: Molly Awan Order Number: [id number] Funmilayo MD: Hakan Messina M.D. 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 [id number]
[2021-12-03 14:17] LABS: Cyclic Citrullinated Peptide <16 UNITS
[2021-12-04 13:13] LABS: Quantiferon Nil 0.02 IU/mL; Quantiferon Plus TB1 <0.00 IU/mL; Quantiferon Plus TB2 <0.00 IU/mL; Quantiferon TB Gold NEGATIVE (NEGATIVE)
== END 2021-12-02 11:13 | disposition home or self-care (01) ==
PROVIDERS: PCP Internal Medicine; Visit Provider Internal Medicine
DX: I10 Essential (primary) hypertension (principal); R76.8 Other specified abnormal immunological findings in serum; R53.83 Other fatigue; M79.10 Myalgia, unspecified site; R00.1 Bradycardia, unspecified; I44.0 Atrioventricular block, first degree
CPT/HCPCS: 36415; 84443; 85651; 86140; 86200; 86480; 86704; 86803; 87340; 93005

== ENCOUNTER → 2021-12-18 08:20 | Outpatient (BNVA) | payer MEDICARE, SELFPAY | PROVIDERS: PCP Internal Medicine; Visit Provider Internal Medicine | DX: R76.8 Other specified abnormal immunological findings in serum (principal); R79.89 Other specified abnormal findings of blood chemistry; Z79.899 Other long term (current) drug therapy; W19.XXXA Unspecified fall, initial encounter | CPT/HCPCS: 99214 ==

== ENCOUNTER → 2021-12-29 12:01 | Outpatient (BNVA) | payer MEDICARE, SELFPAY | PROVIDERS: PCP Nurse Practitioner Family; Visit Provider Internal Medicine | DX: M79.10 Myalgia, unspecified site (principal); R76.8 Other specified abnormal immunological findings in serum; Z79.899 Other long term (current) drug therapy | CPT/HCPCS: 80053; 85651; 86140 ==

== ENCOUNTER 2022-01-08 06:03 | Outpatient (CLI) | payer MEDICARE, SELFPAY ==
--- NOTE | 2022-01-08 06:15 | US_ITS ---
WS: [id number] RIGHT UPPER QUADRANT ULTRASOUND HISTORY: Abnormal blood chemistry. COMPARISON: None available. Liver: 15.9 cm in length. Normal size liver. Multiple coarse echotexture. No mass or bile duct dilata tion. Portal Vein: Normal hepatopetal flow with monophasic waveform. Gallbladder: Status post cholecystectomy. CBD: 0.5 cm Pancreas: Not visualized. Completely obscured by bowel gas. Right kidney: 12.1 cm in length. Normal size and echogenicity. No hydronephrosis or mass. Aorta and IVC: Mild atherosclerosis. Normal size IVC. No ascites. US/US abdomen limited [id number] IMPRESSION: 1. Prior cholecystectomy. 2. Normal size liver with mild hepatic steatosis. 3. Mild atherosclerosis aorta.
== END 2022-01-08 06:04 | disposition home or self-care (01) ==
LOC: RAD 06:04
PROVIDERS: PCP Nurse Practitioner Family; Visit Provider Internal Medicine
DX: R79.89 Other specified abnormal findings of blood chemistry (principal); Z90.49 Acquired absence of other specified parts of digestive tract; I70.0 Atherosclerosis of aorta; K76.0 Fatty (change of) liver, not elsewhere classified
CPT/HCPCS: 76705

== ENCOUNTER → 2022-02-17 11:18 | Outpatient (BNVA) | payer MEDICARE, SELFPAY | PROVIDERS: PCP Nurse Practitioner Family; Visit Provider Nurse Practitioner Family | DX: R21 Rash and other nonspecific skin eruption (principal); G47.00 Insomnia, unspecified; I48.91 Unspecified atrial fibrillation; I10 Essential (primary) hypertension; E78.5 Hyperlipidemia, unspecified; I25.10 Atherosclerotic heart disease of native coronary artery without angina pectoris; E11.9 Type 2 diabetes mellitus without complications; Z12.5 Encounter for screening for malignant neoplasm of prostate; F32.9 Major depressive disorder, single episode, unspecified; E61.1 Iron deficiency; N40.1 Benign prostatic hyperplasia with lower urinary tract symptoms; R60.9 Edema, unspecified; D64.9 Anemia, unspecified | CPT/HCPCS: 80053; 80061; 83036; G0103 ==

== ENCOUNTER 2022-03-24 10:38 | Outpatient (CLI) | payer MEDICARE, SELFPAY ==
[2022-03-24 11:33] LABS: Testosterone Total 155.8 ng/dL (193-740)
== END 2022-03-24 10:39 | disposition home or self-care (01) ==
LOC: LAB 10:38
PROVIDERS: PCP Nurse Practitioner Family; Visit Provider Urology
DX: R79.89 Other specified abnormal findings of blood chemistry (principal)
CPT/HCPCS: 36415; 51798; 84403; 99213

== ENCOUNTER → 2022-03-26 14:42 | Outpatient (BNVA) | payer MEDICARE, SELFPAY | PROVIDERS: PCP Nurse Practitioner Family; Referring Provider Nurse Practitioner Family; Visit Provider Internal Medicine | DX: E11.42 Type 2 diabetes mellitus with diabetic polyneuropathy (principal); E11.59 Type 2 diabetes mellitus with other circulatory complications; R79.89 Other specified abnormal findings of blood chemistry; I10 Essential (primary) hypertension; E78.5 Hyperlipidemia, unspecified; I25.10 Atherosclerotic heart disease of native coronary artery without angina pectoris; Z87.891 Personal history of nicotine dependence; Z79.84 Long term (current) use of oral hypoglycemic drugs; Z79.899 Other long term (current) drug therapy | CPT/HCPCS: 99204 ==

== ENCOUNTER → 2022-04-07 13:29 | Outpatient (BNVA) | payer MEDICARE, SELFPAY | PROVIDERS: PCP Nurse Practitioner Family; Visit Provider Nurse Practitioner Family | DX: I25.10 Atherosclerotic heart disease of native coronary artery without angina pectoris (principal); R06.02 Shortness of breath; E11.9 Type 2 diabetes mellitus without complications; L03.90 Cellulitis, unspecified; M79.641 Pain in right hand; T14.8XXA Other injury of unspecified body region, initial encounter | CPT/HCPCS: 73130; 80048; 83880 ==

== ENCOUNTER → 2022-04-28 15:54 | Outpatient (BNVA) | payer MEDICARE, SELFPAY | PROVIDERS: PCP Nurse Practitioner Family; Visit Provider Internal Medicine Cardiovascular Disease | DX: R07.9 Chest pain, unspecified (principal); R06.02 Shortness of breath; I50.33 Acute on chronic diastolic (congestive) heart failure; I25.10 Atherosclerotic heart disease of native coronary artery without angina pectoris; I51.7 Cardiomegaly; Z87.891 Personal history of nicotine dependence; R93.41 Abnormal radiologic findings on diagnostic imaging of renal pelvis, ureter, or bladder; Z79.899 Other long term (current) drug therapy; I48.0 Paroxysmal atrial fibrillation; R60.9 Edema, unspecified; D64.9 Anemia, unspecified; I10 Essential (primary) hypertension | CPT/HCPCS: 36415; 80048; 83880; 99214 ==

== ENCOUNTER → 2022-06-23 17:00 | Outpatient (BNVA) | payer MEDICARE, SELFPAY | PROVIDERS: PCP Nurse Practitioner Family; Visit Provider Internal Medicine | DX: R79.89 Other specified abnormal findings of blood chemistry (principal); E11.42 Type 2 diabetes mellitus with diabetic polyneuropathy; E11.59 Type 2 diabetes mellitus with other circulatory complications; E78.5 Hyperlipidemia, unspecified; N40.1 Benign prostatic hyperplasia with lower urinary tract symptoms; R35.1 Nocturia; Z79.84 Long term (current) use of oral hypoglycemic drugs; Z87.891 Personal history of nicotine dependence | CPT/HCPCS: 83036; 99214 ==

== ENCOUNTER → 2022-07-07 10:30 | Outpatient (BNVA) | payer MEDICARE, SELFPAY | PROVIDERS: PCP Nurse Practitioner Family; Visit Provider Nurse Practitioner Family | DX: F32.9 Major depressive disorder, single episode, unspecified (principal); I10 Essential (primary) hypertension; E78.5 Hyperlipidemia, unspecified; E11.9 Type 2 diabetes mellitus without complications; Z12.5 Encounter for screening for malignant neoplasm of prostate; E61.1 Iron deficiency; N40.1 Benign prostatic hyperplasia with lower urinary tract symptoms; R60.9 Edema, unspecified; D64.9 Anemia, unspecified; R21 Rash and other nonspecific skin eruption; I48.91 Unspecified atrial fibrillation; R35.1 Nocturia; L03.90 Cellulitis, unspecified; Z01.00 Encounter for examination of eyes and vision without abnormal findings; R10.11 Right upper quadrant pain | CPT/HCPCS: 80053; 80061; 83036; G0103 ==

== ENCOUNTER 2022-07-10 18:25 | Emergency (ER) | payer MEDICARE, SELFPAY ==
[2022-07-10 18:41] VITALS: BP 120/42; PULSE 61; RESP 18; TEMP 36.6; O2SAT 95; BMI 24.0
--- NOTE | 2022-07-10 19:29 | W.ED.GENADLT ---
HPI - General Adult General: Chief complaint: Allergic Reaction Stated complaint: Fever, Rash, Face Swelling Time Seen by Provider: 07/10/22 19:18 History of Present Illness: Patient is a 82-year-old male with a history of depression, hyperlipidemia, hypertension, hypergonadism, atrial fibrillation presented to emergency room with concerns of diffuse rash, facial swelling and subjective fever at home. On Wednesday, patient received his fifth booster of Pfizer COVID-vaccine. Since then, patient has reported facial swelling and subjective warmth. On Wednesday, patient was diagnosed with right third digit infection and was given Bactrim. Patient has been taking Bactrim for the last 4 days and has noticed facial redness, gumline pain, rash on his body. Patient has no prior known allergies to Bactrim. Patient denies any vision changes, gumline pain or tooth ache. He denies any groin lesions or armpit lesions. Patient has no known history of allergy to sulfa medication. Earlier today, patient noted that both of his face are swollen. Patient decided come to the emergency room for further evaluation. Patient denies any shortness of breath, drooling, voice change but reports pain with swallowing. Patient denies any abdominal complaints, wheezing, dyspnea dyspnea, abdominal pain, diarrhea, melena hematochezia. No other focal complaints at this time. Onset: Wednesday Duration:ongoing Location:home Severity:moderate Associated symptoms: Deny chest pain, dyspnea, nausea, palpitations or vomiting Review of Systems Const: Reports: fever(s) (+subjective fever at home); Denies: chills Eyes: Denies: change in vision ENMT: Reports: other (+facial swelling and redness b/l); Denies: mouth pain Card: Denies: chest pain or palpitations Resp: Denies: dyspnea or non-productive cough GI: Denies: abdominal pain, nausea, vomiting or diarrhea : Denies: dysuria Musc: Denies: extremity pain Skin/Breast: Reports: new lesions (+diffuse non confluent erythema over chest and abd) Neuro: Denies: weakness in extremities Psych: Reports: other (Normal mood) Arsen/Lymph: Denies: easy bruising PFS ED PFSH: Medical History Abnormal bilirubin test Abnormal PSA Atherosclerotic heart disease -has had prior stenting -cardiac workup done in 2019 with nuclear stress testing being negative for ischemia; Echo-EF=55%, mild LVH, no RWMA, trace TR, mild [place] -on statin, Plavix, off ASA due to Eliquis Atherosclerotic heart disease of [place] coronary artery without angina pectoris Benign essential hypertension with target blood pressure below 140/90 -BP trending up, continue to monitor -on lasix and HCTZ BPH NOS w ur obs/LUTS CAD (coronary artery disease) Depression Dyslipidemia -on statin Erectile dysfunction due to diseases classified elsewhere Hyperlipidemia Hypertension Hypogonadism Hypogonadism male Intermittent atrial fibrillation SOB (shortness of breath) Transient atrial fibrillation/flutter -appears to be new onset arrhythmia -had previously been on Metoprolol and Diltiazem which he discontinued on his own due to dizziness -on sotalol 80 mg in AM, 40 mg in PM; off Cardizem drip -appreciate evaluation by Dr. 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 Grandfather CAD (coronary artery disease) Chronic kidney disease (CKD) Diabetes Family/Other CAD (coronary artery disease) Other Rheumatoid arthritis Stroke Denies family history of Lupus Hyperlipidemia Cancer Hypertension Social History Smoking and tobacco status: never smoked Alcohol intake: former Marital status: Current occupational status: retired History of recent travel: No Physical Exam Const: COMMON NORMALS: alert HENMT: COMMON NORMALS: atraumatic HEAD & SCALP: atraumatic MOUTH: moist mucous membranes not abnormal Eye: COMMON NORMALS: EOMs intact bilaterally and conjunctivae normal CONJUNCTIVA: Yes conjunctivae normal Neck/C-Spine: COMMON NORMALS: full ROM and supple Resp: COMMON NORMALS: normal respiratory effort and clear to auscultation bilaterally AUSCULTATION: clear to auscultation bilaterally Cardio: COMMON NORMALS: regular rate RATE: regular rate GI: COMMON NORMALS: Soft to palpation and non-tender PALPATION: Yes Soft to palpation Extremity: COMMON NORMALS: full ROM Neuro: SENSORIUM/ORIENTATION: Yes alert MOTOR EXAM: No Abnormal motor strength present and Other motor observations present (no focal motor deficits) Psych: COMMON NORMALS: speech normal SPEECH: Yes normal speech MOOD & AFFECT: Yes euthymic mood Skin: NARRATIVE SKIN EXAM: Difffuse nonconfluent macular erythema over face, chest, abdomen arms and legs. +Multiple blisters over the left anterior tib-fib Course Vital Signs: Vital signs: Vital Signs Temperature 97.8 F 07/10/22 18:41 Pulse Rate 59 L 07/10/22 21:15 Respiratory Rate 18 07/10/22 21:15 Blood Pressure 139/70 07/10/22 21:15 Pulse Oximetry 93 07/10/22 21:15 Oxygen Delivery Me thod 07/10/22 21:15 MDM - General Adult Medical Decision Making Patient is a 82-year-old male with a history of depression, hyperlipidemia, hypertension, hypergonadism, atrial fibrillation presented to emergency room with concerns of diffuse rash, facial swelling and subjective fever at home. Physical exam, patient is no have left lower extremity blisters, diffuse erythematous lesions on the face, chest and leg. Patient is afebrile. Patient is noted to have white count 3.8. Hemoglobin 10.8. Creatinine 1.5 up from baseline. Sodium 130. I suspect that today's presentation is likely secondary to sulfa use. At the present, patient does not meet criteria for SJS. However there is concern that this may progress to SJS given Bactrim use. I have we will transfer patient for observation given concerns for emergent dermatologic reaction. Patient instructed to discontinue taking the Bactrim. Case was discussed with Dr. Lawson who agreed with the transfer to [facility] for management of dermatological reaction. Disposition: Transfer to outside hospital Lab Data : 07/10/22 19:07/10/22: Laboratory Results WBC 3.8 10^3/uL (4.0-10.0) L 07/10/22: RBC 2.98 10^6/uL (4.1-5.3) L 07/10/22: Hgb 10.8 g/dL (11.7-16.6) L 07/10/22: Hct 32.5 % (42.0-52.0) L 07/10/22: MCV 109.1 fl (80-94) H 07/10/22: MCH 36.2 pg (28.0-34.0) H 07/10/22: MCHC 33.2 g/dL (30.0-36.0) 07/10/22 RDW 14.6 % (12.1-15.1) 07/10/22: Plt Count 254 10^3/cmm (130-400) 07/10/22 MPV 11.3 fL (7.4-10.4) H 07/10/22: Neut % (Auto) 73.6 % 07/10/22: Lymph % (Auto) 11.0 % 07/10/22: [place] % (Auto) 13.6 % 07/10/22 Eos % (Auto) 1.0 % 07/10/22 Baso % (Auto) 0.3 % 07/10/22 Neut # (Auto) 2.80 10^3/uL (1.8-7.7) 07/10/22: Lymph # (Auto) 0.4 10^3/uL (0.8-4.8) L 07/10/22: [place] # (Auto) 0.5 10^3/uL (0.2-0.9) 07/10/22 Eos # (Auto) 0.0 10^3/uL (0.0-0.8) 07/10/22: Baso # (Auto) 0.0 10^3/uL (0.0-0.1) 07/10/22: Nucleated RBC % (auto) 0 % 10/14/22 19:28 Nucleated RBCs # 0.0 /100WBC 07/10/22 19:28 Sodium 130 mmol/L (136-145) L 07/10/22 19:28 Potassium 4.1 mmol/L (3.5-5.1) 07/10/22 19:28 Chloride 95 mmol/L (98-107) L 07/10/22 19:28 Carbon Dioxide 26 mmol/L (22-29) 07/10/22 19:28 Anion Gap 13.1 (5-19) 07/10/22 19:28 BUN 25 mg/dL (8-23) H 07/10/22 19:28 Creatinine 1.5 mg/dL (0.7-1.2) H 07/10/22 19:28 GFR Calculation Not Reportable 07/10/22 19:28 Glucose 198 mg/dL (65-115) H 07/10/22 19:28 Calculated Osmolality 280 mOsm/kg (285-295) L 07/10/22 19:28 Lactate 1.5 mmol/L (0.5-2.2) 07/10/22 20:55 Calcium 8.9 mg/dL (8.5-10.5) 07/10/22 19:28 Total Bilirubin 0.7 mg/dL (0.15-1.2) 07/10/22 19:28 AST 19 U/L (0-40) 07/10/22 19:28 ALT 19 U/L (0-41) 07/10/22 19:28 Alkaline Phosphatase 48 U/L (40-130) 07/10/22 19:28 C-Reactive Protein 8.4 mg/L (0.0-4.9) H 07/10/22 20:59 Total Protein 6.6 g/dL (6.6-8.7) 07/10/22 19:28 Albumin 3.9 g/dL (3.5-5.2) 07/10/22 19:28 Globulin 2.7 g/dL (1.3-4.6) 07/10/22 19:28 Lipase 32 U/L (13-60) 07/10/22 19:28 Urine Color Yellow (Yellow) 07/10/22 21:04 Urine Appearance Clear (CLEAR) 07/10/22 21:04 Urine pH 5 (5-7) 07/10/22 21:04 Ur Specific [place] 1.010 (1.005-1.030) 07/10/22 21:04 Urine Protein 1+ (Negative) H 07/10/22 21:04 Urine Glucose (UA) 4+ (Normal) H 07/10/22 21:04 Urine Ketones Negative (Negative) 07/10/22 21:04 Urine Blood Neg (Negative) 07/10/22 21:04 Urine Nitrate Negative (Negative) 07/10/22 21:04 Urine Bilirubin Neg (Negative) 07/10/22 21:04 Urine Urobilinogen Neg mg/dL (Negative) 07/10/22 21:04 Ur Leukocyte Esterase Negative (Negative) 07/10/22 21:04 Urine RBC 0-4 /hpf (0-2) H 07/10/22 21:04 Urine WBC None /hpf (0-5) 07/10/22 21:04 Ur Squamous Epith Cells 0-4 /hpf (0-5) H 07/10/22 21:04 Amorphous Sediment Not Reportable 07/10/22 21:04 Urine Bacteria None /hpf (NONE) 07/10/22 21:04 Discharge Plan Discharge Patient Disposition: Transfer to ED Clinical Impression: CHRISTIAN (acute kidney injury), Diffuse papular rash Condition: Stable Prescriptions: No Action vitamin B complex [B Complex-Vitamin B12] Tablet 1 tab PO DAILY acetaminophen [Tylenol Extra Strength] 500 mg tablet 1,000 mg PO Q8H PRN (Reason: Pain) albuterol sulfate 90 mcg/actuation HFA aerosol inhaler 2 puff inhalation Q4H PRN (Reason: shortness of breath or wheezing) Qty: 8.5 6RF budesonide-formoterol [Symbicort] 160-4.5 mcg/actuation HFA aerosol inhaler 2 puff inhalation BID Qty: 10.2 6RF prednisone 5 mg tablet See Rx Instructions PO DAILY Qty: 30 0RF Rx Instructions: 10mg po qday x 7 days, then 5mg po qday PO daily; diclofenac sodium [Voltaren Arthritis Pain] 1 % gel 4 g topical QID Qty: 100 2RF Rx Instructions: apply to single knee, ankle, foot; for foot includes sole/toes/top of foot Januvia 100 mg tablet 100 mg PO DAILY 90 Days Qty: 90 3RF Farxiga 10 mg tablet 10 mg PO QAM 90 Days Qty: 90 1RF ferrous sulfate 325 mg (65 mg iron) tablet 325 mg PO DAILY 90 Days Qty: 90 1RF escitalopram oxalate 20 mg tablet 20 mg PO DAILY 90 Days Qty: 90 1RF finasteride 5 mg tablet 5 mg PO DAILY 90 Days Qty: 90 1RF furosemide 40 mg tablet 40 mg PO DAILY 90 Days Qty: 90 1RF glipizide 5 mg tablet 5 mg PO BID 90 Days Qty: 180 1RF isosorbide mononitrate 30 mg tablet extended release 24 hr 30 mg PO DAILY 90 Days Qty: 90 1RF multivitamin Tablet 1 tab PO DAILY 90 Days Qty: 90 1RF nystatin 100,000 unit/gram cream 1 applic topical QID Qty: 30 2RF Xarelto 20 mg tablet 20 mg PO DAILY 90 Days Qty: 90 1RF Rx Instructions: must administer with evening meal simvastatin 40 mg tablet 40 mg PO DAILY 90 Days Qty: 90 1RF tamsulosin 0.4 mg capsule 0.4 mg PO BID 90 Days Qty: 180 1RF mupirocin 2 % ointment 1 applic topical TID Qty: 15 1RF methylprednisolone acetate 40 mg/mL suspension 40 mg IM ONCE Qty: 1 0RF dexamethasone sodium phosphate 4 mg/mL solution 4 mg IM ONCE Qty: 1 0RF hydroxyzine HCl 10 mg tablet 10 mg PO QID PRN (Reason: itching) Qty: 60 0RF triamcinolone acetonide 0.025 % cream 1 applic topical DAILY Qty: 80 1RF Humira Pen 40 mg/0.8 mL pen injector kit See Rx Instructions SUBCUT .COMPLEX Qty: 4 5RF Rx Instructions: inject one - 40 mg/0.8 mL pen every 2 weeks SUBCUT clopidogrel 75 mg tablet 75 mg PO DAILY Qty: 90 1RF testosterone cypionate 200 mg/mL oil 200 mg IM .once a month Qty: 1 5RF potassium chloride 10 mEq tablet extended release 10 meq PO DAILY Qty: 90 2RF prednisone 5 mg tablet 5 mg PO DAILY Qty: 30 0RF (DME) Contour Next Test Strips Strip See Rx Instructions .Route Qty: 50 6RF Rx Instructions: As directed 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 metoprolol tartrate 25 mg tablet 25 mg PO BID Qty: 180 3RF acarbose 25 mg tablet 25 mg PO TID 30 Days Qty: 90 0RF sotalol 80 mg tablet 40 mg PO BID Qty: 90 3RF Rx Instructions: Take 1/2 tablet by mouth twice daily. gabapentin 300 mg tablet extended release 24 hr 300 mg PO QPM Qty: 7 0RF Referrals: Vita Mcelroy NP [Primary Care Provider] - Coding Level of Care Code ED Cereal Chemist for Chg Fwd Exam Comprehensive
[2022-07-10 19:51] LABS: Basophils % 0.3 %; Hematocrit 32.5 % (42.0-52.0); Hemoglobin 10.8 g/dL (11.7-16.6); Lymphocytes # 0.4 10^3/uL (0.8-4.8); Mean Corpuscular HGB Conc 33.2 g/dL (30.0-36.0); Mean Corpuscular Hemoglobin 36.2 pg (28.0-34.0); Mean Corpuscular Volume 109.1 fl (80-94); Mean Platelet Volume 11.3 fL (7.4-10.4); Monocytes # 0.5 10^3/uL (0.2-0.9); Monocytes % 13.6 %; Neutrophils % 73.6 %; Nucleated Red Blood Cells % 0 %; Platelet Count 254 10^3/cmm (130-400); Red Blood Count 2.98 10^6/uL (4.1-5.3); Red Cell Distribution Width 14.6 % (12.1-15.1); White Blood Count 3.8 10^3/uL (4.0-10.0)
[2022-07-10] MEDS: sodium chloride 0.9% 500 ML IV (19:59)
[2022-07-10] MEDS: famotidine 20 mg/2 mL INJ IVP (20:00)
[2022-07-10] MEDS: diphenhydrAMINE 50 mg/mL SDV 1mL IVP (20:00)
[2022-07-10 20:11] LABS: Alanine Aminotransferase 19 U/L (0-41); Albumin Level 3.9 g/dL (3.5-5.2); Alkaline Phosphatase 48 U/L (40-130); Anion Gap 13.1 (5-19); Aspartate Amino Transferase 19 U/L (0-40); Blood Urea Nitrogen 25 mg/dL (8-23); Calcium 8.9 mg/dL (8.5-10.5); Carbon Dioxide 26 mmol/L (22-29); Chloride 95 mmol/L (98-107); Globulin 2.7 g/dL (1.3-4.6); Glucose 198 mg/dL (65-115); Lipase 32 U/L (13-60); Osmolality Calculated 280 mOsm/kg (285-295); Potassium 4.1 mmol/L (3.5-5.1); Sodium 130 mmol/L (136-145); Total Bilirubin 0.7 mg/dL (0.15-1.2); Total Protein 6.6 g/dL (6.6-8.7)
[2022-07-10 20:12] LABS: Creatinine Clr Calc Pharmacy 43.9369
[2022-07-10 21:15] VITALS: BP 139/70; PULSE 59; RESP 18; O2SAT 93
[2022-07-10 21:28] LABS: Lactate (Lactic Acid level) 1.5 mmol/L (0.5-2.2)
[2022-07-10 21:33] LABS: C Reactive Protein 8.4 mg/L (0.0-4.9)
[2022-07-10 22:00] LABS: Protein Urine 1+ (Negative); Urine Appearance Clear (CLEAR); Urine Color Yellow (Yellow); pH Urine 5 (5-7)
[2022-07-10 22:01] LABS: Bilirubin Urine Neg (Negative); Blood Urine Neg (Negative); Glucose Urine UA 4+ (Normal); Ketones Urine Negative (Negative); Leukocyte Esterase Urine Negative (Negative); Nitrate Urine Negative (Negative); Urobilinogen Urine Neg (Negative)
[2022-07-10 22:04] LABS: Add Urine Microscopic? YES
[2022-07-10 22:05] LABS: RBC Urine 0-4 /hpf (0-2)
[2022-07-10 22:06] LABS: Squamous Epithelial Cell Urine 0-4 /hpf (0-5)
== END 2022-07-10 23:13 ==
PROVIDERS: Emergency Medicine; Emergency Provider Emergency Medicine; PCP Nurse Practitioner Family
DX: N17.9 Acute kidney failure, unspecified (principal); R23.8 Other skin changes; Z79.84 Long term (current) use of oral hypoglycemic drugs; I25.10 Atherosclerotic heart disease of native coronary artery without angina pectoris; I10 Essential (primary) hypertension; E78.5 Hyperlipidemia, unspecified; E11.9 Type 2 diabetes mellitus without complications
CPT/HCPCS: 36415; 80053; 81001; 83605; 83690; 85025; 86140; 87040; 96361; 96374; 96375; 99284; J1200; J3490; J7040

== ENCOUNTER 2022-07-31 18:07 | Observation (INO) | payer MEDICARE, SELFPAY ==
--- NOTE | 2022-07-31 18:08 | ED_ITS ---
HPI - Chest Pain General: Chief Complaint: Chest Pain Stated Complaint: GA Time Seen by Provider: 07/31/22 18:08 History of Present Illness: Mr. Menjivar is a 82-year-old gentleman with history of known CAD with prior PCI, hypertension, hyperlipidemia, transient atrial fibrillation, diabetes, intermittent home oxygen use at night, recent history of suspected medication reaction with discriminating skin rash presenting to the emergency department due to chest pain. He reports feeling okay lately however woke up at about 2 AM with atraumatic onset of left leg pain and ankle pain where prior rash is still healing. He went to clinic and subsequently developed chest pain with shortness of breath while at clinic. Did receive nitroglycerin which improved some of his substernal chest heaviness. Also received aspirin. There is radiation of the left arm. Symptoms are worse with exertion. Does have similar episodes in the past often exertional. No other specific changes in health, exacerbating, or alleviating factors identified. Initially EKG was faxed for concern over ST elevated GA however upon review of both faxed EKG and initial EKG at our facility there is no evidence of STEMI. Onset (ago): hour(s) Timing of current episode: constant Prior episodes: Yes Onset: during rest and during exertion Pain location: substernal Pain radiation: left arm Severity: moderate Quality: heaviness Exacerbating factors: exertion Associated symptoms: Reports dyspnea Review of Systems General: Reports: 10 or more systems reviewed and unremarkable except in HPI and below Resp: Reports: dyspnea [facility] ED PFSH: Medical History Abnormal bilirubin test Abnormal PSA Atherosclerotic heart disease -has had prior stenting -cardiac workup done in 2019 with nuclear stress testing being negative for ischemia; Echo-EF=55%, mild LVH, no RWMA, trace TR, mild [place] -on statin, Plavix, off ASA due to Eliquis Atherosclerotic heart disease of [place] coronary artery without angina pectoris Benign essential hypertension with target blood pressure below 140/90 -BP trending up, continue to monitor -on lasix and HCTZ BPH NOS w ur obs/LUTS CAD (coronary artery disease) Depression Dyslipidemia -on statin Erectile dysfunction due to diseases classified elsewhere Hyperlipidemia Hypertension Hypogonadism Hypogonadism Hypogonadism male Intermittent atrial fibrillation SOB (shortness of breath) Transient atrial fibrillation/flutter -appears to be new onset arrhythmia -had previously been on Metoprolol and Diltiazem which he discontinued on his own due to dizziness -on sotalol 80 mg in AM, 40 mg in PM; off Cardizem drip -appreciate evaluation by Dr. 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 Grandfather CAD (coronary artery disease) Chronic kidney disease (CKD) Diabetes Family/Other CAD (coronary artery disease) Other Rheumatoid arthritis Stroke Denies family history of Lupus Hyperlipidemia Cancer Hypertension Social History Smoking and tobacco status: never smoked Alcohol intake: former Marital status: Current occupational status: retired History of recent travel: No Physical Exam Const: COMMON NORMALS: alert GENERAL APPEARANCE: cooperative and well developed HENMT: COMMON NORMALS: normocephalic and atraumatic HEAD & SCALP: normocephalic and atraumatic THROAT: posterior oropharynx normal Eye: COMMON NORMALS: conjunctivae normal CONJUNCTIVA: Yes conjunctivae normal SCLERA: sclerae normal Neck/C-Spine: COMMON NORMALS: supple GENERAL: Yes trachea midline Resp: COMMON NORMALS: clear to auscultation bilaterally EFFORT & INSPECTION: Yes able to speak in complete sentences AUSCULTATION: clear to auscultation bilaterally Cardio: COMMON NORMALS: regular rate and regular rhythm RATE: regular rate RHYTHM: regular rhythm GI: COMMON NORMALS: Soft to palpation PALPATION: Yes Soft to palpation and No Tenderness to palpation present (GI) Extremity: GENERAL: Yes normal exam except as noted and No edema Neuro: COMMON NORMALS: moves all extremities SENSORIUM/ORIENTATION: Yes alert and No Orientation impaired Psych: COMMON NORMALS: mental status grossly normal and Normal thought process present THOUGHT PROCESS: Normal thought process present Skin: NARRATIVE SKIN EXAM: improving desquaminating rash present without evidence of superimposed infection. Course Vital Signs: Vital signs: Vital Signs Temperature 97.7 F 08/01/22 13:02 Pulse Rate 76 08/01/22 13:02 Respiratory Rate 16 08/01/22 13:02 Blood Pressure 118/61 08/01/22 13:02 Pulse Oximetry 96 08/01/22 13:02 Oxygen Delivery Me thod 08/01/22 11:58 Oxygen Flow Rate 4 08/01/22 04:00 MDM - Chest Pain Medical Decision Making 82-year-old gentleman presenting with typical sounding chest pain though patient had resolution with nitroglycerin. EKG shows sinus rhythm with nonspecific ST segment abnormalities, no STEMI. Labs notable for mild leukopenia, macrocytic anemia again noted. Metabolic panel similar to prior without acute electrolyte derangement. 2-hour delta troponin is negative. BNP is elevated. No evidence of urinary tract infection. Chest x-ray with no lobar consolidation or pneumothorax. CT head negative for acute intracranial pathology and ordered as patient reported blurry vision during ED care. CT chest abdomen pelvis negative for acute pathology to explain symptoms. Patient is not low risk by heart score and requires further inpatient evaluation of chest pain. The results of ED evaluation were discussed with the patient including plan for admission due to requirement for level of care not available if discharged to prevent significant worsening/deterioration. Patient agreeable with plan. Discussed with hospitalist service who was agreeable to admit patient to observation. Medical Records I reviewed the patient's medical records. Lab Data I reviewed the patient's lab results. : 07/31/22 18:15 08/01/22 12:59 Radiology Impressions Chest X-Ray 07/31/22 18:08 IMPRESSION: No acute findings. Chest/Abdomen/Pelvis CT 07/31/22 19:11 IMPRESSION: 1. Cardiomegaly 2. Coronary artery atherosclerotic calcifications. 3. Emphysematous changes. IMPRESSION: 1. Left colonic thickening may reflect a colitis or perhaps be due to nondistention. 2. Prostate gland enlarged. 3. Cholecystectomy. 4. Pancreatic tail 17 mm cyst. Reimaging every 2 years for 4 years is recommended. (Reference: Maura, 2017) 5. Left kidney cyst, negative for follow-up advised. REFERENCES: Maura MOORE, et al. Management of Incidental Pancreatic Cysts: A White Paper of the ACR Incidental Findings Committee. J Am Fidelina Radiol. 2017;14(7):911-923. Head CT 07/31/22 19:11 IMPRESSION: Negative for acute intracranial abnormality. Venous Duplex 08/01/22 06:27 IMPRESSION: No evidence of deep vein thrombosis. Laboratory Results WBC 3.6 10^3/uL (4.0-10.0) L 07/31/22 18:15 RBC 2.86 10^6/uL (4.1-5.3) L 07/31/22 18:15 Hgb 10.4 g/dL (11.7-16.6) L 07/31/22 18:15 Hct 30.5 % (42.0-52.0) L 07/31/22 18:15 MCV 106.6 fl (80-94) H 07/31/22 18:15 MCH 36.4 pg (28.0-34.0) H 07/31/22 18:15 MCHC 34.1 g/dL (30.0-36.0) 07/31/22 18:15 RDW 14.5 % (12.1-15.1) 07/31/22 18:15 Plt Count 190 10^3/cmm (130-400) 07/31/22 18:15 MPV 11.7 fL (7.4-10.4) H 07/31/22 18:15 Neut % (Auto) 58.5 % 07/31/22 18:15 Lymph % (Auto) 23.8 % 07/31/22 18:15 [place] % (Auto) 16.3 % 07/31/22 18:15 Eos % (Auto) 0.3 % 07/31/22 18:15 Baso % (Auto) 0.8 % 07/31/22 18:15 Neut # (Auto) 2.11 10^3/uL (1.8-7.7) 07/31/22 18:15 Lymph # (Auto) 0.9 10^3/uL (0.8-4.8) 07/31/22 18:15 [place] # (Auto) 0.6 10^3/uL (0.2-0.9) 07/31/22 18:15 Eos # (Auto) 0.0 10^3/uL (0.0-0.8) 07/31/22 18:15 Baso # (Auto) 0.0 10^3/uL (0.0-0.1) 07/31/22 18:15 Nucleated RBC % (auto) 0 % 07/31/22 18:15 Nucleated RBCs # 0.0 /100WBC 07/31/22 18:15 PT 16.10 SECONDS (12.1-14.9) H 07/31/22 18:15 INR 1.26 (0.8-1.2) H 07/31/22 18:15 APTT 31.7 SECONDS (23.9-36.7) 07/31/22 18:15 Sodium 138 mmol/L (136-145) 07/31/22 18:15 Potassium 4.5 mmol/L (3.5-5.1) 07/31/22 18:15 Chloride 100 mmol/L (98-107) 07/31/22 18:15 Carbon Dioxide 25 mmol/L (22-29) 07/31/22 18:15 Anion Gap 17.5 (5-19) 07/31/22 18:15 BUN 32 mg/dL (8-23) H 07/31/22 18:15 Creatinine 1.4 mg/dL (0.7-1.2) H 07/31/22 18:15 GFR Calculation Not Reportable 07/31/22 18:15 Glucose 268 mg/dL (65-115) H 07/31/22 18:15 Calculated Osmolality 302 mOsm/kg (285-295) H 07/31/22 18:15 Calcium 9.2 mg/dL (8.5-10.5) 07/31/22 18:15 Total Bilirubin 0.9 mg/dL (0.15-1.2) 07/31/22 18:15 AST 13 U/L (0-40) 07/31/22 18:15 ALT 13 U/L (0-41) 07/31/22 18:15 Alkaline Phosphatase 51 U/L (40-130) 07/31/22 18:15 Troponin T Baseline 58 ng/L (0-15) H 07/31/22 18:15 Troponin T 120 Minute 44.62 ng/L (0-15) H 07/31/22 20:04 Delta Troponin T -13.38 ABS# (0-10) L 07/31/22 20:04 NT-Pro-B Natriuret Pep 5150 pg/mL (0-450) H 07/31/22 18:15 Total Protein 6.4 g/dL (6.6-8.7) L 07/31/22 18:15 Albumin 4.0 g/dL (3.5-5.2) 07/31/22 18:15 Globulin 2.4 g/dL (1.3-4.6) 07/31/22 18:15 Lipase 38 U/L (13-60) 07/31/22 18:15 Urine Color Yellow (Yellow) 07/31/22 09:17 Urine Appearance Clear (CLEAR) 07/31/22 09:17 Urine pH 6 (5-7) 07/31/22 09:17 Ur Specific [place] 1.010 (1.005-1.030) 07/31/22 09:17 Urine Protein 1+ (Negative) H 07/31/22 09:17 Urine Glucose (UA) 4+ (Normal) H 07/31/22 09:17 Urine Ketones Negative (Negative) 07/31/22 09:17 Urine Blood Neg (Negative) 07/31/22 09:17 Urine Nitrate Negative (Negative) 07/31/22 09:17 Urine Bilirubin Neg (Negative) 07/31/22 09:17 Urine Urobilinogen Neg mg/dL (Negative) 07/31/22 09:17 Ur Leukocyte Esterase Negative (Negative) 07/31/22 09:17 Urine RBC None /hpf (0-2) 07/31/22 09:17 Urine WBC None /hpf (0-5) 07/31/22 09:17 Ur Squamous Epith Cells None /hpf (0-5) 07/31/22 09:17 Amorphous Sediment Trace /hpf 07/31/22 09:17 Urine Bacteria None /hpf (NONE) 07/31/22 09:17 Discharge Plan Discharge Patient Disposition: Placed in Observation Admit Provider: Marcella Garrison Clinical Impression: Chest pain Discharge Diet: Diabetic, Low Salt and Low Cholesterol Discharge Activity: Resume usual activity and Increase activity as tolerated Coding Level of Care Code ED Hose Tester for Gissel Fontenot
--- NOTE | 2022-07-31 18:08 | XRR_ITS ---
PROCEDURE INFORMATION: Exam: XR Chest Exam date and time: 07/31/2022 6:22 PM Age: 82 years old Clinical indication: Other: Chest pain; Additional info: Cp TECHNIQUE: Imaging protocol: Radiologic exam of the chest. Views: 1 view. COMPARISON: CR XR chest 1V portable [id number] 04/09/2020 5:17 PM FINDINGS: Lungs: Right upper lobe calcified benign granuloma. No consolidation. Pleural spaces: Unremarkable. No pleural effusion. No pneumothorax. Heart/Mediastinum: Unremarkable. No cardiomegaly. Bones/joints: Unremarkable. XR/XR chest 1V portable [id number] IMPRESSION: No acute findings.
[2022-07-31 18:15] VITALS: BP 133/84; PULSE 87; RESP 18; TEMP 36.6; O2SAT 100; BMI 23.3
[2022-07-31 18:30] VITALS: BP 118/68; PULSE 57; RESP 14; O2SAT 98
[2022-07-31 18:31] LABS: Basophils % 0.8 %; Eosinophils % 0.3 %; Hematocrit 30.5 % (42.0-52.0); Hemoglobin 10.4 g/dL (11.7-16.6); Lymphocytes # 0.9 10^3/uL (0.8-4.8); Lymphocytes % 23.8 %; Mean Corpuscular HGB Conc 34.1 g/dL (30.0-36.0); Mean Corpuscular Hemoglobin 36.4 pg (28.0-34.0); Mean Corpuscular Volume 106.6 fl (80-94); Mean Platelet Volume 11.7 fL (7.4-10.4); Monocytes # 0.6 10^3/uL (0.2-0.9); Monocytes % 16.3 %; Neutrophils # 2.11 10^3/uL (1.8-7.7); Neutrophils % 58.5 %; Nucleated Red Blood Cells % 0 %; Platelet Count 190 10^3/cmm (130-400); Red Blood Count 2.86 10^6/uL (4.1-5.3); Red Cell Distribution Width 14.5 % (12.1-15.1); White Blood Count 3.6 10^3/uL (4.0-10.0)
[2022-07-31 18:50] LABS: INR 1.26 (0.8-1.2)
[2022-07-31 18:51] LABS: Partial Thromboplastin Time 31.7 SECONDS (23.9-36.7); Troponin(5th) Baseline 58 ng/L (0-15)
[2022-07-31 18:58] LABS: Alanine Aminotransferase 13 U/L (0-41); Alkaline Phosphatase 51 U/L (40-130); Anion Gap 17.5 (5-19); Aspartate Amino Transferase 13 U/L (0-40); Blood Urea Nitrogen 32 mg/dL (8-23); Calcium 9.2 mg/dL (8.5-10.5); Carbon Dioxide 25 mmol/L (22-29); Chloride 100 mmol/L (98-107); Globulin 2.4 g/dL (1.3-4.6); Glucose 268 mg/dL (65-115); Lipase 38 U/L (13-60); NT Pro B Type Natriuretic Pept 5150 pg/mL (0-450); Osmolality Calculated 302 mOsm/kg (285-295); Potassium 4.5 mmol/L (3.5-5.1); Sodium 138 mmol/L (136-145); Total Bilirubin 0.9 mg/dL (0.15-1.2); Total Protein 6.4 g/dL (6.6-8.7)
--- NOTE | 2022-07-31 19:11 | CTR_ITS ---
PROCEDURE INFORMATION: Exam: CT Head Without Contrast Exam date and time: 07/31/2022 7:34 PM Age: 82 years old Clinical indication: Visual disturbance; Additional info: Blurry vision TECHNIQUE: Imaging protocol: Computed tomography of the head without contrast. Radiation optimization: All CT scans at this facility use at least one of these dose optimization techniques: automated exposure control; mA and/or kV adjustment per patient size (includes targeted exams where dose is matched to clinical indication); or iterative reconstruction. COMPARISON: MR cervical spin wo con* [id number] 04/01/2017 7:34 AM RADIATION DOSE METRICS: Total DLP (mGy-cm): 1341.93 FINDINGS: Brain: There is marked cerebral atrophy. There is marked diffuse heterogeneity of the white matter attenuation, consistent with severe chronic white matter ischemic changes. Negative for intracranial hemorrhage. Negative for midline shift of the brain. Negative for intracranial mass. No acute brain ischemia identified. Cerebral ventricles: No ventriculomegaly. Paranasal sinuses: Visualized sinuses are unremarkable. No fluid levels. Mastoid air cells: Visualized mastoid air cells are well aerated. Bones/joints: Unremarkable. No acute fracture. Soft tissues: Unremarkable. CT/CT head wo con* [id number] IMPRESSION: Negative for acute intracranial abnormality.
--- NOTE | 2022-07-31 19:11 | CTR_ITS ---
PROCEDURE INFORMATION: Exam: CT Chest With Contrast; Diagnostic Exam date and time: 07/31/2022 7:38 PM Age: 82 years old Clinical indication: Abdominal pain; Generalized; Chest pressure; Prior surgery; Surgery date: 6+ months; Surgery type: Heart stents; Additional info: Chest and back pain TECHNIQUE: Imaging protocol: Diagnostic computed tomography of the chest with contrast. Radiation optimization: All CT scans at this facility use at least one of these dose optimization techniques: automated exposure control; mA and/or kV adjustment per patient size (includes targeted exams where dose is matched to clinical indication); or iterative reconstruction. Contrast material: OMNI 350; Contrast volume: 85 ml; Contrast route: INTRAVENOUS (IV); COMPARISON: CR (CHEST, ) 07/31/2022 6:22 PM RADIATION DOSE METRICS: Total DLP (mGy-cm): 1322.45 FINDINGS: Lungs: Emphysematous changes. Pleural spaces: Unremarkable. No pneumothorax. No pleural effusion. Heart: Cardiomegaly. Coronary artery atherosclerotic calcifications. Lymph nodes: Unremarkable. No enlarged lymph nodes. Vasculature: Unremarkable. No aortic aneurysm. Bones/joints: Unremarkable. No acute fracture. Soft tissues: Unremarkable. PROCEDURE INFORMATION: Exam: CT Abdomen And Pelvis With Contrast Exam date and time: 07/31/2022 7:38 PM Age: 82 years old Clinical indication: Abdominal pain; Generalized; Chest pressure; Prior surgery; Surgery date: 6+ months; Surgery type: Heart stents; Additional info: Chest and back pain TECHNIQUE: Imaging protocol: Computed tomography of the abdomen and pelvis with contrast. Radiation optimization: All CT scans at this facility use at least one of these dose optimization techniques: automated exposure control; mA and/or kV adjustment per patient size (includes targeted exams where dose is matched to clinical indication); or iterative reconstruction. Contrast material: OMNI 350; Contrast volume: 85 ml; Contrast route: INTRAVENOUS (IV); COMPARISON: abdomen limited [id number] 01/08/2022 6:10 AM RADIATION DOSE METRICS: Total DLP (mGy-cm): 1322.45 FINDINGS: Liver: Normal. No mass. Gallbladder and bile ducts: Cholecystectomy. Pancreas: Pancreatic tail 17 mm cyst. Spleen: Normal. No splenomegaly. Adrenal glands: Normal. No mass. Kidneys and ureters: Left kidney cyst, negative for follow-up advised. Stomach and bowel: Left colonic thickening may reflect a colitis or perhaps be due to nondistention. Appendix: No evidence of appendicitis. Intraperitoneal space: Unremarkable. No free air. No significant fluid collection. Vasculature: Unremarkable. No abdominal aortic aneurysm. Lymph nodes: Unremarkable. No enlarged lymph nodes. Urinary bladder: Unremarkable as visualized. Reproductive: Prostate gland enlarged. Bones/joints: Unremarkable. No acute fracture. Soft tissues: Unremarkable. CT/CT chest abd pel w con* IMPRESSION: 1. Cardiomegaly 2. Coronary artery atherosclerotic calcifications. 3. Emphysematous changes. IMPRESSION: 1. Left colonic thickening may reflect a colitis or perhaps be due to nondistention. 2. Prostate gland enlarged. 3. Cholecystectomy. 4. Pancreatic tail 17 mm cyst. Reimaging every 2 years for 4 years is recommended. (Reference: Maura, 2017) 5. Left kidney cyst, negative for follow-up advised. REFERENCES: Maura MOORE, et al. Management of Incidental Pancreatic Cysts: A White Paper of the ACR Incidental Findings Committee. J Am Fidelina Radiol. 2017;14(7):911-923.
[2022-07-31] MEDS: iohexol 350 mg/mL 500 mL Btl (per mL) IV (19:18)
[2022-07-31 19:40] LABS: Add Urine Microscopic? YES; Bilirubin Urine Neg (Negative); Blood Urine Neg (Negative); Glucose Urine UA 4+ (Normal); Ketones Urine Negative (Negative); Leukocyte Esterase Urine Negative (Negative); Nitrate Urine Negative (Negative); Protein Urine 1+ (Negative); Urine Appearance Clear (CLEAR); Urine Color Yellow (Yellow); Urobilinogen Urine Neg (Negative); pH Urine 6 (5-7)
[2022-07-31 19:43] LABS: Add Urine Culture? No; Amorphous Sediment Urine TRACE /hpf
--- NOTE | 2022-07-31 20:08 | ECG_ITS ---
[facility] Test Date: 2022-07-31 Pat Name: Nicolás Menjivar Department: Room: Gender: Male Head Loader: : 1940 Requested By: Keon Barrientos Order Number: [id number] Funmilayo MD: Lorri Lin M.D. Measurements Intervals [place] Rate: 62 P: 183 WA: 216 QRS: -36 QRSD: 95 T: -5 QT: 427 QTc: 437 Interpretive Statements ECTOPIC ATRIAL RHYTHM WITH FIRST DEGREE AV BLOCK VOLTAGE CRITERIA FOR LVH INFERIOR MYOCARDIAL INFARCTION , OF INDETERMINATE AGE Compared to ECG 12/02/2021 12:47:22 Ectopic atrial rhythm now present Myocardial infarct finding now present Sinus bradycardia no longer present T-wave abnormality no longer present Electronically Signed On 08-02-2022 9:48:11 LINING CUTTER by Lorri Lin M.D. [id number]
[2022-07-31 20:39] LABS: Troponin 5 2HR 44.62 ng/L (0-15)
[2022-07-31 20:40] LABS: Troponin 5 2HR Delta -13.38 ABS# (0-10)
[2022-07-31 22:00] VITALS: PULSE 67
--- NOTE | 2022-07-31 22:21 | ECG_ITS ---
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 Measurements Intervals [place] Rate: 66 P: 42 NM: 235 QRS: -37 QRSD: 85 T: -15 QT: 397 QTc: 416 Interpretive Statements SINUS RHYTHM WITH FIRST DEGREE AV BLOCK LOW QRS VOLTAGE IN PRECORDIAL LEADS [QRS DEFLECTION < 1.0 mV IN CHEST LEADS] VOLTAGE CRITERIA FOR LVH INFERIOR MYOCARDIAL INFARCTION , OF INDETERMINATE AGE Compared to ECG 07/31/2022 20:27:13 Low QRS voltage now present Ectopic atrial rhythm no longer present Myocardial infarct finding still present Electronically Signed On 08-01-2022 10:52:26 CDT by Lorri Lin M.D. [id number]
[2022-07-31 23:00] VITALS: BP 176/82; PULSE 73; RESP 17; O2SAT 100
[2022-07-31 23:21] VITALS: RESP 18
[2022-07-31] MEDS: morphine 4 mg/mL SDV 1 mL 2 MG IVP (23:21)
[2022-08-01] VITALS (7 sets, daily range): BP systolic 118–160; BP diastolic 61–77; PULSE 67–86; RESP 12–19; TEMP 36.5–37.2; O2SAT 96–99
--- NOTE | 2022-08-01 00:08 | ECG_ITS ---
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 Measurements Intervals [place] Rate: 69 P: CT: QRS: -38 QRSD: 114 T: 31 QT: 410 QTc: 441 Interpretive Statements SINUS RHYTHM WITH FIRST DEGREE AV BLOCK VOLTAGE CRITERIA FOR LVH INFERIOR MYOCARDIAL INFARCTION , PROBABLY OLD Compared to ECG 07/31/2022 22:21:53 Sinus rhythm no longer present First degree AV block no longer present Myocardial infarct finding still present Electronically Signed On 08-01-2022 10:55:02 CDT by Lorri Lin M.D. [id number]
[2022-08-01 01:43] LABS: Troponin 5 6HR 58.11 ng/L (0-15); Troponin 5 6HR Delta 0.11 ng/L (0-12)
--- NOTE | 2022-08-01 06:27 | USR_ITS ---
PROCEDURE INFORMATION: Exam: US Duplex Left Lower Extremity Veins, Limited Exam date and time: 08/01/2022 7:29 AM Age: 82 years old Clinical indication: Pain; Leg, lower; Left; Additional info: Evalute for dvt TECHNIQUE: Imaging protocol: Real-time Duplex ultrasound of the Left Lower Extremity with 2-D nolen scale, color Doppler flow and spectral waveform analysis with image documentation. Limited exam focused on the left lower extremity veins. Total images: 382 COMPARISON: US renal BI with PV bladder 04/10/2020 7:45 AM FINDINGS: Left deep veins: Unremarkable. The common femoral, femoral, proximal profunda femoral and popliteal veins are patent without thrombus. Normal Doppler waveforms. Normal compressibility and/or augmentation response. Left superficial veins: Unremarkable. Saphenofemoral junction is patent without thrombus. Soft tissues: Unremarkable. US/CV venous duplex [facility] [id number] IMPRESSION: No evidence of deep vein thrombosis.
[2022-08-01] MEDS: FUROsemide 10 mg/mL SDV 4mL 40 MG IVP (06:42)
--- NOTE | 2022-08-01 06:56 | PM.HP ---
Providers/Chief Complaint Admitting Physician: Marcella Garrison MD Primary Care Provider: Vita Mcerloy NP Chief Complaint: VT History of Present Illness Nicolás Menjivar is a 82 year old male with a past medical history of diabetes mellitus, rheumatoid arthritis on Humira presenting to the emergency room today with chest pain. Patient states that chest pain started at about 2 PM in the afternoon. It was located in the left side of the chest to, radiating into his left shoulder and arm. Also radiated into his back. This episode of pain was eventually relieved with taking sublingual nitroglycerin. He has not had recurrence of the chest pain. Presented to the emergency room for further evaluation. His EKG today is showing atrial fibrillation however rate controlled with heart rate between 60 to 70 bpm. His troponin series returned with elevated troponin of 58 at baseline, followed by 44 at 2 hours and 58 at 6 hours with delta of -13 and 0.1 respectively. He does have elevated BNP at 5000. Recent history is notable for him having developed diffuse desquamating skin rash approximately 2 weeks ago. This rash happened shortly after receiving his doses of influenza vaccine, COVID booster (Pfizer instead of Moderna which she had before) and being started on Bactrim for a paronychia. It is unclear if any of these were precipitants for his desquamating rash however it was severe enough for him to present to the emergency room and then be transferred to [facility]. He states he remained inpatient there for 3 days where he received high-dose steroids and some topical antibiotics and steroids which eventually took care of his rash. His rash is much improved now and is healing. He also had a prescription for Keflex for what he describes to be a secondary bacterial infection on top of desquamating skin. There are no open sores or lesions at this time mild. Multiple healing scabs are seen all over his body. He was discharged home with 1 week of taper of steroids, to be brought down from 10 mg daily to 5 mg daily. He has now completed his steroid taper as instructed. He takes maintenance 5 mg p.o. prednisone daily for his RA. On this recent admission at [facility] his sotalol had been discontinued and patient is no longer on this medication. Patient has noted lower extremity edema over the left leg over the past 2 days. He takes Xarelto chronically for his A. fib. Review of Systems General: Reports: 10 or more systems reviewed and unremarkable except in HPI and below Const: Denies: fever(s), chills or body aches Eyes: Denies: change in vision, blurry vision or photophobia ENMT: Reports: hoarseness; Denies: throat pain, enlarged tonsils, odynophagia or nasal congestion Card: Denies: chest pain, palpitations, irregular heart rhythm, edema, swelling of feet/ankles, lightheadedness, pre-syncope, dyspnea on exertion or orthopnea Resp: Denies: dyspnea, productive cough, non-productive cough, wheezing, stridor, pain on inspiration, change in phlegm color, hemoptysis or chest congestion GI: Denies: abdominal pain, nausea, vomiting, hematemesis, coffee ground emesis, dysphagia, heartburn, diarrhea, constipation, GI cramping, change in stool character, hematochezia or melena : Denies: flank pain, dysuria, urinary frequency, urinary urgency, urinary hesitancy or hematuria Musc: Denies: neck pain, back pain, extremity pain, joint swelling, joint warmth or deformity Neuro: Denies: headache(s), numbness in extremities, weakness in extremities, sensory changes, difficulty walking, frequent falls, dizziness, vertigo, behavioral changes, Slurred speech present or seizure-like activity Psych: Denies: anxiety, depression, suicidal ideation or homicidal ideation Endo: Denies: polyuria, polydipsia, tired all the time, cold intolerance or hot flashes Arsen/Lymph: Denies: easy bruising or easy bleeding Medications/Allergies Home Medications Medication Instructions Recorded Confirmed Last Taken Type acetaminophen 500 mg tablet 1,000 mg PO Q8H PRN Pain 04/01/20 07/31/22 Unknown History (Tylenol Extra Strength) vitamin B complex (B 1 tab PO DAILY 04/01/20 07/31/22 Unknown History Complex-Vitamin B12 tablet) gabapentin 300 mg tablet,extended 300 mg PO QPM #7 tabs 05/07/21 07/31/22 Unknown Rx release 24 hr albuterol sulfate 90 mcg/actuation 2 puff inhalation Q4H PRN 10/27/21 07/31/22 Unknown Rx aerosol inhaler shortness of breath or wheezing #8.5 grams budesonide-formoterol HFA 160 2 puff inhalation BID #10.2 grams 10/27/21 07/31/22 Unknown Rx mcg-4.5 mcg/actuation aerosol inhaler (Symbicort) diclofenac sodium 1 % topical gel 4 g topical QID #100 grams 12/02/21 07/31/22 Unknown Rx (Voltaren Arthritis Pain) prednisone 5 mg tablet See Rx Instructions PO DAILY #30 12/02/21 07/31/22 Unknown Rx tabs adalimumab 40 mg/0.8 mL See Rx Instructions SUBCUT 01/07/22 07/31/22 Unknown Rx subcutaneous pen kit (Humira Pen) .COMPLEX #4 ea clopidogrel 75 mg tablet 75 mg PO DAILY #90 tabs 03/03/22 07/31/22 Unknown Rx testosterone cypionate 200 mg/mL 200 mg IM .once a month #1 mL 03/24/22 07/31/22 Unknown Rx intramuscular oil sitagliptin 100 mg tablet (Januvia) 100 mg PO DAILY 90 days #90 tabs 03/26/22 07/31/22 Unknown Rx potassium chloride 10 mEq 10 meq PO DAILY #90 tabs 04/09/22 07/31/22 Unknown Rx tablet,extended release prednisone 5 mg tablet 5 mg PO DAILY #30 tabs 06/09/22 07/31/22 Unknown Rx blood sugar diagnostic (Contour #50 ea 06/10/22 07/31/22 Unknown Rx Next Test Strips) metoprolol tartrate 25 mg tablet 25 mg PO BID #180 tabs 06/18/22 07/31/22 Unknown Rx dapagliflozin 10 mg tablet 10 mg PO QAM 90 days #90 tabs 07/07/22 07/31/22 Unknown Rx (Farxiga) escitalopram oxalate 20 mg tablet 20 mg PO DAILY 90 days #90 tabs 07/07/22 07/31/22 Unknown Rx ferrous sulfate 325 mg (65 mg 325 mg PO DAILY 90 days #90 tabs 07/07/22 07/31/22 Unknown Rx iron) tablet finasteride 5 mg tablet 5 mg PO DAILY 90 days #90 tabs 07/07/22 07/31/22 Unknown Rx furosemide 40 mg tablet 40 mg PO DAILY 90 days #90 tabs 07/07/22 07/31/22 Unknown Rx glipizide 5 mg tablet 5 mg PO BID 90 days #180 tabs 07/07/22 07/31/22 Unknown Rx isosorbide mononitrate 30 mg 30 mg PO DAILY 90 days #90 tabs 07/07/22 07/31/22 Unknown Rx tablet,extended release 24 hr multivitamin 1 tab PO DAILY 90 days #90 tabs 07/07/22 07/31/22 Unknown Rx mupirocin 2 % topical ointment 1 applic topical TID #15 grams 07/07/22 07/31/22 Unknown Rx nystatin 100,000 unit/gram topical 1 applic topical QID #30 grams 07/07/22 07/31/22 Unknown Rx cream rivaroxaban 20 mg tablet (Xarelto) 20 mg PO DAILY 90 days #90 tabs 07/07/22 07/31/22 Unknown Rx simvastatin 40 mg tablet 40 mg PO DAILY 90 days #90 tabs 07/07/22 07/31/22 Unknown Rx tamsulosin 0.4 mg capsule 0.4 mg PO BID 90 days #180 caps 07/07/22 07/31/22 Unknown Rx hydroxyzine HCl 10 mg tablet 10 mg PO QID PRN itching #60 tabs 07/10/22 07/31/22 Unknown Rx triamcinolone acetonide 0.025 % 1 applic topical DAILY #80 grams 07/10/22 07/31/22 Unknown Rx topical cream OYXGEN AT 3L PER N/C WITH #1 ea 07/23/22 07/31/22 Unknown Rx CONSERVING DEVICE AND PORTABLE cephalexin 500 mg capsule 500 mg PO QID 7 days #28 caps 07/23/22 07/31/22 Unknown Rx acarbose 25 mg tablet 25 mg PO TID 07/31/22 07/31/22 Unknown History Allergies Allergy/AdvReac Type Severity Reaction Status Date / Time bupropion [From Wellbutrin] Allergy Unknown Unknown Verified 04/28/22 09:21 celecoxib [From Celebrex] Allergy Unknown Unknown Verified 04/28/22 09:21 rofecoxib [From Vioxx] Allergy Unknown Verified 04/28/22 09:21 bactrim Allergy Severe ALGY-Rash Uncoded 07/10/22 16:57 PFSH Acute PFSH: Medical History Abnormal bilirubin test Abnormal PSA Atherosclerotic heart disease -has had prior stenting -cardiac workup done in 2019 with nuclear stress testing being negative for ischemia; Echo-EF=55%, mild LVH, no RWMA, trace TR, mild AK -on statin, Plavix, off ASA due to Eliquis Atherosclerotic heart disease of [place] coronary artery without angina pectoris Benign essential hypertension with target blood pressure below 140/90 -BP trending up, continue to monitor -on lasix and HCTZ BPH NOS w ur obs/LUTS CAD (coronary artery disease) Depression Dyslipidemia -on statin Erectile dysfunction due to diseases classified elsewhere Hyperlipidemia Hypertension Hypogonadism Hypogonadism male Intermittent atrial fibrillation SOB (shortness of breath) Transient atrial fibrillation/flutter -appears to be new onset arrhythmia -had previously been on Metoprolol and Diltiazem which he discontinued on his own due to dizziness -on sotalol 80 mg in AM, 40 mg in PM; off Cardizem drip -appreciate evaluation by Dr. Locke -telemetry monitoring -VSS; continue to monitor -Echo: EF=57%, G3DD, mild LVH, no RWMA, mild to moderate MR, moderate TR, mild pulmonary HTN -has been on therapeutic Lovenox due to D-dimer elevation; VTE r/o so now on Eliquis -[id number] score of 5; will need to continue detention oral anticoagulation Type 2 diabetes mellitus Surgical History History of heart artery stent History of knee replacement procedure of left knee Hx of cholecystectomy S/P total knee arthroplasty Status post laser cataract surgery of both eyes Family History Father , AT AGE 86 HEART DISEASE,VT,DIABETES Diabetes CAD (coronary artery disease) Mother , AT AGE 80 No problems noted. Grandfather CAD (coronary artery disease) Chronic kidney disease (CKD) Diabetes Family/Other CAD (coronary artery disease) Other Rheumatoid arthritis Stroke Denies family history of Lupus Hyperlipidemia Cancer Hypertension Social History Smoking and tobacco status: never smoked Alcohol intake: former Marital status: Current occupational status: retired History of recent travel: No Vitals/I&O/Wt Last Vital Signs Temp 98.3 F 08/01/22 04:00 Pulse 75 08/01/22 04:00 Resp 19 H 08/01/22 04:00 BP 142/64 08/01/22 04:00 Pulse Ox 98 08/01/22 04:00 O2 Del Method 08/01/22 04:00 O2 Flow Rate 4 08/01/22 04:00 07/31/22 07/31/22 08/01/22 14:59 22:59 06:59 Intake Total 1250 / 1250 Output Total 700 / 700 Balance 550 / 550 Weight last 48 hrs Weight 82.554 kg Physical Exam Narrative: General: No acute distress, AO x3 HEENT: PERRLA, pupils bilaterally equal and reactive, pallors not present Chest: Crackles to auscultation bilaterally infra axillary areas CVS: S1-S2 regular, no murmurs, no tachycardia, no gallops, no rubs Abdomen: Soft, nontender, no organomegaly, bowel sounds present Neuro: No focal deficits, no facial deformity, AO x3, power 5/5 in all limbs Extremities: Left lower extremity with 1+ pitting edema Data : 07/31/22 18:15 07/31/22 18:15 A&P Assessment and plan (1) Chest pain: Patient with multiple cardiac risk factors including past history of CAD, diabetes mellitus, hypertension, chronic steroid use presenting today with chest pain in the left side radiating into the left shoulder and arm. Episode resolved with taking sublingual nitroglycerin and has not recurred since admission here. His EKG today does not show any acute ST-T wave changes. Baseline troponin elevated at 55, however subsequent 2-hour and 6-hour delta troponins are not significant to rule in ACS. 's findings of chest pain however may be related to underlying angina. Discussed with him the possibility of undergoing the stress test, however will be unable to complete over the weekend as this test is not available. His last echocardiogram dates back to March 2020 wherein he was noted to have an LVEF of 57% with mild left ventricular hypertrophy. No regional wall motion abnormality. Grade 3 diastolic dysfunction was noted with elevated filling pressures. There was mild tricuspid regurgitation and mild pulmonary hypertension with a pasp of 46. His last stress test dates back to 2018 when it was negative for inducible ischemia. Will check echocardiogram for any interim development of regional wall motion abnormalities, change in ejection fraction or valvular abnormalities. CT of the chest abdomen and pelvis today is negative for any PE or dissection. Emphysematous changes on his lungs are noted. Continue Plavix 75 mg daily and Xarelto, statin and metoprolol. Continue Imdur (2) CHF (congestive heart failure): His findings of chest pain, elevated troponin today may be alternately related to acute on chronic diastolic CHF exacerbation. As evidenced by lower extremity swelling elevated BNP. Lasix 40 mg IV now. Monitor renal function and urine output closely. At a baseline patient takes 40 mg of p.o. Lasix at home. CHF may have been precipitated by recent high-dose steroid use for his desquamating skin rash. (3) A-fib: Currently rate controlled between 60 to 70 bpm. He is chronically on Xarelto 20 mg daily which will be continued. Of note he was recently taken off sotalol during his admission at [facility]. He is currently on metoprolol 25 mg p.o. twice daily which will be continued. Plan Diabetes mellitus: Insulin sliding scale Left lower extremity ankle and foot swelling, will less likely to be DVT given that patient is chronically on Xarelto however will for follow-up with lower extremity duplex to rule out. Attestations Medical Necessity Statement*: Anticipate less than 2 midnight admission for above defined care. Coding Level of Care Code Acute Frame Stylist for [facility] Diagnoses Chest pain R07.9 CHF (congestive heart failure) I50.9 A-fib I48.91
--- NOTE | 2022-08-01 07:15 | USCV_ITS ---
Nicolás Menjivar Age: 82 Gender: M : 1940 Exam Date: 08/01/2022 07:37 Ordering Phys: Marcella Garrisno MD Technologist: SHERITA Exam Location: [facility] [place] Indication: CHEST PAIN, ANGINA BP: 151 / 67 HR: 65 Rhythm: Sinus Technical Quality: Adequate MEASUREMENTS (Male / Female) Normal Values 2D ECHO LVOT Diameter 2.0 cm LV Ejection Fraction MOD 2C 61.8 % LV Ejection Fraction 2C AL 63.2 % LA Diameter 3.7 cm LA Width 3.5 cm LA Height 5.0 cm RA Width 3.7 cm RA Height 5.5 cm Aorta at Sinotubular Diameter 2.5 cm M-MODE Aortic Annulus Diameter 3.6 cm LA Ao Ratio MM 1.0 MV E Point Septal Separation 0.5 cm DOPPLER AV Peak Velocity 208.7 cm/s LVOT Peak Velocity 114.0 cm/s AV Area Cont Eq vti 1.9 cm squared AV Area Cont Eq pk 1.8 cm squared MV Peak Velocity 151.0 cm/s MV Area PHT 2.2 cm squared Mitral E to A Ratio 0.6 MV E' Velocity 52.0 cm/s Mitral E to MV E' Ratio 11.9 Mitral E to LV E' Lateral Ratio 8.3 Mitral E to LV E' Septal Ratio 21.1 TR Peak Velocity 226.0 cm/s TR Peak Gradient 20.4 mmHg TR Mean Velocity 183.2 cm/s TR Mean Gradient 14.5 mmHg TR Velocity Time Integral 62.6 cm TV Peak E Velocity 76.0 cm/s Right Atrial Pressure 8.0 mmHg Pulmonary Artery Systolic Pressu 28.4 mmHg PV Peak Velocity 94.0 cm/s RV Acceleration Time 0.1 s RV Ejection Time 0.3 s RV AcT/ET 0.3 FINDINGS Left Ventricle Normal left ventricular size, systolic function and increased wall thickness, with no regional wall motion abnormalities. Left ventricular ejection fraction is estimated at 60 %. Grade I diastolic dysfunction (abnormal relaxation filling pattern), normal to mildly elevated filling pressures. Right Ventricle Normal right ventricular size and systolic function. Right ventricular systolic pressure 28.4 mmHg. Right Atrium Normal right atrial size. Left Atrium Mildly increased left atrial size. Mitral Valve Severe mitral annular calcification. Moderately thickened mitral valve. No mitral valve stenosis. Trace mitral valve regurgitation. Aortic Valve Thickened trileaflet aortic valve. No aortic valve stenosis. No aortic valve regurgitation. Tricuspid Valve Structurally normal tricuspid valve. No tricuspid valve stenosis. Trace to mild tricuspid valve regurgitation. Pulmonic Valve Pulmonic valve not well visualized. No pulmonary valve stenosis. Trace pulmonary valve regurgitation. Pericardium No pericardial effusion. Aorta Normal size aortic root and proximal ascending aorta. IVC Normal IVC dimension with >50% respiratory change of the inferior vena cava. CONCLUSIONS 1. Normal left ventricular size, systolic function and increased wall thickness, with no regional wall motion abnormalities. Left ventricular ejection fraction is estimated at 60 %. Grade I diastolic dysfunction (abnormal relaxation filling pattern), normal to mildly elevated filling pressures. 2. Normal right ventricular size and systolic function. 3. Pulmonary artery pressure estimated at 28 mm Hg. 4. No significant change when compared to study dated 04/10/2020. Lorri Lin MD (Electronically Signed) Final Date: 01 August 2022 08:56 S
[2022-08-01] MEDS: finasteride 5 mg Tablet PO (08:52)
[2022-08-01] MEDS: isosorbide mononitrate ER 30 mg Tablet PO (08:52)
[2022-08-01] MEDS: metoprolol tartrate 25 mg Tablet PO (08:53)
[2022-08-01] MEDS: tamsulosin 0.4 mg Capsule PO (08:53)
[2022-08-01] MEDS: atorvastatin 40 mg Tablet 20 MG PO (08:53)
[2022-08-01] MEDS: clopidogrel 75 mg Tablet PO (08:53)
[2022-08-01] MEDS: escitalopram 10 mg Tablet 20 MG PO (08:53)
[2022-08-01] MEDS: diclofenac 1% Topical Gel 100 gm 4 APPLIC TOPICAL ×2 (08:53→12:13)
[2022-08-01] MEDS: predniSONE 5 mg Tablet PO (08:53)
[2022-08-01] MEDS: rivaroxaban 10 mg Tablet 20 MG PO (08:53)
[2022-08-01] MEDS: ipratropium-albuterol 3 mL Neb INHALATION (08:53)
[2022-08-01] MEDS: pantoprazole DR 40 mg Tablet PO (08:53)
[2022-08-01] MEDS: budesonide 0.5 mg/2 mL Neb INHALATION (08:54)
[2022-08-01] MEDS: alum-mag-hydroxide-sime 30 mL UDC PO (11:24)
[2022-08-01 11:26] LABS: Glucose Point of Care 344 mg/dL (70-110)
[2022-08-01] MEDS: pantoprazole 40 mg SDV IVP (11:29)
[2022-08-01] MEDS: insulin lispro 100 unit/1 mL SUBCUT (12:11)
--- NOTE | 2022-08-01 12:15 | P.DS_ITS ---
Discharge Providers Date of Admission: 07/31/22 21:09 Date of Discharge: August 01, 2022 Attending Provider at Admission: Marcella Garrison MD Attending Provider at Discharge: Favian Young MD Primary Care Provider: Vita Meclroy NP Diagnoses at Discharge Discharge Diagnosis (1) Chest pain: Status: Acute (2) CHF (congestive heart failure): Status: Acute (3) A-fib: Status: Acute Reason for Visit Reason for Visit: [facility] Brief History: History as per HPI: Nicolás Menjivar is a 82 year old male with a past medical history of diabetes mellitus, rheumatoid arthritis on Humira presenting to the emergency room today with chest pain.? Patient states that chest pain started at about 2 PM in the afternoon.? It was located in the left side of the chest to, radiating into his left shoulder and arm.? Also radiated into his back.? This episode of pain was eventually relieved with taking sublingual nitroglycerin.? He has not had recurrence of the chest pain.? Presented to the emergency room for further evaluation.? His EKG today is showing atrial fibrillation however rate controlled with heart rate between 60 to 70 bpm.? His troponin series returned with elevated troponin of 58 at baseline, followed by 44 at 2 hours and 58 at 6 hours with delta of -13 and 0.1 respectively.? He does have elevated BNP at 5000.? Recent history is notable for him having developed diffuse desquamating skin rash approximately 2 weeks ago.? This rash happened shortly after receiving his doses of influenza vaccine, COVID booster (Pfizer instead of Moderna which she had before) and being started on Bactrim for a paronychia.? It is unclear if any of these were precipitants for his desquamating rash however it was severe enough for him to present to the emergency room and then be transferred to [facility].? He states he remained inpatient there for 3 days where he received high-dose steroids and some topical antibiotics and steroids which eventually took care of his rash.? His rash is much improved now and is healing.? He also had a prescription for Keflex for what he describes to be a secondary bacterial infection on top of desquamating skin.? There are no open sores or lesions at this time mild.? Multiple healing scabs are seen all over his body.? He was discharged home with 1 week of taper of steroids, to be brought down from 10 mg daily to 5 mg daily.? He has now completed his steroid taper as instructed.? He takes maintenance 5 mg p.o. prednisone daily for his RA. On this recent admission at [facility] his sotalol had been discontinued and patient is no longer on this medication. Patient has noted lower extremity edema over the left leg over the past 2 days.? He takes Xarelto chronically for his A. fib. Hospital Course Hospital Course Patient was admitted to hospital further evaluation and management of chest pain. On admission he was found to have a creatinine of 1.4 with a baseline troponin of 58. His troponin cycled remain at baseline. He did not have any further chest pain while hospitalized both at rest and on ambulation. His telemetry remained stable. Repeat echocardiogram was done which was stable and similar to the echocardiogram done in 2019. Possibility of chest pain secondary to unstable angina versus gastritis from excessive high-dose steroids over the last 2 weeks were discussed in detail with the patient. He was started on twice daily PPI along with Maalox. Further plan of treatment of continuing PPI with the possibility of cardiac stress test on Wednesday was discussed in detail with the patient versus discharge and cardiac stress as an outpatient. Both patient and patient's spouse verbalized understanding and want to schedule cardiac stress test as an outpatient. Has been discharged hemodynamically stable condition on Protonix twice daily. All his other cardiac medications are continued as before. He has been explained in detail regarding danger signs including chest pain at rest not relieved by nitro, multiple episodes of chest pain in an hour, episodes of dizziness or shortness of breath. He is to come to the ER on appearance of danger signs. Physical Exam Narrative: General: No acute distress, AO x3 HEENT: PERRLA, pupils bilaterally equal and reactive, pallors not present Chest: Crackles to auscultation bilaterally infra axillary areas CVS: S1-S2 regular, no murmurs, no tachycardia, no gallops, no rubs Abdomen: Soft, nontender, no organomegaly, bowel sounds present Neuro: No focal deficits, no facial deformity, AO x3, power 5/5 in all limbs Extremities: Left lower extremity with 1+ pitting edema Discharge Data Studies Completed and Pending Completed Studies During Hospitalization Category Date Time Status CT chest abd pel w con* Stat Cat Scan 07/31/22 19:[address] head wo con* [id number] Stat Cat Scan 07/31/22 19:11 Completed XR chest 1V portable [id number] Stat Exams 07/31/22 18:08 [place] [id number] Routine Ultrasound 08/01/22 06:27 Completed CV. echo complete* [id number] Routine Ultrasound 08/01/22 07:15 Completed Pending at discharge Category Date Time Status C Reactive Protein Stat Lab 08/01/22 09:42 Ordered Complete Blood Count w/Auto AM LABS Lab 08/02/22 04:00 Ordered Comprehensive Metabolic Panel AM LABS Lab 08/02/22 04:00 Ordered Comprehensive Metabolic Panel Routine Lab 08/01/22 09:42 Ordered ESR [Erythrocyte Sedimentation Rate] Routine Lab 08/01/22 09:42 Ordered TIBC [Total Iron Binding Capacity] Routine Lab 08/01/22 09:42 Ordered Radiology Impressions Chest X-Ray 07/31/22 18:08 IMPRESSION: No acute findings. Chest/Abdomen/Pelvis CT 07/31/22 19:11 IMPRESSION: 1. Cardiomegaly 2. Coronary artery atherosclerotic calcifications. 3. Emphysematous changes. IMPRESSION: 1. Left colonic thickening may reflect a colitis or perhaps be due to nondistention. 2. Prostate gland enlarged. 3. Cholecystectomy. 4. Pancreatic tail 17 mm cyst. Reimaging every 2 years for 4 years is recommended. (Reference: Maura, 2017) 5. Left kidney cyst, negative for follow-up advised. REFERENCES: Maura MOORE, et al. Management of Incidental Pancreatic Cysts: A White Paper of the ACR Incidental Findings Committee. J Am Fidelina Radiol. 2017;14(7):911-923. Head CT 07/31/22 19:11 IMPRESSION: Negative for acute intracranial abnormality. Venous Duplex 08/01/22 06:27 IMPRESSION: No evidence of deep vein thrombosis. Echocardiogram: CONCLUSIONS ?1. Normal left ventricular size, systolic function and increased ?wall thickness, with no regional wall motion abnormalities. Left ?ventricular ejection fraction is estimated at 60 %. Grade I ?diastolic dysfunction (abnormal relaxation filling pattern), ?normal to mildly elevated filling pressures. ?2. Normal right ventricular size and systolic function. ?3. Pulmonary artery pressure estimated at 28 mm Hg. ?4. No significant change when compared to study dated ?04/10/2020. Laboratory Results WBC 3.6 10^3/uL (4.0-10.0) L 07/31/22 18:15 RBC 2.86 10^6/uL (4.1-5.3) L 07/31/22 18:15 Hgb 10.4 g/dL (11.7-16.6) L 07/31/22 18:15 Hct 30.5 % (42.0-52.0) L 07/31/22 18:15 MCV 106.6 fl (80-94) H 07/31/22 18:15 MCH 36.4 pg (28.0-34.0) H 07/31/22 18:15 MCHC 34.1 g/dL (30.0-36.0) 07/31/22 18:15 RDW 14.5 % (12.1-15.1) 07/31/22 18:15 Plt Count 190 10^3/cmm (130-400) 07/31/22 18:15 MPV 11.7 fL (7.4-10.4) H 07/31/22 18:15 Neut % (Auto) 58.5 % 07/31/22 18:15 Lymph % (Auto) 23.8 % 07/31/22 18:15 [place] % (Auto) 16.3 % 07/31/22 18:15 Eos % (Auto) 0.3 % 07/31/22 18:15 Baso % (Auto) 0.8 % 07/31/22 18:15 Neut # (Auto) 2.11 10^3/uL (1.8-7.7) 07/31/22 18:15 Lymph # (Auto) 0.9 10^3/uL (0.8-4.8) 07/31/22 18:15 Crane # (Auto) 0.6 10^3/uL (0.2-0.9) 07/31/22 18:15 Eos # (Auto) 0.0 10^3/uL (0.0-0.8) 07/31/22 18:15 Baso # (Auto) 0.0 10^3/uL (0.0-0.1) 07/31/22 18:15 Nucleated RBC % (auto) 0 % 07/31/22 18:15 Nucleated RBCs # 0.0 /100WBC 07/31/22 18:15 PT 16.10 SECONDS (12.1-14.9) H 07/31/22 18:15 INR 1.26 (0.8-1.2) H 07/31/22 18:15 APTT 31.7 SECONDS (23.9-36.7) 07/31/22 18:15 Sodium 138 mmol/L (136-145) 07/31/22 18:15 Potassium 4.5 mmol/L (3.5-5.1) 07/31/22 18:15 Chloride 100 mmol/L (98-107) 07/31/22 18:15 Carbon Dioxide 25 mmol/L (22-29) 07/31/22 18:15 Anion Gap 17.5 (5-19) 07/31/22 18:15 BUN 32 mg/dL (8-23) H 07/31/22 18:15 Creatinine 1.4 mg/dL (0.7-1.2) H 07/31/22 18:15 GFR Calculation Not Reportable 07/31/22 18:15 Glucose 268 mg/dL (65-115) H 07/31/22 18:15 POC Glucose 344 mg/dL (70-110) H 08/01/22 11:22 Calculated Osmolality 302 mOsm/kg (285-295) H 07/31/22 18:15 Calcium 9.2 mg/dL (8.5-10.5) 07/31/22 18:15 Total Bilirubin 0.9 mg/dL (0.15-1.2) 07/31/22 18:15 AST 13 U/L (0-40) 07/31/22 18:15 ALT 13 U/L (0-41) 07/31/22 18:15 Alkaline Phosphatase 51 U/L (40-130) 07/31/22 18:15 Troponin T Baseline 58 ng/L (0-15) H 07/31/22 18:15 Troponin T 120 Minute 44.62 ng/L (0-15) H 07/31/22 20:04 Delta Troponin T -13.38 ABS# (0-10) L 07/31/22 20:04 Troponin T Hi Sens 6Hr 58.11 ng/L (0-15) H 08/01/22 00:45 Troponin T Hi Sens 6Hr Delta 0.11 ng/L (0-12) 08/01/22 00:45 NT-Pro-B Natriuret Pep 5150 pg/mL (0-450) H 07/31/22 18:15 Total Protein 6.4 g/dL (6.6-8.7) L 07/31/22 18:15 Albumin 4.0 g/dL (3.5-5.2) 07/31/22 18:15 Globulin 2.4 g/dL (1.3-4.6) 07/31/22 18:15 Lipase 38 U/L (13-60) 07/31/22 18:15 Urine Color Yellow (Yellow) 07/31/22 09:17 Urine Appearance Clear (CLEAR) 07/31/22 09:17 Urine pH 6 (5-7) 07/31/22 09:17 Ur Specific [place] 1.010 (1.005-1.030) 07/31/22 09:17 Urine Protein 1+ (Negative) H 07/31/22 09:17 Urine Glucose (UA) 4+ (Normal) H 07/31/22 09:17 Urine Ketones Negative (Negative) 07/31/22 09:17 Urine Blood Neg (Negative) 07/31/22 09:17 Urine Nitrate Negative (Negative) 07/31/22 09:17 Urine Bilirubin Neg (Negative) 07/31/22 09:17 Urine Urobilinogen Neg mg/dL (Negative) 07/31/22 09:17 Ur Leukocyte Esterase Negative (Negative) 07/31/22 09:17 Urine RBC None /hpf (0-2) 07/31/22 09:17 Urine WBC None /hpf (0-5) 07/31/22 09:17 Ur Squamous Epith Cells None /hpf (0-5) 07/31/22 09:17 Amorphous Sediment Trace /hpf 07/31/22 09:17 Urine Bacteria None /hpf (NONE) 07/31/22 09:17 Vitals Last Vital Signs Temp 97.7 F 08/01/22 11:58 Pulse 76 08/01/22 11:58 Resp 16 08/01/22 11:58 BP 118/61 08/01/22 11:58 Pulse Ox 96 08/01/22 11:58 O2 Del Method 08/01/22 11:58 O2 Flow Rate 4 08/01/22 04:00 Discharge Plan Discharge Patient Disposition: Home Condition: Stable Prescriptions: New pantoprazole [Protonix] 40 mg tablet,delayed release (DR/EC) 40 mg PO BID 14 Days Qty: 28 0RF Continued vitamin B complex [B Complex-Vitamin B12] Tablet 1 tab PO DAILY acetaminophen [Tylenol Extra Strength] 500 mg tablet 1,000 mg PO Q8H PRN (Reason: Pain) albuterol sulfate 90 mcg/actuation HFA aerosol inhaler 2 puff inhalation Q4H PRN (Reason: shortness of breath or wheezing) Qty: 8.5 6RF budesonide-formoterol [Symbicort] 160-4.5 mcg/actuation HFA aerosol inhaler 2 puff inhalation BID Qty: 10.2 6RF diclofenac sodium [Voltaren Arthritis Pain] 1 % gel 4 g topical QID Qty: 100 2RF Rx Instructions: apply to single knee, ankle, foot; for foot includes sole/toes/top of foot Januvia 100 mg tablet 100 mg PO DAILY 90 Days Qty: 90 3RF Farxiga 10 mg tablet 10 mg PO QAM 90 Days Qty: 90 1RF ferrous sulfate 325 mg (65 mg iron) tablet 325 mg PO DAILY 90 Days Qty: 90 1RF escitalopram oxalate 20 mg tablet 20 mg PO DAILY 90 Days Qty: 90 1RF finasteride 5 mg tablet 5 mg PO DAILY 90 Days Qty: 90 1RF glipizide 5 mg tablet 5 mg PO BID 90 Days Qty: 180 1RF isosorbide mononitrate 30 mg tablet extended release 24 hr 30 mg PO DAILY 90 Days Qty: 90 1RF multivitamin Tablet 1 tab PO DAILY 90 Days Qty: 90 1RF nystatin 100,000 unit/gram cream 1 applic topical QID Qty: 30 2RF Xarelto 20 mg tablet 20 mg PO DAILY 90 Days Qty: 90 1RF Rx Instructions: must administer with evening meal simvastatin 40 mg tablet 40 mg PO DAILY 90 Days Qty: 90 1RF tamsulosin 0.4 mg capsule 0.4 mg PO BID 90 Days Qty: 180 1RF mupirocin 2 % ointment 1 applic topical TID Qty: 15 1RF (DME) OYXGEN AT 3L PER N/C WITH CONSERVING DEVICE AND PORTABLE See Rx Instructions .Route .MEDSUPPLY Qty: 1 0RF Rx Instructions: As directed hydroxyzine HCl 10 mg tablet 10 mg PO QID PRN (Reason: itching) Qty: 60 0RF triamcinolone acetonide 0.025 % cream 1 applic topical DAILY Qty: 80 1RF Humira Pen 40 mg/0.8 mL pen injector kit See Rx Instructions SUBCUT .COMPLEX Qty: 4 5RF Rx Instructions: inject one - 40 mg/0.8 mL pen every 2 weeks SUBCUT clopidogrel 75 mg tablet 75 mg PO DAILY Qty: 90 1RF testosterone cypionate 200 mg/mL oil 200 mg IM .once a month Qty: 1 5RF potassium chloride 10 mEq tablet extended release 10 meq PO DAILY Qty: 90 2RF prednisone 5 mg tablet 5 mg PO DAILY Qty: 30 0RF (DME) Contour Next Test Strips Strip See Rx Instructions .Route Qty: 50 6RF Rx Instructions: As directed 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 metoprolol tartrate 25 mg tablet 25 mg PO BID Qty: 180 3RF gabapentin 300 mg tablet extended release 24 hr 300 mg PO QPM Qty: 7 0RF acarbose 25 mg tablet 25 mg PO TID Rx Instructions: TAKE 1 TABLET BY MOUTH THREE TIMES DAILY Changed furosemide 40 mg tablet 60 mg PO DAILY 90 Days Qty: 90 1RF Discontinued prednisone 5 mg tablet See Rx Instructions PO DAILY Qty: 30 0RF Rx Instructions: 10mg po qday x 7 days, then 5mg po qday PO daily; cephalexin 500 mg capsule 500 mg PO QID 7 Days Qty: 28 0RF dexamethasone sodium phosphate 4 mg/mL solution 4 mg IM ONCE Qty: 1 0RF Discharge Orders: Discharge Order (Routine); Ordered 08/01/22 Ordered By: Favian Young Other Ambulatory Orders: Sestamibi Stress Test Request (Routine) Timeframe: 1 Week Facility: [facility] - Location: Cardiac Diagnostic Laboratory Ordered By: Favian Young Referrals: Vita Mcelroy NP [Primary Care Provider] - 1 week Discharge Diet: Diabetic, Low Salt and Low Cholesterol Discharge Activity: Resume usual activity and Increase activity as tolerated Patient Instructions: Opioid Safety Activity Restrictions/Additional Instructions: Take Protonix twice daily. Please remember the danger signs including chest pain at rest not relieved by nitro, multiple episodes of chest pain in an hour, episodes of dizziness or shortness of breath. He is to come to the ER on appearance of danger signs. Please schedule for cardiac stress test as an outpatient. Please follow-up with a commercial real estate assistant on set appointment. Please follow-up with her primary care provider within next 1 week. Discharge Attestations Time Spent in Discharge Care*: greater than 30 min Specific Discharge Activities: educating patient, educating and/or supporting family/caregiver, discussing with telephonic case manager/social workers/dc planners, documenting/other paperwork and evaluating patient/reviewing data Status at Discharge: Cognitive status at discharge: cognitively intact , Behavioral status at discharge: cooperative , Functional status at discharge: independent ambulation , Overall status at discharge: patient is back to baseline Quality Metrics Clinical Quality Measures [ No reported AMI, CVA or VTE this stay] Coding Level of Care Code Acute [facility] note Diagnoses Chest pain R07.9 CHF (congestive heart failure) I50.9 A-fib I48.91
[2022-08-01 13:44] LABS: Erythrocyte Sedimentation Rate 13 mm/hr (0-10)
[2022-08-01 13:46] LABS: Alanine Aminotransferase 12 U/L (0-41); Albumin Level 3.6 g/dL (3.5-5.2); Alkaline Phosphatase 49 U/L (40-130); Anion Gap 16.5 (5-19); Aspartate Amino Transferase 11 U/L (0-40); Blood Urea Nitrogen 24 mg/dL (8-23); Calcium 8.8 mg/dL (8.5-10.5); Carbon Dioxide 25 mmol/L (22-29); Chloride 98 mmol/L (98-107); Globulin 2.6 g/dL (1.3-4.6); Glucose 365 mg/dL (65-115); Osmolality Calculated 301 mOsm/kg (285-295); Potassium 3.5 mmol/L (3.5-5.1); Sodium 136 mmol/L (136-145); Total Protein 6.2 g/dL (6.6-8.7)
[2022-08-01 14:02] LABS: Iron 39 ug/dL (59-158); Percent Saturation 16.3 % (20-50); Total Iron Binding Capacity 238 mcg/dl; Unsaturated Iron Binding 199 ug/dL (112-347)
--- NOTE | 2022-08-01 14:11 | PC.NURSE ---
Discharge Note Patient discharged to home via car accompanied by spouse. Discharge instructions reviewed with patient and/or customer support representative. Mobile pharmacy medications and/or prescriptions provided. Belongings/home medications returned.
== END 2022-08-01 14:11 | disposition home or self-care (01) ==
LOC: ER 21:08 → MEDSURG 21:21
PROVIDERS: Admitting Provider Student in an Organized Health Care Education/Training Program; Emergency Provider Emergency Medicine; PCP Nurse Practitioner Family; Visit Provider Student in an Organized Health Care Education/Training Program
DX: R07.9 Chest pain, unspecified (principal); I25.110 Atherosclerotic heart disease of native coronary artery with unstable angina pectoris; M79.605 Pain in left leg; I11.0 Hypertensive heart disease with heart failure; I50.9 Heart failure, unspecified; E11.9 Type 2 diabetes mellitus without complications; M06.9 Rheumatoid arthritis, unspecified; N40.1 Benign prostatic hyperplasia with lower urinary tract symptoms; N13.8 Other obstructive and reflux uropathy; I25.10 Atherosclerotic heart disease of native coronary artery without angina pectoris; E78.5 Hyperlipidemia, unspecified; I48.91 Unspecified atrial fibrillation
CPT/HCPCS: 36415; 36416; 70450; 71045; 71260; 74177; 80053; 81001; 82962; 83540; 83550; 83690; 83880; 84484; 85025; 85610; 85651; 85730; 86140; 93005; 93306; 93971; 94640; 96361; 96372; 96374; 96375; 99285; C9113; G0378; J1815; J1940; J2270; J7512; J7626; Q9967

== ENCOUNTER → 2022-08-06 14:42 | Outpatient (BNVA) | payer MEDICARE, SELFPAY | PROVIDERS: PCP Nurse Practitioner Family; Visit Provider Nurse Practitioner Family | DX: I48.91 Unspecified atrial fibrillation (principal); I11.0 Hypertensive heart disease with heart failure; I50.9 Heart failure, unspecified | CPT/HCPCS: 99213; 99214 ==

== ENCOUNTER → 2022-10-12 15:48 | Outpatient (BNVA) | payer MEDICARE, SELFPAY | PROVIDERS: PCP Nurse Practitioner Family; Visit Provider Urology | DX: N52.1 Erectile dysfunction due to diseases classified elsewhere (principal) | CPT/HCPCS: 84403 ==

== ENCOUNTER → 2022-10-14 15:20 | Outpatient (BNVA) | payer MEDICARE, SELFPAY | PROVIDERS: PCP Nurse Practitioner Family; Visit Provider Urology | DX: N40.1 Benign prostatic hyperplasia with lower urinary tract symptoms (principal); N52.1 Erectile dysfunction due to diseases classified elsewhere; R35.1 Nocturia | CPT/HCPCS: 51798; 81003; 99214 ==

== ENCOUNTER → 2022-11-23 11:03 | Outpatient (BNVA) | payer MEDICARE, SELFPAY | PROVIDERS: PCP Nurse Practitioner Family; Visit Provider Urology | DX: R79.89 Other specified abnormal findings of blood chemistry (principal) | CPT/HCPCS: 84403 ==

== ENCOUNTER 2022-12-17 14:06 | Inpatient (IN) | payer MEDICARE, SELFPAY ==
[2022-12-17] VITALS (17 sets, daily range): BP systolic 93–208; BP diastolic 52–98; PULSE 87–107; RESP 16–18; TEMP 36.5–38.2; O2SAT 60–98; BMI 22.6
[2022-12-17 15:27] LABS: Basophils % 0.2 %; Eosinophils % 0.1 %; Hematocrit 35.2 % (42.0-52.0); Hemoglobin 10.9 g/dL (11.7-16.6); Lymphocytes # 0.3 10^3/uL (0.8-4.8); Lymphocytes % 3.2 %; Mean Corpuscular Hemoglobin 34.4 pg (28.0-34.0); Mean Platelet Volume 10.8 fL (7.4-10.4); Monocytes # 0.6 10^3/uL (0.2-0.9); Monocytes % 5.7 %; Neutrophils # 8.92 10^3/uL (1.8-7.7); Neutrophils % 88.4 %; Nucleated Red Blood Cells % 0 %; Platelet Count 367 10^3/cmm (130-400); Red Blood Count 3.17 10^6/uL (4.1-5.3); White Blood Count 10.1 10^3/uL (4.0-10.0)
--- NOTE | 2022-12-17 15:43 | CTR_ITS ---
PROCEDURE INFORMATION: Exam: CT Abdomen And Pelvis Without Contrast Exam date and time: 12/17/2022 3:54 PM Age: 82 years old Clinical indication: Abdominal pain; Flank; Upper; Prior surgery; Surgery date: 6+ months; Surgery type: Gallbladder; Additional info: Flank pain TECHNIQUE: Imaging protocol: Computed tomography of the abdomen and pelvis without contrast. Radiation optimization: All CT scans at this facility use at least one of these dose optimization techniques: automated exposure control; mA and/or kV adjustment per patient size (includes targeted exams where dose is matched to clinical indication); or iterative reconstruction. REPORTING DATA: Count of CT and Cardiac NM exams in prior 12 months: This patient has received 2 known CTs and 0 known cardiac nuclear medicine studies in the 12 months prior to the current study. COMPARISON: CT chest abdpel w/*[id number] 07/31/2022 7:38 PM RADIATION DOSE METRICS: Total DLP (mGy-cm): 837.81 FINDINGS: Lungs: Images of the lung bases demonstrate emphysematous change with areas of focal infiltrate with partial air bronchograms within the medial and posterior lower right lung, along with small amount atelectasis or infiltrate left lung base. No pleural effusion. Coronary artery calcification and mitral annular calcification. Liver: Area of focal fat density at the superolateral right liver margin is unchanged from 2021 exam liver is otherwise unremarkable. Gallbladder and bile ducts: Surgical clips in the gallbladder fossa prior cholecystectomy. No biliary ductal dilatation. Pancreas: Approximally 1.5 cm cyst within the tail of the pancreas, unchanged from prior exam. Pancreas is otherwise unremarkable. Spleen: Normal. No splenomegaly. Adrenal glands: Normal. No mass. Kidneys and ureters: Findings suggestive of small cysts both kidneys, unchanged from prior exam. Tiny calcification within the right kidney could represent tiny vascular calcification or tiny nonobstructing stone, unchanged from prior exam. No findings of ureteral calculus or obstructive uropathy. Mild age-related perinephric stranding. Stomach and bowel: Mild gastric prominence. No bowel obstruction. Sigmoid colon diverticulosis without CT findings of diverticulitis. Appendix: No evidence of appendicitis. Intraperitoneal space: Unremarkable. No free air. No significant fluid collection. Vasculature: Diffuse atherosclerotic vascular disease without significant aneurysmal dilatation of the abdominal aorta. Lymph nodes: Unremarkable. No enlarged lymph nodes. Urinary bladder: Enlarged prostate gland indenting the posterior urinary bladder, as noted with prior exam. Reproductive: Urinary bladder shows no focal abnormality other than prostate indentation and mild wall thickening. Bones/joints: Degenerative bony changes. Soft tissues: Unremarkable. Other findings: There is some motion with the exam, particularly reflected in the pelvis with subsequent repeat imaging of the pelvis. CT/CT kidney stone [id number] IMPRESSION: 1. Emphysematous change noted within the visualized lung bases, along with areas of focal partially consolidated infiltrate with partial air bronchograms within the medial and posterior lower right lung, along with small amount of atelectasis or infiltrate in the left lung base. Findings suggest pneumonia, particularly on the right and appears new from July 31, 2022 exam. 2. Previous cholecystectomy. 3. Stable approximally 1.5 cm cyst within the tail of the pancreas. 4. Stable small cysts of the kidneys. No ureteral calculus or obstructive uropathy. 5. Atherosclerotic vascular disease. 6. Enlarged prostate gland. 7. Mild gastric prominence could reflect recent ingestion or gastric stasis. 8. Sigmoid colon diverticulosis.
[2022-12-17 15:44] LABS: Alanine Aminotransferase 23 U/L (0-41); Albumin Level 4.4 g/dL (3.5-5.2); Alkaline Phosphatase 66 U/L (40-130); Aspartate Amino Transferase 24 U/L (0-40); Blood Urea Nitrogen 26 mg/dL (8-23); Calcium 9.2 mg/dL (8.5-10.5); Carbon Dioxide 24 mmol/L (22-29); Chloride 101 mmol/L (98-107); Globulin 3.8 g/dL (1.3-4.6); Glucose 134 mg/dL (65-115); Lipase 43 U/L (13-60); Osmolality Calculated 299 mOsm/kg (285-295); Sodium 141 mmol/L (136-145); Total Bilirubin 1.5 mg/dL (0.15-1.2); Total Protein 8.2 g/dL (6.6-8.7)
[2022-12-17 15:46] LABS: Anion Gap 20.3 (5-19); Potassium 4.3 mmol/L (3.5-5.1)
--- NOTE | 2022-12-17 15:55 | ED_ITS ---
HPI - Back Pain/Injury General: Chief Complaint: Back Pain/Injury Stated Complaint: n/v Time Seen by Provider: 12/17/22 15:30 History of Present Illness: Patient comes in with lower back pain that started earlier today. States he started throwing up and developed significant lower ba ck pain that radiates into his groin. He describes as a pressure, constant. States it is improved right now. Denies fever, or diarrhea. Denies any abdominal pain. Associated symptoms: Deny abdominal pain, dysuria, fever(s), nausea or vomiting Review of Systems Const: Denies: fever(s) or body aches Eyes: Denies: change in vision or blurry vision ENMT: Denies: throat pain or odynophagia Card: Denies: chest pain or palpitations Resp: Denies: dyspnea or productive cough GI: Denies: abdominal pain, nausea or vomiting : Reports: flank pain; Denies: dysuria Musc: Denies: neck pain or back pain Skin/Breast: Denies: rash or pruritus Neuro: Denies: headache(s) or numbness in extremities Psych: Denies: anxiety or change in appetite Endo: Denies: polyuria or excessive sweating PFSH ED PFSH: Medical History Abnormal bilirubin test Abnormal PSA Atherosclerotic heart disease -has had prior stenting -cardiac workup done in 2019 with nuclear stress testing being negative for ischemia; Echo-EF=55%, mild LVH, no RWMA, trace TR, mild MO -on statin, Plavix, off ASA due to Eliquis Atherosclerotic heart disease of [place] coronary artery without angina pectoris Benign essential hypertension with target blood pressure below 140/90 -BP trending up, continue to monitor -on lasix and HCTZ BPH NOS w ur obs/LUTS CAD (coronary artery disease) Depression Dyslipidemia -on statin Erectile dysfunction due to diseases classified elsewhere Hyperlipidemia Hypertension Hypogonadism Hypogonadism Hypogonadism male Intermittent atrial fibrillation SOB (shortness of breath) Transient atrial fibrillation/flutter -appears to be new onset arrhythmia -had previously been on Metoprolol and Diltiazem which he discontinued on his own due to dizziness -on sotalol 80 mg in AM, 40 mg in PM; off Cardizem drip -appreciate evaluation by Dr. 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 Grandfather CAD (coronary artery disease) Chronic kidney disease (CKD) Diabetes Family/Other CAD (coronary artery disease) Other Rheumatoid arthritis Stroke Denies family history of Lupus Hyperlipidemia Cancer Hypertension Social History Smoking and tobacco status: never smoked Alcohol intake: former Marital status: Current occupational status: retired Physical Exam Const: COMMON NORMALS: no acute distress, patient oriented x3, healthy appearing and alert HENMT: COMMON NORMALS: normocephalic and atraumatic HEAD & SCALP: normocephalic and atraumatic Eye: COMMON NORMALS: Equal, round and reactive pupils present and EOMs intact bilaterally PUPIL: Yes Equal, round and reactive pupils present Neck/C-Spine: COMMON NORMALS: full ROM and supple Resp: COMMON NORMALS: normal respiratory effort, No retractions and No use of accessory muscles Cardio: COMMON NORMALS: regular rate and regular rhythm RATE: regular rate RHYTHM: regular rhythm GI: COMMON NORMALS: Normal to inspection, nondistended, normoactive bowel sounds present, Soft to palpation and non-tender PALPATION: Yes Soft to palpation Back/Pelvis: COMMON NORMALS: thoracic and lumbar spine normal to inspection and no thoracic nor lumbar tenderness Extremity: COMMON NORMALS: normal to inspection and full ROM Neuro: COMMON NORMALS: patient oriented x3 SENSORIUM/ORIENTATION: Yes alert Psych: COMMON NORMALS: mental status grossly normal and cooperative Skin: COMMON NORMALS: no rashes or lesions noted and no wounds GENERAL SKIN EXAM: no rashes or lesions noted Course Vital Signs: Vital signs: Vital Signs Temperature 100.8 F H 12/17/22 14:27 Pulse Rate 107 H 12/17/22 14:27 Respiratory Rate 18 12/17/22 16:00 Blood Pressure 150/65 12/17/22 16:45 Pulse Oximetry 89 L 12/17/22 16:45 Oxygen Delivery Me thod 12/17/22 14:27 MDM - Back Pain/Injury Medical Decision Making Patient comes in with lower back pain that started earlier today. States he started throwing up and developed significant lower back pain that radiates into his groin. He describes as a pressure, constant. States it is improved right now. Denies fever, or diarrhea. Denies any abdominal pain. On physical exam his abdomen is soft, nontender, nondistended. Will check labs, CT, give IV fl uids, treat nausea with IV Zofran, treat pain with IV Toradol, and reassess. On reassessment I talked to the patient about his test results. His white blood cell count is elevated. His CT scan is concerning for pneumonia. His lactic acid is elevated. On reassessment he is now hypoxic. I placed him on supplemental oxygen. Will give IV fluids equal to 30 cc/kg, will start antibiotics for pneumonia. I discussed the case with the hospitalist, and we will admit for further work-up and treatment of his community-acquired pneumonia/hypoxia/sepsis. Labs 12/17/22 15:12 12/17/22 15:12 Radiology Impressions Abdomen/Pelvis CT 12/17/22 15:43 IMPRESSION: 1. Emphysematous change noted within the visualized lung bases, along with areas of focal partially consolidated infiltrate with partial air bronchograms within the medial and posterior lower right lung, along with small amount of atelectasis or infiltrate in the left lung base. Findings suggest pneumonia, particularly on the right and appears new from July 31, 2022 exam. 2. Previous cholecystectomy. 3. Stable approximally 1.5 cm cyst within the tail of the pancreas. 4. Stable small cysts of the kidneys. No ureteral calculus or obstructive uropathy. 5. Atherosclerotic vascular disease. 6. Enlarged prostate gland. 7. Mild gastric prominence could reflect recent ingestion or gastric stasis. 8. Sigmoid colon diverticulosis. Laboratory Results WBC 10.1 10^3/uL (4.0-10.0) H 12/17/22 15:12 RBC 3.17 10^6/uL (4.1-5.3) L 12/17/22 15:12 Hgb 10.9 g/dL (11.7-16.6) L 12/17/22 15:12 Hct 35.2 % (42.0-52.0) L 12/17/22 15:12 MCV 111.0 fl (80-94) H 12/17/22 15:12 MCH 34.4 pg (28.0-34.0) H 12/17/22 15:12 MCHC 31.0 g/dL (30.0-36.0) 12/17/22 15:12 RDW 16.0 % (12.1-15.1) H 12/17/22 15:12 Plt Count 367 10^3/cmm (130-400) 12/17/22 15:12 MPV 10.8 fL (7.4-10.4) H 12/17/22 15:12 Neut % (Auto) 88.4 % 12/17/22 15:12 Lymph % (Auto) 3.2 % 12/17/22 15:12 Nuckolls % (Auto) 5.7 % 12/17/22 15:12 Eos % (Auto) 0.1 % 12/17/22 15:12 Baso % (Auto) 0.2 % 12/17/22 15:12 Neut # (Auto) 8.92 10^3/uL (1.8-7.7) H 12/17/22 15:12 Lymph # (Auto) 0.3 10^3/uL (0.8-4.8) L 12/17/22 15:12 Nuckolls # (Auto) 0.6 10^3/uL (0.2-0.9) 12/17/22 15:12 Eos # (Auto) 0.0 10^3/uL (0.0-0.8) 12/17/22 15:12 Baso # (Auto) 0.0 10^3/uL (0.0-0.1) 12/17/22 15:12 Nucleated RBC % (auto) 0 % 12/17/22 15:12 Nucleated RBCs # 0.0 /100WBC 12/17/22 15:12 Sodium 141 mmol/L (136-145) 12/17/22 15:12 Potassium 4.3 mmol/L (3.5-5.1) 12/17/22 15:12 Chloride 101 mmol/L (98-107) 12/17/22 15:12 Carbon Dioxide 24 mmol/L (22-29) 12/17/22 15:12 Anion Gap 20.3 (5-19) H 12/17/22 15:12 BUN 26 mg/dL (8-23) H 12/17/22 15:12 Creatinine 1.1 mg/dL (0.7-1.2) 12/17/22 15:12 GFR Calculation Not Reportable 12/17/22 15:12 Glucose 134 mg/dL (65-115) H 12/17/22 15:12 Calculated Osmolality 299 mOsm/kg (285-295) H 12/17/22 15:12 Lactate 5.4 mmol/L (0.5-2.2) H* 12/17/22 14:35 Calcium 9.2 mg/dL (8.5-10.5) 12/17/22 15:12 Total Bilirubin 1.5 mg/dL (0.15-1.2) H 12/17/22 15:12 AST 24 U/L (0-40) 12/17/22 15:12 ALT 23 U/L (0-41) 12/17/22 15:12 Alkaline Phosphatase 66 U/L (40-130) 12/17/22 15:12 Total Protein 8.2 g/dL (6.6-8.7) 12/17/22 15:12 Albumin 4.4 g/dL (3.5-5.2) 12/17/22 15:12 Globulin 3.8 g/dL (1.3-4.6) 12/17/22 15:12 Lipase 43 U/L (13-60) 12/17/22 15:12 Urine Color Yellow (Yellow) 12/17/22 15:37 Urine Appearance Cloudy (CLEAR) A 12/17/22 15:37 Urine pH 6 (5-7) 12/17/22 15:37 Ur Specific [place] 1.015 (1.005-1.030) 12/17/22 15:37 Urine Protein 3+ (Negative) H 12/17/22 15:37 Urine Glucose (UA) 4+ (Normal) H 12/17/22 15:37 Urine Ketones Negative (Negative) 12/17/22 15:37 Urine Blood Neg (Negative) 12/17/22 15:37 Urine Nitrate Negative (Negative) 12/17/22 15:37 Urine Bilirubin Neg (Negative) 12/17/22 15:37 Urine Urobilinogen Norm mg/dL (Negative) 12/17/22 15:37 Ur Leukocyte Esterase Negative (Negative) 12/17/22 15:37 Urine RBC None /hpf (0-2) 12/17/22 15:37 Urine WBC Rare /hpf (0-5) 12/17/22 15:37 Ur Squamous Epith Cells 0-4 /hpf (0-5) H 12/17/22 15:37 Amorphous Sediment Not Reportable 12/17/22 15:37 Urine Bacteria None /hpf (NONE) 12/17/22 15:37 Discharge Plan Discharge Patient Disposition: Admitted As Inpatient Clinical Impression: CAP (community acquired pneumonia), Hypoxia, Sepsis Condition: Stable Coding Level of Care Code ED Head Machinist for Gissel Fontenot
[2022-12-17 16:03] LABS: Protein Urine 3+ (Negative); Specific Gravity, Urine 1.015 (1.005-1.030); Urine Appearance Cloudy (CLEAR); Urine Color Yellow (Yellow); pH Urine 6 (5-7)
[2022-12-17 16:04] LABS: Add Urine Microscopic? YES; Bilirubin Urine Neg (Negative); Blood Urine Neg (Negative); Glucose Urine UA 4+ (Normal); Ketones Urine Negative (Negative); Leukocyte Esterase Urine Negative (Negative); Nitrate Urine Negative (Negative); Urobilinogen Urine Norm (Negative)
[2022-12-17 16:05] LABS: Squamous Epithelial Cell Urine 0-4 /hpf (0-5); WBC Urine RARE /hpf (0-5)
[2022-12-17] MEDS: ketorolac 30 mg/mL INJ 15 MG IVP (16:18)
[2022-12-17] MEDS: ondansetron 2 mg/ML SDV 2 mL 4 MG IVP (16:19)
[2022-12-17] MEDS: sodium chloride 0.9% 500 ML IV (16:19)
[2022-12-17 16:22] LABS: Lactate (Lactic Acid level) 5.4 mmol/L (0.5-2.2)
--- NOTE | 2022-12-17 16:48 | PC.PHAR ---
PT AND PTS VERIFIED PTS MEDICATIONS-STATES THE PT TAKES ACARBOSE 25MG TID FILLED 10/14/22 90D/S,FARXIGA 10MG QAM FILLED 11/24/22 90D/S,GLIPIZIDE 5MG BID FILLED 10/05/22 90D/S,JANUVIA 100MG DAILY FILLED 10/13/22 90D/S-PT AND PTS STATES THE PT TAKES PLAVIX 75MG QAM FILLED 12/05/22 90D/S,XARELTO 20MG QAM FILLED 12/07/22 90D/S AND ASPIRIN 81MG QAM-PT AND PTS STATES THEY BELIEVE THE PTS SOTALOL 80MG TAKE 40MG BID FILLED 10/05/22 90D/S WAS DCED-PT STATES HE DOESNT USE HIS SYMBICORT INHALER EXT MED HISTORY SHOWS LAST FILLED 07/27/22-NOTES ARE MADE IN THE PHARMACY COMMENTS-
--- NOTE | 2022-12-17 17:12 | XRR_ITS ---
PROCEDURE INFORMATION: Exam: XR Chest Exam date and time: 12/17/2022 5:21 PM Age: 82 years old Clinical indication: Shortness of breath and other: Pneumonia; Prior surgery; Surgery date: 6+ months; Surgery type: 2 stents; Additional info: SOB TECHNIQUE: Imaging protocol: Radiologic exam of the chest. Views: 1 view. COMPARISON: CT chest abdpel w/*[id number] 07/31/2022 7:38 PM FINDINGS: Lungs: Mild patient rotation is seen. Mild infiltrate and/or atelectasis within the lung bases, new from prior chest radiograph exam of July 31, 2022. No consolidation. Pleural spaces: No pleural effusion or pneumothorax. Heart/Mediastinum: Unremarkable. No cardiomegaly. Vasculature: Mild arteriosclerosis of the thoracic aorta. Bones/joints: Spondylotic change thoracic spine. XR/XR chest 1V portable [id number] IMPRESSION: Mild infiltrate and/or atelectasis within the lung bases suggesting mild basilar pneumonia, for follow-up.
[2022-12-17] MEDS: cefTRIAXone 1,000 MG in sodium chloride 0.9% (plus) 50 ML 100 MG IV (17:56)
[2022-12-17] MEDS: sodium chloride 0.9% 1,000 ML 999 ML IV (17:56)
[2022-12-17] MEDS: azithromycin 500 MG in sodium chloride 0.9% 250 ML 250 MG IV (17:56)
--- NOTE | 2022-12-17 18:55 | PM.HP ---
Providers/Chief Complaint Admitting Physician: Marcella Garrison MD Primary Care Provider: Vita Mcelroy NP Chief Complaint: n/v History of Present Illness Nicolás Menjivar is a 82 year old male with a past medical history of diabetes mellitus, rheumatoid arthritis on Humira?presented to the emergency room with chief complaints of abdominal pain, chiefly in the right lower quadrant along with 1 episode of vomiting. He has also been having cough, runny nose, postnasal drip over the past 4 to 5 days. Upon evaluation he had a CT of the abdomen pelvis which did not reveal any acute cause of his abdominal pain. He denies any vomiting. He had 1 episode of diarrhea at home. Chest x-ray showed evidence of basilar pneumonia.. CT of the abdomen showed consolidated infiltrate in the medial and posterior right lung. Review of Systems General: Reports: 10 or more systems reviewed and unremarkable except in HPI and below Const: Denies: fever(s), chills or body aches Eyes: Denies: change in vision, blurry vision or photophobia ENMT: Reports: hoarseness; Denies: throat pain, enlarged tonsils, odynophagia or nasal congestion Card: Denies: chest pain, palpitations, irregular heart rhythm, edema, swelling of feet/ankles, lightheadedness, pre-syncope, dyspnea on exertion or orthopnea Resp: Denies: dyspnea, productive cough, non-productive cough, wheezing, stridor, pain on inspiration, change in phlegm color, hemoptysis or chest congestion GI: Denies: abdominal pain, nausea, vomiting, hematemesis, coffee ground emesis, dysphagia, heartburn, diarrhea, constipation, GI cramping, change in stool character, hematochezia or melena : Denies: flank pain, dysuria, urinary frequency, urinary urgency, urinary hesitancy or hematuria Musc: Denies: neck pain, back pain, extremity pain, joint swelling, joint warmth or deformity Neuro: Denies: headache(s), numbness in extremities, weakness in extremities, sensory changes, difficulty walking, frequent falls, dizziness, vertigo, behavioral changes, Slurred speech present or seizure-like activity Psych: Denies: anxiety, depression, suicidal ideation or homicidal ideation Endo: Denies: polyuria, polydipsia, tired all the time, cold intolerance or hot flashes Arsen/Lymph: Denies: easy bruising or easy bleeding Medications/Allergies Home Medications Medication Instructions Recorded Confirmed Last Taken Type acetaminophen 500 mg tablet 1,000 mg PO BID 04/01/20 12/17/22 12/17/22 History (Tylenol Extra Strength) vitamin B complex (B 1 tab PO DAILY 04/01/20 12/17/22 Unknown History Complex-Vitamin B12 tablet) albuterol sulfate 90 mcg/actuation 2 puff inhalation Q4H PRN 10/27/21 12/17/22 Unknown Rx aerosol inhaler shortness of breath or wheezing #8.5 grams adalimumab 40 mg/0.8 mL See Rx Instructions SUBCUT 01/07/22 12/17/22 12/06/22 Rx subcutaneous pen kit (Humira Pen) .COMPLEX #4 ea sitagliptin phosphate 100 mg 100 mg PO DAILY 90 days #90 tabs 03/26/22 12/17/22 Unknown Rx tablet (Januvia) metoprolol tartrate 25 mg tablet 25 mg PO BID #180 tabs 06/18/22 12/17/22 12/17/22 Rx dapagliflozin 10 mg tablet 10 mg PO QAM 90 days #90 tabs 07/07/22 12/17/22 12/17/22 Rx (Farxiga) glipizide 5 mg tablet 5 mg PO BID 90 days #180 tabs 07/07/22 12/17/22 12/17/22 Rx tamsulosin 0.4 mg capsule 0.4 mg PO BID 90 days #180 caps 07/07/22 12/17/22 12/17/22 Rx hydroxyzine HCl 10 mg tablet 10 mg PO QID PRN itching #60 tabs 07/10/22 12/17/22 Unknown Rx OYXGEN AT 3L PER N/C WITH #1 ea 07/23/22 12/17/22 Unknown Rx CONSERVING DEVICE AND PORTABLE acarbose 25 mg tablet 25 mg PO TID #360 tabs 09/17/22 12/17/22 12/17/22 Rx blood sugar diagnostic (Contour #50 ea 11/06/22 12/17/22 Unknown Rx Next Test Strips) cetirizine 10 mg tablet 10 mg PO DAILY PRN allergy 12/10/22 12/17/22 12/17/22 Rx symptoms #90 tabs methylprednisolone 4 mg tablets in See Rx Instructions PO PER PKG DIR 12/10/22 12/17/22 12/17/22 Rx a dose pack (Medrol ([place])) #21 ea HAS 1 TAB LEFT mupirocin 2 % topical ointment 1 applic topical TID #15 grams 12/10/22 12/17/22 Unknown Rx ascorbic acid (vitamin C) 500 mg 500 mg PO DAILY 12/17/22 12/17/22 Unknown History tablet (Vitamin C) aspirin 81 mg tablet,delayed 81 mg PO QAM 12/17/22 12/17/22 12/17/22 History release clopidogrel 75 mg tablet 75 mg PO QAM 12/17/22 12/17/22 12/17/22 History diclofenac sodium 1 % topical gel 4 g topical QID PRN Pain 12/17/22 12/17/22 Unknown History (Voltaren Arthritis Pain) escitalopram oxalate 20 mg tablet 20 mg PO BEDTIME PRN MOOD 12/17/22 12/17/22 Unknown History ferrous sulfate 325 mg (65 mg 325 mg PO QAM 12/17/22 12/17/22 12/17/22 History iron) tablet finasteride 5 mg tablet 5 mg PO BEDTIME 12/17/22 12/17/22 12/16/22 History furosemide 40 mg tablet 40 mg PO QAM 12/17/22 12/17/22 12/17/22 History isosorbide mononitrate 30 mg 30 mg PO QAM 12/17/22 12/17/22 12/17/22 History tablet,extended release 24 hr multivitamin 1 tab PO QAM 12/17/22 12/17/22 12/17/22 History nystatin 100,000 unit/gram topical 1 applic topical QID PRN UNKNOWN 12/17/22 12/17/22 Unknown History cream potassium chloride 10 mEq 10 meq PO QAM 12/17/22 12/17/22 12/17/22 History tablet,extended release rivaroxaban 20 mg tablet (Xarelto) 20 mg PO QAM 12/17/22 12/17/22 12/17/22 History simvastatin 40 mg tablet 40 mg PO BEDTIME 12/17/22 12/17/22 12/16/22 History testosterone cypionate 200 mg/mL 200 mg IM Q30D 12/17/22 12/17/22 11/25/22 History intramuscular oil turmeric 400 mg capsule 400 mg PO BID 12/17/22 12/17/22 12/17/22 History amoxicillin 875 mg-potassium 1 tab PO BID 3 days #6 tabs 12/19/22 Unknown Rx clavulanate 125 mg tablet Allergies Allergy/AdvReac Type Severity Reaction Status Date / Time bupropion [From Wellbutrin] Allergy Unknown Unknown Verified 11/02/22 11:05 celecoxib [From Celebrex] Allergy Unknown Unknown Verified 11/02/22 11:05 rofecoxib [From Vioxx] Allergy Unknown Verified 11/02/22 11:05 bactrim Allergy Severe ALGY-Rash Uncoded 10/14/22 15:27 PFSH Acute PFSH: Medical History Abnormal bilirubin test Abnormal PSA Atherosclerotic heart disease -has had prior stenting -cardiac workup done in 2019 with nuclear stress testing being negative for ischemia; Echo-EF=55%, mild LVH, no RWMA, trace TR, mild AR -on statin, Plavix, off ASA due to Eliquis Atherosclerotic heart disease of [place] coronary artery without angina pectoris Benign essential hypertension with target blood pressure below 140/90 -BP trending up, continue to monitor -on lasix and HCTZ BPH NOS w ur obs/LUTS CAD (coronary artery disease) Depression Dyslipidemia -on statin Erectile dysfunction due to diseases classified elsewhere Hyperlipidemia Hypertension Hypogonadism Hypogonadism Hypogonadism male Intermittent atrial fibrillation SOB (shortness of breath) Transient atrial fibrillation/flutter -appears to be new onset arrhythmia -had previously been on Metoprolol and Diltiazem which he discontinued on his own due to dizziness -on sotalol 80 mg in AM, 40 mg in PM; off Cardizem drip -appreciate evaluation by Dr. 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 Grandfather CAD (coronary artery disease) Chronic kidney disease (CKD) Diabetes Family/Other CAD (coronary artery disease) Other Rheumatoid arthritis Stroke Denies family history of Lupus Hyperlipidemia Cancer Hypertension Social History Smoking and tobacco status: never smoked Alcohol intake: former Marital status: Current occupational status: retired Vitals/I&O/Wt Last Vital Signs Temp 100.8 F H 12/17/22 14:27 Pulse 107 H 12/17/22 14:27 Resp 18 12/17/22 16:00 BP 115/52 12/17/22 18:45 Pulse Ox 97 12/17/22 18:45 O2 Del Method 12/17/22 14:27 12/17/22 12/17/22 12/17/22 06:59 14:59 22:59 Intake Total 500 / 500 Balance 500 / 500 Weight last 48 hrs Weight 79.832 kg Physical Exam Narrative: General: No acute distress, AO x3 HEENT: PERRLA, pupils bilaterally equal and reactive, pallors not present Chest: Normal vesicular breath sounds, no added sounds, equal good air entry bilaterally CVS: S1-S2 regular, no murmurs, no tachycardia, no gallops, no rubs Abdomen: Soft, nontender, no organomegaly, bowel sounds present Neuro: No focal deficits, no facial deformity, AO x3, power 5/5 in all limbs Data 12/17/22 15:12 12/17/22 15:12 Other Labs: Allergy/Adv: bupropion, celecoxib, rofecoxib, [bactrim] (More??) Close Chest X-Ray (Signed) Bay Calderon - 12/17/22 Abdomen/Pelvis CT (Signed) Bay Calderon - 12/17/22 Venous Duplex (Signed) Shaw Mcrae - 08/01/[address] (Signed) Matthias Schaefer - 07/31/22 Chest/Abdomen/Pelvis CT (Signed) Dre Arias - 07/31/22 Chest X-Ray (Signed) Rickeleazar,Dre - 07/31/22 Hand X-Ray (Signed) Yovanny Rock - 04/07/22 Abdomen Ultrasound (Signed) Yenifer Guthrie - 01/08/22 Spine Flexion/Extension X-Ray (Signed) Rickards,Dre - 12/02/21 Shoulder X-Ray (Signed) Rickards,Dre - 12/02/21 Shoulder X-Ray (Signed) Rickards,Dre - 12/02/21 Ribs X-Ray (Signed) Rickards,Dre - 12/02/21 Hand X-Ray (Signed) Rickards,Dre - 12/02/21 Hand X-Ray (Signed) Rickards,Dre - 12/02/21 Knee X-Ray (Signed) Paul Barakat - 09/04/20 Knee X-Ray (Signed) Octavio Loredo - 05/20/20 Knee X-Ray (Signed) Trinidad Luo - 04/18/20 Echocardiogram Ultrasound (Signed) Kim Locke - 04/10/20 Renal Ultrasound (Signed) Puma Mendes - 04/10/20 Pulmonary Perfusion Imaging (Signed) Puma Mendes - 04/10/20 Venous Duplex (Signed) Kim Locke - 04/10/20 Chest X-Ray (Signed) Gerry Ospina - 04/09/20 Knee X-Ray (Signed) Matthias Sims - 03/28/20 Knee X-Ray (Signed) Aaron Morse - 03/11/20 Knee X-Ray (Signed) Aaron Morse - 02/27/20 Shoulder MRI (Signed) Puma Mendes - 01/22/20 Shoulder X-Ray (Signed) Yenifer Guthrie - 01/17/20 Knee X-Ray (Signed) Trinidad Luo - 12/06/19 Shoulder X-Ray (Signed) Paul Barakat - 10/11/19 [facility] [address] [place] [address] CT Scan Report Signed Patient: Nicolás Menjivar Unit #: [id number] : 1940 Age/Sex: 82 / M ADM Date: 12/17/22 Loc: ER Room/Bed: Attending Dr: Ordering Provider/Ordering MD: Janes Michaels MD Date of Service: 12/17/22 Procedure(s): CT kidney stone [id number] Accession Number(s): [id number] Report Number: [id number] PROCEDURE INFORMATION: Exam: CT Abdomen And Pelvis Without Contrast Exam date and time: 12/17/2022 3:54 PM Age: 82 years old Clinical indication: Abdominal pain; Flank; Upper; Prior surgery; Surgery date: 6+ months; Surgery type: Gallbladder; Additional info: Flank pain TECHNIQUE: Imaging protocol: Computed tomography of the abdomen and pelvis without contrast. Radiation optimization: All CT scans at this facility use at least one of these dose optimization techniques: automated exposure control; mA and/or kV adjustment per patient size (includes targeted exams where dose is matched to clinical indication); or iterative reconstruction. REPORTING DATA: Count of CT and Cardiac NM exams in prior 12 months: This patient has received 2 known CTs and 0 known cardiac nuclear medicine studies in the 12 months prior to the current study. COMPARISON: CT chest abdpel w/*[id number] 07/31/2022 7:38 PM RADIATION DOSE METRICS: Total DLP (mGy-cm): 837.81 FINDINGS: Lungs: Images of the lung bases demonstrate emphysematous change with areas of focal infiltrate with partial air bronchograms within the medial and posterior lower right lung, along with small amount atelectasis or infiltrate left lung base. No pleural effusion. Coronary artery calcification and mitral annular calcification. Liver: Area of focal fat density at the superolateral right liver margin is unchanged from 2021 exam liver is otherwise unremarkable. Gallbladder and bile ducts: Surgical clips in the gallbladder fossa prior cholecystectomy. No biliary ductal dilatation. Pancreas: Approximally 1.5 cm cyst within the tail of the pancreas, unchanged from prior exam. Pancreas is otherwise unremarkable. Spleen: Normal. No splenomegaly. Adrenal glands: Normal. No mass. Kidneys and ureters: Findings suggestive of small cysts both kidneys, unchanged from prior exam. Tiny calcification within the right kidney could represent tiny vascular calcification or tiny nonobstructing stone, unchanged from prior exam. No findings of ureteral calculus or obstructive uropathy. Mild age-related perinephric stranding. Stomach and bowel: Mild gastric prominence. No bowel obstruction. Sigmoid colon diverticulosis without CT findings of diverticulitis. Appendix: No evidence of appendicitis. Intraperitoneal space: Unremarkable. No free air. No significant fluid collection. Vasculature: Diffuse atherosclerotic vascular disease without significant aneurysmal dilatation of the abdominal aorta. Lymph nodes: Unremarkable. No enlarged lymph nodes. Urinary bladder: Enlarged prostate gland indenting the posterior urinary bladder, as noted with prior exam. Reproductive: Urinary bladder shows no focal abnormality other than prostate indentation and mild wall thickening. Bones/joints: Degenerative bony changes. Soft tissues: Unremarkable. Other findings: There is some motion with the exam, particularly reflected in the pelvis with subsequent repeat imaging of the pelvis. CT/CT kidney stone [id number] IMPRESSION: 1. Emphysematous change noted within the visualized lung bases, along with areas of focal partially consolidated infiltrate with partial air bronchograms within the medial and posterior lower right lung, along with small amount of atelectasis or infiltrate in the left lung base.? Findings suggest pneumonia, particularly on the right and appears new from July 31, 2022 exam. 2. Previous cholecystectomy. 3. Stable approximally 1.5 cm cyst within the tail of the pancreas. 4. Stable small cysts of the kidneys.? No ureteral calculus or obstructive uropathy. 5. Atherosclerotic vascular disease. 6. Enlarged prostate gland. 7.? Mild gastric prominence could reflect recent ingestion or gastric stasis. 8. Sigmoid colon diverticulosis.? [address] [address] XRay Report Signed Patient: Nicolás Menjivar Unit #: [id number] : 1940 Age/Sex: 82 / M ADM Date: 12/17/22 Loc: ER Room/Bed: Attending Dr: Ordering Provider/Ordering MD: Janes Michaels MD Date of Service: 12/17/22 Procedure(s): XR chest 1V portable [id number] Accession Number(s): [id number] Report Number: [id number] PROCEDURE INFORMATION: Exam: XR Chest Exam date and time: 12/17/2022 5:21 PM Age: 82 years old Clinical indication: Shortness of breath and other: Pneumonia; Prior surgery; Surgery date: 6+ months; Surgery type: 2 stents; Additional info: SOB TECHNIQUE: Imaging protocol: Radiologic exam of the chest. Views: 1 view. COMPARISON: CT chest abdpel w/*[id number] 07/31/2022 7:38 PM FINDINGS: Lungs: Mild patient rotation is seen. Mild infiltrate and/or atelectasis within the lung bases, new from prior chest radiograph exam of July 31, 2022. No consolidation. Pleural spaces: No pleural effusion or pneumothorax. Heart/Mediastinum: Unremarkable. No cardiomegaly. Vasculature: Mild arteriosclerosis of the thoracic aorta. Bones/joints: Spondylotic change thoracic spine. XR/XR chest 1V portable [id number] IMPRESSION: Mild infiltrate and/or atelectasis within the lung bases suggesting mild basilar pneumonia, for follow-up. A&P Assessment and plan (1) CAP (community acquired pneumonia): Chest x-ray suggestive of basilar infiltrate, new oxygen requirement of 3 L/min Overall impression that of community-acquired pneumonia Patient has had signs and symptoms of upper respiratory tract infection over the last few days. Start treatment with ceftriaxone and azithromycin. Prefer to treat patient as an inpatient given that he is immunocompromised on Humira. Supplemental O2 to keep saturation greater than 92% As needed nebulization He had 1 episode of diarrhea which may be reflective of atypical infection. Check C. difficile records. (2) Hypoxia: Attestations Medical Necessity Statement*: Anticipate greater than 2 midnight admission for treatment of community-acquired pneumonia. Coding Level of Care Code Acute Code for [facility] Diagnoses CAP (community acquired pneumonia) J18.9 Hypoxia R09.02
[2022-12-17 20:25] LABS: Adenovirus Not Detected (NOT DETECT); Chlamydia Pneumoniae Not Detected (NOT DETECT); Coronavirus 229E,HKU1,NL63,OC4 Not Detected (NOT DETECT); Human Metapneumovirus Not Detected (NOT DETECT); Human Rhinovirus/Enterovirus Not Detected (NOT DETECT); Influenza A Not Detected (NOT DETECT); Influenza A H1 Not Detected (NOT DETECT); Influenza A H1-2009 Not Detected (NOT DETECT); Influenza A H3 Not Detected (NOT DETECT); Influenza B Not Detected (NOT DETECT); Mycoplasma Pneumoniae Not Detected (NOT DETECT); Parainfluenza Virus Type 1 Not Detected (NOT DETECT); Parainfluenza Virus Type 2 Not Detected (NOT DETECT); Parainfluenza Virus Type 3 Not Detected (NOT DETECT); Parainfluenza Virus Type 4 Not Detected (NOT DETECT); Respiratory Syncytial Virus A Not Detected (NOT DETECT); Respiratory Syncytial Virus B Not Detected (NOT DETECT); SARS-COV-2 Not Detected (NOT DETECT)
[2022-12-17 21:05] LABS: ABG PCO2 28.3 mmHg (35-45); ABG PH Result 7.49 (7.35-7.45); Arterial Blood Gas Hematocrit 26.7 % (42-52); Base Excess ABG -1.5 mmol/L (-2.0-2.0); Blood Gas Allen Test Pos; Blood Gas Sample Site Brachial, left; Blood Gas Sample Type Arterial; HCO3 ABG 21.3 mmol/L (22-26); Oxygen Device NC
[2022-12-17] MEDS: pantoprazole 40 mg SDV IVP (21:29)
[2022-12-17] MEDS: atorvastatin 40 mg Tablet 20 MG PO (21:29)
[2022-12-17] MEDS: finasteride 5 mg Tablet PO (21:29)
[2022-12-17 21:54] LABS: Glucose Point of Care 105 mg/dL (70-110)
[2022-12-17] MEDS: ipratropium-albuterol 3 mL Neb INHALATION (22:01)
[2022-12-18] VITALS (10 sets, daily range): BP systolic 96–134; BP diastolic 50–65; PULSE 69–92; RESP 16–21; TEMP 36.7–37.5; O2SAT 94–99
[2022-12-18 02:34] LABS: Hematocrit 25.6 % (42.0-52.0); Hemoglobin 8.2 g/dL (11.7-16.6); Mean Corpuscular Hemoglobin 35.2 pg (28.0-34.0); Mean Corpuscular Volume 109.9 fl (80-94); Platelet Count 252 10^3/cmm (130-400); Red Blood Count 2.33 10^6/uL (4.1-5.3); Red Cell Distribution Width 16.7 % (12.1-15.1); White Blood Count 7.1 10^3/uL (4.0-10.0)
[2022-12-18 02:48] LABS: Lactic Sepsis W/Reflex 1.4 mmol/L (0.5-2.2)
[2022-12-18 02:56] LABS: Alanine Aminotransferase 15 U/L (0-41); Albumin Level 3.2 g/dL (3.5-5.2); Alkaline Phosphatase 41 U/L (40-130); Anion Gap 13.6 (5-19); Aspartate Amino Transferase 14 U/L (0-40); Blood Urea Nitrogen 30 mg/dL (8-23); Calcium 7.9 mg/dL (8.5-10.5); Carbon Dioxide 23 mmol/L (22-29); Chloride 106 mmol/L (98-107); Globulin 2.9 g/dL (1.3-4.6); Glucose 95 mg/dL (65-115); Osmolality Calculated 294 mOsm/kg (285-295); Potassium 3.6 mmol/L (3.5-5.1); Sodium 139 mmol/L (136-145); Total Protein 6.1 g/dL (6.6-8.7)
[2022-12-18] MEDS: ipratropium-albuterol 3 mL Neb INHALATION ×4 (02:57→20:19)
[2022-12-18 03:21] LABS: Absolute Neutrophil 5.9 10^3/cmm (1.4-6.5); Absolute Segmented Neutrophil 5.2 10/cmm (1.6-7.1); Band Neutrophils Absolute 0.7 10^3/cmm (0.0-1.2); Eosinophils 0 %; Lymphocytes 4 %; Lymphocytes Absolute 0.3 10^3/cmm (1.2-3.4); Monocytes Absolute 0.8 10^3/cmm (0.1-0.6); Platelet Estimate Normal (Normal); Segmented Neutrophils 73 %; Total Cells Counted 100 (0-100)
[2022-12-18 03:22] LABS: Anisocytosis 1+; Macrocytosis 2+
[2022-12-18] MEDS: rivaroxaban 10 mg Tablet 20 MG PO (05:27)
[2022-12-18] MEDS: clopidogrel 75 mg Tablet PO (05:27)
[2022-12-18] MEDS: FUROsemide 40 mg Tablet PO (05:27)
[2022-12-18] MEDS: pantoprazole 40 mg SDV IVP ×2 (05:27→18:08)
[2022-12-18] MEDS: ferrous sulfate EC 325 mg Tablet PO (05:28)
[2022-12-18 06:33] LABS: Glucose Point of Care 115 mg/dL (70-110)
[2022-12-18] MEDS: azithromycin 250 mg Tablet 500 MG PO (08:30)
[2022-12-18] MEDS: metoprolol tartrate 25 mg Tablet PO ×2 (08:30→18:08)
[2022-12-18] MEDS: tamsulosin 0.4 mg Capsule PO ×2 (08:31→18:08)
[2022-12-18] MEDS: acetaminophen 325 mg Tablet 650 MG PO (09:43)
[2022-12-18 12:13] LABS: Glucose Point of Care 129 mg/dL (70-110)
--- NOTE | 2022-12-18 17:26 | PC.NURSE ---
Patient 17:00 accucheck is 192
[2022-12-18] MEDS: insulin lispro 100 unit/1 mL SUBCUT (18:08)
[2022-12-18] MEDS: cefTRIAXone 1,000 MG in sodium chloride 0.9% (plus) 50 ML 100 MG IV (18:11)
[2022-12-18] MEDS: atorvastatin 40 mg Tablet 20 MG PO (20:25)
[2022-12-18] MEDS: finasteride 5 mg Tablet PO (20:26)
--- NOTE | 2022-12-18 22:17 | PM.PN ---
Subjective Subjective: states that breathing is imprving, last febrile 100.8F overnight, 3lpm supplemental 02 Vitals/I&O/Wt Last Vital Signs Temp 98.1 F 12/18/22 21:07 Pulse 92 12/18/22 21:07 Resp 19 H 12/18/22 21:07 BP 134/64 12/18/22 21:07 Pulse Ox 97 12/18/22 21:07 O2 Del Method 12/18/22 20:21 O2 Flow Rate 3 12/18/22 20:21 FiO2 3 12/18/22 02:57 12/18/22 12/18/22 12/18/22 06:59 14:59 22:59 Intake Total 600 / 600 410 / 1010 Output Total 175 / 175 Balance 600 / 600 235 / 835 Weight last 48 hrs Weight 79.832 kg Physical Exam Narrative: General: No acute distress, AO x3 HEENT: PERRLA, pupils bilaterally equal and reactive, pallors not present Chest: Normal vesicular breath sounds, no added sounds, equal good air entry bilaterally CVS: S1-S2 regular, no murmurs, no tachycardia, no gallops, no rubs Abdomen: Soft, nontender, no organomegaly, bowel sounds present Neuro: No focal deficits, no facial deformity, AO x3, power 5/5 in all limbs Data 12/18/22 02:04 12/18/22 02:04 Micro: Microbiology 12/18/22 11:26 Occult Blood (FIT) - Final Stool Routine Collection 12/18/22 02:07 Blood Culture - Preliminary Blood SPECIMEN COLLECTED 12/18/22 02:04 Blood Culture - Preliminary Blood SPECIMEN COLLECTED A&P Assessment and plan (1) CAP (community acquired pneumonia): continue treatment with ceftriaxone and azithromycin check sputum cx supplemetal 02 to keep sat >92% check fobt given 2 point drop in hb in patient on xarelto no further abdominal pain or diarrea (2) Hypoxia: Attestations Medical Necessity Statement*: iv abx for pneumonia, check FOBT Coding Level of Care Code Acute Code for g Fwd Diagnoses CAP (community acquired pneumonia) J18.9 Hypoxia R09.02
[2022-12-18 22:33] LABS: Glucose Point of Care 125 mg/dL (70-110)
[2022-12-19] VITALS (8 sets, daily range): BP systolic 119–155; BP diastolic 60–77; PULSE 70–89; RESP 13–20; TEMP 36.6–37.1; O2SAT 92–98
[2022-12-19] MEDS: ipratropium-albuterol 3 mL Neb INHALATION ×2 (01:32→07:55)
[2022-12-19 05:04] LABS: Eosinophils % 0.8 %; Hematocrit 26.6 % (42.0-52.0); Hemoglobin 8.3 g/dL (11.7-16.6); Lymphocytes # 0.4 10^3/uL (0.8-4.8); Lymphocytes % 10.8 %; Mean Corpuscular HGB Conc 31.2 g/dL (30.0-36.0); Mean Corpuscular Hemoglobin 34.7 pg (28.0-34.0); Mean Corpuscular Volume 111.3 fl (80-94); Monocytes # 0.8 10^3/uL (0.2-0.9); Monocytes % 21.4 %; Neutrophils % 66.2 %; Nucleated Red Blood Cells % 0 %; Platelet Count 234 10^3/cmm (130-400); Red Blood Count 2.39 10^6/uL (4.1-5.3); Red Cell Distribution Width 16.5 % (12.1-15.1); White Blood Count 3.8 10^3/uL (4.0-10.0)
[2022-12-19 05:12] LABS: Slide Review Slide Review Perform
[2022-12-19] MEDS: isosorbide mononitrate ER 30 mg Tablet PO (05:14)
[2022-12-19] MEDS: ferrous sulfate EC 325 mg Tablet PO (05:14)
[2022-12-19] MEDS: clopidogrel 75 mg Tablet PO (05:14)
[2022-12-19] MEDS: FUROsemide 40 mg Tablet PO (05:14)
[2022-12-19] MEDS: rivaroxaban 10 mg Tablet 20 MG PO (05:14)
[2022-12-19 05:15] LABS: Alanine Aminotransferase 13 U/L (0-41); Albumin Level 3.3 g/dL (3.5-5.2); Alkaline Phosphatase 46 U/L (40-130); Anion Gap 15.8 (5-19); Aspartate Amino Transferase 13 U/L (0-40); Blood Urea Nitrogen 25 mg/dL (8-23); Calcium 7.6 mg/dL (8.5-10.5); Carbon Dioxide 22 mmol/L (22-29); Chloride 105 mmol/L (98-107); Globulin 2.9 g/dL (1.3-4.6); Glucose 207 mg/dL (65-115); Osmolality Calculated 298 mOsm/kg (285-295); Potassium 3.8 mmol/L (3.5-5.1); Sodium 139 mmol/L (136-145); Total Bilirubin 0.7 mg/dL (0.15-1.2); Total Protein 6.2 g/dL (6.6-8.7)
[2022-12-19] MEDS: pantoprazole 40 mg SDV IVP (06:01)
[2022-12-19 07:10] LABS: Glucose Point of Care 198 mg/dL (70-110)
[2022-12-19] MEDS: azithromycin 250 mg Tablet 500 MG PO (08:49)
[2022-12-19] MEDS: metoprolol tartrate 25 mg Tablet PO (08:49)
[2022-12-19] MEDS: tamsulosin 0.4 mg Capsule PO (08:49)
[2022-12-19] MEDS: insulin lispro 100 unit/1 mL SUBCUT ×2 (08:50→12:12)
[2022-12-19 11:53] LABS: Glucose Point of Care 195 mg/dL (70-110)
--- NOTE | 2022-12-19 18:22 | P.DS_ITS ---
Discharge Providers Date of Admission: 12/17/22 17:16 Date of Discharge: December 19, 2022 Attending Provider at Admission: Marcella Garrison MD Attending Provider at Discharge: Marcella Garrison MD Primary Care Provider: Vita Mcelroy NP Diagnoses at Discharge Discharge Diagnosis (1) CAP (community acquired pneumonia): Status: Acute (2) Hypoxia: Status: Acute Reason for Visit Reason for Visit: n/v Hospital Course Hospital Course Patient presented to the hospital on December 17, 2022 with chief complaints of abdominal pain. Initially he complained of 1 episode of diarrhea and abdominal pain in the right lower quadrant. He also had complaints of rhinorrhea over the past few days, stuffy nose, and postnasal drip. CT of the abdomen and pelvis was performed which did not reveal any acute cause of his abdominal pain, however CT and chest x-ray both did reveal community-acquired pneumonia. He was treated with ceftriaxone and azithromycin during the course of his admission here and on the day of discharge he is feeling much better. On admission he had a new oxygen requirement of 3 L/min which has since resolved. On a home O2 evaluation today he is saturating well on room air. Incidentally he was noted to have a d rift in his hemoglobin down to 8.2. Hemoglobin remained stable over the next day at 8.3. FOBT was tested which returned positive. He did not have any signs of overt melena or hematemesis. Review of past hemoglobin reveals a baseline hemoglobin between 9.8-10.4. Xarelto has been continued at this present time, however patient is extensively counseled to keep an eye on his stools for any melanotic bleeding. Additionally referral has been provided to general surgery to complete a colonoscopy as outpatient. Hemoglobin recheck is recommended in the next week at primary care's office. His hemoglobin is trending down, likely that he may have a slow GI bleed in which case Xarelto may need to be held. For now weighing the risk and benefits Xarelto has been continued for the patient, counseled regarding all risks and signs of bleeding. He has responded well to IV antibiotics, transition to 2 days of p.o. Augmentin at the time of discharge to complete total 5 days of treatment for community- acquired pneumonia. COVID PCR was negative. Physical Exam Narrative: General: No acute distress, AO x3 HEENT: PERRLA, pupils bilaterally equal and reactive, pallors not present Chest: Normal vesicular breath sounds, no added sounds, equal good air entry bilaterally CVS: S1-S2 regular, no murmurs, no tachycardia, no gallops, no rubs Abdomen: Soft, nontender, no organomegaly, bowel sounds present Neuro: No focal deficits, no facial deformity, AO x3, power 5/5 in all limbs Discharge Data Studies Completed and Pending Completed Studies During Hospitalization Category Date Time Status CT kidney stone [id number] Stat Cat Scan 12/17/22 15:43 Completed XR chest 1V portable [id number] Stat Exams 12/17/22 17:12 Completed Pending at discharge Category Date Time Status Blood Culture AM LABS Lab 12/18/22 02:07 Results Radiology Impressions Abdomen/Pelvis CT 12/17/22 15:43 IMPRESSION: 1. Emphysematous change noted within the visualized lung bases, along with areas of focal partially consolidated infiltrate with partial air bronchograms within the medial and posterior lower right lung, along with small amount of atelectasis or infiltrate in the left lung base. Findings suggest pneumonia, particularly on the right and appears new from July 31, 2022 exam. 2. Previous cholecystectomy. 3. Stable approximally 1.5 cm cyst within the tail of the pancreas. 4. Stable small cysts of the kidneys. No ureteral calculus or obstructive uropathy. 5. Atherosclerotic vascular disease. 6. Enlarged prostate gland. 7. Mild gastric prominence could reflect recent ingestion or gastric stasis. 8. Sigmoid colon diverticulosis. Chest X-Ray 12/17/22 17:12 IMPRESSION: Mild infiltrate and/or atelectasis within the lung bases suggesting mild basilar pneumonia, for follow-up. Laboratory Results WBC 3.8 10^3/uL (4.0-10.0) L 12/19/22 04:33 RBC 2.39 10^6/uL (4.1-5.3) L 12/19/22 04:33 Hgb 8.3 g/dL (11.7-16.6) L 12/19/22 04:33 Hct 26.6 % (42.0-52.0) L 12/19/22 04:33 MCV 111.3 fl (80-94) H 12/19/22 04:33 MCH 34.7 pg (28.0-34.0) H 12/19/22 04:33 MCHC 31.2 g/dL (30.0-36.0) 12/19/22 04:33 RDW 16.5 % (12.1-15.1) H 12/19/22 04:33 Plt Count 234 10^3/cmm (130-400) 12/19/22 04:33 MPV 11.0 fL (7.4-10.4) H 12/19/22 04:33 Neut % (Auto) 66.2 % 12/19/22 04:33 Lymph % (Auto) 10.8 % 12/19/22 04:33 Clinch % (Auto) 21.4 % 12/19/22 04:33 Eos % (Auto) 0.8 % 12/19/22 04:33 Baso % (Auto) 0.0 % 12/19/22 04:33 Neut # (Auto) 2.50 10^3/uL (1.8-7.7) 12/19/22 04:33 Lymph # (Auto) 0.4 10^3/uL (0.8-4.8) L 12/19/22 04:33 Clinch # (Auto) 0.8 10^3/uL (0.2-0.9) 12/19/22 04:33 Eos # (Auto) 0.0 10^3/uL (0.0-0.8) 12/19/22 04:33 Baso # (Auto) 0.0 10^3/uL (0.0-0.1) 12/19/22 04:33 Nucleated RBC % (auto) 0 % 12/19/22 04:33 Total Counted 100 (0-100) 12/18/22 02:04 Atypical Lymphs % 0.0 % (0-5) 12/18/22 02:04 Absolute Neutrophils 5.9 10^3/cmm (1.4-6.5) 12/18/22 02:04 Segmented Neutrophils 73 % 12/18/22 02:04 Abs Segm Neuts (Man) 5.2 10/cmm (1.6-7.1) 12/18/22 02:04 Band Neutrophils 10.0 % 12/18/22 02:04 Abs Band Neuts (Man) 0.7 10^3/cmm (0.0-1.2) 12/18/22 02:04 Absolute Lymphocytes 0.3 10^3/cmm (1.2-3.4) L 12/18/22 02:04 Lymphocytes (Manual) 4 % 12/18/22 02:04 Monocytes (Manual) 11.0 % 12/18/22 02:04 Absolute Monocytes 0.8 10^3/cmm (0.1-0.6) H 12/18/22 02:04 Eosinophils (Manual) 0 % 12/18/22 02:04 Absolute Eosinophils 0.0 10^3/cmm (0.0-0.7) 12/18/22 02:04 Basophils (Manual) 0.0 % 12/18/22 02:04 Absolute Basophils 0.0 10^3/cmm (0.0-0.2) 12/18/22 02:04 Metamyelocytes 2.0 % 12/18/22 02:04 Nucleated RBCs # 0.0 /100WBC 12/19/22 04:33 Platelet Estimate Normal (Normal) 12/18/22 02:04 Anisocytosis 1+ H 12/18/22 02:04 Macrocytosis 2+ H 12/18/22 02:04 Specimen Type Arterial 12/17/22 20:55 Sample Site Brachial, left 12/17/22 20:55 ABG pH 7.49 (7.35-7.45) H 12/17/22 20:55 ABG pCO2 28.3 mmHg (35-45) L 12/17/22 20:55 ABG pO2 101.0 mmHg (80.0-100.0) H 12/17/22 20:55 ABG HCO3 21.3 mmol/L (22-26) L 12/17/22 20:55 ABG Base Excess -1.5 mmol/L (-2.0-2.0) 12/17/22 20:55 Jose Guadalupe Test Pos 12/17/22 20:55 Hematocrit 26.7 % (42-52) L 12/17/22 20:55 O2 Delivery Device Nc 12/17/22 20:55 O2 Liters/Min 3.0 % 12/17/22 20:55 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 12/17/22 20:55 Sodium 139 mmol/L (136-145) 12/19/22 04:33 Potassium 3.8 mmol/L (3.5-5.1) 12/19/22 04:33 Chloride 105 mmol/L (98-107) 12/19/22 04:33 Carbon Dioxide 22 mmol/L (22-29) 12/19/22 04:33 Anion Gap 15.8 (5-19) 12/19/22 04:33 BUN 25 mg/dL (8-23) H 12/19/22 04:33 Creatinine 1.3 mg/dL (0.7-1.2) H 12/19/22 04:33 GFR Calculation Not Reportable 12/19/22 04:33 Glucose 207 mg/dL (65-115) H 12/19/22 04:33 POC Glucose 195 mg/dL (70-110) H 12/19/22 11:29 Calculated Osmolality 298 mOsm/kg (285-295) H 12/19/22 04:33 Lactic Acid 1.4 mmol/L (0.5-2.2) 12/18/22 02:04 Lactate 5.4 mmol/L (0.5-2.2) H* 12/17/22 14:35 Calcium 7.6 mg/dL (8.5-10.5) L 12/19/22 04:33 Total Bilirubin 0.7 mg/dL (0.15-1.2) 12/19/22 04:33 AST 13 U/L (0-40) 12/19/22 04:33 ALT 13 U/L (0-41) 12/19/22 04:33 Alkaline Phosphatase 46 U/L (40-130) 12/19/22 04:33 Total Protein 6.2 g/dL (6.6-8.7) L 12/19/22 04:33 Albumin 3.3 g/dL (3.5-5.2) L 12/19/22 04:33 Globulin 2.9 g/dL (1.3-4.6) 12/19/22 04:33 Lipase 43 U/L (13-60) 12/17/22 15:12 Procalcitonin 14.30 ng/mL (0-0.5) H 12/18/22 02:04 Urine Color Yellow (Yellow) 12/17/22 15:37 Urine Appearance Cloudy (CLEAR) A 12/17/22 15:37 Urine pH 6 (5-7) 12/17/22 15:37 Ur Specific [place] 1.015 (1.005-1.030) 12/17/22 15:37 Urine Protein 3+ (Negative) H 12/17/22 15:37 Urine Glucose (UA) 4+ (Normal) H 12/17/22 15:37 Urine Ketones Negative (Negative) 12/17/22 15:37 Urine Blood Neg (Negative) 12/17/22 15:37 Urine Nitrate Negative (Negative) 12/17/22 15:37 Urine Bilirubin Neg (Negative) 12/17/22 15:37 Urine Urobilinogen Norm mg/dL (Negative) 12/17/22 15:37 Ur Leukocyte Esterase Negative (Negative) 12/17/22 15:37 Urine RBC None /hpf (0-2) 12/17/22 15:37 Urine WBC Rare /hpf (0-5) 12/17/22 15:37 Ur Squamous Epith Cells 0-4 /hpf (0-5) H 12/17/22 15:37 Amorphous Sediment Not Reportable 12/17/22 15:37 Urine Bacteria None /hpf (NONE) 12/17/22 15:37 Coronavirus 229E (PCR) Not detected (NOT DETECT) 12/17/22 18:00 SARS-CoV-2 (PCR) Not detected (NOT DETECT) 12/17/22 18:00 Vitals Last Vital Signs Temp 98.4 F 12/19/22 15:35 Pulse 82 12/19/22 15:35 Resp 13 12/19/22 15:35 BP 119/72 12/19/22 15:35 Pulse Ox 98 12/19/22 15:35 O2 Del Method 12/19/22 07:56 O2 Flow Rate 1.5 12/19/22 07:56 FiO2 3 12/18/22 02:57 Discharge Plan Discharge Patient Disposition: Home Condition: Stable Prescriptions: New amoxicillin-pot clavulanate 875-125 mg tablet 1 tab PO BID 3 Days Qty: 6 0RF Continued vitamin B complex [B Complex-Vitamin B12] Tablet 1 tab PO DAILY acetaminophen [Tylenol Extra Strength] 500 mg tablet 1,000 mg PO BID albuterol sulfate 90 mcg/actuation HFA aerosol inhaler 2 puff inhalation Q4H PRN (Reason: shortness of breath or wheezing) Qty: 8.5 6RF Januvia 100 mg tablet 100 mg PO DAILY 90 Days Qty: 90 3RF Farxiga 10 mg tablet 10 mg PO QAM 90 Days Qty: 90 1RF glipizide 5 mg tablet 5 mg PO BID 90 Days Qty: 180 1RF tamsulosin 0.4 mg capsule 0.4 mg PO BID 90 Days Qty: 180 1RF (DME) OYXGEN AT 3L PER N/C WITH CONSERVING DEVICE AND PORTABLE See Rx Instructions .Route .MEDSUPPLY Qty: 1 0RF Rx Instructions: As directed hydroxyzine HCl 10 mg tablet 10 mg PO QID PRN (Reason: itching) Qty: 60 0RF Humira Pen 40 mg/0.8 mL pen injector kit See Rx Instructions SUBCUT .COMPLEX Qty: 4 5RF Rx Instructions: inject one - 40 mg/0.8 mL pen every 2 weeks SUBCUT metoprolol tartrate 25 mg tablet 25 mg PO BID Qty: 180 3RF acarbose 25 mg tablet 25 mg PO TID Qty: 360 3RF (DME) Contour Next Test Strips Strip See Rx Instructions .Route Qty: 50 6RF Rx Instructions: As directed 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 mupirocin 2 % ointment 1 applic topical TID Qty: 15 1RF methylprednisolone [Medrol ([place])] 4 mg tablets,dose pack See Rx Instructions PO PER PKG DIR Qty: 21 0RF Rx Instructions: PO PER PKG DIR cetirizine 10 mg tablet 10 mg PO DAILY PRN (Reason: allergy symptoms) Qty: 90 1RF aspirin 81 mg Tablet,Delayed Release (Dr/Ec) 81 mg PO QAM Vitamin C 500 mg Tablet 500 mg PO DAILY turmeric 400 mg Capsule 400 mg PO BID multivitamin Tablet 1 tab PO QAM furosemide 40 mg tablet 40 mg PO QAM isosorbide mononitrate 30 mg tablet extended release 24 hr 30 mg PO QAM Rx Instructions: patient due labs and visit potassium chloride 10 mEq tablet extended release 10 meq PO QAM clopidogrel 75 mg tablet 75 mg PO QAM simvastatin 40 mg tablet 40 mg PO BEDTIME ferrous sulfate 325 mg (65 mg iron) tablet 325 mg PO QAM nystatin 100,000 unit/gram cream 1 applic topical QID PRN (Reason: UNKNOWN) testosterone cypionate 200 mg/mL oil 200 mg IM Q30D finasteride 5 mg tablet 5 mg PO BEDTIME escitalopram oxalate 20 mg tablet 20 mg PO BEDTIME PRN (Reason: MOOD) Voltaren Arthritis Pain 1 % gel 4 g topical QID PRN (Reason: Pain) Rx Instructions: apply to single knee, ankle, foot; for foot includes sole/toes/top of foot Xarelto 20 mg tablet 20 mg PO QAM Discharge Orders: Discharge Order (Routine); Ordered 12/19/22 Ordered By: Marcella Garrison Other Ambulatory Orders: Complete Blood Count w/Auto (Routine) Timeframe: 1 Week Location: Determined by Patient Ordered By: Marcella Garrison Referrals: 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
== END 2022-12-19 15:37 | disposition home or self-care (01) | DRG 195 ==
LOC: ER 18:11 → MEDSURG 18:36
PROVIDERS: Physician Assistant; Admitting Provider Student in an Organized Health Care Education/Training Program; Emergency Provider Emergency Medicine; PCP Nurse Practitioner Family; Visit Provider Student in an Organized Health Care Education/Training Program
DX: J18.9 Pneumonia, unspecified organism (principal); R19.5 Other fecal abnormalities; Z79.51 Long term (current) use of inhaled steroids; Z79.84 Long term (current) use of oral hypoglycemic drugs; Z79.4 Long term (current) use of insulin; Z79.82 Long term (current) use of aspirin; Z79.02 Long term (current) use of antithrombotics/antiplatelets; Z79.01 Long term (current) use of anticoagulants; E11.9 Type 2 diabetes mellitus without complications; M06.9 Rheumatoid arthritis, unspecified; I25.10 Atherosclerotic heart disease of native coronary artery without angina pectoris; Z95.5 Presence of coronary angioplasty implant and graft; I10 Essential (primary) hypertension; N40.1 Benign prostatic hyperplasia with lower urinary tract symptoms; F32.A Depression, unspecified; E78.5 Hyperlipidemia, unspecified; I48.91 Unspecified atrial fibrillation; Z96.622 Presence of left artificial elbow joint
CPT/HCPCS: 36415; 36416; 36600; 71045; 74176; 80053; 81001; 82274; 82803; 82962; 83605; 83690; 84145; 85007; 85025; 87040; 87635; 94640; 94760; 96365; 96367; 96372; 96375; 99285; C9113; J0456; J0696; J1815; J1885; J2405; J7030; J7040; J7050; Q0144

== ENCOUNTER → 2022-12-23 10:31 | Outpatient (BNVA) | payer MEDICARE, SELFPAY | PROVIDERS: PCP Nurse Practitioner Family; Visit Provider Nurse Practitioner Family | DX: J18.9 Pneumonia, unspecified organism (principal); D64.9 Anemia, unspecified; R79.89 Other specified abnormal findings of blood chemistry; R05.9 Cough, unspecified; Z09 Encounter for follow-up examination after completed treatment for conditions other than malignant neoplasm; E11.9 Type 2 diabetes mellitus without complications | CPT/HCPCS: 80053; 83036 ==

== ENCOUNTER → 2023-01-18 13:29 | Outpatient (BNVA) | payer MEDICARE, SELFPAY | PROVIDERS: PCP Nurse Practitioner Family; Visit Provider Nurse Practitioner Family | DX: D64.9 Anemia, unspecified (principal); I10 Essential (primary) hypertension; R05.9 Cough, unspecified; J18.9 Pneumonia, unspecified organism; J40 Bronchitis, not specified as acute or chronic; R06.02 Shortness of breath; J44.0 Chronic obstructive pulmonary disease with (acute) lower respiratory infection; J20.9 Acute bronchitis, unspecified | CPT/HCPCS: 80053; 83880 ==

== ENCOUNTER → 2023-01-28 10:45 | Outpatient (BNVA) | payer MEDICARE, SELFPAY | PROVIDERS: PCP Nurse Practitioner Family; Visit Provider Internal Medicine | DX: I10 Essential (primary) hypertension (principal); D64.9 Anemia, unspecified | CPT/HCPCS: 80048; 81000; 82040; 82310; 82728; 83550; 83735; 83970; 84100; 84156; 84550; 85025 ==

== ENCOUNTER 2023-02-01 14:48 | Inpatient (IN) | payer MEDICARE, SELFPAY ==
[2023-02-01] VITALS (18 sets, daily range): BP systolic 105–128; BP diastolic 58–77; PULSE 55–119; RESP 15–33; TEMP 36.7–36.8; O2SAT 92–98; BMI 21.5
--- NOTE | 2023-02-01 15:10 | XRR_ITS ---
PROCEDURE INFORMATION: Exam: XR Chest Exam date and time: 02/01/2023 3:18 PM Age: 82 years old Clinical indication: Dyspnea TECHNIQUE: Imaging protocol: Radiologic exam of the chest. Views: 1 view. COMPARISON: CR XR chest 1V portable [id number] 12/17/2022 5:21 PM FINDINGS: Lungs: Right largely mid to lower lung field airspace infiltrate. Emphysematous changes. Pleural spaces: Unremarkable. No pleural effusion. No pneumothorax. Heart/Mediastinum: Cardiomegaly. Bones/joints: Unremarkable. XR/XR chest 1V portable [id number] IMPRESSION: 1. Right largely mid to lower lung field airspace infiltrate. 2. Cardiomegaly. 3. Emphysematous changes.
[2023-02-01 15:44] LABS: Hematocrit 22.5 % (42.0-52.0); Hemoglobin 6.9 g/dL (11.7-16.6); Lymphocytes # 0.4 10^3/uL (0.8-4.8); Lymphocytes % 12.5 %; Mean Corpuscular HGB Conc 30.7 g/dL (30.0-36.0); Mean Corpuscular Hemoglobin 32.9 pg (28.0-34.0); Mean Corpuscular Volume 107.1 fl (80-94); Mean Platelet Volume 11.1 fL (7.4-10.4); Monocytes # 0.6 10^3/uL (0.2-0.9); Monocytes % 21.8 %; Neutrophils # 1.84 10^3/uL (1.8-7.7); Neutrophils % 63.7 %; Nucleated Red Blood Cells % 0 %; Platelet Count 405 10^3/cmm (130-400); Red Cell Distribution Width 15.7 % (12.1-15.1); White Blood Count 2.9 10^3/uL (4.0-10.0)
--- NOTE | 2023-02-01 15:59 | ED_ITS ---
HPI - SOB/Dyspnea General: Chief Complaint: Shortness of Breath/Dyspnea Stated Complaint: sob Time Seen by Provider: 02/01/23 15:10 History of Present Illness: HPI Narrative: Patient presents to the ER by EMS with complaints of shortness of breath and generalized weakness. Patient states he is chronically on 3 L oxygen but over the last couple days he has had to increase it to 4 L of oxygen. Patient's said when she came home today at to get him for lunch he was unable to get himself up out of the chair. Patient states he is normally able to do this with minimal to no assistance. Patient was treated with antibiotics for pneumonia hand patient and then followed up by outpatient treatment MD elicited complaint: shortness of breath Pertinent past history: COPD, congestive heart failure and pneumonia Onset (ago): day(s) Context: recent illness Timing: constant Severity: moderate Exacerbating factors: nothing Relieving factors: oxygen Known history of: COPD and congestive heart failure Associated symptoms: Deny abdominal pain, chest pain, extremity pain, fever(s), nausea, palpitations or vomiting Review of Systems General: Reports: 10 or more systems reviewed and unremarkable except in HPI and below Const: Denies: fever(s), chills or body aches Eyes: Denies: change in vision or blurry vision ENMT: Denies: throat pain, uvular edema or enlarged tonsils Card: Denies: chest pain, palpitations or irregular heart rhythm Resp: Reports: dyspnea GI: Denies: abdominal pain, nausea or vomiting : Denies: flank pain, difficulty urinating or dysuria Musc: Denies: neck pain, back pain or extremity pain PFS ED PFSH: Medical History Abnormal bilirubin test Abnormal PSA Atherosclerotic heart disease -has had prior stenting -cardiac workup done in 2019 with nuclear stress testing being negative for ischemia; Echo-EF=55%, mild LVH, no RWMA, trace TR, mild MD -on statin, Plavix, off ASA due to Eliquis Atherosclerotic heart disease of [place] coronary artery without angina pectoris Benign essential hypertension with target blood pressure below 140/90 -BP trending up, continue to monitor -on lasix and HCTZ BPH NOS w ur obs/LUTS CAD (coronary artery disease) Depression Dyslipidemia -on statin Erectile dysfunction due to diseases classified elsewhere Hyperlipidemia Hypertension Hypogonadism Hypogonadism Hypogonadism male Intermittent atrial fibrillation SOB (shortness of breath) Transient atrial fibrillation/flutter -appears to be new onset arrhythmia -had previously been on Metoprolol and Diltiazem which he discontinued on his own due to dizziness -on sotalol 80 mg in AM, 40 mg in PM; off Cardizem drip -appreciate evaluation by Dr. Locke -telemetry monitoring -VSS; continue to monitor -Echo: EF=57%, G3DD, mild LVH, no RWMA, mild to moderate MR, moderate TR, mild pulmonary HTN -has been on therapeutic Lovenox due to D-dimer elevation; VTE r/o so now on Eliquis -[id number] score of 5; will need to continue correction oral anticoagulation Type 2 diabetes mellitus Surgical History History of heart artery stent History of knee replacement procedure of left knee Hx of cholecystectomy S/P total knee arthroplasty Status post laser cataract surgery of both eyes Family History Father , AT AGE 86 HEART DISEASE,[place],DIABETES Diabetes CAD (coronary artery disease) Mother , AT AGE 80 No problems noted. Grandfather CAD (coronary artery disease) Chronic kidney disease (CKD) Diabetes Family/Other CAD (coronary artery disease) Other Rheumatoid arthritis Stroke Denies family history of Lupus Hyperlipidemia Cancer Hypertension Social History Smoking and tobacco status: never smoked Alcohol intake: former Substance/Drug Use: never Marital status: Current occupational status: retired Physical Exam Const: COMMON NORMALS: no acute distress, average body habitus, patient oriented x3, no limitations, healthy appearing, alert and well nourished HENMT: THROAT: posterior oropharynx normal and tonsils normal; no uvular edema Eye: COMMON NORMALS: Equal, round and reactive pupils present, EOMs intact bilaterally, conjunctivae normal and no scleral icterus CONJUNCTIVA: Yes conjunctivae normal PUPIL: Yes Equal, round and reactive pupils present Neck/C-Spine: COMMON NORMALS: full ROM, no lymphadenopathy, supple, no men ingeal signs, no JVD and Thyroid normal THYROID: Thyroid normal Lymph: LYMPHATIC: no lymphadenopathy noted Chest: COMMONS NORMALS: normal inspection of the chest and normal palpation of entire chest wall Resp: COMMON NORMALS: normal respiratory effort, No retractions, No use of accessory muscles and clear to auscultation bilaterally AUSCULTATION: clear to auscultation bilaterally Cardio: COMMON NORMALS: no JVD, regular rate, regular rhythm, S1 normal heart sound present, S2 normal heart sound present, No gallops present (Cardio), No clicks present (Cardio) and No murmurs present (Cardio) RATE: regular rate RHYTHM: regular rhythm HEART SOUNDS: S1 normal heart sound present and S2 normal heart sound present GI: COMMON NORMALS: Normal to inspection, nondistended, normoactive bowel sounds present, Soft to palpation, non-tender, No hepatosplenomegaly present and no masses PALPATION: Yes Soft to palpation and Yes No hepatosplenomegaly present : COMMON NORMALS: Yes no CVA tenderness BLADDER/KIDNEY EXAM: Yes no CVA tenderness Back/Pelvis: COMMON NORMALS: no CVA tenderness Neuro: COMMON NORMALS: patient oriented x3 SENSORIUM/ORIENTATION: Yes alert MENINGEAL SIGNS: Yes no meningeal signs Course Vital Signs: Vital signs: Vital Signs Temperature 98.3 F 02/01/23 14:51 Pulse Rate 69 02/01/23 16:57 Respiratory Rate 18 02/01/23 16:50 Blood Pressure 121/62 02/01/23 16:31 Pulse Oximetry 97 02/01/23 16:50 Oxygen Delivery Me thod Nasal Cannula 02/01/23 16:50 Oxygen Flow Rate 4 02/01/23 16:50 MDM - SOB/Dyspnea Medical Decision Making Patient presents to the ER for worsening weakness and shortness of breath. 3 L of oxygen and he has to be on 4 L of oxygen. Patient normally easily transitions from the chair or couch to standing and walking. However patient is having much difficulty now. Physical exam was performed and lab work was obtained which revealed a white count of 2.9 and a hemoglobin of 6.9 hematocrit 22.5 platelets of 405, BUN/creatinine is chronically elevated 29 1.4. Chest x- ray showed right right largely mid to lower lung field airspace infiltrate, patient has a positive lactate and procalcitonin were negative. Patient is unable to give urine at this time. Patient was started on Zosyn 3.375 g IV x1 he will be transfused 1 unit of packed red blood cells, Dr. Ghosh was consulted and agreed for inpatient admission and treatment. Differential Diagnosis Likely acute exacerbation of chronic obstructive airways disease, congestive heart failure and community acquired pneumonia; Unlikely asthma with exacerbation or pulmonary embolism Medical Records I reviewed the patient's medical records. Lab Data I reviewed the patient's lab results. 02/01/23 15:21 02/01/23 15:21 Labs/Radiology: Radiology Impressions Chest X-Ray 02/01/23 15:10 IMPRESSION: 1. Right largely mid to lower lung field airspace infiltrate. 2. Cardiomegaly. 3. Emphysematous changes. Laboratory Results WBC 2.9 10^3/uL (4.0-10.0) L 02/01/23 15:21 RBC 2.10 10^6/uL (4.1-5.3) L 02/01/23 15:21 Hgb 6.9 g/dL (11.7-16.6) L 02/01/23 15:21 Hct 22.5 % (42.0-52.0) L 02/01/23 15:21 MCV 107.1 fl (80-94) H 02/01/23 15:21 MCH 32.9 pg (28.0-34.0) 02/01/23 15:21 MCHC 30.7 g/dL (30.0-36.0) 02/01/23 15:21 RDW 15.7 % (12.1-15.1) H 02/01/23 15:21 Plt Count 405 10^3/cmm (130-400) H 02/01/23 15:21 MPV 11.1 fL (7.4-10.4) H 02/01/23 15:21 Neut % (Auto) 63.7 % 02/01/23 15:21 Lymph % (Auto) 12.5 % 02/01/23 15:21 [place] % (Auto) 21.8 % 02/01/23 15:21 Eos % (Auto) 1.0 % 02/01/23 15:21 Baso % (Auto) 0.0 % 02/01/23 15:21 Neut # (Auto) 1.84 10^3/uL (1.8-7.7) 02/01/23 15:21 Lymph # (Auto) 0.4 10^3/uL (0.8-4.8) L 02/01/23 15:21 [place] # (Auto) 0.6 10^3/uL (0.2-0.9) 02/01/23 15:21 Eos # (Auto) 0.0 10^3/uL (0.0-0.8) 02/01/23 15:21 Baso # (Auto) 0.0 10^3/uL (0.0-0.1) 02/01/23 15:21 Nucleated RBC % (auto) 0 % 02/01/23 15:21 Nucleated RBCs # 0.0 /100WBC 02/01/23 15:21 Sodium 134 mmol/L (136-145) L 02/01/23 15:21 Potassium 3.8 mmol/L (3.5-5.1) 02/01/23 15:21 Chloride 96 mmol/L (98-107) L 02/01/23 15:21 Carbon Dioxide 25 mmol/L (22-29) 02/01/23 15:21 Anion Gap 16.8 (5-19) 02/01/23 15:21 BUN 29 mg/dL (8-23) H 02/01/23 15:21 Creatinine 1.4 mg/dL (0.7-1.2) H 02/01/23 15:21 GFR Calculation Not Reportable 02/01/23 15:21 Glucose 108 mg/dL (65-115) 02/01/23 15:21 Calculated Osmolality 284 mOsm/kg (285-295) L 02/01/23 15:21 Lactic Acid 1.1 mmol/L (0.5-2.2) 02/01/23 16:23 Calcium 8.2 mg/dL (8.5-10.5) L 02/01/23 15:21 Total Bilirubin 0.6 mg/dL (0.15-1.2) 02/01/23 15:21 AST 20 U/L (0-40) 02/01/23 15:21 ALT 13 U/L (0-41) 02/01/23 15:21 Alkaline Phosphatase 74 U/L (40-130) 02/01/23 15:21 NT-Pro-B Natriuret Pep 6493 pg/mL (0-450) H 02/01/23 15:21 Total Protein 6.6 g/dL (6.6-8.7) 02/01/23 15:21 Albumin 2.7 g/dL (3.5-5.2) L 02/01/23 15:21 Globulin 3.9 g/dL (1.3-4.6) 02/01/23 15:21 Procalcitonin 0.08 ng/mL (0-0.5) 02/01/23 16:23 Blood Type A Positive 02/01/23 16:30 Rho(D) Type Positive 02/01/23 16:30 Antibody Screen Negative 02/01/23 16:30 Crossmatch See Detail 02/01/23 16:30 Discharge Plan Discharge Patient Disposition: Admitted As Inpatient Clinical Impression: Anemia, CAP (community acquired pneumonia), Weakness Condition: Stable Prescriptions: No Action vitamin B complex [B Complex-Vitamin B12] Tablet 1 tab PO DAILY acetaminophen [Tylenol Extra Strength] 500 mg tablet 1,000 mg PO BID albuterol sulfate 90 mcg/actuation HFA aerosol inhaler 2 puff inhalation Q4H PRN (Reason: shortness of breath or wheezing) Qty: 8.5 6RF Farxiga 10 mg tablet 10 mg PO QAM 90 Days Qty: 90 1RF glipizide 5 mg tablet 5 mg PO BID 90 Days Qty: 180 1RF (DME) OYXGEN AT 3L PER N/C WITH CONSERVING DEVICE AND PORTABLE See Rx Instructions .Route .MEDSUPPLY Qty: 1 0RF Rx Instructions: As directed ipratropium-albuterol 0.5 mg-3 mg(2.5 mg base)/3 mL solution for nebulization 3 ml inhalation Q4H PRN (Reason: wheezing) Qty: 90 3RF albuterol sulfate 1.25 mg/3 mL solution for nebulization 1.25 mg inhalation Q4H Qty: 90 3RF Humira Pen 40 mg/0.8 mL pen injector kit See Rx Instructions SUBCUT .COMPLEX Qty: 4 5RF Rx Instructions: inject one - 40 mg/0.8 mL pen every 2 weeks metoprolol tartrate 25 mg tablet 25 mg PO BID Qty: 180 3RF acarbose 25 mg tablet 25 mg PO TID Qty: 360 3RF (DME) Contour Next Test Strips Strip See Rx Instructions .Route Qty: 50 6RF Rx Instructions: As directed 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 nitroglycerin 0.4 mg tablet, sublingual 0.4 mg sublingual Q5M PRN (Reason: chest pain) Qty: 25 2RF Rx Instructions: do not exceed 3 doses per episode promethazine-DM 6.25-15 mg/5 mL syrup 5 - 10 ml PO Q6H PRN (Reason: cough) Qty: 200 0RF tamsulosin 0.4 mg capsule 0.4 mg PO BID 90 Days Qty: 180 1RF (DME) NEBULIZER MACHINE AND TUBING SUPPLIES See Rx Instructions .Route .MEDSUPPLY Qty: 1 0RF Rx Instructions: As directed amoxicillin-pot clavulanate 875-125 mg tablet 1 tab PO BID Qty: 20 0RF Rx Instructions: not picked up from the pharmacy as of 02/01/23 aspirin 81 mg Tablet,Delayed Release (Dr/Ec) 81 mg PO QAM ascorbic acid (vitamin C) [Vitamin C] 500 mg Tablet 500 mg PO DAILY multivitamin Tablet 1 tab PO QAM furosemide 40 mg tablet 40 mg PO QAM isosorbide mononitrate 30 mg tablet extended release 24 hr 30 mg PO QAM Rx Instructions: patient due labs and visit potassium chloride 10 mEq tablet extended release 10 meq PO QAM clopidogrel 75 mg tablet 75 mg PO QAM simvastatin 40 mg tablet 40 mg PO BEDTIME ferrous sulfate 325 mg (65 mg iron) tablet 325 mg PO QAM testosterone cypionate 200 mg/mL oil 200 mg IM Q30D finasteride 5 mg tablet 5 mg PO BEDTIME escitalopram oxalate 20 mg tablet 20 mg PO BEDTIME diclofenac sodium [Voltaren Arthritis Pain] 1 % gel 4 g topical QID PRN (Reason: Pain) Rx Instructions: apply to single knee, ankle, foot; for foot includes sole/toes/top of foot Xarelto 20 mg tablet 20 mg PO QAM sotalol 80 mg tablet 40 mg PO BID nystatin 100,000 unit/gram cream 1 applic topical QID PRN (Reason: unknown) Symbicort 160-4.5 mcg/actuation HFA aerosol inhaler 2 puff INHALATION BID PRN (Reason: unknown) cetirizine 10 mg tablet 10 mg PO QAM Januvia 100 mg tablet 100 mg PO QAM Referrals: Vita Mcelroy NP [Primary Care Provider] - Coding Level of Care Code ED Java Lead Architect for Gissel Fontenot
[2023-02-01 16:12] LABS: Alanine Aminotransferase 13 U/L (0-41); Albumin Level 2.7 g/dL (3.5-5.2); Alkaline Phosphatase 74 U/L (40-130); Blood Urea Nitrogen 29 mg/dL (8-23); Calcium 8.2 mg/dL (8.5-10.5); Carbon Dioxide 25 mmol/L (22-29); Chloride 96 mmol/L (98-107); Globulin 3.9 g/dL (1.3-4.6); Glucose 108 mg/dL (65-115); NT Pro B Type Natriuretic Pept 6493 pg/mL (0-450); Osmolality Calculated 284 mOsm/kg (285-295); Sodium 134 mmol/L (136-145); Total Bilirubin 0.6 mg/dL (0.15-1.2); Total Protein 6.6 g/dL (6.6-8.7)
[2023-02-01 16:16] LABS: Anion Gap 16.8 (5-19); Aspartate Amino Transferase 20 U/L (0-40); Potassium 3.8 mmol/L (3.5-5.1)
[2023-02-01] MEDS: piperacillin-tazobactam 3.375 GM in sodium chloride 0.9% (plus) 50 ML IV (16:18)
[2023-02-01] MEDS: ipratropium-albuterol 3 mL Neb INHALATION ×2 (16:45→20:00)
--- NOTE | 2023-02-01 17:00 | PC.PHAR ---
pt and pts verified medications-pts states the pt is taking the sotalol 80mg take 40mg bid-
[2023-02-01 17:10] LABS: Lactic Sepsis W/Reflex 1.1 mmol/L (0.5-2.2)
[2023-02-01 17:17] LABS: Procalcitonin 0.08 ng/mL (0-0.5)
[2023-02-01 17:34] LABS: Urine Color Light yellow (Yellow)
[2023-02-01 17:35] LABS: Add Urine Microscopic? YES; Bacteria Urine TRACE /hpf; Bilirubin Urine Neg (Negative); Blood Urine Neg (Negative); Glucose Urine UA 4+ (Normal); Ketones Urine Negative (Negative); Leukocyte Esterase Urine Negative (Negative); Nitrate Urine Negative (Negative); Protein Urine Trace (Negative); Specific Gravity, Urine 1.015 (1.005-1.030); Urine Appearance Clear (CLEAR); Urobilinogen Urine Norm (Negative); pH Urine 5 (5-7)
[2023-02-01 17:36] LABS: Add Urine Culture? No
--- NOTE | 2023-02-01 18:07 | PM.HP ---
Providers/Chief Complaint Admitting Physician: Dragan Ghosh MD Primary Care Provider: Vita Mcelroy NP Chief Complaint: sob History of Present Illness Nicolás Menjivar is a 82 year old male with past medical history of hypertension, paroxysmal atrial fibrillation on Xarelto, coronary artery disease s/p PCI, chronic anemia, plan was to do repeat bone marrow biopsy, see Dr. Santos as outpatient, initial anemia work-up has been unremarkable, CKD stage III, he was recently discharged from the hospital after being managed for pneumonia on p.o. antibiotics, According to the patient's shortness of breath never improved, he also completed another round of p.o. antibiotics as outpatient prescribed by the primary care physician, came in today with chief complaint of Worsening shortness of breath, nonproductive cough, fever with chills, diaphoresis, weight loss, of about 60 pounds, in the recent time, generalized weakness fatigue, malaise, lower back pain.He is also complaining of intermittent chest pain at home, possibly with inspiration. 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 X-ray chest done today: Showed: Right largely mid to lower lung field airspace infiltrate. Pertinent labs: WBC 2.9, H&H 6.9/22,PLT : 405 , serum sodium 134 serum potassium 3.8, BUN 29 serum creatinine 1.4, lactic acid 1.1, procalcitonin:0.08, Patient received 1 dose of Zosyn in the ER, current plan is to give 1 unit PRBC transfusion. Review of Systems General: Reports: 10 or more systems reviewed and unremarkable except in HPI and below Const: Reports: fever(s), chills, change in weight, fatigue, night sweats and diaphoresis; Denies: body aches or change in appetite Card: Reports: dyspnea on exertion; Denies: palpitations, edema, swelling of feet/ankles, orthopnea or leg pain with exertion Resp: Reports: dyspnea and non-productive cough; Denies: productive cough, wheezing or pain on inspiration GI: Denies: abdominal pain, nausea, vomiting, diarrhea or constipation : Denies: flank pain or difficulty urinating Musc: Denies: back pain, extremity pain or extremity swelling Neuro: Reports: difficulty walking; Denies: headache(s) or confusion Medications/Allergies Home Medications Medication Instructions Recorded Confirmed Last Taken Type acetaminophen 500 mg tablet 1,000 mg PO BID 04/01/20 02/01/23 02/01/23 History (Tylenol Extra Strength) vitamin B complex (B 1 tab PO DAILY 04/01/20 02/01/23 Unknown History Complex-Vitamin B12 tablet) albuterol sulfate 90 mcg/actuation 2 puff inhalation Q4H PRN 10/27/21 02/01/23 Unknown Rx aerosol inhaler shortness of breath or wheezing #8.5 grams adalimumab 40 mg/0.8 mL See Rx Instructions SUBCUT 01/07/22 02/01/23 12/06/22 Rx subcutaneous pen kit (Humira Pen) .COMPLEX #4 ea metoprolol tartrate 25 mg tablet 25 mg PO BID #180 tabs 06/18/22 02/01/23 02/01/23 Rx dapagliflozin 10 mg tablet 10 mg PO QAM 90 days #90 tabs 07/07/22 02/01/23 02/01/23 Rx (Farxiga) glipizide 5 mg tablet 5 mg PO BID 90 days #180 tabs 07/07/22 02/01/23 02/01/23 Rx OYXGEN AT 3L PER N/C WITH #1 ea 07/23/22 02/01/23 Unknown Rx CONSERVING DEVICE AND PORTABLE acarbose 25 mg tablet 25 mg PO TID #360 tabs 09/17/22 02/01/23 02/01/23 08:30 Rx blood sugar diagnostic (Contour #50 ea 11/06/22 02/01/23 Unknown Rx Next Test Strips) ascorbic acid (vitamin C) 500 mg 500 mg PO DAILY 12/17/22 02/01/23 Unknown History tablet (Vitamin C) aspirin 81 mg tablet,delayed 81 mg PO QAM 12/17/22 02/01/23 02/01/23 History release clopidogrel 75 mg tablet 75 mg PO QAM 12/17/22 02/01/23 02/01/23 History diclofenac sodium 1 % topical gel 4 g topical QID PRN Pain 12/17/22 02/01/23 Unknown History (Voltaren Arthritis Pain) escitalopram oxalate 20 mg tablet 20 mg PO BEDTIME 12/17/22 02/01/23 01/31/23 History ferrous sulfate 325 mg (65 mg 325 mg PO QAM 12/17/22 02/01/2323 History iron) tablet finasteride 5 mg tablet 5 mg PO BEDTIME 12/17/22 02/01/23 01/31/23 History furosemide 40 mg tablet 40 mg PO QAM 12/17/22 02/01/23 02/01/23 History isosorbide mononitrate 30 mg 30 mg PO QAM 12/17/22 02/01/23 02/01/23 History tablet,extended release 24 hr multivitamin 1 tab PO QAM 12/17/22 02/01/23 02/01/23 History potassium chloride 10 mEq 10 meq PO QAM 12/17/22 02/01/23 02/01/23 History tablet,extended release rivaroxaban 20 mg tablet (Xarelto) 20 mg PO QAM 12/17/22 02/01/23 02/01/23 History simvastatin 40 mg tablet 40 mg PO BEDTIME 12/17/22 02/01/23 01/31/23 History testosterone cypionate 200 mg/mL 200 mg IM Q30D 12/17/22 02/01/23 11/25/22 History intramuscular oil nitroglycerin 0.4 mg sublingual 0.4 mg sublingual Q5M PRN chest 12/21/22 02/01/23 02/01/23 Rx tablet pain #25 tabs promethazine-DM 6.25 mg-15 mg/5 mL 5 - 10 ml PO Q6H PRN cough #200 mL 01/11/23 02/01/23 Unknown Rx oral syrup tamsulosin 0.4 mg capsule 0.4 mg PO BID 90 days #180 caps 01/13/23 02/01/23 02/01/23 Rx albuterol sulfate 1.25 mg/3 mL 1.25 mg (3 mL) inhalation Q4H #90 01/18/23 02/01/23 Unknown Rx solution for nebulization mL ipratropium 0.5 mg-albuterol 3 mg 3 ml inhalation Q4H PRN wheezing 01/18/23 02/01/23 Unknown Rx (2.5 mg base)/3 mL nebulization #90 mL soln NEBULIZER MACHINE AND TUBING #1 ea 01/19/23 02/01/23 Unknown Rx SUPPLIES amoxicillin 875 mg-potassium 1 tab PO BID #20 tabs 02/01/23 02/01/23 Unknown Rx clavulanate 125 mg tablet budesonide-formoterol HFA 160 2 puff inhalation BID PRN unknown 02/01/23 02/01/23 Unknown History mcg-4.5 mcg/actuation aerosol inhaler (Symbicort) cetirizine 10 mg tablet 10 mg PO QAM 02/01/23 02/01/23 02/01/23 History nystatin 100,000 unit/gram topical 1 applic topical QID PRN unknown 02/01/23 02/01/23 Unknown History cream sitagliptin phosphate 100 mg 100 mg PO QAM 02/01/23 02/01/23 02/01/23 History tablet (Januvia) sotalol 80 mg tablet 40 mg PO BID 02/01/23 02/01/23 02/01/23 History Allergies Allergy/AdvReac Type Severity Reaction Status Date / Time bupropion [From Wellbutrin] Allergy Unknown Unknown Verified 02/01/23 14:58 celecoxib [From Celebrex] Allergy Unknown Unknown Verified 02/01/23 14:58 rofecoxib [From Vioxx] Allergy Unknown Verified 02/01/23 14:58 bactrim Allergy Severe ALGY-Rash Uncoded 02/01/23 14:58 PFSH Acute PFSH: Medical History Abnormal bilirubin test Abnormal PSA Atherosclerotic heart disease -has had prior stenting -cardiac workup done in 2019 with nuclear stress testing being negative for ischemia; Echo-EF=55%, mild LVH, no RWMA, trace TR, mild [place] -on statin, Plavix, off ASA due to Eliquis Atherosclerotic heart disease of [place] coronary artery without angina pectoris Benign essential hypertension with target blood pressure below 140/90 -BP trending up, continue to monitor -on lasix and HCTZ BPH NOS w ur obs/LUTS CAD (coronary artery disease) Depression Dyslipidemia -on statin Erectile dysfunction due to diseases classified elsewhere Hyperlipidemia Hypertension Hypogonadism Hypogonadism Hypogonadism male Intermittent atrial fibrillation SOB (shortness of breath) Transient atrial fibrillation/flutter -appears to be new onset arrhythmia -had previously been on Metoprolol and Diltiazem which he discontinued on his own due to dizziness -on sotalol 80 mg in AM, 40 mg in PM; off Cardizem drip -appreciate evaluation by Dr. Locke -telemetry monitoring -VSS; continue to monitor -Echo: EF=57%, G3DD, mild LVH, no RWMA, mild to moderate MR, moderate TR, mild pulmonary HTN -has been on therapeutic Lovenox due to D-dimer elevation; VTE r/o so now on Eliquis -[id number] score of 5; will need to continue correction oral anticoagulation Type 2 diabetes mellitus Surgical History History of heart artery stent History of knee replacement procedure of left knee Hx of cholecystectomy S/P total knee arthroplasty Status post laser cataract surgery of both eyes Family History Father , AT AGE 86 HEART DISEASE,SC,DIABETES Diabetes CAD (coronary artery disease) Mother , AT AGE 80 No problems noted. Grandfather CAD (coronary artery disease) Chronic kidney disease (CKD) Diabetes Family/Other CAD (coronary artery disease) Other Rheumatoid arthritis Stroke Denies family history of Lupus Hyperlipidemia Cancer Hypertension Social History Smoking and tobacco status: never smoked Alcohol intake: former Substance/Drug Use: never Marital status: Current occupational status: retired Vitals/I&O/Wt Last Vital Signs Temp 98.3 F 02/01/23 14:51 Pulse 62 02/01/23 17:32 Resp 26 H 02/01/23 17:32 BP 119/74 02/01/23 17:32 Pulse Ox 96 02/01/23 17:32 O2 Del Method Nasal Cannula 02/01/23 17:32 O2 Flow Rate 4 02/01/23 17:32 Weight last 48 hrs Weight 76.204 kg Physical Exam Const: COMMON NORMALS: patient oriented x3 HENMT: COMMON NORMALS: normocephalic and atraumatic Resp: COMMON NORMALS: clear to auscultation bilaterally AUSCULTATION: clear to auscultation bilaterally Cardio: COMMON NORMALS: regular rate, regular rhythm, S1 normal heart sound present, S2 normal heart sound present, No gallops present (Cardio), No murmurs present (Cardio), No rub (Cardio) and Peripheral pulses 2+ throughout RATE: regular rate RHYTHM: regular rhythm HEART SOUNDS: S1 normal heart sound present and S2 normal heart sound present PERIPHERAL PULSES: Peripheral pulses 2+ throughout GI: COMMON NORMALS: Normal to inspection, nondistended, normoactive bowel sounds present, Soft to palpation, non-tender, No hepatosplenomegaly present and no masses AUSCULTATION: Yes normoactive bowel sounds PALPATION: Yes Soft to palpation and Yes No hepatosplenomegaly present RECTAL EXAM: Yes deferred Extremity: COMMON NORMALS: no clubbing, cyanosis or edema and no pedal edema Neuro: COMMON NORMALS: patient oriented x3 Data 02/01/23 15:21 02/01/23 15:21 Micro: Microbiology 02/01/23 16:30 Blood Culture - Preliminary Blood SPECIMEN COLLECTED 02/01/23 16:23 Blood Culture - Preliminary Blood SPECIMEN COLLECTED A&P Assessment and plan (1) Anemia: Qualifiers: Anemia type: unspecified type Qualified Code(s): D64.9 - Anemia, unspecified (2) Pneumonia: (3) A-fib: (4) Hypertension: Qualifiers: Hypertension type: essential hypertension Qualified Code(s): I10 - Essential (primary) hypertension (5) Type 2 diabetes mellitus: (6) CKD (chronic kidney disease): Plan 82 year old male with past medical history of hypertension, paroxysmal atrial fibrillation on Xarelto, coronary artery disease s/p PCI, chronic anemia, plan was to do repeat bone marrow biopsy, see Dr. Santos as outpatient, initial anemia work-up has been unremarkable, CKD stage III, he was recently discharged from the hospital after being managed for pneumonia on p.o. antibiotics, According to the patient's shortness of breath never improved, he also completed another round of p.o. antibiotics as outpatient prescribed by the primary care physician, came in today with chief complaint of Worsening shortness of breath, nonproductive cough, fever with chills, diaphoresis, weight loss, of about 60 pounds, in the recent time, generalized weakness fatigue, malaise, lower back pain.He is also complaining of intermittent chest pain at home, possibly with inspiration. Assessment: Pneumonia: Follow CT chest with contrast Blood culture MRSA PCR Urine Legionella antigen Bacterial antigen panel Respiratory viral panel Currently has been started on broad-spectrum antibiotic Vanco and Zosyn. Given the above complaint,PTB can be a consideration. 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 Last admission FOBT was positive, he is on Xarelto for A-fib, currently on hold Continue Protonix 40 IV twice daily Transfuse 1 unit PRBC today, maintain hemoglobin greater than 7 Monitor H&H Currently on clear liquid diets Possible EGD and colonoscopy History of paroxysmal atrial fibrillation: Continue metoprolol and sotalol Currently Xarelto is on hold History of coronary artery disease status post PCI: He is on aspirin and Plavix as outpatient Currently Plavix is on hold CKD: Admission serum creatinine is 1.4 Currently serum creatinine appears to be at baseline Monitor BMP Avoid nephrotoxic's Monitor intake output charting Intermittent chest pain: Follow troponin trend Last 2D echo has shown:Normal left ventricular size, systolic function and increased,wall thickness, with no regional wall motion abnormalities. Left,?ventricular ejection fraction is estimated at 60 %. Grade I,diastolic dysfunction. Serial EKG Telemetry monitoring CODE STATUS: Full code DVT prophylaxis: On SCDs Attestations Medical Necessity Statement*: Needs to be in hospital for management of pneumonia. Need for IV antibiotics. Anticipated length of stay: Greater than 2 midnights. Coding Level of Care Code Acute Code for Chg Fwd Diagnoses Anemia D64.9 Anemia type: unspecified type Pneumonia J18.9 A-fib I48.91 Hypertension I10 Hypertension type: essential hypertension Type 2 diabetes mellitus E11.9 CKD (chronic kidney disease) N18.9
--- NOTE | 2023-02-01 18:28 | CTR_ITS ---
PROCEDURE INFORMATION: Exam: CT Chest With Contrast; Diagnostic Exam date and time: 02/01/2023 7:24 PM Age: 82 years old Clinical indication: Shortness of breath; Additional info: Chest pain, SOB TECHNIQUE: Imaging protocol: Diagnostic computed tomography of the chest with contrast. Radiation optimization: All CT scans at this facility use at least one of these dose optimization techniques: automated exposure control; mA and/or kV adjustment per patient size (includes targeted exams where dose is matched to clinical indication); or iterative reconstruction. Contrast material: OMNI 350; Contrast volume: 100 ml; Contrast route: INTRAVENOUS (IV); REPORTING DATA: Count of CT and Cardiac NM exams in prior 12 months: This patient has received 3 known CTs and 0 known cardiac nuclear medicine studies in the 12 months prior to the current study. COMPARISON: CT chest abdpel w/*[id number] 07/31/2022 7:38 PM RADIATION DOSE METRICS: Total DLP (mGy-cm): 532 FINDINGS: Lungs: Emphysematous changes. Right lower lobe pneumonia. Pleural spaces: Trace right pleural effusion. Heart: Cardiomegaly. Coronary arteries: Coronary artery atherosclerotic calcifications. Lymph nodes: Scattered enlarged mediastinal lymph nodes measuring up to 14 mm, nonspecific. Vasculature: Unremarkable. No aortic aneurysm. 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 Gallbladder and bile ducts: Cholecystectomy. Bones/joints: Unremarkable. No acute fracture. Soft tissues: Unremarkable. CT/CT chest w con* [id number] IMPRESSION: 1. Negative for pulmonary embolus 2. Coronary artery atherosclerotic calcifications. 3. Trace right pleural effusion. 4. Emphysematous changes. 5. Right lower lobe pneumonia. 6. Cholecystectomy. 7. Scattered enlarged mediastinal lymph nodes measuring up to 14 mm, nonspecific. 8. 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 9. Cardiomegaly.
--- NOTE | 2023-02-01 18:31 | PC.PHAR ---
PHARMACY TO DOSE CONSULT - VANCOMYCIN AND ZOSYN With the patient's current vitals and laboratory results, the vancomycin was calculated at 1250 mg every 24 hours for a predicted peak value of 37.3 mcg/ml and a trough of 14.86 mcg/ml. A trough will be drawn prior to the 4th dose and adjustments made accordingly. For the Zosyn, with the patient's current CrCl of 45, he is indicated for the extended infusion time with 3.375gm every 8 hours. Pharmacy will continue to monitor the patient's renal function and make adjustments. Please let us know if there is anything else we can help with. Thanks, Danilo Monahan, Pharm.D
[2023-02-01] MEDS: pantoprazole 40 mg SDV IVP (18:37)
[2023-02-01] MEDS: iohexol 350 mg/mL 500 mL Btl (per mL) IV (19:28)
[2023-02-01 19:38] LABS: Troponin(5th) Baseline 82 ng/L (0-15)
[2023-02-01] MEDS: vancomycin 1,250 MG/250 ML PIGGYBACK 250 MG IV (19:43)
[2023-02-01] MEDS: sodium chloride 0.9% 100 mL Bag 50 ML IV (19:55)
[2023-02-01] MEDS: atorvastatin 40 mg Tablet 20 MG PO (20:21)
[2023-02-01] MEDS: escitalopram 10 mg Tablet 20 MG PO (20:22)
[2023-02-01] MEDS: finasteride 5 mg Tablet PO (20:22)
[2023-02-01 21:06] LABS: Glucose Point of Care 105 mg/dL (70-110)
[2023-02-01 21:38] LABS: Troponin 5 2HR 81.24 ng/L (0-15)
[2023-02-01 21:43] LABS: Troponin 5 2HR Delta -0.76 ABS# (0-10)
[2023-02-01 22:55] LABS: Adenovirus Not Detected (NOT DETECT); Chlamydia Pneumoniae Not Detected (NOT DETECT); Coronavirus 229E,HKU1,NL63,OC4 Not Detected (NOT DETECT); Human Metapneumovirus Not Detected (NOT DETECT); Human Rhinovirus/Enterovirus Not Detected (NOT DETECT); Influenza A Not Detected (NOT DETECT); Influenza A H1 Not Detected (NOT DETECT); Influenza A H1-2009 Not Detected (NOT DETECT); Influenza A H3 Not Detected (NOT DETECT); Influenza B Not Detected (NOT DETECT); Mycoplasma Pneumoniae Not Detected (NOT DETECT); Parainfluenza Virus Type 1 Not Detected (NOT DETECT); Parainfluenza Virus Type 2 Not Detected (NOT DETECT); Parainfluenza Virus Type 3 Not Detected (NOT DETECT); Parainfluenza Virus Type 4 Not Detected (NOT DETECT); Respiratory Syncytial Virus A Not Detected (NOT DETECT); Respiratory Syncytial Virus B Not Detected (NOT DETECT); SARS-COV-2 Not Detected (NOT DETECT)
[2023-02-02] VITALS (14 sets, daily range): BP systolic 102–138; BP diastolic 52–87; PULSE 52–127; RESP 16–27; TEMP 36.4–37.1; O2SAT 91–97
[2023-02-02] MEDS: piperacillin-tazobactam 3.375 GM in sodium chloride 0.9% (plus) 50 ML IV ×3 (01:28→16:18)
[2023-02-02 02:23] LABS: Basophils % 0.3 %; Eosinophils % 0.7 %; Hematocrit 28.8 % (42.0-52.0); Hemoglobin 8.9 g/dL (11.7-16.6); Lymphocytes # 0.4 10^3/uL (0.8-4.8); Lymphocytes % 14.4 %; Mean Corpuscular HGB Conc 30.9 g/dL (30.0-36.0); Mean Corpuscular Hemoglobin 32.5 pg (28.0-34.0); Mean Corpuscular Volume 105.1 fl (80-94); Mean Platelet Volume 11.3 fL (7.4-10.4); Monocytes # 0.8 10^3/uL (0.2-0.9); Monocytes % 26.2 %; Neutrophils % 57.1 %; Nucleated Red Blood Cells % 0 %; Platelet Count 377 10^3/cmm (130-400); Red Blood Count 2.74 10^6/uL (4.1-5.3); Red Cell Distribution Width 18.1 % (12.1-15.1)
[2023-02-02 02:36] LABS: Partial Thromboplastin Time 33.1 SECONDS (23.9-36.7)
[2023-02-02 02:41] LABS: Troponin 5 6HR 80.04 ng/L (0-15)
[2023-02-02 02:43] LABS: Troponin 5 6HR Delta -1.96 ng/L (0-12)
[2023-02-02 02:46] LABS: Blood Urea Nitrogen 29 mg/dL (8-23); Calcium 8.2 mg/dL (8.5-10.5); Carbon Dioxide 24 mmol/L (22-29); Chloride 97 mmol/L (98-107); Glucose 82 mg/dL (65-115); Magnesium 2.2 mg/dL (1.7-2.3); Osmolality Calculated 285 mOsm/kg (285-295); Sodium 135 mmol/L (136-145)
[2023-02-02 02:57] LABS: Anion Gap 17.9 (5-19); Potassium 3.9 mmol/L (3.5-5.1)
[2023-02-02] MEDS: isosorbide mononitrate ER 30 mg Tablet PO (05:52)
[2023-02-02] MEDS: aspirin 81 mg EC Tablet PO (05:52)
[2023-02-02] MEDS: FUROsemide 40 mg Tablet PO (05:52)
[2023-02-02] MEDS: ferrous sulfate EC 325 mg Tablet PO (05:52)
[2023-02-02] MEDS: multivitamin therapeutic Tablet 1 TAB PO (05:52)
[2023-02-02] MEDS: pantoprazole 40 mg SDV IVP ×2 (05:54→17:23)
[2023-02-02 06:38] LABS: Glucose Point of Care 109 mg/dL (70-110)
[2023-02-02] MEDS: tamsulosin 0.4 mg Capsule PO ×2 (08:00→17:23)
[2023-02-02] MEDS: metoprolol tartrate 25 mg Tablet PO ×2 (08:00→17:23)
[2023-02-02] MEDS: sotalol 80 mg Tablet 40 MG PO ×2 (08:00→17:23)
[2023-02-02] MEDS: ipratropium-albuterol 3 mL Neb INHALATION ×3 (08:30→21:07)
[2023-02-02] MEDS: budesonide 0.5 mg/2 mL Neb INHALATION (08:30)
--- NOTE | 2023-02-02 10:53 | PC.CHAP ---
Pastoral Care Encounter/Spiritual Assessment Type of Contact [] Declined sporting goods salesperson visit [] Patient/Family/Request visit [] Outpatient visit [] Follow-up visit [] Physician referral [] Code/Alert [x] Routine visit [] Staff referral [] Actively dying [] Patient sleeping [x] Family support [] [] Out of room [] Palliative care [] [] Receiving care in room [] Pre-surgical visit [] Trauma [] Long length of stay [] ICU visit [] Other: Relational/Emotional Strength [x] Patient feels connected with others/family/visitors/staff [] Distress [] Loneliness/isolation [] Abandonment Spirituality of Patient [x Person of Linn [] Attends Jewish of their Linn [x] Believes in Prayer [] Reads Bible or Christian materials [] There are Spiritual issues to be addressed Aerial Gunner Interventions [x] Prayer [] Active listening [x] Non-anxious presence [x] Spiritual/emotional support [] Crisis/trauma care [] Spiritual counseling [] Bereavement support [] Provided bereavement packet [] Provided Bible/devotional materials [] Provided toy/stuffed animal, coloring book to patient or family member [] Provided Communion [] Anointing/[place] [] Salvation [] Completed spiritual assessment [] Other: Impact on Illness or Injury [] Angry [] Fearful [] Anxious [] Often cries [] Exhaustion [] Unable to work [] Unable to attend cheondoism [] Unable to walk/stand [] Unable to read [] Unable to drive [] Unable to eat/drink [] Unable to sleep [] Unable to be with family [] Patient intubated [] Other: Summary Time spent with patient 5 min
[2023-02-02 11:17] LABS: Glucose Point of Care 118 mg/dL (70-110)
--- NOTE | 2023-02-02 11:24 | CT_ITS ---
WS: [id number] CT ABDOMEN PELVIS TECHNIQUE: Noncontrast CT of the abdomen and pelvis with coronal and sagittal reformatted images. CLINICAL INFORMATION: llq abdominal pain, G/I Bleed COMPARISON: None. DLP: 1370.[address] scans at [facility] use at least one of these dose optimization techniques: automated e xposure control; mA and/or kV adjustment per patient size (includes targeted exams where dose is matc hed to clinical indication); or iterative reconstruction. FINDINGS:Minimal thickening of the sigmoid colon LEFT lower quadrant with slight induration can be se en with mild or early acute diverticulitis. Small RIGHT pleural effusion with RIGHT lower lobe pneumonia. Airspace consolidation RIGHT lower lobe . Cystic bronchiectasis LEFT lower lobe. Cardiomegaly. Markedly enlarged prostate measuring 6.8 cm. S mall cystocele. Sigmoid diverticulosis. No evidence of high-grade small or large bowel obstruction. Normal noncontrast liver. Small cyst liver dome. Prior cholecystectomy. Normal spleen. Small esophage al hiatal hernia. Normal noncontrast pancreas. Splenic artery calcification. Aortic calcification. No rmal caliber abdominal aorta. Adrenal glands are normal. No hydronephrosis in either kidney. Bilatera l renal cortical scarring. Contrast visualized in the ureters and bladder. No hydronephrosis. Small L EFT renal cysts. Moderate spondylitic changes lumbar spine. Slight anterolisthesis L4 on L5. Sigmoid constipation. CT/CT abdomen pelvis wo con [id number] IMPRESSION: 1. Minimal thickening of the sigmoid colon LEFT lower quadrant with slight ind uration can be seen with mild or early acute diverticulitis. 2. Markedly enlarged prostate measuring 6.8 cm. Recommend correlation PSA. Uri ne distended bladder. 3. RIGHT lower lobe pneumonia with partial airspace opacification tiny RIGHT p leural effusion. 4. Cardiomegaly. 5. Prior cholecystectomy. 6. Tiny esophageal hiatal hernia. 7. No hydronephrosis in either kidney.
--- NOTE | 2023-02-02 11:25 | CT_ITS ---
WS: [id number] CT LUMBAR SPINE TECHNIQUE: Noncontrast CT of the lumbar spine with coronal and sagittal reformatted images. CLINICAL INFORMATION: lower back pain COMPARISON: None. DLP: All CT scans at [facility] use at least one of these dose optimization techniques: automated e xposure control; mA and/or kV adjustment per patient size (includes targeted exams where dose is matc hed to clinical indication); or iterative reconstruction. FINDINGS: Mild lumbar curve. No acute compression. Disc space narrowing worse at L1-L2, L2-L3, and L5-S1 vacuum disc phenomenon. Grade 1 anterolisthesis L4 on L5. Partially visualized RIGHT pleural effusion. L1-L2: Mild disc osteophyte complex with endplate ridging. Mild narrowing of the subarticular recess bilaterally. Mild LEFT and no significant RIGHT foraminal narrowing. Mild facet arthropathy. Mild sammie tral canal stenosis. L2-L3: Vacuum disc phenomenon. Mild central canal stenosis. Advanced facet arthropathy. Moderate LEFT and mild RIGHT foraminal narrowing. L3-L4: Mild disc bulging with moderate central canal stenosis. Advanced facet arthropathy ligamentum flavum hypertrophy contributes to stenosis. Mild to moderate bilateral LEFT greater than RIGHT forami nal narrowing. L4-L5: Grade 1 anterolisthesis. Mild to moderate central canal stenosis. Impingement traversing L5 ne rve roots. Advanced facet arthropathy with Pseudarthrosis along the LEFT transverse process. Moderate to severe LEFT and mild RIGHT bony foraminal narrowing. . L5-S1: Mild disc bulging with moderate central canal stenosis. Impingement traversing S1 nerve roots bilaterally. Advanced facet arthropathy. Mild to moderate bilateral foraminal narrowing Partially visualized LEFT renal lesions likely renal cysts but incompletely visualized. CT/CT lumbar spine recon [id number] IMPRESSION: 1. Moderate to advanced spondylitic changes with grade 1 anterolisthesis L4 on L5. 2. No acute compression fractures. 3. Mild central canal stenosis L1-L2 and L2-L3. Moderate central canal stenosi s L3-L4 and L4-L5. Mild central canal stenosis L5-S1. 4. Advanced facet arthropathy L2-L3, L3-L4, L4-L5, and L5-S1. 5. Bony foraminal narrowing described above.
--- NOTE | 2023-02-02 11:25 | CT_ITS ---
WS: [id number] CT THORACIC SPINE TECHNIQUE: Noncontrast CT of the thoracic spine with coronal and sagittal reformatted images. CLINICAL INFORMATION: back pain COMPARISON: None. DLP: 1370.[address] scans at [facility] use at least one of these dose optimization techniques: automated e xposure control; mA and/or kV adjustment per patient size (includes targeted exams where dose is matc hed to clinical indication); or iterative reconstruction. FINDINGS: Moderate thoracic kyphosis. No high-grade central canal narrowing. Prominent anterior hypertrophic ch anges and ankylosis thoracic spine. No acute compression fractures. Disc space heights are relatively well-preserved. Mild central canal stenosis in the mid thoracic spine at T8-9 and T9-T10. Moderate f acet arthropathy lower thoracic spine. Aortic calcification. 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 Aortic calcific ation. Small RIGHT and tiny LEFT pleural effusion. Patchy infiltrates within the RIGHT lower lobe wit h partial airspace consolidation. Bronchiectasis RIGHT greater than LEFT lower lobes. Interstitial th ickening LEFT lower lobe with cystic bronchiectasis. Cardiomegaly. CT/CT thoracic spin wo con* [id number] IMPRESSION: 1. No acute thoracic spine findings 2. RIGHT lower lobe pneumonia as described above
--- NOTE | 2023-02-02 12:12 | P.PN_ITS ---
Subjective Subjective: Patient was seen and examined this morning was complaining of left lower quadrant abdominal pain, as well as lower back pain, he is also complaining of sharp intermittent chest pain. Telemetry review has shown Intermittent A-fib followed by spontaneous conversion to sinus rhythm. Medications: Medication Review Details: Generic Name Dose Route Start Last Admin Trade Name Elin PRN Reason Stop Dose Admin Albuterol/Ipratrop ium 3 ml 02/01/23 20:00 02/02/23 08:30 Ipratropium-Albu terol 3 Ml Neb INHALATION 3 ml Q6H.RESP NIMO Administration Aspirin 81 mg 02/02/23 06:00 02/02/23 05:52 Aspirin 81 Mg Ec Tablet PO 81 mg QAM NIMO Administration Atorvastatin Calci um 20 mg 02/01/23 21:00 02/01/23 20:21 Atorvastatin 40 Mg Tablet PO 20 mg BEDTIME NIMO Administration Budesonide 0.5 mg 02/01/23 20:00 02/02/23 08:30 Budesonide 0.5 M g/2 Ml Neb INHALATION 0.5 mg BID.RESPIRATORY P RN Administration SHORTNESS OF AGUILA TH Escitalopram Oxala te 20 mg 02/01/23 21:00 02/01/23 20:22 Escitalopram 10 Mg Tablet PO 20 mg BEDTIME NIMO Administration Ferrous Sulfate 325 mg 02/02/23 06:00 02/02/23 05:52 Ferrous Sulfate Ec 325 Mg Tablet PO 325 mg QAM NIMO Administration Finasteride 5 mg 02/01/23 21:00 02/01/23 20:22 Finasteride 5 Mg Tablet PO 5 mg BEDTIME NIMO Administration Furosemide 40 mg 02/02/23 06:00 02/02/23 05:52 Furosemide 40 Mg Tablet PO 40 mg QAM NIMO Administration Piperacillin Sod/T azobactam 50 mls @ 12.5 mls /hr 02/02/23 00:00 02/02/23 07:53 Sod 3.375 gm/ So dium Chloride IV 12.5 mls/hr Q8H NIMO Administration Protocol Vancomycin/PEG/NAD A/Lysine/Water 1,250 mg in 250 m ls @ 250 mls/hr 02/01/23 19:00 02/01/23 21:25 Vancocin IV Infused Q24H NIOM Infusion Insulin Human Lisp ro 0 unit 02/01/23 21:00 02/02/23 07:23 Insulin Lispro 1 00 Unit/1 Ml SUBCUT Not Given WM&BEDTIME [facility] Protocol Isosorbide Mononit rate 30 mg 02/02/23 06:00 02/02/23 05:52 Isosorbide [place] itrate Er 30 Mg Ta blet PO 30 mg QAM NIMO Administration Metoprolol Tartrat e 25 mg 02/02/23 09:00 02/02/23 08:00 Metoprolol Tartr ate 25 Mg Tablet PO 25 mg BID [facility] Administration Multivitamins Ther apeutic 1 tab 02/02/23 06:00 02/02/23 05:52 Multivitamin The rapeutic Tablet PO 1 tab QAM [facility] Administration Pantoprazole Sodiu m 40 mg 02/01/23 18:15 02/02/23 05:54 Pantoprazole 40 Mg Sdv IVP 40 mg Q12H NIMO Administration Sodium Chloride 50 ml 02/01/23 17:30 02/01/23 19:55 Sodium Chloride 0.9% 100 Ml Bag IV 02/02/23 17:30 50 ml PRN PRN Administration Blood transfusion prime and flush Sotalol HCl 40 mg 02/02/23 09:00 02/02/23 08:00 Sotalol 80 Mg Ta blet PO 40 mg BID NIMO Administration Tamsulosin HCl 0.4 mg 02/02/23 09:00 02/02/23 08:00 Tamsulosin 0.4 M g Capsule PO 0.4 mg BID NIMO Administration Vitals/I&O/Wt Last Vital Signs Temp 98.2 F 02/02/23 04:00 Pulse 122 H 02/02/23 08:00 Resp 18 02/02/23 08:00 BP 131/67 02/02/23 07:57 Pulse Ox 96 02/02/23 08:00 O2 Del Method Nasal Cannula 02/02/23 08:00 O2 Flow Rate 4 02/02/23 08:00 02/01/23 02/02/23 02/02/23 22:59 06:59 14:59 Intake Total 300 / 300 400 / 700 Output Total 200 / 200 Balance 300 / 300 400 / 700 -200 / -200 Weight last 48 hrs Weight 73.567 kg Weight 76.204 kg Physical Exam Const: COMMON NORMALS: patient oriented x3 HENMT: COMMON NORMALS: normocephalic and atraumatic HEAD & SCALP: normocephalic and atraumatic Resp: COMMON NORMALS: clear to auscultation bilaterally AUSCULTATION: clear to auscultation bilaterally Cardio: COMMON NORMALS: regular rate, regular rhythm, S1 normal heart sound pr esent, S2 normal heart sound present, No gallops present (Cardio), No murmurs present (Cardio), No rub (Cardio) and Peripheral pulses 2+ throughout RATE: regular rate RHYTHM: regular rhythm HEART SOUNDS: S1 normal heart sound present and S2 normal heart sound present PERIPHERAL PULSES: Peripheral pulses 2+ throughout GI: COMMON NORMALS: Normal to inspection, nondistended, normoactive bowel sounds present, Soft to palpation, non-tender, No hepatosplenomegaly present and no masses AUSCULTATION: Yes normoactive bowel sounds PALPATION: Yes Soft to palpation and Yes No hepatosplenomegaly present RECTAL EXAM: Yes deferred Extremity: COMMON NORMALS: no clubbing, cyanosis or edema and no pedal edema Neuro: COMMON NORMALS: patient oriented x3 Data 02/02/23 01:51 02/02/23 01:51 Micro: Microbiology 02/01/23 16:59 Legionella Urinary Antigen - Final Urine,Voided Bacterial Antigens - Final 02/01/23 16:30 Blood Culture - Preliminary Blood SPECIMEN COLLECTED 02/01/23 16:23 Blood Culture - Preliminary Blood SPECIMEN COLLECTED A&P Assessment and plan (1) Anemia: Qualifiers: Anemia type: unspecified type Qualified Code(s): D64.9 - Anemia, unspecified (2) Pneumonia: (3) A-fib: (4) Hypertension: Qualifiers: Hypertension type: essential hypertension Qualified Code(s): I10 - Essential (primary) hypertension (5) Type 2 diabetes mellitus: (6) CKD (chronic kidney disease): Plan 82 year old male with past medical history of hypertension, paroxysmal atrial fibrillation on Xarelto, coronary artery disease s/p PCI, chronic anemia, plan was to do repeat bone marrow biopsy, see Dr. Santos as outpatient, initial anemia work-up has been unremarkable, CKD stage III, he was recently discharged from the hospital after being managed for pneumonia on p.o. antibiotics, According to the patient's shortness of breath never improved, he also completed another round of p.o. antibiotics as outpatient prescribed by the primary care physician, came in today with chief complaint of Worsening shortness of breath, nonproductive cough, fever with chills, diaphoresis, weight loss, of about 60 pounds, in the recent time, generalized weakness fatigue, malaise, lower back pain.He is also complaining of intermittent chest pain at home, possibly with inspiration. Assessment: Pneumonia: CT chest with contrast:No Pulmonary embolism , is showing emphysematous changes with right lower lobe pneumonia. Blood culture: MRSA PCR: Urine Legionella antigen: Negative Bacterial antigen panel: Negative Respiratory viral panel: Negative Currently has been started on broad-spectrum antibiotic Vanco and Zosyn. Given the above complaint,PTB can be a consideration. 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 Last admission FOBT was positive, he is on Xarelto for A-fib, currently on hold. CT abdomen and pelvis without contrast: Continue Protonix 40 IV twice daily Transfuse 1 unit PRBC today, maintain hemoglobin greater than 7 Monitor H&H Currently on clear liquid diets Possible EGD and colonoscopy History of paroxysmal atrial fibrillation: Continue metoprolol and sotalol Currently Xarelto is on hold History of coronary artery disease status post PCI: He is on aspirin and Plavix as outpatient Currently Plavix is on hold CKD: Admission serum creatinine is 1.4 Currently serum creatinine appears to be at baseline Monitor BMP Avoid nephrotoxic's Monitor intake output charting Intermittent chest pain: Troponin trend: 82-81-80 Last 2D echo has shown:Normal left ventricular size, systolic function and increased,wall thickness, with no regional wall motion abnormalities. Left,?ventricular ejection fraction is estimated at 60 %. Grade I,diastolic dysfunction. Follow limited 2D echo: Serial EKG Telemetry monitoring Back pain predominantly lower back: CT thoracic spine CT lumbar spine Tylenol for pain control. CODE STATUS: Full code DVT prophylaxis: On SCDs Attestations Medical Necessity Statement*: Needs to be in hospital for IV antibiotics. Coding Level of Care Code Acute Code for Chg Fwd Diagnoses Anemia D64.9 Anemia type: unspecified type Pneumonia J18.9 A-fib I48.91 Hypertension I10 Hypertension type: essential hypertension Type 2 diabetes mellitus E11.9 CKD (chronic kidney disease) N18.9
--- NOTE | 2023-02-02 12:12 | USCV_ITS ---
Nicolás Menjivar Age: 82 Gender: M : 1940 Exam Date: 02/02/2023 13:53 Ordering Phys: Dragan Ghosh MD Technologist: CT Exam Location: [facility] [place]_ Indication: rwma,ef BP: 123 / 52 HR: 55 Rhythm: Sinus Technical Quality: Adequate MEASUREMENTS (Male / Female) Normal Values 2D ECHO LV Diastolic Diameter PLAX 6.6 cm 4.2 - 5.9 / 3.9 - 5.3 cm LV Systolic Diameter PLAX 5.7 cm LV Chamber Size 5.8 cm IVS Diastolic Thickness 1.1 cm 0.6 - 1.0 / 0.6 - 0.9 cm IVS Systolic Thickness 1.5 cm LVPW Diastolic Thickness 1.4 cm 0.6 - 1.0 / 0.6 - 0.9 cm LVPW Systolic Thickness 2.2 cm RV Chamber Size 5.6 cm LVOT Diameter 2.1 cm LV Ejection Fraction 2D Teich 23.5 % LV Ejection Fraction MOD 2C 35.2 % LV Ejection Fraction 2C AL 35.0 % LA Diameter 4.6 cm LA Width 5.0 cm LA Height 5.4 cm RA Width 4.5 cm RA Height 4.7 cm Aorta at Sinotubular Diameter 2.5 cm M-MODE Aortic Annulus Diameter 4.0 cm LA Ao Ratio MM 1.1 MV E Point Septal Separation 0.8 cm FINDINGS Left Ventricle Normal LV size and ejection fraction of around 55%. Moderate concentric left-ventricular hypertrophy Right Ventricle Postoperative normal size and ejection fraction Right Atrium Possibly of normal size Left Atrium Mildly increased left atrial size. Mitral Valve Moderate mitral annular calcification. Thickened mitral valve. Aortic Valve Moderate aortic valve calcification. Tricuspid Valve No gross abnormalities noted Pulmonic Valve Pulmonic valve not well visualized. Pericardium No pericardial effusion. Aorta Normal aortic annulus size. IVC Inferior vena cava not visualized. CONCLUSIONS Normal LV size and ejection fraction of around 55%. Moderate concentric left-ventricular hypertrophy Mildly increased left atrial size. Moderate mitral annular calcification. Thickened mitral valve. Moderate aortic valve calcification. There is no pericardial effusion. There are no intracardiac masses. Compared to the study from 08/01/2022, there may not be a significant change Because of the arrhythmia, the ejection fraction estimation is somewhat difficult. Dr Kim Locke MD FACC (Electronically Signed) Final Date: 02 Feb 2023 21:20 S
[2023-02-02 17:06] LABS: Glucose Point of Care 144 mg/dL (70-110)
[2023-02-02] MEDS: guaiFENesin 600 mg Tablet 1200 MG PO (17:23)
[2023-02-02] MEDS: insulin lispro 100 unit/1 mL SUBCUT ×2 (17:24→20:45)
[2023-02-02] MEDS: vancomycin 1,250 MG/250 ML PIGGYBACK 250 MG IV (18:04)
[2023-02-02 20:31] LABS: Glucose Point of Care 186 mg/dL (70-110)
[2023-02-02] MEDS: finasteride 5 mg Tablet PO (20:45)
[2023-02-02] MEDS: atorvastatin 40 mg Tablet 20 MG PO (20:45)
[2023-02-02] MEDS: escitalopram 10 mg Tablet 20 MG PO (20:45)
[2023-02-02] MEDS: albuterol 2.5 mg/3 mL Neb INHALATION (20:59)
[2023-02-03] VITALS (13 sets, daily range): BP systolic 121–141; BP diastolic 58–76; PULSE 58–121; RESP 16–26; TEMP 37–38.1; O2SAT 91–97
[2023-02-03] MEDS: piperacillin-tazobactam 3.375 GM in sodium chloride 0.9% (plus) 50 ML IV ×4 (00:02→23:53)
[2023-02-03 05:21] LABS: Eosinophils % 1.1 %; Hematocrit 26.5 % (42.0-52.0); Hemoglobin 8.2 g/dL (11.7-16.6); Lymphocytes # 0.4 10^3/uL (0.8-4.8); Lymphocytes % 10.3 %; Mean Corpuscular HGB Conc 30.9 g/dL (30.0-36.0); Mean Corpuscular Hemoglobin 31.9 pg (28.0-34.0); Mean Corpuscular Volume 103.1 fl (80-94); Mean Platelet Volume 10.3 fL (7.4-10.4); Monocytes # 0.7 10^3/uL (0.2-0.9); Monocytes % 20.1 %; Neutrophils # 2.51 10^3/uL (1.8-7.7); Nucleated Red Blood Cells % 0 %; Platelet Count 398 10^3/cmm (130-400); Red Blood Count 2.57 10^6/uL (4.1-5.3); Red Cell Distribution Width 17.8 % (12.1-15.1); White Blood Count 3.7 10^3/uL (4.0-10.0)
[2023-02-03 05:40] LABS: Anion Gap 16.1 (5-19); Blood Urea Nitrogen 30 mg/dL (8-23); Calcium 8.2 mg/dL (8.5-10.5); Carbon Dioxide 25 mmol/L (22-29); Chloride 98 mmol/L (98-107); Glucose 98 mg/dL (65-115); Osmolality Calculated 288 mOsm/kg (285-295); Potassium 3.1 mmol/L (3.5-5.1); Sodium 136 mmol/L (136-145)
[2023-02-03 05:50] LABS: Slide Review Slide Review Perform
[2023-02-03] MEDS: ferrous sulfate EC 325 mg Tablet PO (06:04)
[2023-02-03] MEDS: aspirin 81 mg EC Tablet PO (06:04)
[2023-02-03] MEDS: FUROsemide 40 mg Tablet PO (06:04)
[2023-02-03] MEDS: multivitamin therapeutic Tablet 1 TAB PO (06:04)
[2023-02-03] MEDS: isosorbide mononitrate ER 30 mg Tablet PO (06:04)
[2023-02-03] MEDS: pantoprazole 40 mg SDV IVP ×2 (06:05→17:37)
[2023-02-03 06:31] LABS: Glucose Point of Care 123 mg/dL (70-110)
[2023-02-03] MEDS: tamsulosin 0.4 mg Capsule PO ×2 (08:24→17:36)
[2023-02-03] MEDS: metoprolol tartrate 25 mg Tablet PO ×2 (08:24→17:36)
[2023-02-03] MEDS: sotalol 80 mg Tablet 40 MG PO ×2 (08:24→17:36)
[2023-02-03] MEDS: guaiFENesin 600 mg Tablet 1200 MG PO ×2 (08:24→17:36)
[2023-02-03] MEDS: ipratropium-albuterol 3 mL Neb INHALATION ×2 (08:49→13:45)
[2023-02-03] MEDS: lidocaine 1% 5 ML in potassium chloride premix 100 ML 26.25 ML IV (09:33)
[2023-02-03 11:24] LABS: Glucose Point of Care 171 mg/dL (70-110)
[2023-02-03] MEDS: insulin lispro 100 unit/1 mL SUBCUT ×2 (12:00→17:35)
--- NOTE | 2023-02-03 15:20 | PM.PN ---
Subjective Subjective: Patient was seen and examined this morning, shortness of breath is improved, left lower quadrant abdominal pain has improved. Medications: Medication Review Details: Generic Name Dose Route Start Last Admin Trade Name Elin PRN Reason Stop Dose Admin Albuterol/Ipratrop ium 3 ml 02/01/23 20:00 02/02/23 08:30 Ipratropium-Albu terol 3 Ml Neb INHALATION 3 ml Q6H.RESP NIMO Administration Aspirin 81 mg 02/02/23 06:00 02/02/23 05:52 Aspirin 81 Mg Ec Tablet PO 81 mg QAM NIMO Administration Atorvastatin Calci um 20 mg 02/01/23 21:00 02/01/23 20:21 Atorvastatin 40 Mg Tablet PO 20 mg BEDTIME NIMO Administration Budesonide 0.5 mg 02/01/23 20:00 02/02/23 08:30 Budesonide 0.5 M g/2 Ml Neb INHALATION 0.5 mg BID.RESPIRATORY P RN Administration SHORTNESS OF AGUILA TH Escitalopram Oxala te 20 mg 02/01/23 21:00 02/01/23 20:22 Escitalopram 10 Mg Tablet PO 20 mg BEDTIME NIMO Administration Ferrous Sulfate 325 mg 02/02/23 06:00 02/02/23 05:52 Ferrous Sulfate Ec 325 Mg Tablet PO 325 mg QAM NIMO Administration Finasteride 5 mg 02/01/23 21:00 02/01/23 20:22 Finasteride 5 Mg Tablet PO 5 mg BEDTIME NIMO Administration Furosemide 40 mg 02/02/23 06:00 02/02/23 05:52 Furosemide 40 Mg Tablet PO 40 mg QAM NIMO Administration Piperacillin Sod/T azobactam 50 mls @ 12.5 mls /hr 02/02/23 00:00 02/02/23 07:53 Sod 3.375 gm/ So dium Chloride IV 12.5 mls/hr Q8H NIMO Administration Protocol Vancomycin/PEG/NAD A/Lysine/Water 1,250 mg in 250 m ls @ 250 mls/hr 02/01/23 19:00 02/01/23 21:25 Vancocin IV Infused Q24H NIMO Infusion Insulin Human Lisp ro 0 unit 02/01/23 21:00 02/02/23 07:23 Insulin Lispro 1 00 Unit/1 Ml SUBCUT Not Given WM&BEDTIME NIMO Protocol Isosorbide Mononit rate 30 mg 02/02/23 06:00 02/02/23 05:52 Isosorbide [place] itrate Er 30 Mg Ta blet PO 30 mg QAM NIMO Administration Metoprolol Tartrat e 25 mg 02/02/23 09:00 02/02/23 08:00 Metoprolol Tartr ate 25 Mg Tablet PO 25 mg BID NIMO Administration Multivitamins Ther apeutic 1 tab 02/02/23 06:00 02/02/23 05:52 Multivitamin The rapeutic Tablet PO 1 tab QAM NIMO Administration Pantoprazole Sodiu m 40 mg 02/01/23 18:15 02/02/23 05:54 Pantoprazole 40 Mg Sdv IVP 40 mg Q12H NIMO Administration Sodium Chloride 50 ml 02/01/23 17:30 02/01/23 19:55 Sodium Chloride 0.9% 100 Ml Bag IV 02/02/23 17:30 50 ml PRN PRN Administration Blood transfusion prime and flush Sotalol HCl 40 mg 02/02/23 09:00 02/02/23 08:00 Sotalol 80 Mg Ta blet PO 40 mg BID NIMO Administration Tamsulosin HCl 0.4 mg 02/02/23 09:00 02/02/23 08:00 Tamsulosin 0.4 M g Capsule PO 0.4 mg BID NIMO Administration Vitals/I&O/Wt Last Vital Signs Temp 98.7 F 02/03/23 09:26 Pulse 103 H 02/03/23 13:47 Resp 16 02/03/23 13:47 BP 121/60 02/03/23 09:22 Pulse Ox 91 02/03/23 13:47 O2 Del Method Nasal Cannula 02/03/23 13:47 O2 Flow Rate 3 02/03/23 13:47 02/03/23 02/03/23 02/03/23 06:59 14:59 22:59 Intake Total 50 / 1280 391 / 391 Output Total 650 / 1700 700 / 700 Balance -600 / -420 -309 / -309 Weight last 48 hrs Weight 77.519 kg Weight 73.567 kg Physical Exam Const: COMMON NORMALS: patient oriented x3 HENMT: COMMON NORMALS: normocephalic and atraumatic HEAD & SCALP: normocephalic and atraumatic Resp: COMMON NORMALS: clear to auscultation bilaterally AUSCULTATION: clear to auscultation bilaterally Cardio: COMMON NORMALS: regular rate, regular rhythm, S1 normal heart sound present, S2 normal heart sound present, No gallops present (Cardio), No murmurs present (Cardio), No rub (Cardio) and Peripheral pulses 2+ throughout RATE: regular rate RHYTHM: regular rhythm HEART SOUNDS: S1 normal heart sound present and S2 normal heart sound present PERIPHERAL PULSES: Peripheral pulses 2+ throughout GI: COMMON NORMALS: Normal to inspection, nondistended, normoactive bowel sounds present, Soft to palpation, non-tender, No hepatosplenomegaly present and no masses AUSCULTATION: Yes normoactive bowel sounds PALPATION: Yes Soft to palpation and Yes No hepatosplenomegaly present RECTAL EXAM: Yes deferred Extremity: COMMON NORMALS: no clubbing, cyanosis or edema and no pedal edema Neuro: COMMON NORMALS: patient oriented x3 Urinary Catheter Management: Coude: Cath Placed During This Visit: yes Reason for Continuing Indwelling Catheter: Acute Urinary Retention or Obstruction Urinary Catheter Date of Insertion: 02/02/23 Urinary Catheter Time of Insertion: 15:35 Data 02/03/23 04:48 02/03/23 04:48 Micro: Microbiology 02/02/23 13:42 Enteric Pathogens (PCR) - Final Stool - Stool Aspirate Parasite Antigen Panel - Final C.difficile Toxin B Gene (PCR) - Final Occult Blood (FIT) - Final 02/01/23 19:30 Gram Stain - Final Sputum - Expectorated Sputum Sputum Culture - Preliminary 02/01/23 16:30 Blood Culture - Preliminary Blood NEGATIVE TO DATE 02/01/23 16:23 Blood Culture - Preliminary Blood NEGATIVE TO DATE 02/01/23 20:30 MRSA Culture - Final Nose A&P Assessment and plan (1) Anemia: Qualifiers: Anemia type: unspecified type Qualified Code(s): D64.9 - Anemia, unspecified (2) Pneumonia: (3) A-fib: (4) Hypertension: Qualifiers: Hypertension type: essential hypertension Qualified Code(s): I10 - Essential (primary) hypertension (5) Type 2 diabetes mellitus: (6) CKD (chronic kidney disease): Plan 82 year old male with past medical history of hypertension, paroxysmal atrial fibrillation on Xarelto, coronary artery disease s/p PCI, chronic anemia, plan was to do repeat bone marrow biopsy, see Dr. Santos as outpatient, initial anemia work-up has been unremarkable, CKD stage III, he was recently discharged from the hospital after being managed for pneumonia on p.o. antibiotics, According to the patient's shortness of breath never improved, he also completed another round of p.o. antibiotics as outpatient prescribed by the primary care physician, came in today with chief complaint of Worsening shortness of breath, nonproductive cough, fever with chills, diaphoresis, weight loss, of about 60 pounds, in the recent time, generalized weakness fatigue, malaise, lower back pain.He is also complaining of intermittent chest pain at home, possibly with inspiration. Assessment: Pneumonia: CT chest with contrast:No Pulmonary embolism , is showing emphysematous changes with right lower lobe pneumonia. Blood culture:NTD Sputum Gram stain and culture: Rare gram-positive cocci in pairs MRSA PCR: Negative Urine Legionella antigen: Negative Bacterial antigen panel: Negative Respiratory viral panel: Negative Currently has been started on broad-spectrum antibiotic Vanco and Zosyn. Given the above complaint,PTB can be a consideration. 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 Last admission FOBT was positive, repeat FOBT is positive. He is on Xarelto for A-fib, currently on hold. CT abdomen and pelvis without contrast:Minimal thickening of the sigmoid colon LEFT lower quadrant with slight induration can be seen with mild or early acute diverticulitis. Continue Protonix 40 IV twice daily Transfuse 1 unit PRBC today, maintain hemoglobin greater than 7 Monitor H&H: Currently on regular diet. Possible EGD and colonoscopy either inpatient or outpatient History of paroxysmal atrial fibrillation: Continue metoprolol and sotalol Currently Xarelto is on hold, current plan is to resume Xarelto from morning, monitor H&H, risk and benefit of resuming anticoagulation has been explained to the patient, and currently he is agreeable, to resume, Xarelto. We will closely monitor and H&H, continue with Protonix.If the H&H drops again patient will need EGD as well as colonoscopy. History of coronary artery disease status post PCI: He is on aspirin and Plavix as outpatient Currently Plavix is on hold CKD: Admission serum creatinine is 1.4 Currently serum creatinine appears to be at baseline Monitor BMP Avoid nephrotoxic's Monitor intake output charting Intermittent chest pain: Troponin trend: 82-81-80 Last 2D echo has shown:Normal left ventricular size, systolic function and increased,wall thickness, with no regional wall motion abnormalities. Left,?ventricular ejection fraction is estimated at 60 %. Grade I,diastolic dysfunction. Repeat limited 2D echo:Normal LV size and ejection fraction of around 55%.?Moderate concentric left-ventricular hypertrophy Mildly increased left atrial size.Moderate mitral annular calcification. Thickened mitral valve.Moderate aortic valve calcification. Serial EKG: Telemetry monitoring Back pain predominantly lower back: CT thoracic spine:? No acute thoracic spine findings CT lumbar spine: Moderate to advanced spondylitic changes with grade 1 anterolisthesis L4 on L5. No acute compression fractures.Mild central canal stenosis L1-L2 and L2-L3. Moderate central canal stenosis L3-L4 and L4-L5. Mild central canal stenosis L5-S1. Advanced facet arthropathy L2-L3, L3-L4, L4-L5, and L5-S1. Tylenol for pain control. Acute urinary retention: Status post Baires catheter placement. CT abdomen and pelvis has shown:Markedly enlarged prostate measuring 6.8 cm. Continue Flomax. Voiding trial prior to discharge. Mild or early acute diverticulitis: CT abdomen and pelvis report appreciated. Currently appropriately covered with broad-spectrum antibiotics We will plan to discharge on p.o. antibiotics to complete the course for acute diverticulitis. CODE STATUS: Full code DVT prophylaxis: On SCDs Attestations Medical Necessity Statement*: Patient is in hospital for IV antibiotics. Coding Level of Care Code Acute Code for g Fwd Diagnoses Anemia D64.9 Anemia type: unspecified type Pneumonia J18.9 A-fib I48.91 Hypertension I10 Hypertension type: essential hypertension Type 2 diabetes mellitus E11.9 CKD (chronic kidney disease) N18.9
[2023-02-03 17:04] LABS: Glucose Point of Care 224 mg/dL (70-110)
[2023-02-03] MEDS: vancomycin 1,250 MG/250 ML PIGGYBACK 250 MG IV (19:46)
[2023-02-03] MEDS: levalbuterol 1.25 mg/3 mL Neb INHALATION (20:50)
[2023-02-03] MEDS: ipratropium 0.5 mg/2.5 mL Neb INHALATION (20:50)
[2023-02-03] MEDS: escitalopram 10 mg Tablet 20 MG PO (21:01)
[2023-02-03] MEDS: finasteride 5 mg Tablet PO (21:01)
[2023-02-03] MEDS: atorvastatin 40 mg Tablet 20 MG PO (21:01)
[2023-02-03 21:06] LABS: Glucose Point of Care 170 mg/dL (70-110)
[2023-02-03] MEDS: promethazine-dm 6.25-15 mg/5 mL SYRUP (5 mL UD) PO (21:13)
[2023-02-04] VITALS (9 sets, daily range): BP systolic 107–138; BP diastolic 59–77; PULSE 60–118; RESP 16–29; TEMP 36.7–37.2; O2SAT 94–97; BMI 21.3
[2023-02-04 04:04] LABS: Eosinophils # 0.1 10^3/uL (0.0-0.8); Eosinophils % 1.8 %; Hematocrit 24.7 % (42.0-52.0); Hemoglobin 7.7 g/dL (11.7-16.6); Lymphocytes # 0.4 10^3/uL (0.8-4.8); Lymphocytes % 13.4 %; Mean Corpuscular HGB Conc 31.2 g/dL (30.0-36.0); Mean Corpuscular Hemoglobin 32.6 pg (28.0-34.0); Mean Corpuscular Volume 104.7 fl (80-94); Mean Platelet Volume 10.4 fL (7.4-10.4); Monocytes # 0.7 10^3/uL (0.2-0.9); Monocytes % 25.8 %; Neutrophils # 1.66 10^3/uL (1.8-7.7); Neutrophils % 58.6 %; Nucleated Red Blood Cells % 0 %; Platelet Count 338 10^3/cmm (130-400); Red Blood Count 2.36 10^6/uL (4.1-5.3); Red Cell Distribution Width 17.2 % (12.1-15.1); White Blood Count 2.8 10^3/uL (4.0-10.0)
[2023-02-04 04:24] LABS: Anion Gap 14.2 (5-19); Blood Urea Nitrogen 24 mg/dL (8-23); Calcium 7.5 mg/dL (8.5-10.5); Carbon Dioxide 25 mmol/L (22-29); Chloride 97 mmol/L (98-107); Glucose 132 mg/dL (65-115); Osmolality Calculated 282 mOsm/kg (285-295); Potassium 3.2 mmol/L (3.5-5.1); Sodium 133 mmol/L (136-145)
[2023-02-04] MEDS: rivaroxaban 10 mg Tablet 20 MG PO (05:44)
[2023-02-04] MEDS: isosorbide mononitrate ER 30 mg Tablet PO (05:45)
[2023-02-04] MEDS: FUROsemide 40 mg Tablet PO (05:45)
[2023-02-04] MEDS: aspirin 81 mg EC Tablet PO (05:45)
[2023-02-04] MEDS: ferrous sulfate EC 325 mg Tablet PO (05:45)
[2023-02-04 05:46] LABS: Glucose Point of Care 160 mg/dL (70-110)
[2023-02-04] MEDS: multivitamin therapeutic Tablet 1 TAB PO (05:47)
[2023-02-04] MEDS: pantoprazole 40 mg SDV IVP ×2 (05:47→18:02)
[2023-02-04] MEDS: guaiFENesin 600 mg Tablet 1200 MG PO ×2 (08:21→18:03)
[2023-02-04] MEDS: tamsulosin 0.4 mg Capsule PO ×2 (08:21→18:02)
[2023-02-04] MEDS: sotalol 80 mg Tablet 40 MG PO ×2 (08:24→18:03)
[2023-02-04] MEDS: metoprolol tartrate 25 mg Tablet PO ×2 (08:25→18:03)
[2023-02-04] MEDS: piperacillin-tazobactam 3.375 GM in sodium chloride 0.9% (plus) 50 ML IV ×2 (08:25→15:51)
[2023-02-04] MEDS: insulin lispro 100 unit/1 mL SUBCUT ×4 (08:26→21:47)
[2023-02-04] MEDS: levalbuterol 1.25 mg/3 mL Neb INHALATION ×3 (08:55→20:50)
[2023-02-04] MEDS: ipratropium 0.5 mg/2.5 mL Neb INHALATION ×2 (08:55→20:36)
--- NOTE | 2023-02-04 09:11 | PC.SOCIAL ---
IMM update IMM updated with patient. Verbalized an understanding. Copy Pg 2 provided. Initialled, dated, timed, and placed in chart.
[2023-02-04] MEDS: lidocaine 1% 5 ML in potassium chloride premix 100 ML 26.25 ML IV (09:44)
[2023-02-04 11:48] LABS: Glucose Point of Care 195 mg/dL (70-110)
[2023-02-04] MEDS: albuterol 2.5 mg/3 mL Neb INHALATION (14:31)
[2023-02-04 16:32] LABS: Glucose Point of Care 150 mg/dL (70-110)
--- NOTE | 2023-02-04 16:36 | PM.PN ---
Subjective Subjective: Patient was seen and examined this morning, unfortunately hemoglobin has dropped again to 7.7, patient participated in physical therapy yesterday, has good appetite. Medications: Medication Review Details: Generic Name Dose Route Start Last Admin Trade Name Elin PRN Reason Stop Dose Admin Albuterol Sulfate 2.5 mg 02/01/23 20:00 02/04/23 14:31 Albuterol 2.5 Mg /3 Ml Neb INHALATION 2.5 mg QID.RESPIRATORY P RN Administration SHORTNESS OF AGUILA TH Aspirin 81 mg 02/02/23 06:00 02/04/23 05:45 Aspirin 81 Mg Ec Tablet PO 81 mg QAM NIMO Administration Atorvastatin Calci um 20 mg 02/01/23 21:00 02/03/23 21:01 Atorvastatin 40 Mg Tablet PO 20 mg BEDTIME NIMO Administration Budesonide 0.5 mg 02/01/23 20:00 02/02/23 08:30 Budesonide 0.5 M g/2 Ml Neb INHALATION 0.5 mg BID.RESPIRATORY P RN Administration SHORTNESS OF AGUILA TH Escitalopram Oxala te 20 mg 02/01/23 21:00 02/03/23 21:01 Escitalopram 10 Mg Tablet PO 20 mg BEDTIME NIMO Administration Ferrous Sulfate 325 mg 02/02/23 06:00 02/04/23 05:45 Ferrous Sulfate Ec 325 Mg Tablet PO 325 mg QAM NIMO Administration Finasteride 5 mg 02/01/23 21:00 02/03/23 21:01 Finasteride 5 Mg Tablet PO 5 mg BEDTIME NIMO Administration Furosemide 40 mg 02/02/23 06:00 02/04/23 05:45 Furosemide 40 Mg Tablet PO 40 mg QAM NIMO Administration Guaifenesin 1,200 mg 02/02/23 18:00 02/04/23 08:21 Guaifenesin 600 Mg Tablet PO 1,200 mg BID NIMO Administration Piperacillin Sod/T azobactam 50 mls @ 12.5 mls /hr 02/02/23 00:00 02/04/23 15:51 Sod 3.375 gm/ So dium Chloride IV 12.5 mls/hr Q8H NIMO Administration Protocol Vancomycin/PEG/NAD A/Lysine/Water 1,250 mg in 250 m ls @ 250 mls/hr 02/01/23 19:00 02/03/23 21:00 Vancocin IV Infused Q24H NIMO Infusion Insulin Human Lisp ro 0 unit 02/01/23 21:00 02/04/23 12:15 Insulin Lispro 1 00 Unit/1 Ml SUBCUT 4 unit WM&BEDTIME NIMO Administration Protocol Ipratropium Bromid e 0.5 mg 02/03/23 20:00 02/04/23 08:55 Ipratropium 0.5 Mg/2.5 Ml Neb INHALATION 0.5 mg Q6H.RESP NIMO Administration Isosorbide Mononit rate 30 mg 02/02/23 06:00 02/04/23 05:45 Isosorbide [place] itrate Er 30 Mg Ta blet PO 30 mg QAM NIMO Administration Levalbuterol HCl 1.25 mg 02/03/23 20:00 02/04/23 14:31 Levalbuterol 1.2 5 Mg/3 Ml Neb INHALATION 1.25 mg Q6H.RESP NIMO Administration Metoprolol Tartrat e 25 mg 02/02/23 09:00 02/04/23 08:25 Metoprolol Tartr ate 25 Mg Tablet PO 25 mg BID NIMO Administration Multivitamins Ther apeutic 1 tab 02/02/23 06:00 02/04/23 05:47 Multivitamin The rapeutic Tablet PO 1 tab QAM INMO Administration Pantoprazole Sodiu m 40 mg 02/01/23 18:15 02/04/23 05:47 Pantoprazole 40 Mg Sdv IVP 40 mg Q12H NIMO Administration Promethazine HCl/D extromethorphan 5 ml 02/01/23 18:02 02/03/23 21:13 Promethazine-Dm 6.25-15 Mg/5 Ml Sy rup (5 Ml Ud) PO 5 ml Q6H PRN Administration cough Rivaroxaban 20 mg 02/04/23 06:00 02/04/23 05:44 Rivaroxaban 10 M g Tablet PO 20 mg QAM NIMO Administration Sotalol HCl 40 mg 02/02/23 09:00 02/04/23 08:24 Sotalol 80 Mg Ta blet PO 40 mg BID NIMO Administration Tamsulosin HCl 0.4 mg 02/02/23 09:00 02/04/23 08:21 Tamsulosin 0.4 M g Capsule PO 0.4 mg BID NIMO Administration Vitals/I&O/Wt Last Vital Signs Temp 98.0 F 02/04/23 11:39 Pulse 72 02/04/23 14:00 Resp 16 02/04/23 14:00 BP 125/63 02/04/23 11:39 Pulse Ox 96 02/04/23 14:00 O2 Del Method Nasal Cannula 02/04/23 14:00 O2 Flow Rate 3 02/04/23 14:00 02/04/23 02/04/23 02/04/23 06:59 14:59 22:59 Intake Total 50 / 1601 650 / 650 Output Total 760 / 2240 1450 / 1450 Balance -710 / -639 -800 / -800 Weight last 48 hrs Weight 75.495 kg Weight 77.519 kg Physical Exam Const: COMMON NORMALS: patient oriented x3 HENMT: COMMON NORMALS: normocephalic and atraumatic HEAD & SCALP: normocephalic and atraumatic Resp: COMMON NORMALS: clear to auscultation bilaterally AUSCULTATION: clear to auscultation bilaterally Cardio: COMMON NORMALS: regular rate, regular rhythm, S1 normal heart sound present, S2 normal heart sound present, No gallops present (Cardio), No murmurs present (Cardio), No rub (Cardio) and Peripheral pulses 2+ throughout RATE: regular rate RHYTHM: regular rhythm HEART SOUNDS: S1 normal heart sound present and S2 normal heart sound present PERIPHERAL PULSES: Peripheral pulses 2+ throughout GI: COMMON NORMALS: Normal to inspection, nondistended, normoactive bowel sounds present, Soft to palpation, non-tender, No hepatosplenomegaly present and no masses AUSCULTATION: Yes normoactive bowel sounds PALPATION: Yes Soft to palpation and Yes No hepatosplenomegaly present RECTAL EXAM: Yes deferred Extremity: COMMON NORMALS: no clubbing, cyanosis or edema and no pedal edema Neuro: COMMON NORMALS: patient oriented x3 Urinary Catheter Management: Coude: Cath Placed During This Visit: yes Reason for Continuing Indwelling Catheter: Accurate Measurement of Urinary Output in Critically Ill Patients Urinary Catheter Date of Insertion: 02/02/23 Urinary Catheter Time of Insertion: 15:35 Data 02/04/23 03:43 02/04/23 03:43 Micro: Microbiology 02/01/23 19:30 Gram Stain - Final Sputum - Expectorated Sputum Sputum Culture - Final 02/02/23 13:42 Enteric Pathogens (PCR) - Final Stool - Stool Aspirate Parasite Antigen Panel - Final C.difficile Toxin B Gene (PCR) - Final Occult Blood (FIT) - Final A&P Assessment and plan (1) Anemia: Qualifiers: Anemia type: unspecified type Qualified Code(s): D64.9 - Anemia, unspecified (2) Pneumonia: (3) A-fib: (4) Hypertension: Qualifiers: Hypertension type: essential hypertension Qualified Code(s): I10 - Essential (primary) hypertension (5) Type 2 diabetes mellitus: (6) CKD (chronic kidney disease): Plan 82 year old male with past medical history of hypertension, paroxysmal atrial fibrillation on Xarelto, coronary artery disease s/p PCI, chronic anemia, plan was to do repeat bone marrow biopsy, see Dr. Santos as outpatient, initial anemia work-up has been unremarkable, CKD stage III, he was recently discharged from the hospital after being managed for pneumonia on p.o. antibiotics, According to the patient's shortness of breath never improved, he also completed another round of p.o. antibiotics as outpatient prescribed by the primary care physician, came in today with chief complaint of Worsening shortness of breath, nonproductive cough, fever with chills, diaphoresis, weight loss, of about 60 pounds, in the recent time, generalized weakness fatigue, malaise, lower back pain.He is also complaining of intermittent chest pain at home, possibly with inspiration. Assessment: Pneumonia: CT chest with contrast:No Pulmonary embolism , is showing emphysematous changes with right lower lobe pneumonia. Blood culture:NTD Sputum Gram stain and culture: Rare gram-positive cocci in pairs MRSA PCR: Negative Urine Legionella antigen: Negative Bacterial antigen panel: Negative Respiratory viral panel: Negative Currently has been started on broad-spectrum antibiotic Vanco and Zosyn. Given the above complaint,PTB can be a consideration. Anemia: Patient had an extensive anemia work-up as outpatient by carding machine operator, currently he is due for repeat bone marrow biopsy. Last admission FOBT was positive, repeat FOBT is positive. He is on Xarelto for A-fib, currently on hold. CT abdomen and pelvis without contrast:Minimal thickening of the sigmoid colon LEFT lower quadrant with slight induration can be seen with mild or early acute diverticulitis. Continue Protonix 40 IV twice daily Transfuse 1 unit PRBC today, maintain hemoglobin greater than 7 Monitor H&H: Currently on regular diet. Possible EGD and colonoscopy either inpatient or outpatient History of paroxysmal atrial fibrillation: Continue metoprolol and sotalol Currently Xarelto is on hold, current plan is to resume Xarelto from morning, monitor H&H, risk and benefit of resuming anticoagulation has been explained to the patient, and currently he is agreeable, to resume, Xarelto. We will closely monitor and H&H, continue with Protonix.If the H&H drops again patient will need EGD as well as colonoscopy. History of coronary artery disease status post PCI: He is on aspirin and Plavix as outpatient Currently Plavix is on hold CKD: Admission serum creatinine is 1.4 Currently serum creatinine appears to be at baseline Monitor BMP Avoid nephrotoxic's Monitor intake output charting Intermittent chest pain: Troponin trend: 82-81-80 Last 2D echo has shown:Normal left ventricular size, systolic function and increased,wall thickness, with no regional wall motion abnormalities. Left,?ventricular ejection fraction is estimated at 60 %. Grade I,diastolic dysfunction. Repeat limited 2D echo:Normal LV size and ejection fraction of around 55%.?Moderate concentric left-ventricular hypertrophy Mildly increased left atrial size.Moderate mitral annular calcification. Thickened mitral valve.Moderate aortic valve calcification. Serial EKG: Telemetry monitoring Back pain predominantly lower back: CT thoracic spine:? No acute thoracic spine findings CT lumbar spine: Moderate to advanced spondylitic changes with grade 1 anterolisthesis L4 on L5. No acute compression fractures.Mild central canal stenosis L1-L2 and L2-L3. Moderate central canal stenosis L3-L4 and L4-L5. Mild central canal stenosis L5-S1. Advanced facet arthropathy L2-L3, L3-L4, L4-L5, and L5-S1. Tylenol for pain control. Acute urinary retention: Status post Baires catheter placement. CT abdomen and pelvis has shown:Markedly enlarged prostate measuring 6.8 cm. Continue Flomax. Voiding trial prior to discharge. Mild or early acute diverticulitis: CT abdomen and pelvis report appreciated. Currently appropriately covered with broad-spectrum antibiotics We will plan to discharge on p.o. antibiotics to complete the course for acute diverticulitis. CODE STATUS: Full code DVT prophylaxis: On SCDs Attestations Medical Necessity Statement*: Is still in hospital for IV antibiotic, monitoring of H&H. Coding Level of Care Code Acute Code for Chg Fwd Diagnoses Anemia D64.9 Anemia type: unspecified type Pneumonia J18.9 A-fib I48.91 Hypertension I10 Hypertension type: essential hypertension Type 2 diabetes mellitus E11.9 CKD (chronic kidney disease) N18.9
[2023-02-04 18:57] LABS: Vancomycin Trough 13.4 ug/mL (10-15)
[2023-02-04] MEDS: vancomycin 1,250 MG/250 ML PIGGYBACK 250 MG IV (19:02)
[2023-02-04] MEDS: escitalopram 10 mg Tablet 20 MG PO (20:10)
[2023-02-04] MEDS: finasteride 5 mg Tablet PO (20:10)
[2023-02-04] MEDS: atorvastatin 40 mg Tablet 20 MG PO (20:10)
[2023-02-04 21:20] LABS: Glucose Point of Care 240 mg/dL (70-110)
[2023-02-05] VITALS (14 sets, daily range): BP systolic 129–151; BP diastolic 65–93; PULSE 55–98; RESP 18–26; TEMP 36.8–37.4; O2SAT 90–96
[2023-02-05] MEDS: piperacillin-tazobactam 3.375 GM in sodium chloride 0.9% (plus) 50 ML IV ×3 (00:16→15:54)
[2023-02-05] MEDS: ipratropium 0.5 mg/2.5 mL Neb INHALATION ×4 (02:48→20:47)
[2023-02-05 04:24] LABS: Basophils % 0.4 %; Eosinophils # 0.1 10^3/uL (0.0-0.8); Eosinophils % 2.2 %; Hemoglobin 7.8 g/dL (11.7-16.6); Lymphocytes # 0.4 10^3/uL (0.8-4.8); Lymphocytes % 15.8 %; Mean Corpuscular HGB Conc 31.2 g/dL (30.0-36.0); Mean Corpuscular Hemoglobin 32.2 pg (28.0-34.0); Mean Corpuscular Volume 103.3 fl (80-94); Mean Platelet Volume 10.7 fL (7.4-10.4); Monocytes # 0.7 10^3/uL (0.2-0.9); Monocytes % 24.5 %; Neutrophils # 1.57 10^3/uL (1.8-7.7); Neutrophils % 56.4 %; Nucleated Red Blood Cells % 0 %; Platelet Count 320 10^3/cmm (130-400); Red Blood Count 2.42 10^6/uL (4.1-5.3); White Blood Count 2.8 10^3/uL (4.0-10.0)
[2023-02-05 04:46] LABS: Anion Gap 16.3 (5-19); Blood Urea Nitrogen 23 mg/dL (8-23); Calcium 7.9 mg/dL (8.5-10.5); Carbon Dioxide 23 mmol/L (22-29); Chloride 97 mmol/L (98-107); Glucose 84 mg/dL (65-115); Osmolality Calculated 279 mOsm/kg (285-295); Potassium 3.3 mmol/L (3.5-5.1); Sodium 133 mmol/L (136-145)
[2023-02-05] MEDS: pantoprazole 40 mg SDV IVP (05:43)
[2023-02-05] MEDS: aspirin 81 mg EC Tablet PO (05:43)
[2023-02-05] MEDS: multivitamin therapeutic Tablet 1 TAB PO (05:43)
[2023-02-05] MEDS: isosorbide mononitrate ER 30 mg Tablet PO (05:43)
[2023-02-05] MEDS: FUROsemide 40 mg Tablet PO (05:44)
[2023-02-05] MEDS: ferrous sulfate EC 325 mg Tablet PO (05:44)
[2023-02-05 06:24] LABS: Glucose Point of Care 121 mg/dL (70-110)
[2023-02-05] MEDS: tamsulosin 0.4 mg Capsule PO ×2 (09:09→17:30)
[2023-02-05] MEDS: rivaroxaban 10 mg Tablet 20 MG PO (09:09)
[2023-02-05] MEDS: potassium chloride ER 20 mEq Tablet 40 MEQ PO (09:09)
[2023-02-05] MEDS: guaiFENesin 600 mg Tablet 1200 MG PO ×2 (09:10→17:30)
[2023-02-05] MEDS: sotalol 80 mg Tablet 40 MG PO ×2 (09:10→17:30)
[2023-02-05] MEDS: metoprolol tartrate 25 mg Tablet PO ×2 (09:10→17:30)
[2023-02-05] MEDS: lidocaine 1% 5 ML in potassium chloride premix 100 ML 52.5 ML IV (09:23)
[2023-02-05] MEDS: budesonide 0.5 mg/2 mL Neb INHALATION (09:36)
[2023-02-05] MEDS: levalbuterol 1.25 mg/3 mL Neb INHALATION ×3 (09:36→20:48)
[2023-02-05 11:21] LABS: Glucose Point of Care 176 mg/dL (70-110)
[2023-02-05] MEDS: insulin lispro 100 unit/1 mL SUBCUT ×3 (11:58→21:41)
--- NOTE | 2023-02-05 15:57 | P.PN_ITS ---
Subjective Subjective: Patient was seen and examined this morning, currently H&H is remained stable at 7.8 and 25.Xarelto has been continued. Medications: Medication Review Details: Generic Name Dose Route Start Last Admin Trade Name Elin PRN Reason Stop Dose Admin Albuterol Sulfate 2.5 mg 02/01/23 20:00 02/04/23 14:31 Albuterol 2.5 Mg /3 Ml Neb INHALATION 2.5 mg QID.RESPIRATORY P RN Administration SHORTNESS OF AGUILA TH Aspirin 81 mg 02/02/23 06:00 02/05/23 05:43 Aspirin 81 Mg Ec Tablet PO 81 mg QAM NIMO Administration Atorvastatin Calci um 20 mg 02/01/23 21:00 02/04/23 20:10 Atorvastatin 40 Mg Tablet PO 20 mg BEDTIME NIMO Administration Budesonide 0.5 mg 02/01/23 20:00 02/05/23 09:36 Budesonide 0.5 M g/2 Ml Neb INHALATION 0.5 mg BID.RESPIRATORY P RN Administration SHORTNESS OF AGUILA TH Escitalopram Oxala te 20 mg 02/01/23 21:00 02/04/23 20:10 Escitalopram 10 Mg Tablet PO 20 mg BEDTIME NIMO Administration Ferrous Sulfate 325 mg 02/02/23 06:00 02/05/23 05:44 Ferrous Sulfate Ec 325 Mg Tablet PO 325 mg QAM NIMO Administration Finasteride 5 mg 02/01/23 21:00 02/04/23 20:10 Finasteride 5 Mg Tablet PO 5 mg BEDTIME NIMO Administration Furosemide 40 mg 02/02/23 06:00 02/05/23 05:44 Furosemide 40 Mg Tablet PO 40 mg QAM NIMO Administration Guaifenesin 1,200 mg 02/02/23 18:00 02/05/23 09:10 Guaifenesin 600 Mg Tablet PO 1,200 mg BID NIMO Administration Piperacillin Sod/T azobactam 50 mls @ 12.5 mls /hr 02/02/23 00:00 02/05/23 15:54 Sod 3.375 gm/ So dium Chloride IV 12.5 mls/hr Q8H NIMO Administration Protocol Vancomycin/PEG/NAD A/Lysine/Water 1,250 mg in 250 m ls @ 250 mls/hr 02/01/23 19:00 02/04/23 20:49 Vancocin IV Infused Q24H NIMO Infusion Insulin Human Lisp ro 0 unit 02/01/23 21:00 02/05/23 11:58 Insulin Lispro 1 00 Unit/1 Ml SUBCUT 2 unit WM&BEDTIME NIMO Administration Protocol Ipratropium Bromid e 0.5 mg 02/03/23 20:00 02/05/23 14:13 Ipratropium 0.5 Mg/2.5 Ml Neb INHALATION 0.5 mg Q6H.RESP NIMO Administration Isosorbide Mononit rate 30 mg 02/02/23 06:00 02/05/23 05:43 Isosorbide [place] itrate Er 30 Mg Ta blet PO 30 mg QAM NIMO Administration Levalbuterol HCl 1.25 mg 02/03/23 20:00 02/05/23 14:13 Levalbuterol 1.2 5 Mg/3 Ml Neb INHALATION 1.25 mg Q6H.RESP NIMO Administration Metoprolol Tartrat e 25 mg 02/02/23 09:00 02/05/23 09:10 Metoprolol Tartr ate 25 Mg Tablet PO 25 mg BID NIMO Administration Multivitamins Ther apeutic 1 tab 02/02/23 06:00 02/05/23 05:43 Multivitamin The rapeutic Tablet PO 1 tab QAM NIMO Administration Pantoprazole Sodiu m 40 mg 02/01/23 18:15 02/05/23 05:43 Pantoprazole 40 Mg Sdv IVP 40 mg Q12H NIMO Administration Potassium Chloride 40 meq 02/05/23 09:00 02/05/23 09:09 Potassium Chlori de Er 20 Meq Table t PO 40 meq DAILY NIMO Administration Promethazine HCl/D extromethorphan 5 ml 02/01/23 18:02 02/03/23 21:13 Promethazine-Dm 6.25-15 Mg/5 Ml Sy rup (5 Ml Ud) PO 5 ml Q6H PRN Administration cough Rivaroxaban 20 mg 02/05/23 09:00 02/05/23 09:09 Rivaroxaban 10 M g Tablet PO 20 mg DAILY NIMO Administration Sotalol HCl 40 mg 02/02/23 09:00 02/05/23 09:10 Sotalol 80 Mg Ta blet PO 40 mg BID NIMO Administration Tamsulosin HCl 0.4 mg 02/02/23 09:00 02/05/23 09:09 Tamsulosin 0.4 M g Capsule PO 0.4 mg BID NIMO Administration Vitals/I&O/Wt Last Vital Signs Temp 99.3 F 02/05/23 12:00 Pulse 73 02/05/23 14:14 Resp 24 H 02/05/23 14:14 BP 130/93 02/05/23 12:00 Pulse Ox 94 02/05/23 14:14 O2 Del Method Nasal Cannula 02/05/23 14:14 O2 Flow Rate 2.5 02/05/23 14:14 02/05/23 02/05/23 02/05/23 06:59 14:59 22:59 Intake Total 590 / 2125 755 / 755 Output Total 950 / 2850 1400 / 1400 Balance -360 / -725 -645 / -645 Weight last 48 hrs Weight 77.655 kg Weight 75.495 kg Physical Exam Const: COMMON NORMALS: patient oriented x3 HENMT: COMMON NORMALS: normocephalic and atraumatic HEAD & SCALP: normocephalic and atraumatic Resp: COMMON NORMALS: clear to auscultation bilaterally AUSCULTATION: clear to auscultation bilaterally Cardio: COMMON NORMALS: regular rate, regular rhythm, S1 normal heart sound present, S2 normal heart sound present, No gallops present (Cardio), No murmurs present (Cardio), No rub (Cardio) and Peripheral pulses 2+ throughout RATE: regular rate RHYTHM: regular rhythm HEART SOUNDS: S1 normal heart sound present and S2 normal heart sound present PERIPHERAL PULSES: Peripheral pulses 2+ throughout GI: COMMON NORMALS: Normal to inspection, nondistended, normoactive bowel sounds present, Soft to palpation, non-tender, No hepatosplenomegaly present and no masses AUSCULTATION: Yes normoactive bowel sounds PALPATION: Yes Soft to palpation and Yes No hepatosplenomegaly present RECTAL EXAM: Yes deferred Extremity: COMMON NORMALS: no clubbing, cyanosis or edema and no pedal edema Neuro: COMMON NORMALS: patient oriented x3 Urinary Catheter Management: Coude: Cath Placed During This Visit: yes Reason for Continuing Indwelling Catheter: Accurate Measurement of Urinary Output in Critically Ill Patients Urinary Catheter Date of Insertion: 02/02/23 Urinary Catheter Time of Insertion: 15:35 Data 02/05/23 03:42 02/05/23 03:42 Micro: Microbiology 02/01/23 19:30 Gram Stain - Final Sputum - Expectorated Sputum Sputum Culture - Final A&P Assessment and plan (1) Anemia: Qualifiers: Anemia type: unspecified type Qualified Code(s): D64.9 - Anemia, unspecified (2) Pneumonia: (3) A-fib: (4) Hypertension: Qualifiers: Hypertension type: essential hypertension Qualified Code(s): I10 - Essential (primary) hypertension (5) Type 2 diabetes mellitus: (6) CKD (chronic kidney disease): Plan 82 year old male with past medical history of hypertension, paroxysmal atrial fibrillation on Xarelto, coronary artery disease s/p PCI, chronic anemia, plan was to do repeat bone marrow biopsy, see Dr. Santos as outpatient, initial anemia work-up has been unremarkable, CKD stage III, he was recently discharged from the hospital after being managed for pneumonia on p.o. antibiotics, According to the patient's shortness of breath never improved, he also completed another round of p.o. antibiotics as outpatient prescribed by the primary care physician, came in today with chief complaint of Worsening shortness of breath, nonproductive cough, fever with chills, diaph oresis, weight loss, of about 60 pounds, in the recent time, generalized weakness fatigue, malaise, lower back pain.He is also complaining of intermittent chest pain at home, possibly with inspiration. Assessment: Pneumonia: CT chest with contrast:No Pulmonary embolism , is showing emphysematous changes with right lower lobe pneumonia. Blood culture:NTD Sputum Gram stain and culture: Rare gram-positive cocci in pairs MRSA PCR: Negative Urine Legionella antigen: Negative Bacterial antigen panel: Negative Respiratory viral panel: Negative Currently has been started on broad-spectrum antibiotic Vanco and Zosyn. Given the above complaint,PTB can be a consideration. Anemia: Patient had an extensive anemia work-up as outpatient by lead clinical research coordinator, currently he is due for repeat bone marrow biopsy. Last admission FOBT was positive, repeat FOBT is positive. He is on Xarelto for A-fib, currently on hold. CT abdomen and pelvis without contrast:Minimal thickening of the sigmoid colon LEFT lower quadrant with slight induration can be seen with mild or early acute diverticulitis. Continue Protonix 40 IV twice daily Transfuse 1 unit PRBC today, maintain hemoglobin greater than 7 Monitor H&H: Currently on regular diet. Possible EGD and colonoscopy either inpatient or outpatient History of paroxysmal atrial fibrillation: Continue metoprolol and sotalol Currently Xarelto is on hold, current plan is to resume Xarelto from morning, monitor H&H, risk and benefit of resuming anticoagulation has been explained to the patient, and currently he is agreeable, to resume, Xarelto. We will closely monitor and H&H, continue with Protonix.If the H&H drops again patient will need EGD as well as colonoscopy. History of coronary artery disease status post PCI: He is on aspirin and Plavix as outpatient Currently Plavix is on hold CKD: Admission serum creatinine is 1.4 Currently serum creatinine appears to be at baseline Monitor BMP Avoid nephrotoxic's Monitor intake output charting Intermittent chest pain: Troponin trend: 82-81-80 Last 2D echo has shown:Normal left ventricular size, systolic function and incr eased,wall thickness, with no regional wall motion abnormalities. Left,?ventricular ejection fraction is estimated at 60 %. Grade I,diastolic dysfunction. Repeat limited 2D echo:Normal LV size and ejection fraction of around 55%.?Moderate concentric left-ventricular hypertrophy Mildly increased left atrial size.Moderate mitral annular calcification. Thickened mitral valve.Moderate aortic valve calcification. Serial EKG: Telemetry monitoring Back pain predominantly lower back: CT thoracic spine:? No acute thoracic spine findings CT lumbar spine: Moderate to advanced spondylitic changes with grade 1 anterolisthesis L4 on L5. No acute compression fractures.Mild central canal stenosis L1-L2 and L2-L3. Moderate central canal stenosis L3-L4 and L4-L5. Mild central canal stenosis L5- S1. Advanced facet arthropathy L2-L3, L3-L4, L4-L5, and L5-S1. Tylenol for pain control. Acute urinary retention: Status post Baires catheter placement. CT abdomen and pelvis has shown:Markedly enlarged prostate measuring 6.8 cm. Continue Flomax. Voiding trial prior to discharge. Mild or early acute diverticulitis: CT abdomen and pelvis report appreciated. Currently appropriately covered with broad-spectrum antibiotics We will plan to discharge on p.o. antibiotics to complete the course for acute diverticulitis. CODE STATUS: Full code DVT prophylaxis: On SCDs Attestations Medical Necessity Statement*: Needs to be in hospital for IV antibiotics. Coding Level of Care Code Acute Code for Chg Fwd Diagnoses Anemia D64.9 Anemia type: unspecified type Pneumonia J18.9 A-fib I48.91 Hypertension I10 Hypertension type: essential hypertension Type 2 diabetes mellitus E11.9 CKD (chronic kidney disease) N18.9
[2023-02-05 17:18] LABS: Glucose Point of Care 236 mg/dL (70-110)
[2023-02-05] MEDS: pantoprazole DR 40 mg Tablet PO (17:31)
[2023-02-05] MEDS: vancomycin 1,250 MG/250 ML PIGGYBACK 250 MG IV (18:53)
[2023-02-05] MEDS: atorvastatin 40 mg Tablet 20 MG PO (20:35)
[2023-02-05] MEDS: escitalopram 10 mg Tablet 20 MG PO (20:35)
[2023-02-05] MEDS: finasteride 5 mg Tablet PO (20:36)
[2023-02-05 20:50] LABS: Glucose Point of Care 199 mg/dL (70-110)
[2023-02-06] VITALS (15 sets, daily range): BP systolic 102–149; BP diastolic 54–81; PULSE 55–81; RESP 17–22; TEMP 36.6–37; O2SAT 91–97
[2023-02-06] MEDS: piperacillin-tazobactam 3.375 GM in sodium chloride 0.9% (plus) 50 ML IV ×4 (00:29→23:46)
[2023-02-06] MEDS: levalbuterol 1.25 mg/3 mL Neb INHALATION ×4 (02:46→21:34)
[2023-02-06] MEDS: ipratropium 0.5 mg/2.5 mL Neb INHALATION ×4 (02:46→21:34)
[2023-02-06 05:03] LABS: Eosinophils # 0.1 10^3/uL (0.0-0.8); Eosinophils % 2.6 %; Hemoglobin 7.9 g/dL (11.7-16.6); Lymphocytes # 0.4 10^3/uL (0.8-4.8); Lymphocytes % 15.2 %; Mean Corpuscular HGB Conc 31.6 g/dL (30.0-36.0); Mean Corpuscular Hemoglobin 32.4 pg (28.0-34.0); Mean Corpuscular Volume 102.5 fl (80-94); Mean Platelet Volume 10.3 fL (7.4-10.4); Monocytes # 0.6 10^3/uL (0.2-0.9); Monocytes % 23.9 %; Neutrophils # 1.33 10^3/uL (1.8-7.7); Neutrophils % 57.9 %; Nucleated Red Blood Cells % 0 %; Platelet Count 336 10^3/cmm (130-400); Red Blood Count 2.44 10^6/uL (4.1-5.3); Red Cell Distribution Width 16.6 % (12.1-15.1); White Blood Count 2.3 10^3/uL (4.0-10.0)
[2023-02-06 05:13] LABS: Anion Gap 13.5 (5-19); Blood Urea Nitrogen 20 mg/dL (8-23); Calcium 7.7 mg/dL (8.5-10.5); Carbon Dioxide 24 mmol/L (22-29); Chloride 98 mmol/L (98-107); Glucose 203 mg/dL (65-115); Osmolality Calculated 282 mOsm/kg (285-295); Potassium 3.5 mmol/L (3.5-5.1); Sodium 132 mmol/L (136-145)
[2023-02-06] MEDS: isosorbide mononitrate ER 30 mg Tablet PO (05:21)
[2023-02-06] MEDS: FUROsemide 40 mg Tablet PO (05:21)
[2023-02-06] MEDS: aspirin 81 mg EC Tablet PO (05:21)
[2023-02-06] MEDS: ferrous sulfate EC 325 mg Tablet PO (05:21)
[2023-02-06] MEDS: multivitamin therapeutic Tablet 1 TAB PO (05:22)
[2023-02-06 06:33] LABS: Glucose Point of Care 175 mg/dL (70-110)
--- NOTE | 2023-02-06 07:58 | PC.SOCIAL ---
IMM update IMM updated with patient. Verbalized an understanding. Copy Pg 2 provided. Initialled, dated, timed, and placed in chart.
[2023-02-06] MEDS: insulin lispro 100 unit/1 mL SUBCUT ×4 (08:15→20:40)
[2023-02-06] MEDS: tamsulosin 0.4 mg Capsule PO ×2 (08:15→17:23)
[2023-02-06] MEDS: potassium chloride ER 20 mEq Tablet 40 MEQ PO (08:16)
[2023-02-06] MEDS: rivaroxaban 10 mg Tablet 20 MG PO (08:16)
[2023-02-06] MEDS: metoprolol tartrate 25 mg Tablet PO ×2 (08:16→17:23)
[2023-02-06] MEDS: guaiFENesin 600 mg Tablet 1200 MG PO ×2 (08:16→17:22)
[2023-02-06] MEDS: pantoprazole DR 40 mg Tablet PO ×2 (08:16→17:23)
[2023-02-06] MEDS: sotalol 80 mg Tablet 40 MG PO ×2 (08:17→17:23)
[2023-02-06] MEDS: acetaminophen 325 mg Tablet 650 MG PO (08:43)
[2023-02-06] MEDS: budesonide 0.5 mg/2 mL Neb INHALATION (09:03)
--- NOTE | 2023-02-06 10:35 | PM.DCS ---
Discharge Providers Date of Admission: 02/01/23 17:35 Date of Discharge: February 06, 2023 Attending Provider at Admission: Dragan Ghosh MD Attending Provider at Discharge: Dragan Ghosh MD Primary Care Provider: Vita Mcelroy NP Diagnoses at Discharge Discharge Diagnosis (1) Anemia: Status: Acute Qualifiers: Anemia type: unspecified type Qualified Code(s): D64.9 - Anemia, unspecified (2) Pneumonia: Status: Acute (3) A-fib: Status: Acute (4) Hypertension: Status: Acute Qualifiers: Hypertension type: essential hypertension Qualified Code(s): I10 - Essential (primary) hypertension (5) Type 2 diabetes mellitus: Status: Acute (6) CKD (chronic kidney disease): Status: Acute Reason for Visit Reason for Visit: sob Physical Exam Urinary Catheter Management: Coude: Cath Placed During This Visit: yes Reason for Continuing Indwelling Catheter: Accurate Measurement of Urinary Output in Critically Ill Patients Urinary Catheter Date of Insertion: 02/02/23 Urinary Catheter Time of Insertion: 15:35 Discharge Data Studies Completed and Pending Completed Studies During Hospitalization Category Date Time Status CT abdomen pelvis wo con [id number] Routine Cat Scan 02/02/23 11:[address] chest w con* [id number] Routine Cat Scan 02/01/23 18:[address] thoracic spine wo con [CT thoracic spin wo con* Cat Scan 02/02/23 11:25 Completed [id number]] Routine XR chest 1V portable [id number] Stat Exams 02/01/23 15:10 Completed CV. echo limited [id number] Routine Ultrasound 02/02/23 12:12 Completed Pending at discharge Category Date Time Status BMP [Basic Metabolic Panel] AM LABS Lab 02/07/23 04:00 Ordered Blood Culture Stat Lab 02/01/23 16:30 Results CBC Auto Diff [Complete Blood Count w/Auto] AM LABS Lab 02/07/23 04:00 Ordered Radiology Impressions Chest X-Ray 02/01/23 15:10 IMPRESSION: 1. Right largely mid to lower lung field airspace infiltrate. 2. Cardiomegaly. 3. Emphysematous changes. Chest CT 02/01/23 18:28 IMPRESSION: 1. Negative for pulmonary embolus 2. Coronary artery atherosclerotic calcifications. 3. Trace right pleural effusion. 4. Emphysematous changes. 5. Right lower lobe pneumonia. 6. Cholecystectomy. 7. Scattered enlarged mediastinal lymph nodes measuring up to 14 mm, nonspecific. 8. 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 9. Cardiomegaly. Abdomen/Pelvis CT 02/02/23 11:24 IMPRESSION: 1. Minimal thickening of the sigmoid colon LEFT lower quadrant with slight induration can be seen with mild or early acute diverticulitis. 2. Markedly enlarged prostate measuring 6.8 cm. Recommend correlation PSA. Urine distended bladder. 3. RIGHT lower lobe pneumonia with partial airspace opacification tiny RIGHT pleural effusion. 4. Cardiomegaly. 5. Prior cholecystectomy. 6. Tiny esophageal hiatal hernia. 7. No hydronephrosis in either kidney. Lumbar Spine CT 02/02/23 11:25 IMPRESSION: 1. Moderate to advanced spondylitic changes with grade 1 anterolisthesis L4 on L5. 2. No acute compression fractures. 3. Mild central canal stenosis L1-L2 and L2-L3. Moderate central canal stenosis L3-L4 and L4-L5. Mild central canal stenosis L5-S1. 4. Advanced facet arthropathy L2-L3, L3-L4, L4-L5, and L5-S1. 5. Bony foraminal narrowing described above. Thoracic Spine CT 02/02/23 11:25 IMPRESSION: 1. No acute thoracic spine findings 2. RIGHT lower lobe pneumonia as described above Laboratory Results WBC 2.3 10^3/uL (4.0-10.0) L 02/06/23 04:38 RBC 2.44 10^6/uL (4.1-5.3) L 02/06/23 04:38 Hgb 7.9 g/dL (11.7-16.6) L 02/06/23 04:38 Hct 25.0 % (42.0-52.0) L 02/06/23 04:38 MCV 102.5 fl (80-94) H 02/06/23 04:38 MCH 32.4 pg (28.0-34.0) 02/06/23 04:38 MCHC 31.6 g/dL (30.0-36.0) 02/06/23 04:38 RDW 16.6 % (12.1-15.1) H 02/06/23 04:38 Plt Count 336 10^3/cmm (130-400) 02/06/23 04:38 MPV 10.3 fL (7.4-10.4) 02/06/23 04:38 Neut % (Auto) 57.9 % 02/06/23 04:38 Lymph % (Auto) 15.2 % 02/06/23 04:38 [place] % (Auto) 23.9 % 02/06/23 04:38 Eos % (Auto) 2.6 % 02/06/23 04:38 Baso % (Auto) 0.0 % 02/06/23 04:38 Neut # (Auto) 1.33 10^3/uL (1.8-7.7) L 02/06/23 04:38 Lymph # (Auto) 0.4 10^3/uL (0.8-4.8) L 02/06/23 04:38 [place] # (Auto) 0.6 10^3/uL (0.2-0.9) 02/06/23 04:38 Eos # (Auto) 0.1 10^3/uL (0.0-0.8) 02/06/23 04:38 Baso # (Auto) 0.0 10^3/uL (0.0-0.1) 02/06/23 04:38 Nucleated RBC % (auto) 0 % 02/06/23 04:38 Nucleated RBCs # 0.0 /100WBC 02/06/23 04:38 PT 16.60 SECONDS (12.1-14.9) H 02/02/23 01:51 INR 1.30 (0.8-1.2) H 02/02/23 01:51 APTT 33.1 SECONDS (23.9-36.7) 02/02/23 01:51 Sodium 132 mmol/L (136-145) L 02/06/23 04:38 Potassium 3.5 mmol/L (3.5-5.1) 02/06/23 04:38 Chloride 98 mmol/L (98-107) 02/06/23 04:38 Carbon Dioxide 24 mmol/L (22-29) 02/06/23 04:38 Anion Gap 13.5 (5-19) 02/06/23 04:38 BUN 20 mg/dL (8-23) 02/06/23 04:38 Creatinine 1.1 mg/dL (0.7-1.2) 02/06/23 04:38 GFR Calculation Not Reportable 02/06/23 04:38 Glucose 203 mg/dL (65-115) H 02/06/23 04:38 POC Glucose 175 mg/dL (70-110) H 02/06/23 06:28 Calculated Osmolality 282 mOsm/kg (285-295) L 02/06/23 04:38 Lactic Acid 1.1 mmol/L (0.5-2.2) 02/01/23 16:23 Calcium 7.7 mg/dL (8.5-10.5) L 02/06/23 04:38 Magnesium 2.2 mg/dL (1.7-2.3) 02/02/23 01:51 Total Bilirubin 0.6 mg/dL (0.15-1.2) 02/01/23 15:21 AST 20 U/L (0-40) 02/01/23 15:21 ALT 13 U/L (0-41) 02/01/23 15:21 Alkaline Phosphatase 74 U/L (40-130) 02/01/23 15:21 Troponin T Baseline 82 ng/L (0-15) H 02/01/23 19:12 Troponin T 120 Minute 81.24 ng/L (0-15) H 02/01/23 21:13 Delta Troponin T -0.76 ABS# (0-10) L 02/01/23 21:13 Troponin T Hi Sens 6Hr 80.04 ng/L (0-15) H 02/02/23 01:51 Troponin T Hi Sens 6Hr Delta -1.96 ng/L (0-12) L 02/02/23 01:51 NT-Pro-B Natriuret Pep 6493 pg/mL (0-450) H 02/01/23 15:21 Total Protein 6.6 g/dL (6.6-8.7) 02/01/23 15:21 Albumin 2.7 g/dL (3.5-5.2) L 02/01/23 15:21 Globulin 3.9 g/dL (1.3-4.6) 02/01/23 15:21 Procalcitonin 0.08 ng/mL (0-0.5) 02/01/23 16:23 Urine Color Light yellow (Yellow) 02/01/23 16:59 Urine Appearance Clear (CLEAR) 02/01/23 16:59 Urine pH 5 (5-7) 02/01/23 16:59 Ur Specific [place] 1.015 (1.005-1.030) 02/01/23 16:59 Urine Protein Trace (Negative) 02/01/23 16:59 Urine Glucose (UA) 4+ (Normal) H 02/01/23 16:59 Urine Ketones Negative (Negative) 02/01/23 16:59 Urine Blood Neg (Negative) 02/01/23 16:59 Urine Nitrate Negative (Negative) 02/01/23 16:59 Urine Bilirubin Neg (Negative) 02/01/23 16:59 Urine Urobilinogen Norm mg/dL (Negative) 02/01/23 16:59 Ur Leukocyte Esterase Negative (Negative) 02/01/23 16:59 Urine RBC None /hpf (0-2) 02/01/23 16:59 Urine WBC None /hpf (0-5) 02/01/23 16:59 Ur Squamous Epith Cells None /hpf (0-5) 02/01/23 16:59 Amorphous Sediment Not Reportable 02/01/23 16:59 Urine Bacteria Trace /hpf (NONE) 02/01/23 16:59 Nasal Influ A H1 2009 PCR Not detected (NOT DETECT) 02/01/23 20:30 Vancomycin Trough 13.4 ug/mL (10-15) 02/04/23 17:34 Adenovirus (PCR) Not detected (NOT DETECT) 02/01/23 20:30 C. pneumoniae DNA (PCR) Not detected (NOT DETECT) 02/01/23 20:30 Coronavirus 229E (PCR) Not detected (NOT DETECT) 02/01/23 20:30 Human Metapneumovir PCR Not detected (NOT DETECT) 02/01/23 20:30 Influenza A (H1) PCR Not detected (NOT DETECT) 02/01/23 20:30 Influenza A (H3) PCR Not detected (NOT DETECT) 02/01/23 20:30 Influenza Type A (PCR) Not detected (NOT DETECT) 02/01/23 20:30 Influenza Type B (PCR) Not detected (NOT DETECT) 02/01/23 20:30 M. pneumoniae (PCR) Not detected (NOT DETECT) 02/01/23 20:30 Parainfluenza 1 (PCR) Not detected (NOT DETECT) 02/01/23 20:30 Parainfluenza 2 (PCR) Not detected (NOT DETECT) 02/01/23 20:30 Parainfluenza 3 (PCR) Not detected (NOT DETECT) 02/01/23 20:30 Parainfluenza 4 (PCR) Not detected (NOT DETECT) 02/01/23 20:30 RSV Type A (PCR) Not detected (NOT DETECT) 02/01/23 20:30 RSV Type B (PCR) Not detected (NOT DETECT) 02/01/23 20:30 Entero/Rhino (PCR) Not detected (NOT DETECT) 02/01/23 20:30 SARS-CoV-2 (PCR) Not detected (NOT DETECT) 02/01/23 20:30 Blood Type A Positive 02/01/23 16:30 Rho(D) Type Positive 02/01/23 16:30 Antibody Screen Negative 02/01/23 16:30 Crossmatch See Detail 02/01/23 16:30 Vitals Last Vital Signs Temp 98.1 F 02/06/23 07:28 Pulse 62 02/06/23 09:12 Resp 18 02/06/23 09:03 BP 140/61 02/06/23 07:28 Pulse Ox 93 02/06/23 09:03 O2 Del Method Nasal Cannula 02/06/23 09:03 O2 Flow Rate 2.5 02/06/23 09:03 Discharge Plan Discharge Patient Disposition: Home Condition: Stable Prescriptions: New pantoprazole [Protonix] 40 mg tablet,delayed release (DR/EC) 40 mg PO BID 30 Days Qty: 60 3RF Continued vitamin B complex [B Complex-Vitamin B12] Tablet 1 tab PO DAILY acetaminophen [Tylenol Extra Strength] 500 mg tablet 1,000 mg PO BID albuterol sulfate 90 mcg/actuation HFA aerosol inhaler 2 puff inhalation Q4H PRN (Reason: shortness of breath or wheezing) Qty: 8.5 6RF Farxiga 10 mg tablet 10 mg PO QAM 90 Days Qty: 90 1RF glipizide 5 mg tablet 5 mg PO BID 90 Days Qty: 180 1RF (DME) OYXGEN AT 3L PER N/C WITH CONSERVING DEVICE AND PORTABLE See Rx Instructions .Route .MEDSUPPLY Qty: 1 0RF Rx Instructions: As directed ipratropium-albuterol 0.5 mg-3 mg(2.5 mg base)/3 mL solution for nebulization 3 ml inhalation Q4H PRN (Reason: wheezing) Qty: 90 3RF albuterol sulfate 1.25 mg/3 mL solution for nebulization 1.25 mg inhalation Q4H Qty: 90 3RF Humira Pen 40 mg/0.8 mL pen injector kit See Rx Instructions SUBCUT .COMPLEX Qty: 4 5RF Rx Instructions: inject one - 40 mg/0.8 mL pen every 2 weeks metoprolol tartrate 25 mg tablet 25 mg PO BID Qty: 180 3RF acarbose 25 mg tablet 25 mg PO TID Qty: 360 3RF (DME) Contour Next Test Strips Strip See Rx Instructions .Route Qty: 50 6RF Rx Instructions: As directed 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 nitroglycerin 0.4 mg tablet, sublingual 0.4 mg sublingual Q5M PRN (Reason: chest pain) Qty: 25 2RF Rx Instructions: do not exceed 3 doses per episode promethazine-DM 6.25-15 mg/5 mL syrup 5 - 10 ml PO Q6H PRN (Reason: cough) Qty: 200 0RF tamsulosin 0.4 mg capsule 0.4 mg PO BID 90 Days Qty: 180 1RF (DME) NEBULIZER MACHINE AND TUBING SUPPLIES See Rx Instructions .Route .MEDSUPPLY Qty: 1 0RF Rx Instructions: As directed aspirin 81 mg Tablet,Delayed Release (Dr/Ec) 81 mg PO QAM ascorbic acid (vitamin C) [Vitamin C] 500 mg Tablet 500 mg PO DAILY multivitamin Tablet 1 tab PO QAM furosemide 40 mg tablet 40 mg PO QAM isosorbide mononitrate 30 mg tablet extended release 24 hr 30 mg PO QAM Rx Instructions: patient due labs and visit potassium chloride 10 mEq tablet extended release 10 meq PO QAM clopidogrel 75 mg tablet 75 mg PO QAM simvastatin 40 mg tablet 40 mg PO BEDTIME ferrous sulfate 325 mg (65 mg iron) tablet 325 mg PO QAM testosterone cypionate 200 mg/mL oil 200 mg IM Q30D finasteride 5 mg tablet 5 mg PO BEDTIME escitalopram oxalate 20 mg tablet 20 mg PO BEDTIME diclofenac sodium [Voltaren Arthritis Pain] 1 % gel 4 g topical QID PRN (Reason: Pain) Rx Instructions: apply to single knee, ankle, foot; for foot includes sole/toes/top of foot Xarelto 20 mg tablet 20 mg PO QAM sotalol 80 mg tablet 40 mg PO BID nystatin 100,000 unit/gram cream 1 applic topical QID PRN (Reason: unknown) Symbicort 160-4.5 mcg/actuation HFA aerosol inhaler 2 puff INHALATION BID PRN (Reason: unknown) cetirizine 10 mg tablet 10 mg PO QAM Januvia 100 mg tablet 100 mg PO QAM amoxicillin-pot clavulanate 875-125 mg tablet 1 tab PO BID 7 Days Qty: 14 0RF Rx Instructions: not picked up from the pharmacy as of 02/01/23 Discharge Orders: Discharge Order (Routine); Ordered 02/06/23 Ordered By: Dragan Ghosh Other Ambulatory Orders: Complete Blood Count w/Auto (Routine) Timeframe: 1 Week Location: Determined by Patient Ordered By: Dragan Ghosh DME: Ayad (Order) Location: None Selected Ordered By: Dragan Ghosh Referrals: Vita Mcelroy NP [Primary Care Provider] - 1 week Patient Instructions: Opioid Safety Discharge Attestations Status at Discharge: Cognitive status at discharge: cognitively intact, Behavioral status at discharge: cooperative, Coding Level of Care Code Acute Code for g Fwd Diagnoses Anemia D64.9 Anemia type: unspecified type Pneumonia J18.9 A-fib I48.91 Hypertension I10 Hypertension type: essential hypertension Type 2 diabetes mellitus E11.9 CKD (chronic kidney disease) N18.9
[2023-02-06 10:56] LABS: Glucose Point of Care 252 mg/dL (70-110)
--- NOTE | 2023-02-06 16:19 | P.PN_ITS ---
Subjective Subjective: Patient was seen and examined this morning, currently H&H has remained stable .Xarelto has been continued.though Currently he is having slight hematuria. Will monitor H&H for now. Medications: Medication Review Details: Generic Name Dose Route Start Last Admin Trade Name Freq PRN Reason Stop Dose Admin Acetaminophen 650 mg 02/01/23 17:59 02/06/23 08:43 Acetaminophen 32 5 Mg Tablet PO 650 mg Q6H PRN Administration Mild/Mod Pain Or Temp >/= 101 Albuterol Sulfate 2.5 mg 02/01/23 20:00 02/04/23 14:31 Albuterol 2.5 Mg /3 Ml Neb INHALATION 2.5 mg QID.RESPIRATORY P RN Administration SHORTNESS OF AGUILA TH Aspirin 81 mg 02/02/23 06:00 02/06/23 05:21 Aspirin 81 Mg Ec Tablet PO 81 mg QAM NIMO Administration Atorvastatin Calci um 20 mg 02/01/23 21:00 02/05/23 20:35 Atorvastatin 40 Mg Tablet PO 20 mg BEDTIME NIMO Administration Budesonide 0.5 mg 02/01/23 20:00 02/06/23 09:03 Budesonide 0.5 M g/2 Ml Neb INHALATION 0.5 mg BID.RESPIRATORY P RN Administration SHORTNESS OF AGUILA TH Escitalopram Oxala te 20 mg 02/01/23 21:00 02/05/23 20:35 Escitalopram 10 Mg Tablet PO 20 mg BEDTIME NIMO Administration Ferrous Sulfate 325 mg 02/02/23 06:00 02/06/23 05:21 Ferrous Sulfate Ec 325 Mg Tablet PO 325 mg QAM NIMO Administration Finasteride 5 mg 02/01/23 21:00 02/05/23 20:36 Finasteride 5 Mg Tablet PO 5 mg BEDTIME NIMO Administration Furosemide 40 mg 02/02/23 06:00 02/06/23 05:21 Furosemide 40 Mg Tablet PO 40 mg QAM NIMO Administration Guaifenesin 1,200 mg 02/02/23 18:00 02/06/23 08:16 Guaifenesin 600 Mg Tablet PO 1,200 mg BID NIMO Administration Piperacillin Sod/T azobactam 50 mls @ 12.5 mls /hr 02/02/23 00:00 02/06/23 12:17 Sod 3.375 gm/ So dium Chloride IV Infused Q8H NIMO Infusion Protocol Vancomycin/PEG/NAD A/Lysine/Water 1,250 mg in 250 m ls @ 250 mls/hr 02/01/23 19:00 02/05/23 19:59 Vancocin IV Infused Q24H NIMO Infusion Insulin Human Lisp ro 0 unit 02/01/23 21:00 02/06/23 12:14 Insulin Lispro 1 00 Unit/1 Ml SUBCUT 6 unit WM&BEDTIME NIMO Administration Protocol Ipratropium Bromid e 0.5 mg 02/03/23 20:00 02/06/23 14:06 Ipratropium 0.5 Mg/2.5 Ml Neb INHALATION 0.5 mg Q6H.RESP NIMO Administration Isosorbide Mononit rate 30 mg 02/02/23 06:00 02/06/23 05:21 Isosorbide Elba itrate Er 30 Mg Ta blet PO 30 mg QAM NIMO Administration Levalbuterol HCl 1.25 mg 02/03/23 20:00 02/06/23 14:06 Levalbuterol 1.2 5 Mg/3 Ml Neb INHALATION 1.25 mg Q6H.RESP NIMO Administration Metoprolol Tartrat e 25 mg 02/02/23 09:00 02/06/23 08:16 Metoprolol Tartr ate 25 Mg Tablet PO 25 mg BID NIMO Administration Multivitamins Ther apeutic 1 tab 02/02/23 06:00 02/06/23 05:22 Multivitamin The rapeutic Tablet PO 1 tab QAM NIMO Administration Pantoprazole Sodiu m 40 mg 02/05/23 18:00 02/06/23 08:[address] 40 Mg Tablet PO 40 mg BID NIMO Administration Potassium Chloride 40 meq 02/05/23 09:00 02/06/23 08:16 Potassium Chlori de Er 20 Meq Table t PO 40 meq DAILY NIMO Administration Promethazine HCl/D extromethorphan 5 ml 02/01/23 18:02 02/03/23 21:13 Promethazine-Dm 6.25-15 Mg/5 Ml Sy rup (5 Ml Ud) PO 5 ml Q6H PRN Administration cough Rivaroxaban 20 mg 02/05/23 09:00 02/06/23 08:16 Rivaroxaban 10 M g Tablet PO 20 mg DAILY NIMO Administration Sotalol HCl 40 mg 02/02/23 09:00 02/06/23 08:17 Sotalol 80 Mg Ta blet PO 40 mg BID NIOM Administration Tamsulosin HCl 0.4 mg 02/02/23 09:00 02/06/23 08:15 Tamsulosin 0.4 M g Capsule PO 0.4 mg BID NIMO Administration Vitals/I&O/Wt Last Vital Signs Temp 97.9 F 02/06/23 15:50 Pulse 58 L 02/06/23 15:50 Resp 22 H 02/06/23 15:50 BP 102/61 02/06/23 15:50 Pulse Ox 95 02/06/23 15:50 O2 Del Method Nasal Cannula 02/06/23 15:50 O2 Flow Rate 2.5 02/06/23 15:50 02/06/23 02/06/23 02/06/23 06:59 14:59 22:59 Intake Total 50 / 1465 750 / 750 Output Total 700 / 2450 1550 / 1550 Balance -650 / -985 -800 / -800 Weight last 48 hrs Weight 76.657 kg Weight 77.655 kg Physical Exam Const: COMMON NORMALS: patient oriented x3 HENMT: COMMON NORMALS: normocephalic and atraumatic HEAD & SCALP: normocephalic and atraumatic Resp: COMMON NORMALS: clear to auscultation bilaterally AUSCULTATION: clear to auscultation bilaterally Cardio: COMMON NORMALS: regular rate, regular rhythm, S1 normal heart sound present, S2 normal heart sound present, No gallops present (Cardio), No murmurs present (Cardio), No rub (Cardio) and Peripheral pulses 2+ throughout RATE: regular rate RHYTHM: regular rhythm HEART SOUNDS: S1 normal heart sound present and S2 normal heart sound present PERIPHERAL PULSES: Peripheral pulses 2+ throughout GI: COMMON NORMALS: Normal to inspection, nondistended, normoactive bowel sounds present, Soft to palpation, non-tender, No hepatosplenomegaly present and no masses AUSCULTATION: Yes normoactive bowel sounds PALPATION: Yes Soft to palpation and Yes No hepatosplenomegaly present RECTAL EXAM: Yes deferred Extremity: COMMON NORMALS: no clubbing, cyanosis or edema and no pedal edema Neuro: COMMON NORMALS: patient oriented x3 Urinary Catheter Management: Coude: Cath Placed During This Visit: yes Reason for Continuing Indwelling Catheter: Accurate Measurement of Urinary Output in Critically Ill Patients Urinary Catheter Date of Insertion: 02/02/23 Urinary Catheter Time of Insertion: 15:35 Data 02/06/23 04:38 02/06/23 04:38 A&P Assessment and plan (1) Anemia: Qualifiers: Anemia type: unspecified type Qualified Code(s): D64.9 - Anemia, unspecified (2) Pneumonia: (3) A-fib: (4) Hypertension: Qualifiers: Hypertension type: essential hypertension Qualified Code(s): I10 - Essential (primary) hypertension (5) Type 2 diabetes mellitus: (6) CKD (chronic kidney disease): Plan 82 year old male with past medical history of hypertension, paroxysmal atrial fibrillation on Xarelto, coronary artery disease s/p PCI, chronic anemia, plan was to do repeat bone marrow biopsy, see Dr. Santos as outpatient, initial anemia work-up has been unremarkable, CKD stage III, he was recently discharged from the hospital after being managed for pneumonia on p.o. antibiotics, According to the patient's shortness of breath never improved, he also completed another round of p.o. antibiotics as outpatient prescribed by the primary care physician, came in today with chief complaint of Worsening shortness of breath, nonproductive cough, fever with chills, diaphoresis, weight loss, of about 60 pounds, in the recent time, generalized weakness fatigue, malaise, lower back pain.He is also complaining of intermittent chest pain at home, possibly with inspiration. Assessment: Pneumonia: CT chest with contrast:No Pulmonary embolism , is showing emphysematous changes with right lower lobe pneumonia. Blood culture:NTD Sputum Gram stain and culture: Rare gram-positive cocci in pairs MRSA PCR: Negative Urine Legionella antigen: Negative Bacterial antigen panel: Negative Respiratory viral panel: Negative Currently has been started on broad-spectrum antibiotic Vanco and Zosyn. Given the above complaint,PTB can be a consideration. Anemia: Patient had an extensive anemia work-up as outpatient by [employer], currently he is due for repeat bone marrow biopsy. Last admission FOBT was positive, repeat FOBT is positive. He is on Xarelto for A-fib, currently on hold. CT abdomen and pelvis without contrast:Minimal thickening of the sigmoid colon LEFT lower quadrant with slight induration can be seen with mild or early acute diverticulitis. Continue Protonix 40 IV twice daily Transfuse 1 unit PRBC today, maintain hemoglobin greater than 7 Monitor H&H: Currently on regular diet. Possible EGD and colonoscopy either inpatient or outpatient History of paroxysmal atrial fibrillation: Continue metoprolol and sotalol Currently Xarelto is on hold, current plan is to resume Xarelto from morning, monitor H&H, risk and benefit of resuming anticoagulation has been explained to the patient, and currently he is agreeable, to resume, Xarelto. We will closely monitor and H&H, continue with Protonix.If the H&H drops again patient will need EGD as well as colonoscopy. History of coronary artery disease status post PCI: He is on aspirin and Plavix as outpatient Currently Plavix is on hold CKD: Admission serum creatinine is 1.4 Currently serum creatinine appears to be at baseline Monitor BMP Avoid nephrotoxic's Monitor intake output charting Intermittent chest pain: Troponin trend: 82-81-80 Last 2D echo has shown:Normal left ventricular size, systolic function and increased,wall thickness, with no regional wall motion abnormalities. Left,?ventricular ejection fraction is estimated at 60 %. Grade I,diastolic dysfunction. Repeat limited 2D echo:Normal LV size and ejection fraction of around 55%.?Moderate concentric left-ventricular hypertrophy Mildly increased left atrial size.Moderate mitral annular calcification. Thickened mitral valve.Moderate aortic valve calcification. Serial EKG: Telemetry monitoring Back pain predominantly lower back: CT thoracic spine:? No acute thoracic spine findings CT lumbar spine: Moderate to advanced spondylitic changes with grade 1 anterolisthesis L4 on L5. No acute compression fractures.Mild central canal stenosis L1-L2 and L2-L3. Moderate central canal stenosis L3-L4 and L4-L5. Mild central canal stenosis L5- S1. Advanced facet arthropathy L2-L3, L3-L4, L4-L5, and L5-S1. Tylenol for pain control. Acute urinary retention: Status post Baires catheter placement. CT abdomen and pelvis has shown:Markedly enlarged prostate measuring 6.8 cm. Continue Flomax. Voiding trial prior to discharge. Scant hematuria: Currently H&H is stable Monitor for now Has indwelling Baires catheter Mild or early acute diverticulitis: CT abdomen and pelvis report appreciated. Currently appropriately covered with broad-spectrum antibiotics We will plan to discharge on p.o. antibiotics to complete the course for acute diverticulitis. CODE STATUS: Full code DVT prophylaxis: On SCDs Attestations Medical Necessity Statement*: Needs to be in hospital for monitoring of hematuria. Coding Level of Care Code Acute Code for Chg Fwd Diagnoses Anemia D64.9 Anemia type: unspecified type Pneumonia J18.9 A-fib I48.91 Hypertension I10 Hypertension type: essential hypertension Type 2 diabetes mellitus E11.9 CKD (chronic kidney disease) N18.9
[2023-02-06 16:49] LABS: Glucose Point of Care 158 mg/dL (70-110)
--- NOTE | 2023-02-06 18:41 | PC.NURSE ---
no hematuria noted this afternoon Emptied 400 cc from his wall bag this end of shift.
[2023-02-06] MEDS: finasteride 5 mg Tablet PO (20:12)
[2023-02-06] MEDS: atorvastatin 40 mg Tablet 20 MG PO (20:12)
[2023-02-06] MEDS: escitalopram 10 mg Tablet 20 MG PO (20:12)
[2023-02-06 20:25] LABS: Glucose Point of Care 202 mg/dL (70-110)
[2023-02-06] MEDS: vancomycin 1,250 MG/250 ML PIGGYBACK 250 MG IV (20:41)
[2023-02-07] VITALS (11 sets, daily range): BP systolic 132–154; BP diastolic 65–76; PULSE 62–126; RESP 16–20; TEMP 36.9; O2SAT 93–96
[2023-02-07] MEDS: ipratropium 0.5 mg/2.5 mL Neb INHALATION ×3 (02:14→13:03)
[2023-02-07] MEDS: levalbuterol 1.25 mg/3 mL Neb INHALATION ×3 (02:14→13:03)
[2023-02-07 05:23] LABS: Eosinophils # 0.1 10^3/uL (0.0-0.8); Eosinophils % 2.2 %; Hematocrit 27.3 % (42.0-52.0); Hemoglobin 8.4 g/dL (11.7-16.6); Lymphocytes # 0.4 10^3/uL (0.8-4.8); Lymphocytes % 14.7 %; Mean Corpuscular HGB Conc 30.8 g/dL (30.0-36.0); Mean Corpuscular Hemoglobin 31.9 pg (28.0-34.0); Mean Corpuscular Volume 103.8 fl (80-94); Mean Platelet Volume 10.5 fL (7.4-10.4); Monocytes # 0.6 10^3/uL (0.2-0.9); Monocytes % 21.7 %; Neutrophils # 1.65 10^3/uL (1.8-7.7); Neutrophils % 60.7 %; Nucleated Red Blood Cells % 0 %; Platelet Count 359 10^3/cmm (130-400); Red Blood Count 2.63 10^6/uL (4.1-5.3); Red Cell Distribution Width 16.4 % (12.1-15.1); White Blood Count 2.7 10^3/uL (4.0-10.0)
[2023-02-07 05:48] LABS: Anion Gap 14.6 (5-19); Blood Urea Nitrogen 19 mg/dL (8-23); Calcium 7.8 mg/dL (8.5-10.5); Carbon Dioxide 24 mmol/L (22-29); Chloride 98 mmol/L (98-107); Glucose 219 mg/dL (65-115); Osmolality Calculated 285 mOsm/kg (285-295); Potassium 3.6 mmol/L (3.5-5.1); Sodium 133 mmol/L (136-145)
[2023-02-07] MEDS: ferrous sulfate EC 325 mg Tablet PO (05:50)
[2023-02-07] MEDS: multivitamin therapeutic Tablet 1 TAB PO (05:50)
[2023-02-07] MEDS: aspirin 81 mg EC Tablet PO (05:50)
[2023-02-07] MEDS: isosorbide mononitrate ER 30 mg Tablet PO (05:50)
[2023-02-07] MEDS: FUROsemide 40 mg Tablet PO (05:50)
[2023-02-07 06:34] LABS: Glucose Point of Care 180 mg/dL (70-110)
[2023-02-07] MEDS: insulin lispro 100 unit/1 mL SUBCUT ×2 (08:09→12:24)
[2023-02-07] MEDS: pantoprazole DR 40 mg Tablet PO (08:11)
[2023-02-07] MEDS: metoprolol tartrate 25 mg Tablet PO (08:11)
[2023-02-07] MEDS: tamsulosin 0.4 mg Capsule PO (08:11)
[2023-02-07] MEDS: potassium chloride ER 20 mEq Tablet 40 MEQ PO (08:11)
[2023-02-07] MEDS: sotalol 80 mg Tablet 40 MG PO (08:11)
[2023-02-07] MEDS: guaiFENesin 600 mg Tablet 1200 MG PO (08:11)
--- NOTE | 2023-02-07 08:23 | PC.NURSE ---
Pt would like to finish his breakfast then we will remove wall catheter. pt verbalizes appreciation.
[2023-02-07] MEDS: piperacillin-tazobactam 3.375 GM in sodium chloride 0.9% (plus) 50 ML IV (08:41)
--- NOTE | 2023-02-07 10:00 | PM.DCS ---
Discharge Providers Date of Admission: 02/01/23 17:35 Date of Discharge: February 07, 2023 Attending Provider at Admission: Dragan Ghosh MD Attending Provider at Discharge: Dragan Ghosh MD Primary Care Provider: Vita Mcelroy NP Diagnoses at Discharge Discharge Diagnosis (1) Anemia: Status: Acute Qualifiers: Anemia type: unspecified type Qualified Code(s): D64.9 - Anemia, unspecified (2) Pneumonia: Status: Acute (3) A-fib: Status: Acute (4) Hypertension: Status: Acute Qualifiers: Hypertension type: essential hypertension Qualified Code(s): I10 - Essential (primary) hypertension (5) Type 2 diabetes mellitus: Status: Acute (6) CKD (chronic kidney disease): Status: Acute Reason for Visit Reason for Visit: sob Hospital Course Hospital Course 82 year old male with past medical history of hypertension, paroxysmal atrial fibrillation on Xarelto, coronary artery disease s/p PCI, chronic anemia, plan was to do repeat bone marrow biopsy, see Dr. Santos as outpatient, initial anemia work-up has been unremarkable, CKD stage III, he was recently discharged from the hospital after being managed for pneumonia on p.o. antibiotics, According to the patient's shortness of breath never improved, he also completed another round of p.o. antibiotics as outpatient prescribed by the primary care physician, came in today with chief complaint of Worsening shortness of breath, nonproductive cough, fever with chills, diaphoresis, weight loss, of about 60 pounds, in the recent time, generalized weakness fatigue, malaise, lower back pain.He is also complaining of intermittent chest pain at home, possibly with inspiration, patient was admitted for the management of Pneumonia:CT chest with contrast:No? Pulmonary embolism , is showing emphysematous changes with right lower lobe pneumonia.Blood culture:NTD,Sputum Gram stain and culture: Rare gram-positive cocci in pairs MRSA PCR: Negative,Urine Legionella antigen: Negative,Bacterial antigen panel: Negative,Respiratory viral panel: Negative, He was on on broad-spectrum antibiotic Vanco and Zosyn.During hospital stay and was discharged on p.o. Augmentin for another 7 days to complete the antibiotic course for pneumonia. During the the hospital stay patient was also managed for anemia: Patient had an extensive anemia work-up as outpatient by painter drum, currently he is due for repeat bone marrow biopsy. Last admission FOBT was positive, repeat FOBT is positive.CT abdomen and pelvis without contrast:Minimal thickening of the sigmoid colon LEFT lower quadrant with slight induration can be seen with mild or early acute diverticulitis.He is on Xarelto for A-fib, was kept on hold briefly, was later restarted and H&H was monitored, H&H was stable, the patient required 1 unit PRBC initially during the hospital stay, as his hemoglobin was borderline at 6.8.He was kept on Protonix IV twice daily, and was discharged on p.o. Protonix 40 twice daily. Has been asked to monitor for any evident bleeding. Has also been asked to follow-up with repeat CBC in a week, has been educated on the signs and symptoms of bleeding, in the event of any, has been asked to stop Xarelto Plavix.And return to the ER.patient may need EGD and colonoscopy in future. History of paroxysmal atrial fibrillation: He was continued on sotalol metoprolol, had brief episodes of A-fib with RVR during the hospital stay, with spontaneous conversion to sinus rhythm, no changes were made to sotalol and metoprolol regimen.For his history of coronary artery disease status post, patient will continue aspirin and Plavix, continue beta-maria d.he was also complaining of intermittent chest pain: Troponin trend: 82-81-80,Last 2D echo has shown:Normal left ventricular size, systolic function and increased,wall thickness, with no regional wall motion abnormalities. Left,?ventricular ejection fraction is estimated at 60 %. Grade I,diastolic dysfunction.Repeat? limited 2D echo:Normal LV size and ejection fraction of around 55%.?Moderate concentric left-ventricular hypertrophy,Mildly increased left atrial size.Moderate mitral annular calcification. Thickened mitral valve.Moderate aortic valve calcification. Possibly noncardiac in nature may be related to pneumonia, no acute intervention was done at this time, if patient continues to have chest pain, he might need stress test plus minus coronary angiogram, and future, can follow cardiology as outpatient,Back pain predominantly lower back:CT thoracic spine:? No acute thoracic spine findings CT lumbar spine: Moderate to advanced spondylitic changes with grade 1 anterolisthesis L4 on L5. No acute compression fractures.Mild central canal stenosis L1-L2 and L2-L3. Moderate central canal stenosis L3-L4 and L4-L5. Mild central canal stenosis L5-S1. Advanced facet arthropathy L2-L3, L3-L4, L4-L5, and L5-S1. Pain control was done, physical therapy was on board, he will continue on home exercise regimen, patient also experienced an episode of acute urinary retention during the hospital stay: CT abdomen and pelvis has shown:Markedly enlarged prostate measuring 6.8 cm, Baires catheter was briefly placed, prior to discharge he passed voiding trial, patient also had scant hematuria during the hospital stay, later it resolved H&H was stable, he was also managed for possible mild early diverticulitis, he was appropriately covered with broad-spectrum antibiotics, at the time of discharge , he was tolerating diet well. Had no significant abdominal pain. Overall patient responded well to above medical management, and was discharged in stable condition to home, he will continue to follow his primary care physician as well as cardiology as outpatient. Physical Exam Const: COMMON NORMALS: patient oriented x3 HENMT: COMMON NORMALS: normocephalic and atraumatic HEAD & SCALP: normocephalic and atraumatic Resp: COMMON NORMALS: clear to auscultation bilaterally AUSCULTATION: clear to auscultation bilaterally Cardio: COMMON NORMALS: regular rate, regular rhythm, S1 normal heart sound present, S2 normal heart sound present, No gallops present (Cardio), No murmurs present (Cardio), No rub (Cardio) and Peripheral pulses 2+ throughout RATE: regular rate RHYTHM: regular rhythm HEART SOUNDS: S1 normal heart sound present and S2 normal heart sound present PERIPHERAL PULSES: Peripheral pulses 2+ throughout GI: COMMON NORMALS: Normal to inspection, nondistended, normoactive bowel sounds present, Soft to palpation, non-tender, No hepatosplenomegaly present and no masses AUSCULTATION: Yes normoactive bowel sounds PALPATION: Yes Soft to palpation and Yes No hepatosplenomegaly present RECTAL EXAM: Yes deferred Extremity: COMMON NORMALS: no clubbing, cyanosis or edema and no pedal edema Neuro: COMMON NORMALS: patient oriented x3 Urinary Catheter Management: Coude: Cath Placed During This Visit: yes Reason for Continuing Indwelling Catheter: Accurate Measurement of Urinary Output in Critically Ill Patients Urinary Catheter Date of Insertion: 02/02/23 Urinary Catheter Time of Insertion: 15:35 Discharge Data Studies Completed and Pending Completed Studies During Hospitalization Category Date Time Status CT abdomen pelvis wo con [id number] Routine Cat Scan 02/02/23 11:[address] chest w con* [id number] Routine Cat Scan 02/01/23 18:[address] thoracic spine wo con [CT thoracic spin wo con* Cat Scan 02/02/23 11:25 Completed [id number]] Routine XR chest 1V portable [id number] Stat Exams 02/01/23 15:10 Completed CV. echo limited [id number] Routine Ultrasound 02/02/23 12:12 Completed Radiology Impressions Chest X-Ray 02/01/23 15:10 IMPRESSION: 1. Right largely mid to lower lung field airspace infiltrate. 2. Cardiomegaly. 3. Emphysematous changes. Chest CT 02/01/23 18:28 IMPRESSION: 1. Negative for pulmonary embolus 2. Coronary artery atherosclerotic calcifications. 3. Trace right pleural effusion. 4. Emphysematous changes. 5. Right lower lobe pneumonia. 6. Cholecystectomy. 7. Scattered enlarged mediastinal lymph nodes measuring up to 14 mm, nonspecific. 8. 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 9. Cardiomegaly. Abdomen/Pelvis CT 02/02/23 11:24 IMPRESSION: 1. Minimal thickening of the sigmoid colon LEFT lower quadrant with slight induration can be seen with mild or early acute diverticulitis. 2. Markedly enlarged prostate measuring 6.8 cm. Recommend correlation PSA. Urine distended bladder. 3. RIGHT lower lobe pneumonia with partial airspace opacification tiny RIGHT pleural effusion. 4. Cardiomegaly. 5. Prior cholecystectomy. 6. Tiny esophageal hiatal hernia. 7. No hydronephrosis in either kidney. Lumbar Spine CT 02/02/23 11:25 IMPRESSION: 1. Moderate to advanced spondylitic changes with grade 1 anterolisthesis L4 on L5. 2. No acute compression fractures. 3. Mild central canal stenosis L1-L2 and L2-L3. Moderate central canal stenosis L3-L4 and L4-L5. Mild central canal stenosis L5-S1. 4. Advanced facet arthropathy L2-L3, L3-L4, L4-L5, and L5-S1. 5. Bony foraminal narrowing described above. Thoracic Spine CT 02/02/23 11:25 IMPRESSION: 1. No acute thoracic spine findings 2. RIGHT lower lobe pneumonia as described above Laboratory Results WBC 2.7 10^3/uL (4.0-10.0) L 02/07/23 04:19 RBC 2.63 10^6/uL (4.1-5.3) L 02/07/23 04:19 Hgb 8.4 g/dL (11.7-16.6) L 02/07/23 04:19 Hct 27.3 % (42.0-52.0) L 02/07/23 04:19 MCV 103.8 fl (80-94) H 02/07/23 04:19 MCH 31.9 pg (28.0-34.0) 02/07/23 04:19 MCHC 30.8 g/dL (30.0-36.0) 02/07/23 04:19 RDW 16.4 % (12.1-15.1) H 02/07/23 04:19 Plt Count 359 10^3/cmm (130-400) 02/07/23 04:19 MPV 10.5 fL (7.4-10.4) H 02/07/23 04:19 Neut % (Auto) 60.7 % 02/07/23 04:19 Lymph % (Auto) 14.7 % 02/07/23 04:19 Stevens % (Auto) 21.7 % 02/07/23 04:19 Eos % (Auto) 2.2 % 02/07/23 04:19 Baso % (Auto) 0.0 % 02/07/23 04:19 Neut # (Auto) 1.65 10^3/uL (1.8-7.7) L 02/07/23 04:19 Lymph # (Auto) 0.4 10^3/uL (0.8-4.8) L 02/07/23 04:19 Stevens # (Auto) 0.6 10^3/uL (0.2-0.9) 02/07/23 04:19 Eos # (Auto) 0.1 10^3/uL (0.0-0.8) 02/07/23 04:19 Baso # (Auto) 0.0 10^3/uL (0.0-0.1) 02/07/23 04:19 Nucleated RBC % (auto) 0 % 02/07/23 04:19 Nucleated RBCs # 0.0 /100WBC 02/07/23 04:19 PT 16.60 SECONDS (12.1-14.9) H 02/02/23 01:51 INR 1.30 (0.8-1.2) H 02/02/23 01:51 APTT 33.1 SECONDS (23.9-36.7) 02/02/23 01:51 Sodium 133 mmol/L (136-145) L 02/07/23 04:19 Potassium 3.6 mmol/L (3.5-5.1) 02/07/23 04:19 Chloride 98 mmol/L (98-107) 02/07/23 04:19 Carbon Dioxide 24 mmol/L (22-29) 02/07/23 04:19 Anion Gap 14.6 (5-19) 02/07/23 04:19 BUN 19 mg/dL (8-23) 02/07/23 04:19 Creatinine 1.0 mg/dL (0.7-1.2) 02/07/23 04:19 GFR Calculation Not Reportable 02/07/23 04:19 Glucose 219 mg/dL (65-115) H 02/07/23 04:19 POC Glucose 180 mg/dL (70-110) H 02/07/23 06:30 Calculated Osmolality 285 mOsm/kg (285-295) 02/07/23 04:19 Lactic Acid 1.1 mmol/L (0.5-2.2) 02/01/23 16:23 Calcium 7.8 mg/dL (8.5-10.5) L 02/07/23 04:19 Magnesium 2.2 mg/dL (1.7-2.3) 02/02/23 01:51 Total Bilirubin 0.6 mg/dL (0.15-1.2) 02/01/23 15:21 AST 20 U/L (0-40) 02/01/23 15:21 ALT 13 U/L (0-41) 02/01/23 15:21 Alkaline Phosphatase 74 U/L (40-130) 02/01/23 15:21 Troponin T Baseline 82 ng/L (0-15) H 02/01/23 19:12 Troponin T 120 Minute 81.24 ng/L (0-15) H 02/01/23 21:13 Delta Troponin T -0.76 ABS# (0-10) L 02/01/23 21:13 Troponin T Hi Sens 6Hr 80.04 ng/L (0-15) H 02/02/23 01:51 Troponin T Hi Sens 6Hr Delta -1.96 ng/L (0-12) L 02/02/23 01:51 NT-Pro-B Natriuret Pep 6493 pg/mL (0-450) H 02/01/23 15:21 Total Protein 6.6 g/dL (6.6-8.7) 02/01/23 15:21 Albumin 2.7 g/dL (3.5-5.2) L 02/01/23 15:21 Globulin 3.9 g/dL (1.3-4.6) 02/01/23 15:21 Procalcitonin 0.08 ng/mL (0-0.5) 02/01/23 16:23 Urine Color Light yellow (Yellow) 02/01/23 16:59 Urine Appearance Clear (CLEAR) 02/01/23 16:59 Urine pH 5 (5-7) 02/01/23 16:59 Ur Specific [place] 1.015 (1.005-1.030) 02/01/23 16:59 Urine Protein Trace (Negative) 02/01/23 16:59 Urine Glucose (UA) 4+ (Normal) H 02/01/23 16:59 Urine Ketones Negative (Negative) 02/01/23 16:59 Urine Blood Neg (Negative) 02/01/23 16:59 Urine Nitrate Negative (Negative) 02/01/23 16:59 Urine Bilirubin Neg (Negative) 02/01/23 16:59 Urine Urobilinogen Norm mg/dL (Negative) 02/01/23 16:59 Ur Leukocyte Esterase Negative (Negative) 02/01/23 16:59 Urine RBC None /hpf (0-2) 02/01/23 16:59 Urine WBC None /hpf (0-5) 02/01/23 16:59 Ur Squamous Epith Cells None /hpf (0-5) 02/01/23 16:59 Amorphous Sediment Not Reportable 02/01/23 16:59 Urine Bacteria Trace /hpf (NONE) 02/01/23 16:59 Nasal Influ A H1 2008 PCR Not detected (NOT DETECT) 02/01/23 20:30 Vancomycin Trough 13.4 ug/mL (10-15) 02/04/23 17:34 Adenovirus (PCR) Not detected (NOT DETECT) 02/01/23 20:30 C. pneumoniae DNA (PCR) Not detected (NOT DETECT) 02/01/23 20:30 Coronavirus 229E (PCR) Not detected (NOT DETECT) 02/01/23 20:30 Human Metapneumovir PCR Not detected (NOT DETECT) 02/01/23 20:30 Influenza A (H1) PCR Not detected (NOT DETECT) 02/01/23 20:30 Influenza A (H3) PCR Not detected (NOT DETECT) 02/01/23 20:30 Influenza Type A (PCR) Not detected (NOT DETECT) 02/01/23 20:30 Influenza Type B (PCR) Not detected (NOT DETECT) 02/01/23 20:30 M. pneumoniae (PCR) Not detected (NOT DETECT) 02/01/23 20:30 Parainfluenza 1 (PCR) Not detected (NOT DETECT) 02/01/23 20:30 Parainfluenza 2 (PCR) Not detected (NOT DETECT) 02/01/23 20:30 Parainfluenza 3 (PCR) Not detected (NOT DETECT) 02/01/23 20:30 Parainfluenza 4 (PCR) Not detected (NOT DETECT) 02/01/23 20:30 RSV Type A (PCR) Not detected (NOT DETECT) 02/01/23 20:30 RSV Type B (PCR) Not detected (NOT DETECT) 02/01/23 20:30 Entero/Rhino (PCR) Not detected (NOT DETECT) 02/01/23 20:30 SARS-CoV-2 (PCR) Not detected (NOT DETECT) 02/01/23 20:30 Blood Type A Positive 02/01/23 16:30 Rho(D) Type Positive 02/01/23 16:30 Antibody Screen Negative 02/01/23 16:30 Crossmatch See Detail 02/01/23 16:30 Vitals Last Vital Signs Temp 98.3 F 02/06/23 20:00 Pulse 88 02/07/23 07:34 Resp 16 02/07/23 06:58 BP 132/65 02/07/23 07:34 Pulse Ox 93 02/07/23 07:34 O2 Del Method Nasal Cannula 02/07/23 07:34 O2 Flow Rate 2.5 02/07/23 07:34 Discharge Plan Discharge Patient Disposition: Home Condition: Stable Prescriptions: New Protonix 40 mg tablet,delayed release (DR/EC) 40 mg PO BID 30 Days Qty: 60 3RF Augmentin 500-125 mg tablet 1 tab PO BID 7 Days Qty: 14 0RF Continued vitamin B complex [B Complex-Vitamin B12] Tablet 1 tab PO DAILY acetaminophen [Tylenol Extra Strength] 500 mg tablet 1,000 mg PO BID albuterol sulfate 90 mcg/actuation HFA aerosol inhaler 2 puff inhalation Q4H PRN (Reason: shortness of breath or wheezing) Qty: 8.5 6RF Farxiga 10 mg tablet 10 mg PO QAM 90 Days Qty: 90 1RF glipizide 5 mg tablet 5 mg PO BID 90 Days Qty: 180 1RF (DME) OYXGEN AT 3L PER N/C WITH CONSERVING DEVICE AND PORTABLE See Rx Instructions .Route .MEDSUPPLY Qty: 1 0RF Rx Instructions: As directed ipratropium-albuterol 0.5 mg-3 mg(2.5 mg base)/3 mL solution for nebulization 3 ml inhalation Q4H PRN (Reason: wheezing) Qty: 90 3RF albuterol sulfate 1.25 mg/3 mL solution for nebulization 1.25 mg inhalation Q4H Qty: 90 3RF Humira Pen 40 mg/0.8 mL pen injector kit See Rx Instructions SUBCUT .COMPLEX Qty: 4 5RF Rx Instructions: inject one - 40 mg/0.8 mL pen every 2 weeks metoprolol tartrate 25 mg tablet 25 mg PO BID Qty: 180 3RF acarbose 25 mg tablet 25 mg PO TID Qty: 360 3RF (DME) Contour Next Test Strips Strip See Rx Instructions .Route Qty: 50 6RF Rx Instructions: As directed 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 nitroglycerin 0.4 mg tablet, sublingual 0.4 mg sublingual Q5M PRN (Reason: chest pain) Qty: 25 2RF Rx Instructions: do not exceed 3 doses per episode promethazine-DM 6.25-15 mg/5 mL syrup 5 - 10 ml PO Q6H PRN (Reason: cough) Qty: 200 0RF tamsulosin 0.4 mg capsule 0.4 mg PO BID 90 Days Qty: 180 1RF (DME) NEBULIZER MACHINE AND TUBING SUPPLIES See Rx Instructions .Route .MEDSUPPLY Qty: 1 0RF Rx Instructions: As directed aspirin 81 mg Tablet,Delayed Release (Dr/Ec) 81 mg PO QAM ascorbic acid (vitamin C) [Vitamin C] 500 mg Tablet 500 mg PO DAILY multivitamin Tablet 1 tab PO QAM furosemide 40 mg tablet 40 mg PO QAM isosorbide mononitrate 30 mg tablet extended release 24 hr 30 mg PO QAM Rx Instructions: patient due labs and visit potassium chloride 10 mEq tablet extended release 10 meq PO QAM clopidogrel 75 mg tablet 75 mg PO QAM simvastatin 40 mg tablet 40 mg PO BEDTIME ferrous sulfate 325 mg (65 mg iron) tablet 325 mg PO QAM testosterone cypionate 200 mg/mL oil 200 mg IM Q30D finasteride 5 mg tablet 5 mg PO BEDTIME escitalopram oxalate 20 mg tablet 20 mg PO BEDTIME diclofenac sodium [Voltaren Arthritis Pain] 1 % gel 4 g topical QID PRN (Reason: Pain) Rx Instructions: apply to single knee, ankle, foot; for foot includes sole/toes/top of foot Xarelto 20 mg tablet 20 mg PO QAM sotalol 80 mg tablet 40 mg PO BID nystatin 100,000 unit/gram cream 1 applic topical QID PRN (Reason: unknown) Symbicort 160-4.5 mcg/actuation HFA aerosol inhaler 2 puff INHALATION BID PRN (Reason: unknown) cetirizine 10 mg tablet 10 mg PO QAM Januvia 100 mg tablet 100 mg PO QAM Discontinued amoxicillin-pot clavulanate 875-125 mg tablet 1 tab PO BID Qty: 20 0RF Rx Instructions: not picked up from the pharmacy as of 02/01/23 Discharge Orders: Discharge Order (Routine); Ordered 02/07/23 Ordered By: Dragan Ghosh Other Ambulatory Orders: Complete Blood Count w/Auto (Routine) Timeframe: 1 Week Location: Determined by Patient Ordered By: Dragan Ghosh DME: Ayad (Order) Location: None Selected Ordered By: Dragan Ghosh Referrals: Vita Mcelroy NP [Primary Care Provider] - 1 week (Please call Wednesday and schedule a follow up appointment for one week) Patient Instructions: Anemia - Oncology, Amoxicillin/Clavulanate Potassium (By mouth), Pantoprazole (By mouth) (Protonix), Pantoprazole (By mouth), Pneumonia Stoplight Discharge Attestations Time Spent in Discharge Care*: less than 30 min Status at Discharge: Cognitive status at discharge: cognitively intact, Behavioral status at discharge: cooperative, Quality Metrics Clinical Quality Measures [ No reported AMI, CVA or VTE this stay] Coding Level of Care Code Acute Code for Chg Fwd Diagnoses Anemia D64.9 Anemia type: unspecified type Pneumonia J18.9 A-fib I48.91 Hypertension I10 Hypertension type: essential hypertension Type 2 diabetes mellitus E11.9 CKD (chronic kidney disease) N18.9
[2023-02-07 12:14] LABS: Glucose Point of Care 228 mg/dL (70-110)
[2023-02-07] MEDS: rivaroxaban 10 mg Tablet 20 MG PO (12:22)
== END 2023-02-07 14:44 | disposition home or self-care (01) | DRG 811 ==
LOC: ER 17:35 → CSU 17:41
PROVIDERS: Admitting Provider Internal Medicine; Emergency Provider Emergency Medicine; PCP Nurse Practitioner Family; Visit Provider Internal Medicine
DX: D64.9 Anemia, unspecified (principal); J18.9 Pneumonia, unspecified organism; I13.0 Hypertensive heart and chronic kidney disease with heart failure and stage 1 through stage 4 chronic kidney disease, or unspecified chronic kidney disease; K57.32 Diverticulitis of large intestine without perforation or abscess without bleeding; E11.22 Type 2 diabetes mellitus with diabetic chronic kidney disease; N18.30 Chronic kidney disease, stage 3 unspecified; I50.9 Heart failure, unspecified; I48.0 Paroxysmal atrial fibrillation; Z79.01 Long term (current) use of anticoagulants; I25.10 Atherosclerotic heart disease of native coronary artery without angina pectoris; Z95.5 Presence of coronary angioplasty implant and graft; N40.1 Benign prostatic hyperplasia with lower urinary tract symptoms; R33.8 Other retention of urine; R31.9 Hematuria, unspecified; E78.5 Hyperlipidemia, unspecified; F32.A Depression, unspecified
CPT/HCPCS: 36415; 36416; 51702; 51798; 71045; 71260; 72128; 74176; 80048; 80053; 80202; 81001; 82274; 82962; 83605; 83735; 83880; 84145; 84484; 85025; 85610; 85730; 86403; 86850; 86900; 86920; 87040; 87070; 87205; 87449; 87486; 87493; 87506; 87581; 87633; 87641; 93308; 94640; 96365; 96372; 96375; 96376; 97110; 97116; 97161; 97530; 99285; C9113; J1815; J2543; J3370; J3480; J7613; J7614; J7626; J7644; P9016; Q9967

== ENCOUNTER 2023-02-22 13:19 | Inpatient (IN) | payer MEDICARE, SELFPAY ==
[2023-02-22] VITALS (9 sets, daily range): BP systolic 94–128; BP diastolic 49–69; PULSE 54–64; RESP 12–27; TEMP 36.4–36.6; O2SAT 86–94; BMI 21.5; BMI 21.2
--- NOTE | 2023-02-22 14:28 | ECG_ITS ---
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 Measurements Intervals [place] Rate: 54 P: 39 KS: 265 QRS: -9 QRSD: 84 T: 22 QT: 410 QTc: 391 Interpretive Statements SINUS BRADYCARDIA WITH FIRST DEGREE AV BLOCK VOLTAGE CRITERIA FOR LVH [MEETS CRITERIA IN ONE OF: R(aVL), S(V1), R(V5), R(V5/V6)+S(V1)] NONSPECIFIC T-WAVE ABNORMALITY Compared to ECG 08/01/2022 01:29:53 T-wave abnormality now present Sinus rhythm no longer present Myocardial infarct finding no longer present Electronically Signed On 02-22-2023 23:26:10 CDT by Hakan Messina M.D. [id number]
--- NOTE | 2023-02-22 14:37 | ED_ITS ---
HPI - SOB/Dyspnea General: Chief Complaint: Shortness of Breath/Dyspnea Stated Complaint: sob Time Seen by Provider: 02/22/23 13:47 History of Present Illness: HPI Narrative: 82-year-old male presents emergency department chief complaint progressive shortness of breath and difficulty breathing since early last night patient has a longstanding history of both pneumonia and COPD and cardiac issues he recently was discharged from the hospital for intermittent atrial fibrillation and heart failure and anemia patient presents here today with his family due to concerns of increased shortness of breath and a mild productive cough with questionable fever at home patient reports no current chest pain or palpitations or any other associated symptoms. Associated symptoms: Deny abdominal pain, chest pain, extremity pain, fever(s), nausea, palpitations or vomiting Review of Systems General: Reports: 10 or more systems reviewed and unremarkable except in HPI and below Const: Reports: fatigue and malaise; Denies: fever(s) or chills Eyes: Denies: change in vision or blurry vision Card: Denies: chest pain or palpitations Resp: Reports: dyspnea, productive cough and wheezing GI: Denies: abdominal pain, nausea or vomiting : Denies: flank pain Musc: Denies: extremity pain or extremity swelling Skin/Breast: Denies: rash or pruritus Neuro: Denies: headache(s) Psych: Denies: anxiety or depression Arsen/Lymph: Denies: easy bleeding All/Imm: Denies: urticaria, throat swelling or facial swelling PFS ED PFSH: Medical History A-fib Abnormal bilirubin test Abnormal PSA Anemia Atherosclerotic heart disease -has had prior stenting -cardiac workup done in 2019 with nuclear stress testing being negative for ischemia; Echo-EF=55%, mild LVH, no RWMA, trace TR, mild RI -on statin, Plavix, off ASA due to Eliquis Atherosclerotic heart disease of [place] coronary artery without angina pectoris Benign essential hypertension with target blood pressure below 140/90 -BP trending up, continue to monitor -on lasix and HCTZ BPH NOS w ur obs/LUTS CAD (coronary artery disease) CAP (community acquired pneumonia) CKD (chronic kidney disease) Depression Dyslipidemia -on statin Erectile dysfunction due to diseases classified elsewhere Hyperlipidemia Hypertension Hypogonadism Hypogonadism Hypogonadism male Intermittent atrial fibrillation Pneumonia SOB (shortness of breath) Transient atrial fibrillation/flutter -appears to be new onset arrhythmia -had previously been on Metoprolol and Diltiazem which he discontinued on his own due to dizziness -on sotalol 80 mg in AM, 40 mg in PM; off Cardizem drip -appreciate evaluation by Dr. Locke -telemetry monitoring -VSS; continue to monitor -Echo: EF=57%, G3DD, mild LVH, no RWMA, mild to moderate MR, moderate TR, mild pulmonary HTN -has been on therapeutic Lovenox due to D-dimer elevation; VTE r/o so now on Eliquis -[id number] score of 5; will need to continue skilled nursing oral anticoagulation Type 2 diabetes mellitus Type 2 diabetes mellitus Weakness Surgical History History of heart artery stent History of knee replacement procedure of left knee Hx of cholecystectomy S/P total knee arthroplasty Status post laser cataract surgery of both eyes Family History Father , AT AGE 86 HEART DISEASE,CA,DIABETES Diabetes CAD (coronary artery disease) Mother , AT AGE 80 No problems noted. Grandfather CAD (coronary artery disease) Chronic kidney disease (CKD) Diabetes Family/Other CAD (coronary artery disease) Other Rheumatoid arthritis Stroke Denies family history of Lupus Hyperlipidemia Cancer Hypertension Social History Smoking and tobacco status: never smoked Alcohol intake: former Substance/Drug Use: never Marital status: Current occupational status: retired Physical Exam Const: COMMON NORMALS: no acute distress, patient oriented x3 and healthy appearing HENMT: COMMON NORMALS: normocephalic and atraumatic HEAD & SCALP: normocephalic and atraumatic Eye: COMMON NORMALS: Equal, round and reactive pupils present and EOMs intact bilaterally PUPIL: Yes Equal, round and reactive pupils present Neck/C-Spine: COMMON NORMALS: full ROM, supple and no JVD Lymph: LYMPHATIC: no lymphadenopathy noted Chest: COMMONS NORMALS: normal inspection of the chest and normal palpation of entire chest wall Resp: COMMON NORMALS: normal respiratory effort (Minutes breath sounds at bases appreciated bilaterally mild scant expirator), No retractions and clear to auscultation bilaterally EFFORT & INSPECTION: Yes able to speak in complete sentences and Yes symmetric chest movement AUSCULTATION: clear to auscultation bilaterally Cardio: COMMON NORMALS: no JVD, regular rate and regular rhythm RATE: regular rate RHYTHM: regular rhythm GI: COMMON NORMALS: Normal to inspection, nondistended, normoactive bowel sounds present, Soft to palpation and non-tender INSPECTION: Yes normal to inspection PALPATION: Yes Soft to palpation : COMMON NORMALS: Yes no CVA tenderness BLADDER/KIDNEY EXAM: Yes no CVA tenderness Back/Pelvis: COMMON NORMALS: no CVA tenderness Extremity: COMMON NORMALS: normal to inspection and full ROM Neuro: COMMON NORMALS: patient oriented x3, CN's II-XII intact bilaterally, moves all extremities and no focal motor deficits Psych: COMMON NORMALS: mental status grossly normal, Normal thought process present, cooperative and normal affect THOUGHT PROCESS: Normal thought process present Skin: COMMON NORMALS: no rashes or lesions noted GENERAL SKIN EXAM: no rashes or lesions noted Course Vital Signs: Vital signs: Vital Signs Temperature 97.9 F 02/22/23 13:32 Pulse Rate 54 L 02/22/23 16:42 Respiratory Rate 21 H 02/22/23 16:42 Blood Pressure 118/64 02/22/23 16:42 Pulse Oximetry 92 02/22/23 16:42 Oxygen Delivery Me thod Nasal Cannula 02/22/23 16:11 Oxygen Flow Rate 2 02/22/23 16:11 MDM - SOB/Dyspnea Medical Decision Making Due to the patient's symptoms and condition underlying concerns of recurrent cardiac issues or pneumonia is prominent. Patient lab reveals his anemia is worse current hemoglobin 7.7 patient's pneumonia on the right side is also worse discussed patient's case with Dr. Young on-call hospitalist that has acceptance to the medical surgical floor. Patient remains in stable condition at this time. Lab Data 02/22/23 14:12 02/22/23 14:12 Labs/Radiology: Radiology Impressions Chest X-Ray 02/22/23 15:44 IMPRESSION: Patulous consolidations throughout the right lung consistent with multifocal pneumonia. Laboratory Results WBC 6.1 10^3/uL (4.0-10.0) 02/22/23 14:12 RBC 2.36 10^6/uL (4.1-5.3) L 02/22/23 14:12 Hgb 7.7 g/dL (11.7-16.6) L 02/22/23 14:12 Hct 24.4 % (42.0-52.0) L 02/22/23 14:12 MCV 103.4 fl (80-94) H 02/22/23 14:12 MCH 32.6 pg (28.0-34.0) 02/22/23 14:12 MCHC 31.6 g/dL (30.0-36.0) 02/22/23 14:12 RDW 17.6 % (12.1-15.1) H 02/22/23 14:12 Plt Count 342 10^3/cmm (130-400) 02/22/23 14:12 MPV 11.0 fL (7.4-10.4) H 02/22/23 14:12 Total Counted 100 (0-100) 02/22/23 14:12 Atypical Lymphs % 0.0 % (0-5) 02/22/23 14:12 Absolute Neutrophils 4.5 10^3/cmm (1.4-6.5) 02/22/23 14:12 Segmented Neutrophils 71 % 02/22/23 14:12 Abs Segm Neuts (Man) 4.3 10/cmm (1.6-7.1) 02/22/23 14:12 Band Neutrophils 3.0 % 02/22/23 14:12 Abs Band Neuts (Man) 0.2 10^3/cmm (0.0-1.2) 02/22/23 14:12 Absolute Lymphocytes 1.4 10^3/cmm (1.2-3.4) 02/22/23 14:12 Lymphocytes (Manual) 23 % 02/22/23 14:12 Monocytes (Manual) 2.0 % 02/22/23 14:12 Absolute Monocytes 0.1 10^3/cmm (0.1-0.6) 02/22/23 14:12 Eosinophils (Manual) 0 % 02/22/23 14:12 Absolute Eosinophils 0.0 10^3/cmm (0.0-0.7) 02/22/23 14:12 Basophils (Manual) 0.0 % 02/22/23 14:12 Absolute Basophils 0.0 10^3/cmm (0.0-0.2) 02/22/23 14:12 Platelet Estimate Normal (Normal) 02/22/23 14:12 Sodium 135 mmol/L (136-145) L 02/22/23 14:12 Potassium 3.5 mmol/L (3.5-5.1) 02/22/23 14:12 Chloride 98 mmol/L (98-107) 02/22/23 14:12 Carbon Dioxide 25 mmol/L (22-29) 02/22/23 14:12 Anion Gap 15.5 (5-19) 02/22/23 14:12 BUN 31 mg/dL (8-23) H 02/22/23 14:12 Creatinine 1.4 mg/dL (0.7-1.2) H 02/22/23 14:12 GFR Calculation Not Reportable 02/22/23 14:12 Glucose 175 mg/dL (65-115) H 02/22/23 14:12 Calculated Osmolality 291 mOsm/kg (285-295) 02/22/23 14:12 Calcium 8.9 mg/dL (8.5-10.5) 02/22/23 14:12 Total Bilirubin 0.9 mg/dL (0.15-1.2) 02/22/23 14:12 AST 16 U/L (0-40) 02/22/23 14:12 ALT 9 U/L (0-41) 02/22/23 14:12 Alkaline Phosphatase 80 U/L (40-130) 02/22/23 14:12 Troponin T Baseline 87 ng/L (0-15) H 02/22/23 14:12 Total Protein 7.1 g/dL (6.6-8.7) 02/22/23 14:12 Albumin 3.0 g/dL (3.5-5.2) L 02/22/23 14:12 Globulin 4.1 g/dL (1.3-4.6) 02/22/23 14:12 Discharge Plan Discharge Patient Disposition: Admitted As Inpatient Clinical Impression: Failure of outpatient treatment, Pneumonia, Symptomatic anemia, Chronic anticoagulation Condition: Stable Prescriptions: No Action vitamin B complex [B Complex-Vitamin B12] Tablet 1 tab PO DAILY acetaminophen [Tylenol Extra Strength] 500 mg tablet 1,000 mg PO BID albuterol sulfate 90 mcg/actuation HFA aerosol inhaler 2 puff inhalation Q4H PRN (Reason: shortness of breath or wheezing) Qty: 8.5 6RF Farxiga 10 mg tablet 10 mg PO QAM 90 Days Qty: 90 1RF glipizide 5 mg tablet 5 mg PO BID 90 Days Qty: 180 1RF (DME) OYXGEN AT 3L PER N/C WITH CONSERVING DEVICE AND PORTABLE See Rx Instructions .Route .MEDSUPPLY Qty: 1 0RF Rx Instructions: As directed ipratropium-albuterol 0.5 mg-3 mg(2.5 mg base)/3 mL solution for nebulization 3 ml inhalation Q4H PRN (Reason: wheezing) Qty: 90 3RF escitalopram oxalate 20 mg tablet 20 mg PO BEDTIME 30 Days Qty: 30 0RF (DME) Portable oxygen @ 3 L per n/c continuous See Rx Instructions .Route .MEDSUPPLY Qty: 3 0RF Rx Instructions: continuous (DME) condom catheters See Rx Instructions .Route .MEDSUPPLY Qty: 30 4RF Rx Instructions: As directed Humira Pen 40 mg/0.8 mL pen injector kit See Rx Instructions SUBCUT .COMPLEX Qty: 4 5RF Rx Instructions: inject one - 40 mg/0.8 mL pen every 2 weeks metoprolol tartrate 25 mg tablet 25 mg PO BID Qty: 180 3RF acarbose 25 mg tablet 25 mg PO TID Qty: 360 3RF (DME) Contour Next Test Strips Strip See Rx Instructions .Route Qty: 50 6RF Rx Instructions: As directed 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 nitroglycerin 0.4 mg tablet, sublingual 0.4 mg sublingual Q5M PRN (Reason: chest pain) Qty: 25 2RF Rx Instructions: do not exceed 3 doses per episode promethazine-DM 6.25-15 mg/5 mL syrup 5 - 10 ml PO Q6H PRN (Reason: cough) Qty: 200 0RF tamsulosin 0.4 mg capsule 0.4 mg PO BID 90 Days Qty: 180 1RF (DME) NEBULIZER MACHINE AND TUBING SUPPLIES See Rx Instructions .Route .MEDSUPPLY Qty: 1 0RF Rx Instructions: As directed potassium chloride 10 mEq tablet extended release 10 meq PO QAM Qty: 90 3RF aspirin 81 mg Tablet,Delayed Release (Dr/Ec) 81 mg PO QAM ascorbic acid (vitamin C) [Vitamin C] 500 mg Tablet 500 mg PO DAILY multivitamin Tablet 1 tab PO QAM isosorbide mononitrate 30 mg tablet extended release 24 hr 30 mg PO QAM Rx Instructions: patient due labs and visit clopidogrel 75 mg tablet 75 mg PO QAM simvastatin 40 mg tablet 40 mg PO BEDTIME ferrous sulfate 325 mg (65 mg iron) tablet 325 mg PO QAM testosterone cypionate 200 mg/mL oil 200 mg IM Q30D finasteride 5 mg tablet 5 mg PO BEDTIME diclofenac sodium [Voltaren Arthritis Pain] 1 % gel 4 g topical QID PRN (Reason: Pain) Rx Instructions: apply to single knee, ankle, foot; for foot includes sole/toes/top of foot Xarelto 20 mg tablet 20 mg PO QAM sotalol 80 mg tablet 40 mg PO BID nystatin 100,000 unit/gram cream 1 applic topical QID PRN (Reason: unknown) cetirizine 10 mg tablet 10 mg PO QAM PRN (Reason: Allergy Symptoms) Januvia 100 mg tablet 100 mg PO QAM pantoprazole [Protonix] 40 mg tablet,delayed release (DR/EC) 40 mg PO BID 30 Days Qty: 60 3RF albuterol sulfate 1.25 mg/3 mL solution for nebulization 1.25 mg inhalation Q4H PRN (Reason: Shortness Of Breath) amitriptyline 25 mg Tablet 25 mg PO BEDTIME PRN (Reason: Insomnia) Eye Health Tablet 1 tab PO DAILY furosemide 40 mg tablet 40 mg PO DAILY Referrals: Vita Mcelroy NP [Primary Care Provider] - Coding Level of Care Code ED Financial Advisor for Gissel Fontenot
[2023-02-22 15:01] LABS: Troponin(5th) Baseline 87 ng/L (0-15)
--- NOTE | 2023-02-22 15:44 | XRR_ITS ---
PROCEDURE INFORMATION: Exam: XR Chest Exam date and time: 02/22/2023 2:52 PM Age: 82 years old Clinical indication: Shortness of breath; Additional info: SOB TECHNIQUE: Imaging protocol: Radiologic exam of the chest. Views: 1 view. COMPARISON: CT chest w con* [id number] 02/01/2023 7:24 PM FINDINGS: Lungs: Patulous consolidations throughout the right lung. Pleural spaces: No pleural effusion. No pneumothorax. Heart/Mediastinum: No cardiomegaly. Bones/joints: Rotator cuff anchors noted in the left humeral head. Visualized osseous structures are intact. XR/XR chest 1V portable [id number] IMPRESSION: Patulous consolidations throughout the right lung consistent with multifocal pneumonia.
[2023-02-22 15:59] LABS: Hematocrit 24.4 % (42.0-52.0); Hemoglobin 7.7 g/dL (11.7-16.6); Mean Corpuscular HGB Conc 31.6 g/dL (30.0-36.0); Mean Corpuscular Hemoglobin 32.6 pg (28.0-34.0); Mean Corpuscular Volume 103.4 fl (80-94); Platelet Count 342 10^3/cmm (130-400); Red Blood Count 2.36 10^6/uL (4.1-5.3); Red Cell Distribution Width 17.6 % (12.1-15.1); White Blood Count 6.1 10^3/uL (4.0-10.0)
[2023-02-22] MEDS: ipratropium-albuterol 3 mL Neb INHALATION (16:05)
[2023-02-22 16:13] LABS: Alanine Aminotransferase 9 U/L (0-41); Alkaline Phosphatase 80 U/L (40-130); Anion Gap 15.5 (5-19); Aspartate Amino Transferase 16 U/L (0-40); Blood Urea Nitrogen 31 mg/dL (8-23); Calcium 8.9 mg/dL (8.5-10.5); Carbon Dioxide 25 mmol/L (22-29); Chloride 98 mmol/L (98-107); Globulin 4.1 g/dL (1.3-4.6); Glucose 175 mg/dL (65-115); Osmolality Calculated 291 mOsm/kg (285-295); Potassium 3.5 mmol/L (3.5-5.1); Sodium 135 mmol/L (136-145); Total Bilirubin 0.9 mg/dL (0.15-1.2); Total Protein 7.1 g/dL (6.6-8.7)
--- NOTE | 2023-02-22 16:40 | ECG_ITS ---
[facility] Test Date: 2023-02-22 Pat Name: Nicolás Menjivar Department: Room: Gender: Male French Weaver: : 1940 Requested By: Yovanny Mathew Order Number: [id number] Funmilayo MD: Hakan Messina M.D. Measurements Intervals [place] Rate: 54 P: -2 VT: 212 QRS: 1 QRSD: 94 T: 85 QT: 418 QTc: 396 Interpretive Statements SINUS BRADYCARDIA WITH FIRST DEGREE AV BLOCK LEFT VENTRICULAR HYPERTROPHY AND ST-T CHANGE [VOLTAGE CRITERIA PLUS ST/T ABNORMALITY] POSSIBLE SEPTAL MYOCARDIAL INFARCTION , PROBABLY OLD [30 ms Q WAVE IN V1/V2] Compared to ECG 02/22/2023 14:44:46 ST (T wave) deviation now present Myocardial infarct finding now present T-wave abnormality no longer present Electronically Signed On 02-23-2023 8:30:19 CDT by Hakan Messina M.D. [id number]
--- NOTE | 2023-02-22 16:40 | CTR_ITS ---
PROCEDURE INFORMATION: Exam: CT Chest With Contrast; Diagnostic Exam date and time: 02/22/2023 4:50 PM Age: 82 years old Clinical indication: Dyspnea; Additional info: Persistant pneumonia TECHNIQUE: Imaging protocol: Diagnostic computed tomography of the chest with contrast. Radiation optimization: All CT scans at this facility use at least one of these dose optimization techniques: automated exposure control; mA and/or kV adjustment per patient size (includes targeted exams where dose is matched to clinical indication); or iterative reconstruction. Contrast material: OMNIPAQUE 350; Contrast volume: 100 ml; Contrast route: INTRAVENOUS (IV); REPORTING DATA: Count of CT and Cardiac NM exams in prior 12 months: This patient has received 7 known CTs and 0 known cardiac nuclear medicine studies in the 12 months prior to the current study. COMPARISON: CT chest w con* [id number] 02/01/2023 7:24 PM RADIATION DOSE METRICS: Total DLP (mGy-cm): 444.6 FINDINGS: Lungs: Continued mild to moderate centrilobular emphysema which is most prominent in the right upper lobe. Interval appearance of moderate to severe right upper lobe pneumonia. Continued mild left basilar pneumonia. Pleural spaces: Significant increased size of mild to moderate right pleural fluid collection. Interval worsening of severe destructive pneumonia in the right lower lobe with pneumatoceles and increased atelectasis which may be compressive atelectasis from surrounding pleural fluid. Heart: Severe calcification in the mitral valve and/or mitral valve annulus. Coronary arteries: Stable severe calcified coronary artery disease. Lymph nodes: Calcified right hilar nodes and/or mediastinal nodes and/or lung granulomas consistent with old granulomatous disease. Continued mild mediastinal adenopathy which may be reactive. Vasculature: Calcification of the thoracic aorta and/or great vessels consistent with atherosclerotic vessel disease. 4.2 cm thoracic aortic aneurysm without rupture, 5 cm distal to the origin of the left subclavian artery. Calcification of the abdominal aorta and/or iliac arteries consistent with atherosclerotic vessel disease. Bones/joints: Unremarkable. No acute fracture. Soft tissues: Unremarkable. CT/CT chest w con* [id number] IMPRESSION: 1. Significant increased size of mild to moderate right pleural fluid collection. 2. Interval worsening of severe destructive pneumonia in the right lower lobe with pneumatoceles and increased atelectasis which may be compressive atelectasis from surrounding pleural fluid. 3. Continued mild to moderate centrilobular emphysema which is most prominent in the right upper lobe. 4. Interval appearance of moderate to severe right upper lobe pneumonia. 5. Continued mild left basilar pneumonia. 6. 4.2 cm thoracic aortic aneurysm without rupture, 5 cm distal to the origin of the left subclavian artery. 7. Stable severe calcified coronary artery disease. 8. Continued mild mediastinal adenopathy which may be reactive.
[2023-02-22 16:46] LABS: Absolute Neutrophil 4.5 10^3/cmm (1.4-6.5); Absolute Segmented Neutrophil 4.3 10/cmm (1.6-7.1); Band Neutrophils Absolute 0.2 10^3/cmm (0.0-1.2); Eosinophils 0 %; Lymphocytes 23 %; Lymphocytes Absolute 1.4 10^3/cmm (1.2-3.4); Monocytes Absolute 0.1 10^3/cmm (0.1-0.6); Platelet Estimate Normal (Normal); Segmented Neutrophils 71 %; Total Cells Counted 100 (0-100)
[2023-02-22] MEDS: iohexol 350 mg/mL 500 mL Btl (per mL) IV (16:49)
[2023-02-22] MEDS: piperacillin-tazobactam 4.5 GM in sodium chloride 0.9% (plus) 50 ML IV (17:01)
[2023-02-22 17:07] LABS: NT Pro B Type Natriuretic Pept 34955 pg/mL (0-450)
[2023-02-22 17:11] LABS: Troponin 5 2HR 81.07 ng/L (0-15)
[2023-02-22 17:13] LABS: Lactic Sepsis W/Reflex 1.2 mmol/L (0.5-2.2)
[2023-02-22] MEDS: vancomycin 1,000 MG in sodium chloride 0.9% 250 ML 250 MG IV (17:32)
[2023-02-22 20:54] LABS: Glucose Point of Care 173 mg/dL (70-110)
[2023-02-22 21:22] LABS: Troponin 5 6HR 72.23 ng/L (0-15)
--- NOTE | 2023-02-22 22:24 | PM.HP ---
Providers/Chief Complaint Admitting Physician: Favian Young MD Primary Care Provider: Vita Mcelroy NP Chief Complaint: sob History of Present Illness Nicolás Menjivar is a 82 year old male with past medical history of rheumatoid arthritis, on Humira until being discontinued in middle of January, diabetes mellitus, paroxysmal A-fib, chronic anemia of unclear etiology, CKD stage III. His current symptoms started initially in November 2022. When he presented on December 17, 2022 with community-acquired pneumonia. At that time he had initially complained of abdominal pain and 1 episode of vomiting along with symptoms of cough runny nose and postnasal drip. CT of the abdomen and pelvis did not reveal any acute abnormalities. Chest x-ray showed evidence of right lower lobe infiltrate which was treated for community-acquired pneumonia with ceftriaxone and azithromycin transition to p.o. Augmentin. Patient was on 3 L/min supplemental O2 at that time, by the time of discharge had recovered enough to come back to room air. It appears he was discharged however a few days later started to develop symptoms again. He visited his primary care physician 4 to 5 days after discharge at which point he had started to feel worse again. Between November to early January he was treated with several courses of oral antibiotics including oral Augmentin and then Levaquin. His O2 sats were noted to be dipping down to 90%. He received some steroids as outpatient. By la 8 he returned to the emergency room with worsening shortness of breath and increased oxygen requirement, increased fatigue. On this admission he was found to have anemia with hemoglobin of 6.9, with plan to complete EGD and colonoscopy as outpatient.. CT and x-ray of his chest on this admission showed worsening consolidation, he was treated on this admission with IV Zosyn and vancomycin between February 01 to February 07, 2023. He was again discharged on 7 days of Augmentin to complete the course. Sputum culture taken at this time showed rare gram-positive cocci in pairs. MRSA PCR was negative. Urine bacterial and Legionella antigens were negative as was a respiratory viral panel. Upon return home patient has continued to have worsening dyspnea. He has had 15 to 20 pound weight loss additionally. He appears to be ill. He has had persistent coughing and intermittent sputum production. No hemoptysis. He has night sweats and chills. He received an injection of ceftriaxone on February 17 with his primary care provider. Today he returns again to the emergency room with worsening shortness of breath. CT chest today shows significantly increased size of mild to moderate right-sided pleural fluid collection and interval worsening of the pneumonia in the right lower lobe with pneumatoceles and increased atelectasis. There is also an interval appearance of moderate to severe right upper lobe pneumonia. Mild left basilar pneumonia was also noted. All images were personally reviewed by me and compared to images from November 2022, CT and chest x-ray imaging both show worsening radiological appearance. There is also note made of mediastinal adenopathy. Patient discontinued Humira in mid January 2023 No recent significant travel history. History of diffuse exfoliative rash in July 2022 for which patient was admitted in [place], at that time thought to be related to Bactrim. 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 He had several PPDs during his time in the [employer] all of which were negative. Most recent QuantiFERON in July 2022 was negative. Review of recent CBCs shows that in addition to anemia, patient has also had intermittent leukopenia between December 23, 2022 to February 17, 2023 with his white count ranging between 1.4-3.7.platelets have been within range. Platelets have been normal. Corresponding ANC has ranged between 0.5-1.7. Today his white blood cell count is at 6.1 Review of Systems General: Reports: 10 or more systems reviewed and unremarkable except in HPI and below Const: Reports: fever(s), chills and body aches Eyes: Denies: change in vision, blurry vision or photophobia ENMT: Reports: hoarseness; Denies: throat pain, enlarged tonsils, odynophagia or nasal congestion Card: Denies: chest pain, palpitations, irregular heart rhythm, edema, swelling of feet/ankles, lightheadedness, pre-syncope, dyspnea on exertion or orthopnea Resp: Denies: dyspnea, productive cough, non-productive cough, wheezing, stridor, pain on inspiration, change in phlegm color, hemoptysis or chest congestion GI: Denies: abdominal pain, nausea, vomiting, hematemesis, coffee ground emesis, dysphagia, heartburn, diarrhea, constipation, GI cramping, change in stool character, hematochezia or melena : Denies: flank pain, dysuria, urinary frequency, urinary urgency, urinary hesitancy or hematuria Musc: Denies: neck pain, back pain, extremity pain, joint swelling, joint warmth or deformity Neuro: Denies: headache(s), numbness in extremities, weakness in extremities, sensory changes, difficulty walking, frequent falls, dizziness, vertigo, behavioral changes, Slurred speech present or seizure-like activity Psych: Denies: anxiety, depression, suicidal ideation or homicidal ideation Endo: Denies: polyuria, polydipsia, tired all the time, cold intolerance or hot flashes Arsen/Lymph: Denies: easy bruising or easy bleeding Medications/Allergies Home Medications Medication Instructions Recorded Confirmed Last Taken Type acetaminophen 500 mg tablet 1,000 mg PO BID 04/01/20 02/22/23 02/22/23 History (Tylenol Extra Strength) vitamin B complex (B 1 tab PO DAILY 04/01/20 02/22/23 02/22/23 History Complex-Vitamin B12 tablet) albuterol sulfate 90 mcg/actuation 2 puff inhalation Q4H PRN 10/27/21 02/22/23 Unknown Rx aerosol inhaler shortness of breath or wheezing #8.5 grams adalimumab 40 mg/0.8 mL See Rx Instructions SUBCUT 01/07/22 02/22/23 12/06/22 Rx subcutaneous pen kit (Humira Pen) .COMPLEX #4 ea metoprolol tartrate 25 mg tablet 25 mg PO BID #180 tabs 06/18/22 02/22/23 02/22/23 Rx dapagliflozin 10 mg tablet 10 mg PO QAM 90 days #90 tabs 07/07/22 02/22/23 02/22/23 Rx (Farxiga) glipizide 5 mg tablet 5 mg PO BID 90 days #180 tabs 07/07/22 02/22/23 02/22/23 Rx OYXGEN AT 3L PER N/C WITH #1 ea 07/23/22 02/22/23 Unknown Rx CONSERVING DEVICE AND PORTABLE acarbose 25 mg tablet 25 mg PO TID #360 tabs 09/17/22 02/22/23 02/22/23 Rx blood sugar diagnostic (Contour #50 ea 11/06/22 02/22/23 Unknown Rx Next Test Strips) ascorbic acid (vitamin C) 500 mg 500 mg PO DAILY 12/17/22 02/22/23 02/22/23 History tablet (Vitamin C) aspirin 81 mg tablet,delayed 81 mg PO QAM 12/17/22 02/22/23 02/22/23 History release clopidogrel 75 mg tablet 75 mg PO QAM 12/17/22 02/22/23 02/22/23 History diclofenac sodium 1 % topical gel 4 g topical QID PRN Pain 12/17/22 02/22/23 Unknown History (Voltaren Arthritis Pain) ferrous sulfate 325 mg (65 mg 325 mg PO QAM 12/17/22 02/22/23 02/22/23 History iron) tablet finasteride 5 mg tablet 5 mg PO BEDTIME 12/17/22 02/22/23 02/21/23 History isosorbide mononitrate 30 mg 30 mg PO QAM 12/17/22 02/22/23 02/22/23 History tablet,extended release 24 hr multivitamin 1 tab PO QAM 12/17/22 02/22/23 02/22/23 History rivaroxaban 20 mg tablet (Xarelto) 20 mg PO QAM 12/17/22 02/22/23 02/22/23 History simvastatin 40 mg tablet 40 mg PO BEDTIME 12/17/22 02/22/23 02/21/23 History testosterone cypionate 200 mg/mL 200 mg IM Q30D 12/17/22 02/22/23 11/25/22 History intramuscular oil nitroglycerin 0.4 mg sublingual 0.4 mg sublingual Q5M PRN chest 12/21/22 02/22/23 02/01/23 Rx tablet pain #25 tabs promethazine-DM 6.25 mg-15 mg/5 mL 5 - 10 ml PO Q6H PRN cough #200 mL 01/11/23 02/22/23 Unknown Rx oral syrup tamsulosin 0.4 mg capsule 0.4 mg PO BID 90 days #180 caps 01/13/23 02/22/23 02/22/23 Rx ipratropium 0.5 mg-albuterol 3 mg 3 ml inhalation Q4H PRN wheezing 01/18/23 02/22/23 Unknown Rx (2.5 mg base)/3 mL nebulization #90 mL soln NEBULIZER MACHINE AND TUBING #1 ea 01/19/23 02/22/23 Unknown Rx SUPPLIES cetirizine 10 mg tablet 10 mg PO QAM PRN Allergy Symptoms 02/01/23 02/22/23 02/01/23 History nystatin 100,000 unit/gram topical 1 applic topical QID PRN unknown 02/01/23 02/22/23 Unknown History cream sitagliptin phosphate 100 mg 100 mg PO QAM 02/01/23 02/22/23 02/22/23 History tablet (Januvia) sotalol 80 mg tablet 40 mg PO BID 02/01/23 02/22/23 02/22/23 History pantoprazole 40 mg tablet,delayed 40 mg PO BID 30 days #60 tabs 02/06/23 02/22/23 02/22/23 Rx release (Protonix) potassium chloride 10 mEq 10 meq PO QAM #90 tabs 02/16/23 02/22/23 02/22/23 Rx tablet,extended release Portable oxygen @ 3 L per n/c #3 ea 02/17/23 02/22/23 Unknown Rx continuous condom catheters #30 ea 02/17/23 02/22/23 Unknown Rx escitalopram oxalate 20 mg tablet 20 mg PO BEDTIME 30 days #30 tabs 02/17/23 02/22/23 02/21/23 Rx albuterol sulfate 1.25 mg/3 mL 1.25 mg inhalation Q4H PRN 02/22/23 02/22/23 Unknown History solution for nebulization Shortness Of Breath amitriptyline 25 mg tablet 25 mg PO BEDTIME PRN Insomnia 02/22/23 02/22/23 Unknown History furosemide 40 mg tablet 40 mg PO DAILY 02/22/23 02/22/23 02/22/23 History vitamin A-vitamin C-vit E-min 1 tab PO DAILY 02/22/23 02/22/23 02/22/23 History tablet Allergies Allergy/AdvReac Type Severity Reaction Status Date / Time bupropion [From Wellbutrin] Allergy Unknown Unknown Verified 02/22/23 13:32 celecoxib [From Celebrex] Allergy Unknown Unknown Verified 02/22/23 13:32 rofecoxib [From Vioxx] Allergy Unknown Verified 02/22/23 13:32 bactrim Allergy Severe ALGY-Rash Uncoded 02/01/23 14:58 PFSH Acute PFSH: Medical History A-fib Abnormal bilirubin test Abnormal PSA Anemia Atherosclerotic heart disease -has had prior stenting -cardiac workup done in 2019 with nuclear stress testing being negative for ischemia; Echo-EF=55%, mild LVH, no RWMA, trace TR, mild HI -on statin, Plavix, off ASA due to Eliquis Atherosclerotic heart disease of [place] coronary artery without angina pectoris Benign essential hypertension with target blood pressure below 140/90 -BP trending up, continue to monitor -on lasix and HCTZ BPH NOS w ur obs/LUTS CAD (coronary artery disease) CAP (community acquired pneumonia) CKD (chronic kidney disease) Depression Dyslipidemia -on statin Erectile dysfunction due to diseases classified elsewhere Hyperlipidemia Hypertension Hypogonadism Hypogonadism Hypogonadism male Intermittent atrial fibrillation Pneumonia SOB (shortness of breath) Transient atrial fibrillation/flutter -appears to be new onset arrhythmia -had previously been on Metoprolol and Diltiazem which he discontinued on his own due to dizziness -on sotalol 80 mg in AM, 40 mg in PM; off Cardizem drip -appreciate evaluation by Dr. 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 Grandfather CAD (coronary artery disease) Chronic kidney disease (CKD) Diabetes Family/Other CAD (coronary artery disease) Other Rheumatoid arthritis Stroke Denies family history of Lupus Hyperlipidemia Cancer Hypertension Social History Smoking and tobacco status: never smoked Alcohol intake: former Substance/Drug Use: never Marital status: Current occupational status: retired Vitals/I&O/Wt Last Vital Signs Temp 97.9 F 02/22/23 13:32 Pulse 58 L 02/22/23 18:57 Resp 23 H 02/22/23 18:16 BP 128/67 02/22/23 18:57 Pulse Ox 92 02/22/23 18:57 O2 Del Method Nasal Cannula 02/22/23 16:11 O2 Flow Rate 2 02/22/23 16:11 02/22/23 02/22/23 02/22/23 06:59 14:59 22:59 Intake Total 300 / 300 Balance 300 / 300 Weight last 48 hrs Weight 74.843 kg Weight 76.204 kg Physical Exam Narrative: General: No acute distress, AO x3 HEENT: PERRLA, pupils bilaterally equal and reactive, pallors not present Chest: Coarse breath sounds CVS: S1-S2 regular, no murmurs, no tachycardia, no gallops, no rubs Abdomen: Soft, nontender, no organomegaly, bowel sounds present Neuro: No focal deficits, no facial deformity, AO x3, power 5/5 in all limbs Data 02/22/23 14:12 02/22/23 14:12 Micro: Microbiology 02/22/23 16:30 Blood Culture - Preliminary Blood SPECIMEN COLLECTED 02/22/23 16:30 Blood Culture - Preliminary Blood SPECIMEN COLLECTED Other data: Date of Service: 02/22/23 Procedure(s): XR chest 1V portable [id number] XR/XR chest 1V portable [id number] IMPRESSION: Patulous consolidations throughout the right lung consistent with multifocal pneumonia. Date of Service: 02/01/23 Procedure(s): CT chest w con* [id number] ? CT/CT chest w con* [id number] IMPRESSION: 1. ? Negative for pulmonary embolus 2. ? Coronary artery atherosclerotic calcifications. 3. ? Trace right pleural effusion. 4. ? Emphysematous changes. 5. ? Right lower lobe pneumonia. 6. ? Cholecystectomy. 7. ? Scattered enlarged mediastinal lymph nodes measuring up to 14 mm, nonspecific. 8. ? 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 9.? Cardiomegaly. Date of Service: 02/01/23 Procedure(s): XR chest 1V portable [id number] XR/XR chest 1V portable [id number] IMPRESSION: 1. ? Right largely mid to lower lung field airspace infiltrate. 2. ? Cardiomegaly. 3. ? Emphysematous changes. Date of Service: 12/17/22 Procedure(s): XR chest 1V portable [id number] XR/XR chest 1V portable [id number] IMPRESSION: Mild infiltrate and/or atelectasis within the lung bases suggesting mild basilar pneumonia, for follow-up. Exam: CT Abdomen And Pelvis Without Contrast Exam date and time: 12/17/2022 3:54 PM Lungs: Images of the lung bases demonstrate emphysematous change with areas of focal infiltrate with partial air bronchograms within the medial and posterior lower right lung, along with small amount atelectasis or infiltrate left lung base. No pleural effusion. Date of Service: 07/31/22 Procedure(s): CT chest abd pel w con* CT/CT chest abd pel w con* IMPRESSION: 1. Cardiomegaly 2. Coronary artery atherosclerotic calcifications. 3. Emphysematous changes. Chest X-Ray 02/22/23 15:44 IMPRESSION: Patulous consolidations throughout the right lung consistent with multifocal pneumonia. Chest CT 02/22/23 16:40 IMPRESSION: 1. Significant increased size of mild to moderate right pleural fluid collection. 2. Interval worsening of severe destructive pneumonia in the right lower lobe with pneumatoceles and increased atelectasis which may be compressive atelectasis from surrounding pleural fluid. 3. Continued mild to moderate centrilobular emphysema which is most prominent in the right upper lobe. 4. Interval appearance of moderate to severe right upper lobe pneumonia. 5. Continued mild left basilar pneumonia. 6. 4.2 cm thoracic aortic aneurysm without rupture, 5 cm distal to the origin of the left subclavian artery. 7. Stable severe calcified coronary artery disease. 8. Continued mild mediastinal adenopathy which may be reactive. Laboratory Results WBC 6.1 10^3/uL (4.0-10.0) 02/22/23 14:12 RBC 2.36 10^6/uL (4.1-5.3) L 02/22/23 14:12 Hgb 7.7 g/dL (11.7-16.6) L 02/22/23 14:12 Hct 24.4 % (42.0-52.0) L 02/22/23 14:12 MCV 103.4 fl (80-94) H 02/22/23 14:12 MCH 32.6 pg (28.0-34.0) 02/22/23 14:12 MCHC 31.6 g/dL (30.0-36.0) 02/22/23 14:12 RDW 17.6 % (12.1-15.1) H 02/22/23 14:12 Plt Count 342 10^3/cmm (130-400) 02/22/23 14:12 MPV 11.0 fL (7.4-10.4) H 02/22/23 14:12 Total Counted 100 (0-100) 02/22/23 14:12 Atypical Lymphs % 0.0 % (0-5) 02/22/23 14:12 Absolute Neutrophils 4.5 10^3/cmm (1.4-6.5) 02/22/23 14:12 Segmented Neutrophils 71 % 02/22/23 14:12 Abs Segm Neuts (Man) 4.3 10/cmm (1.6-7.1) 02/22/23 14:12 Band Neutrophils 3.0 % 02/22/23 14:12 Abs Band Neuts (Man) 0.2 10^3/cmm (0.0-1.2) 02/22/23 14:12 Absolute Lymphocytes 1.4 10^3/cmm (1.2-3.4) 02/22/23 14:12 Lymphocytes (Manual) 23 % 02/22/23 14:12 Monocytes (Manual) 2.0 % 02/22/23 14:12 Absolute Monocytes 0.1 10^3/cmm (0.1-0.6) 02/22/23 14:12 Eosinophils (Manual) 0 % 02/22/23 14:12 Absolute Eosinophils 0.0 10^3/cmm (0.0-0.7) 02/22/23 14:12 Basophils (Manual) 0.0 % 02/22/23 14:12 Absolute Basophils 0.0 10^3/cmm (0.0-0.2) 02/22/23 14:12 Platelet Estimate Normal (Normal) 02/22/23 14:12 Sodium 135 mmol/L (136-145) L 02/22/23 14:12 Potassium 3.5 mmol/L (3.5-5.1) 02/22/23 14:12 Chloride 98 mmol/L (98-107) 02/22/23 14:12 Carbon Dioxide 25 mmol/L (22-29) 02/22/23 14:12 Anion Gap 15.5 (5-19) 02/22/23 14:12 BUN 31 mg/dL (8-23) H 02/22/23 14:12 Creatinine 1.4 mg/dL (0.7-1.2) H 02/22/23 14:12 GFR Calculation Not Reportable 02/22/23 14:12 Glucose 175 mg/dL (65-115) H 02/22/23 14:12 POC Glucose 173 mg/dL (70-110) H 02/22/23 20:50 Calculated Osmolality 291 mOsm/kg (285-295) 02/22/23 14:12 Lactic Acid 1.2 mmol/L (0.5-2.2) 02/22/23 16:30 Calcium 8.9 mg/dL (8.5-10.5) 02/22/23 14:12 Total Bilirubin 0.9 mg/dL (0.15-1.2) 02/22/23 14:12 AST 16 U/L (0-40) 02/22/23 14:12 ALT 9 U/L (0-41) 02/22/23 14:12 Alkaline Phosphatase 80 U/L (40-130) 02/22/23 14:12 Troponin T Baseline 87 ng/L (0-15) H 02/22/23 14:12 Troponin T 120 Minute 81.07 ng/L (0-15) H 02/22/23 16:43 Delta Troponin T -5.93 ABS# (0-10) L 02/22/23 16:43 Troponin T Hi Sens 6Hr 72.23 ng/L (0-15) H 02/22/23 20:20 Troponin T Hi Sens 6Hr Delta -14.77 ng/L (0-12) L 02/22/23 20:20 NT-Pro-B Natriuret Pep 34857 pg/mL (0-450) H 02/22/23 14:12 Total Protein 7.1 g/dL (6.6-8.7) 02/22/23 14:12 Albumin 3.0 g/dL (3.5-5.2) L 02/22/23 14:12 Globulin 4.1 g/dL (1.3-4.6) 02/22/23 14:12 Blood Type A Positive 02/22/23 16:10 Rho(D) Type Positive 02/22/23 16:10 Antibody Screen Negative 02/22/23 16:10 A&P Assessment and plan (1) Pneumonia: 82-year-old male patient with rheumatoid arthritis, on Humira until recently, neutropenic since November 2022 presenting today with worsening dyspnea, significant weight loss of 20 pounds, chills, night sweats, cough expectoration, progressively worsening since November of this year. Serial x-ray and CT imaging shows progressively worsening pneumonia in patient between november 2022 to 02/22/2023 He has been treated with Multiple rounds of iv abx and po abx as outpatient including Zosyn, Vancomycin, Ceftriaxone, azithromycin, po augmentin, levofloxacin Reveiw of serial CTs from november to 01/2023 shows worsening Consolidation involving the RUL and RML, interval development of moderate pleural effusion, persisting mediastinal lymphadenopathy. Given the progressive worsening in spite of being on very broad-spectrum antimicrobials, Need to evaluate for atypical causes given that patient is immunocompromised on Adalimumab and was recently neutropenic in 01/2023 (? cause?) Patient needs diagnostic bronchoscopy, however hot saw helper Dr. Schaefer is not available until 03/07. Will check in am if CT surgery may be available to perform bronchoscopy. 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 Possibility of IFI cannot be excluded at this time. However would not presumptively start AmBisome or voriconazole until bronchoscopy can be performed. Us guided thoracentesis with IR for pleural fluid analysis and cx once 48 hrs off Xarelto, change to heparin drip for A/c at this time. Isolation precautions until AFB negative Swallow evaluation to assess for aspiration Iv zosyn, vancomycin and levaquin empirically until above diagnostics are available. if unable to perform bronchoscopy at out center due to non availability of appropriate physicians currently, patient will likely benefit from transfer to a different hospital to expedite diagnostics and guide appropriate treatment. (2) Pleural effusion: US guided thoracentesis once 48 hrs off xarelto (3) Failure of outpatient treatment: diagnostic bronchoscopy and US thoracentesis as above (4) Symptomatic anemia: long standing Hb stable currently Unclear etiology follows with Hem/onc , however last seen in 2020 Recommended BM biopsy at the time however this is yet to happen Needs EGD/ colonoscopy, had FOBT positive stools in 11/2022, will check if may be feasibly done at the time of bronchoscopy. (5) Chronic anticoagulation: hold xarelto and plavix anticipating procedures On heparin drip while inpatient (6) A-fib: continue metoprolol Home records indicate patient on both metoprolol and sotalol, however im only able to see metoprolol prescription from cardiology and only metoprolol noted on home meds on last cardiology visit. Will need to verify medications with pharmacy or cardiology office in am. Bradycardic today, hold sotalol tonight Per review of past notes, it appears sotalol was discontinued in 07/2022 (7) Elevated troponin: no chest pain no ekg changes likely type II IA/ demand supply mismatch unlikely PE on anticoagulation last echo from 02/02 Normal LV size and ejection fraction of around 55%. ?Moderate concentric left-ventricular hypertrophy, Thickened mitral valve.no pericardial effusion. Last stress test 2018 Myocardial perfusion imaging revealing a moderate area for severely decreased tracer uptake in the inferolateral, inferior and apical lateral segments with some reversibility in the inferolateral region, suggestive of myocardial scarring mostly in the distribution of the left circumflex artery with a very small area of snehal-infarction ischemia. Planned for stress test after visit in 07/2022 however do not see any record of this being completed (8) Rheumatoid arthritis: Holding Humira given worsening pneumonia Attestations Medical Necessity Statement*: > 2 midnight admission anticipated for above defined care Coding Level of Care Code Acute Code for Chg Fwd High MDM includes number and complexity of problems actively addressed during encounter, amount and/or complexity of data reviewed/ordered and described risk of complication, morbidity or mortality of management as documented Diagnoses Pneumonia J18.9 Pleural effusion J90 Failure of outpatient treatment Z78.9 Symptomatic anemia D64.9 Chronic anticoagulation Z79.01 A-fib I48.91 Elevated troponin R77.8 Rheumatoid arthritis M06.9
[2023-02-23] VITALS (63 sets, daily range): BP systolic 107–171; BP diastolic 57–85; PULSE 54–78; RESP 16–31; TEMP 36.4–37; O2SAT 84–99
[2023-02-23] MEDS: ipratropium-albuterol 3 mL Neb INHALATION ×5 (00:36→21:05)
[2023-02-23] MEDS: piperacillin-tazobactam 3.375 GM in sodium chloride 0.9% (plus) 50 ML IV ×3 (00:47→22:46)
[2023-02-23 00:52] LABS: Partial Thromboplastin Time 41.4 SECONDS (23.9-36.7)
[2023-02-23] MEDS: heparin 5,000 unit/mL INJ 1 mL IV (01:42)
[2023-02-23] MEDS: heparin drip 25,000 UNIT/500 ML PREMIX 21 UNIT IV (01:43)
[2023-02-23] MEDS: isosorbide mononitrate ER 30 mg Tablet PO (06:32)
[2023-02-23] MEDS: levoFLOXacin 500 mg Tablet PO (06:32)
[2023-02-23 06:49] LABS: Glucose Point of Care 157 mg/dL (70-110)
[2023-02-23 07:09] LABS: Hematocrit 26.1 % (42.0-52.0); Lymphocytes # 0.3 10^3/uL (0.8-4.8); Lymphocytes % 8.9 %; Mean Corpuscular HGB Conc 30.7 g/dL (30.0-36.0); Mean Corpuscular Hemoglobin 32.5 pg (28.0-34.0); Mean Corpuscular Volume 106.1 fl (80-94); Mean Platelet Volume 10.7 fL (7.4-10.4); Monocytes # 0.5 10^3/uL (0.2-0.9); Monocytes % 16.7 %; Neutrophils # 2.24 10^3/uL (1.8-7.7); Neutrophils % 73.4 %; Nucleated Red Blood Cells % 0 %; Platelet Count 306 10^3/cmm (130-400); Red Blood Count 2.46 10^6/uL (4.1-5.3); Red Cell Distribution Width 17.6 % (12.1-15.1); White Blood Count 3.1 10^3/uL (4.0-10.0)
[2023-02-23 07:24] LABS: Alanine Aminotransferase 8 U/L (0-41); Albumin Level 2.6 g/dL (3.5-5.2); Alkaline Phosphatase 68 U/L (40-130); Anion Gap 16.5 (5-19); Aspartate Amino Transferase 16 U/L (0-40); Blood Urea Nitrogen 32 mg/dL (8-23); Calcium 8.7 mg/dL (8.5-10.5); Carbon Dioxide 25 mmol/L (22-29); Chloride 100 mmol/L (98-107); Globulin 4.2 g/dL (1.3-4.6); Glucose 137 mg/dL (65-115); Osmolality Calculated 295 mOsm/kg (285-295); Potassium 3.5 mmol/L (3.5-5.1); Sodium 138 mmol/L (136-145); Total Bilirubin 0.7 mg/dL (0.15-1.2); Total Protein 6.8 g/dL (6.6-8.7)
[2023-02-23] MEDS: insulin lispro 100 unit/1 mL SUBCUT ×2 (08:45→12:23)
[2023-02-23] MEDS: metoprolol tartrate 25 mg Tablet PO ×2 (08:45→21:23)
[2023-02-23] MEDS: tamsulosin 0.4 mg Capsule PO ×2 (08:46→21:23)
[2023-02-23] MEDS: pantoprazole DR 40 mg Tablet PO (08:46)
--- NOTE | 2023-02-23 09:20 | PC.CHAP ---
Pastoral Care Encounter/Spiritual Assessment Type of Contact [] Declined statue maker visit [] Patient/Family/Request visit [] Outpatient visit [] Follow-up visit [] Physician referral [] Code/Alert [] Routine visit [] Staff referral [] Actively dying [] Patient sleeping [] Family support [] [] Out of room [] Palliative care [] [] Receiving care in room [] Pre-surgical visit [] Trauma [] Long length of stay [] ICU visit [x] Other:isolation Relational/Emotional Strength [] Patient feels connected with others/family/visitors/staff [] Distress [] Loneliness/isolation [] Abandonment Spirituality of Patient [] Person of Linn [] Attends Yazdanism of their Linn [] Believes in Prayer [] Reads Bible or Yarsanism materials [] There are Spiritual issues to be addressed Senior Director Insight Interventions [] Prayer [] Active listening [] Non-anxious presence [] Spiritual/emotional support [] Crisis/trauma care [] Spiritual counseling [] Bereavement support [] Provided bereavement packet [] Provided Bible/devotional materials [] Provided toy/stuffed animal, coloring book to patient or family member [] Provided Communion [] Anointing/[place] [] Salvation [] Completed spiritual assessment [] Other: Impact on Illness or Injury [] Angry [] Fearful [] Anxious [] Often cries [] Exhaustion [] Unable to work [] Unable to attend yazidism [] Unable to walk/stand [] Unable to read [] Unable to drive [] Unable to eat/drink [] Unable to sleep [] Unable to be with family [] Patient intubated [] Other: Summary Time spent with patient
--- NOTE | 2023-02-23 10:33 | PM.CONSULT ---
Providers/Reason For Consult Consulting Physician/Specialty*: Dr. Menjivar/cardiothoracic surgery Reason for Consult*: Persistent right-sided pulmonary infiltrate Requesting Physician: Dr. Garrison Attending Physician: Salena Castellanos MD Primary Care Provider: Vita Mcelroy NP History of Present Illness History of Present Illness Nicolás Menjivar is an 82 year old male currently hospitalized after being readmitted yesterday with persistent respiratory difficulties, shortness of breath, cough, and right sided pulmonary infiltrates. I was contacted by Dr. Garrison to consider bronchoscopy to assist with diagnosis. He had a prior hospitalization about a week with discharge February 07 for similar concerns. Mr. Hermosillo has a substantial past history which includes rheumatoid arthritis with use of Humira for approximately 2 years and being discontinued in mid January. He also has diabetes mellitus, paroxysmal atrial fibrillation for which he takes anticoagulation, chronic anemia of uncertain etiology, and stage III chronic kidney disease. He initially developed what was presumed to be a community-acquired pneumonia in November of this year. Original x-rays revealed right lower lobe infiltrate with some modest resolution of his clinical symptoms though there was recurrence. He is undergone between November and January of this year several rounds of oral antibiotics including Augmentin and then Levaquin along with the use of Zithromax. He has a chronic anemia with hemoglobin currently in the mid 7 range. He has been seen previously by hematology and discussions concerning potential bone marrow aspirate or entertained. This as of yet, has not been scheduled. He also reports a 15 to 20 pound weight loss. He has persistent cough with intermittent sputum production, but denies hemoptysis. He does have a history of TB exposure while serving in the [employer] and being posted in [facility]. Previous PPDs have all been negative. QuantiFeron study of July 2022 was also negative. Current hemoglobin is 8.0 though his white count is low at 3.1. Platelet count is normal. BUN [address] scan of February 22 revealed: 1. ? Significant increased size of mild to moderate right pleural fluid collection. 2. ? Interval worsening of severe destructive pneumonia in the right lower lobe with pneumatoceles and increased atelectasis which may be compressive atelectasis from surrounding pleural fluid. 3. ? Continued mild to moderate centrilobular emphysema which is most prominent in the right upper lobe. 4. ? Interval appearance of moderate to severe right upper lobe pneumonia. 5. ? Continued mild left basilar pneumonia. 6. ? 4.2 cm thoracic aortic aneurysm without rupture, 5 cm distal to the origin of the left subclavian artery. 7. ? Stable severe calcified coronary artery disease. 8. ? Continued mild mediastinal adenopathy which may be reactive. He has been on Plavix and a heparin infusion. These were discontinued today. He is also being evaluated for consideration for right-sided thoracentesis. He is presently on the medical surgical lund in respiratory isolation. Review of Systems Const: Reports: fever(s), chills, change in weight (Describes 15 to 20 pound weight loss) and fatigue Eyes: Denies: change in vision or blurry vision ENMT: Reports: hoarseness; Denies: throat pain Resp: Reports: dyspnea, productive cough and non-productive cough; Denies: hemoptysis GI: Reports: abdominal pain : Denies: flank pain or difficulty urinating Psych: Denies: anxiety or depression Medications/Allergies Home Medications Medication Instructions Recorded Confirmed Last Taken Type acetaminophen 500 mg tablet 1,000 mg PO BID 04/01/20 02/22/23 02/22/23 History (Tylenol Extra Strength) vitamin B complex (B 1 tab PO DAILY 04/01/20 02/22/23 02/22/23 History Complex-Vitamin B12 tablet) albuterol sulfate 90 mcg/actuation 2 puff inhalation Q4H PRN 10/27/21 02/22/23 Unknown Rx aerosol inhaler shortness of breath or wheezing #8.5 grams adalimumab 40 mg/0.8 mL See Rx Instructions SUBCUT 01/07/22 02/22/23 12/06/22 Rx subcutaneous pen kit (Humira Pen) .COMPLEX #4 ea metoprolol tartrate 25 mg tablet 25 mg PO BID #180 tabs 06/18/22 02/22/23 02/22/23 Rx dapagliflozin 10 mg tablet 10 mg PO QAM 90 days #90 tabs 07/07/22 02/22/23 02/22/23 Rx (Farxiga) glipizide 5 mg tablet 5 mg PO BID 90 days #180 tabs 07/07/22 02/22/23 02/22/23 Rx OYXGEN AT 3L PER N/C WITH #1 ea 07/23/22 02/22/23 Unknown Rx CONSERVING DEVICE AND PORTABLE acarbose 25 mg tablet 25 mg PO TID #360 tabs 09/17/22 02/22/23 02/22/23 Rx blood sugar diagnostic (Contour #50 ea 11/06/22 02/22/23 Unknown Rx Next Test Strips) ascorbic acid (vitamin C) 500 mg 500 mg PO DAILY 12/17/22 02/22/23 02/22/23 History tablet (Vitamin C) aspirin 81 mg tablet,delayed 81 mg PO QAM 12/17/22 02/22/23 02/22/23 History release clopidogrel 75 mg tablet 75 mg PO QAM 12/17/22 02/22/23 02/22/23 History diclofenac sodium 1 % topical gel 4 g topical QID PRN Pain 12/17/22 02/22/23 Unknown History (Voltaren Arthritis Pain) ferrous sulfate 325 mg (65 mg 325 mg PO QAM 12/17/22 02/22/23 02/22/23 History iron) tablet finasteride 5 mg tablet 5 mg PO BEDTIME 12/17/22 02/22/23 02/21/23 History isosorbide mononitrate 30 mg 30 mg PO QAM 12/17/22 02/22/23 02/22/23 History tablet,extended release 24 hr multivitamin 1 tab PO QAM 12/17/22 02/22/23 02/22/23 History rivaroxaban 20 mg tablet (Xarelto) 20 mg PO QAM 12/17/22 02/22/23 02/22/23 History simvastatin 40 mg tablet 40 mg PO BEDTIME 12/17/22 02/22/23 02/21/23 History testosterone cypionate 200 mg/mL 200 mg IM Q30D 12/17/22 02/22/23 11/25/22 History intramuscular oil nitroglycerin 0.4 mg sublingual 0.4 mg sublingual Q5M PRN chest 12/21/22 02/22/23 02/01/23 Rx tablet pain #25 tabs promethazine-DM 6.25 mg-15 mg/5 mL 5 - 10 ml PO Q6H PRN cough #200 mL 01/11/23 02/22/23 Unknown Rx oral syrup tamsulosin 0.4 mg capsule 0.4 mg PO BID 90 days #180 caps 01/13/23 02/22/23 02/22/23 Rx ipratropium 0.5 mg-albuterol 3 mg 3 ml inhalation Q4H PRN wheezing 01/18/23 02/22/23 Unknown Rx (2.5 mg base)/3 mL nebulization #90 mL soln NEBULIZER MACHINE AND TUBING #1 ea 01/19/23 02/22/23 Unknown Rx SUPPLIES cetirizine 10 mg tablet 10 mg PO QAM PRN Allergy Symptoms 02/01/23 02/22/23 02/01/23 History nystatin 100,000 unit/gram topical 1 applic topical QID PRN unknown 02/01/23 02/22/23 Unknown History cream sitagliptin phosphate 100 mg 100 mg PO QAM 02/01/23 02/22/23 02/22/23 History tablet (Januvia) sotalol 80 mg tablet 40 mg PO BID 02/01/23 02/22/23 02/22/23 History pantoprazole 40 mg tablet,delayed 40 mg PO BID 30 days #60 tabs 02/06/23 02/22/23 02/22/23 Rx release (Protonix) potassium chloride 10 mEq 10 meq PO QAM #90 tabs 02/16/23 02/22/23 02/22/23 Rx tablet,extended release Portable oxygen @ 3 L per n/c #3 ea 02/17/23 02/22/23 Unknown Rx continuous condom catheters #30 ea 02/17/23 02/22/23 Unknown Rx escitalopram oxalate 20 mg tablet 20 mg PO BEDTIME 30 days #30 tabs 02/17/23 02/22/23 02/21/23 Rx albuterol sulfate 1.25 mg/3 mL 1.25 mg inhalation Q4H PRN 02/22/23 02/22/23 Unknown History solution for nebulization Shortness Of Breath amitriptyline 25 mg tablet 25 mg PO BEDTIME PRN Insomnia 02/22/23 02/22/23 Unknown History furosemide 40 mg tablet 40 mg PO DAILY 02/22/23 02/22/23 02/22/23 History vitamin A-vitamin C-vit E-min 1 tab PO DAILY 02/22/23 02/22/23 02/22/23 History tablet Allergies Allergy/AdvReac Type Severity Reaction Status Date / Time bupropion [From Wellbutrin] Allergy Unknown Unknown Verified 02/22/23 13:32 celecoxib [From Celebrex] Allergy Unknown Unknown Verified 02/22/23 13:32 rofecoxib [From Vioxx] Allergy Unknown Verified 02/22/23 13:32 bactrim Allergy Severe ALGY-Rash Uncoded 02/01/23 14:58 Current Medications Generic Name Dose Route Start Last Admin Trade Name Freq PRN Reason Stop Dose Admin Albuterol/Ipratropium 3 ml 02/22/23 22:15 02/23/23 09:21 Ipratropium-Albuterol 3 Ml Neb INHALATION 3 ml Q6H NIMO Administration Piperacillin Sod/Tazobactam 50 mls @ 12.5 mls/hr 02/22/23 23:00 02/23/23 08:45 Sod 3.375 gm/ Sodium Chloride IV 12.5 mls/hr Q8H NIMO Administration Insulin Human Lispro 0 unit 02/23/23 08:00 02/23/23 08:45 Insulin Lispro 100 Unit/1 Ml SUBCUT 4 unit WM&BEDTIME NIMO Administration Protocol Isosorbide Mononitrate 30 mg 02/23/23 06:00 02/23/23 06:32 Isosorbide Mononitrate Er 30 Mg Tablet PO 30 mg QAM NIMO Administration Levofloxacin 500 mg 02/23/23 06:00 02/23/23 06:32 Levofloxacin 500 Mg Tablet PO 500 mg DAILY@0600 NIMO Administration Protocol Metoprolol Tartrate 25 mg 02/23/23 09:00 02/23/23 08:45 Metoprolol Tartrate 25 Mg Tablet PO 25 mg BID NIMO Administration Pantoprazole Sodium 40 mg 02/23/23 09:00 02/23/23 08:[address] 40 Mg Tablet PO 40 mg DAILY NIMO Administration Tamsulosin HCl 0.4 mg 02/23/23 09:00 02/23/23 08:46 Tamsulosin 0.4 Mg Capsule PO 0.4 mg BID NIMO Administration PFSH Acute PFSH: Medical History A-fib Abnormal bilirubin test Abnormal PSA Anemia Atherosclerotic heart disease -has had prior stenting -cardiac workup done in 2019 with nuclear stress testing being negative for ischemia; Echo-EF=55%, mild LVH, no RWMA, trace TR, mild AL -on statin, Plavix, off ASA due to Eliquis Atherosclerotic heart disease of hoopa coronary artery without angina pectoris Benign essential hypertension with target blood pressure below 140/90 -BP trending up, continue to monitor -on lasix and HCTZ BPH NOS w ur obs/LUTS CAD (coronary artery disease) CAP (community acquired pneumonia) CKD (chronic kidney disease) Depression Dyslipidemia -on statin Erectile dysfunction due to diseases classified elsewhere Hyperlipidemia Hypertension Hypogonadism Hypogonadism Hypogonadism male Intermittent atrial fibrillation Pneumonia SOB (shortness of breath) Transient atrial fibrillation/flutter -appears to be new onset arrhythmia -had previously been on Metoprolol and Diltiazem which he discontinued on his own due to dizziness -on sotalol 80 mg in AM, 40 mg in PM; off Cardizem drip -appreciate evaluation by Dr. Locke -telemetry monitoring -VSS; continue to monitor -Echo: EF=57%, G3DD, mild LVH, no RWMA, mild to moderate MR, moderate TR, mild pulmonary HTN -has been on therapeutic Lovenox due to D-dimer elevation; VTE r/o so now on Eliquis -[id number] score of 5; will need to continue correction oral anticoagulation Type 2 diabetes mellitus Type 2 diabetes mellitus Weakness Surgical History History of heart artery stent History of knee replacement procedure of left knee Hx of cholecystectomy S/P total knee arthroplasty Status post laser cataract surgery of both eyes Family History Father , AT AGE 86 HEART DISEASE,NC,DIABETES Diabetes CAD (coronary artery disease) Mother , AT AGE 80 No problems noted. Grandfather CAD (coronary artery disease) Chronic kidney disease (CKD) Diabetes Family/Other CAD (coronary artery disease) Other Rheumatoid arthritis Stroke Denies family history of Lupus Hyperlipidemia Cancer Hypertension Social History Smoking and tobacco status: never smoked Alcohol intake: former Substance/Drug Use: never Marital status: Current occupational status: retired Vitals/I&O/Wt Last Vital Signs Temp 97.6 F 02/23/23 08:00 Pulse 64 02/23/23 08:00 Resp 18 02/23/23 08:00 BP 133/60 02/23/23 08:00 Pulse Ox 90 05/30/23 08:00 O2 Del Method Nasal Cannula 02/23/23 08:00 O2 Flow Rate 2 02/23/23 08:00 02/22/23 02/23/23 02/23/23 22:59 06:59 14:59 Intake Total 300 / 300 50 / 350 525.95 / 525.95 Output Total 200 / 200 Balance 300 / 300 -150 / 150 525.95 / 525.95 Weight last 48 hrs Weight 165 lb Weight 168 lb Physical Exam Const: COMMON NORMALS: no acute distress, average body habitus and patient oriented x3; negative for healthy appearing HENMT: COMMON NORMALS: normocephalic, atraumatic, hearing grossly normal bilaterally, external ears normal and Normal external nose present HEAD & SCALP: normocephalic and atraumatic NOSE: Normal external nose present EXTERNAL EAR: Yes external ears normal Eye: COMMON NORMALS: Equal, round and reactive pupils present and EOMs intact bilaterally PUPIL: Yes Equal, round and reactive pupils present Neck/C-Spine: COMMON NORMALS: full ROM and no lymphadenopathy Chest: COMMONS NORMALS: normal palpation of entire chest wall Resp: COMMON NORMALS: negative for clear to auscultation bilaterally AUSCULTATION: not clear to auscultation bilaterally, diminished lung sounds on the right in the lower lung leslie, bronchovesicular breath sounds and No rub present Cardio: COMMON NORMALS: regular rate and S1 normal heart sound present; negative for regular rhythm RATE: regular rate RHYTHM: abnormal rhythm and abnormal rhythm irregularly irregular HEART SOUNDS: S1 normal heart sound present, no murmurs and no rubs GI: COMMON NORMALS: Normal to inspection, nondistended, normoactive bowel sounds present Extremity: COMMON NORMALS: no clubbing, cyanosis or edema Neuro: COMMON NORMALS: patient oriented x3 Psych: COMMON NORMALS: mental status grossly normal, Normal thought process present, cooperative, normal affect and speech normal SPEECH: Yes normal speech THOUGHT PROCESS: Normal thought process present Data 02/23/23 06:54 02/23/23 06:54 Micro: Microbiology 02/22/23 16:30 Blood Culture - Preliminary Blood SPECIMEN COLLECTED 02/22/23 16:30 Blood Culture - Preliminary Blood SPECIMEN COLLECTED A&P Assessment and plan (1) Pneumonia: 82-year-old gentleman with numerous medical problems with recurrent infiltrates and right sided pneumonia. Concerns for potential atypical etiology of his pneumonia. Dr. Garrison has requested bronchoscopy for further structural evaluation as well as appropriate cultures. Rationale for this was carefully discussed with Mr. Menjivar and his who was present during my visit. General conduct the procedure as well as the risk were discussed. Potential risk for bleeding, anesthesia complications, and inability to obtain diagnosis were frankly discussed. He and his state understanding and they do wish to proceed. Given that he is recent middle anticoagulation including IV heparin, Plavix, and dapagliflozin, we will hold these medications and tentatively plan for bronchoscopy on February 25. Consult Attestations Medical Necessity Statement: Recurrent right-sided pneumonia Coding Level of Care Code Acute Code for [facility] Diagnoses Pneumonia J18.9
--- NOTE | 2023-02-23 11:08 | P.PN_ITS ---
Subjective Subjective: Patient was seen this morning Currently on 3 L nasal cannula No acute distress Patient looks dehydrated Previous records reviewed he has history of steroid-induced gastritis with anemia, currently hemoglobin stable Heparin was held which was started for his A-fib, no active chest pain Plan for bronchoscopy as per Dr. Menjivar Patient was taking antiplatelet therapy because of coronary artery disease and stent placement Vitals/I&O/Wt Last Vital Signs Temp 97.6 F 02/23/23 08:00 Pulse 64 02/23/23 08:00 Resp 18 02/23/23 08:00 BP 133/60 02/23/23 08:00 Pulse Ox 90 02/23/23 08:00 O2 Del Method Nasal Cannula 02/23/23 08:00 O2 Flow Rate 2 02/23/23 08:00 02/22/23 02/23/23 02/23/23 22:59 06:59 14:59 Intake Total 300 / 300 50 / 350 525.95 / 525.95 Output Total 200 / 200 Balance 300 / 300 -150 / 150 525.95 / 525.95 Weight last 48 hrs Weight 74.843 kg Weight 76.204 kg Physical Exam Narrative: Patient is on 3 L No audible stridor or wheezing Rhonchi Abdomen soft Muscle mass loss Pleasant and cooperative No active distress No active chest pain Variable S1-S2 Nonfocal neuro exam GCS 15 AOx3 Data 02/23/23 06:54 02/23/23 06:54 Micro: Microbiology 02/22/23 16:30 Blood Culture - Preliminary Blood SPECIMEN COLLECTED 02/22/23 16:30 Blood Culture - Preliminary Blood SPECIMEN COLLECTED A&P Assessment and plan (1) Rheumatoid arthritis: (2) A-fib: (3) Pleural effusion: (4) Pneumonia: (5) Symptomatic anemia: (6) Chronic anticoagulation: (7) Pancytopenia: (8) Nocturia associated with benign prostatic hyperplasia: (9) Diabetes type 2, uncontrolled: (10) Low iron: Plan Persistent pneumonia in immunocompromised individuals At this point my concern is related to necrotizing pneumonia especially with MRSA that can cause more complications Bronchoscopy has been requested Dr. Menjivar has been consulted and notified I would continue broad-spectrum antibiotics including anti-MRSA and anti pseudomonal coverage QuantiFERON test last year negative Still carries 2% chance of false negative being highly specific test I will request [facility] to see if he carries any PCP pneumonia serum markers CT scan which shows cystic changes His oxygen requirement is only 3 L in case of further worsening my threshold still low to add IV Bactrim We do not have pulmonary backup I did frankly discussed with the patient and his that in case of further worsening I might plan to transfer him to tertiary center Patient and his both agreeable with this plan Worsening pleural effusion I would only continue aspirin for now Hold Plavix and request thoracentesis Holding heparin for today we will touch this with the radiologist Acute on chronic anemia Watch hemoglobin for now Patient seems to have iron deficiency anemia as well, history of steroid-induced gastritis Rheumatoid arthritis: Monoclonal antibody was put on hold this year DNR/DNI Modified diet as per speech therapist Troponin trending down, no active chest pain, A-fib without RVR, History of coronary disease, I would only continue aspirin for now, no active chest pain Attestations Medical Necessity Statement*: Continue medical management Diagnoses Rheumatoid arthritis M06.9 A-fib I48.91 Pleural effusion J90 Pneumonia J18.9 Symptomatic anemia D64.9 Chronic anticoagulation Z79.01 Pancytopenia D61.818 Nocturia associated with benign prostatic hyperplasia N40.1; R35.1 Diabetes type 2, uncontrolled Low iron E61.1
--- NOTE | 2023-02-23 11:20 | US_ITS ---
NOTE: Report was unsigned for reason: Order was edited. Original Signature date and time was: 02/23/23 2320 WS: [id number] ULTRASOUND-GUIDED THORACENTESIS CLINICAL INFORMATION: Worsening pleural effusion COMPARISON: None. PROCEDURE: Informed consent: The risks, benefits, and alternatives of the procedure were discussed with the patient. Verbal and written consent was obtained. Timeout: A timeout was performed to confirm the correct patient, procedure, and site. Site: RIGHT chest Preparation: A suitable skin site was identified. The patient was prepped and draped in usual sterile fashion. Lidocaine 1% was used for local anesthesia. 4 [place] Yueh catheter successfully placed into the RIGHT pleural effusion. A few cc of bloody clotted fluid was aspirated. Subsequently the tubing was obstructed. Procedure was repeated with new tubing and Yueh catheter. A Few cc of bloody fluid was aspirated which also immediately obstructed the catheter. Procedure was terminated at this point Catheter: 4 [place] One-Step catheter. Discarded safely. Complications: No immediate complications. Chest radiograph is pending. [facility] US/US chest [id number] IMPRESSION: A few cc of bloody hematoma was aspirated which obstructed the tubing x2. Proce dure was terminated at this point. Pleural effusion appears to consist of predo minantly loculated hematoma. Consider chest tube.
[2023-02-23 11:39] LABS: Lactate Dehydrogenase 236 U/L (135-225)
[2023-02-23 12:12] LABS: Glucose Point of Care 155 mg/dL (70-110)
[2023-02-23] MEDS: pantoprazole 40 mg SDV IVP ×2 (12:23→22:46)
--- NOTE | 2023-02-23 15:53 | XR_ITS ---
WS: [id number] CHEST XRAY TECHNIQUE: Portable chest. CLINICAL INFORMATION: post thoracentesis COMPARISON: February 22, 2023 FINDINGS: Heart: Cardiomegaly. Aortic calcification. Lungs: Moderate RIGHT pneumothorax has developed since the prior imaging studies. LEFT lung is well a erated. No mediastinal shift. Small RIGHT pleural effusion with RIGHT basilar consolidation. Bones: Hypertrophic changes thoracic spine. XR/XR chest 1V portable [id number] IMPRESSION: 1. Moderate RIGHT pneumothorax has developed post thoracentesis. No mediastina l shift. Findings discussed with Dr. Castellanos. Notified Dr Castellanos at 02/23/2023 4:31 PM.
--- NOTE | 2023-02-23 16:44 | P.PN_ITS ---
Subjective Subjective: I have just been notified by Dr. Castellanos that Mr. Menjivar is developed a pneumothorax following attempted thoracentesis through the radiology service. I have reviewed the x-ray which reveals as previous described about a 40% right pneumothorax. Vitals/I&O/Wt Last Vital Signs Temp 97.5 F L 02/23/23 12:00 Pulse 78 02/23/23 12:00 Resp 19 H 02/23/23 12:00 BP 108/57 02/23/23 12:00 Pulse Ox 90 02/23/23 12:00 O2 Del Method Nasal Cannula 02/23/23 08:00 O2 Flow Rate 2 02/23/23 08:00 02/23/23 02/23/23 02/23/23 06:59 14:59 22:59 Intake Total 50 / 350 575.95 / 575.95 Output Total 200 / 200 450 / 450 Balance -150 / 150 125.95 / 125.95 Weight last 48 hrs Weight 165 lb Weight 168 lb Data 02/23/23 06:54 02/23/23 06:54 Micro: Microbiology 02/23/23 00:45 Gram Stain - Final Sputum - Expectorated Sputum 02/22/23 16:30 Blood Culture - Preliminary Blood SPECIMEN COLLECTED 02/22/23 16:30 Blood Culture - Preliminary Blood SPECIMEN COLLECTED A&P Assessment and plan (1) Iatrogenic pneumothorax: Right pneumothorax following attempted right thoracentesis. Plan: We will proceed with expedited right thoracic vent placement Attestations Medical Necessity Statement*: Iatrogenic right pneumothorax requiring expedited right thoracic vent placement. Coding Level of Care Code Acute Code for [facility] Diagnoses Iatrogenic pneumothorax J95.811
[2023-02-23 16:49] LABS: Glucose Point of Care 148 mg/dL (70-110)
[2023-02-23] MEDS: lidocaine 2% INJ 20 mL INJECTION (17:18)
--- NOTE | 2023-02-23 17:29 | XR_ITS ---
WS: [id number] CHEST XRAY TECHNIQUE: Portable chest. CLINICAL INFORMATION: s/p thoracic vent COMPARISON: February 24, 2020 3:20 PM. FINDINGS: Heart: Cardiomegaly. Aortic calcification.. Lungs: Interval placement of RIGHT thoracic vent. Pneumothorax is been decompressed. No visualized re sidual pneumothorax. Stable patchy infiltrates in the RIGHT midlung and RIGHT lower lobe. LEFT lung i s well aerated. Bones: Hypertrophic changes thoracic spine. XR/XR chest 1V portable [id number] IMPRESSION: Resolved RIGHT pneumothorax status post thoracic vent placement
--- NOTE | 2023-02-23 17:31 | P.OP_ITS ---
Operative Report Date of procedure: February 23, 2023 Pre-op diagnosis: Right pneumothorax Post-op diagnosis: same Procedure done: Right 13 Turkish thoracic vent placement Pathology: none sent Surgeon: Ubaldo Menjivar Anesthesia: MAC and Local Complications: None Condition: stable Disposition: ICU Brief History: Mr. Menjivar is an 82-year-old gentleman who underwent right thoracentesis earlier today. He developed a pneumothorax post procedure of approximately 40%. I was requested for pneumothorax management. Recommendation was for expedited thoracic vent placement. Due to the risk of the procedure were carefully discussed. Consents have been signed. Procedure: After careful positioning, patient received IV conscious sedation by Dr. Santos spaulding with continuous monitoring of heart rate, blood pressure, EKG, and O2 saturation. He is right anterior chest wall was then sterilely prepped and draped. 1% lidocaine was infiltrated in the mid clavicular line over the second intercostal space. A #11 scalpel blade was used to incise the skin. Next, a trocar 13 Turkish thoracic vent was inserted through the incision and then by direct firm and controlled pressure into the right pleural space where the vent was advanced over the trocar as it was removed. There was a prompt fluctuation of the indicator confirming appropriate intrapleural placement. The vent was secured to the skin with adhesive tabs and also with 2-0 silk suture. The vent was then connected to Pleur-evac suction where further air was evacuated. Vital signs remained stable throughout the procedure. Dressings were secured. Breath sounds are now much improved. Chest x-ray revealed reexpansion of the right lung I did attempt to contact his by phone at the completion of the procedure. Phone call went to an answering machine. We will continue to reach out to her as if understanding that she may be traveling to [facility] now. At the recommendation of Dr. Castellanos, Mr. Menjivar will be observed in the ICU overnight. We will leave the thoracic vent to suction with a follow-up chest x-ray in the morning. He tolerated the procedure very well.
--- NOTE | 2023-02-23 17:34 | ANES.PREANE2 ---
Pre-Anesthetic Assessment Height/Weight: Height 1.88 m Weight 74.843 kg Temp Pulse Resp BP Pulse Ox O2 Del Method O2 Flow Rate 98.6 F 70 20 H 113/72 90 Nasal Cannula 4 02/23/23 16:00 02/23/23 16:29 02/23/23 16:29 02/23/23 16:00 02/23/23 16:29 02/23/23 16:29 02/23/23 16:29 Operation Date: 02/23/23 16:45 Proposed Procedures p Thoracic Vent(Not Applicable) - Ubaldo Menjivar MD Operation Date: 02/25/23 07:00 Proposed Procedures p Bronchoscopy(Not Applicable) - Ubaldo Menjivar MD Familial anesthetic complications: None Last intake: 1100 milk and eggs Social No alcohol and No tobacco Exam alert, oriented x 3, clear to auscultation bilaterally and regular rate & rhythm PTX R Airway Mallampati: Class III Dentition: false Pulmonary PTX pneumonia CV/HEM Atrial Fibrillation, Coronary Artery Disease, Congestive Heart Failure and Hypertension Metabolic Diabetes Mellitus Anesthetic Plan ASA status: 4 Anesthesia: Local Only Other: Patient ate at 1100 am - minimal sedation only, no propofol Risk of > 500 ml blood loss (7ml/kg in children): No Medications/Allergies Home Medications Medication Instructions Recorded Confirmed Last Taken Type acetaminophen 500 mg tablet 1,000 mg PO BID 04/01/20 02/22/23 02/22/23 History (Tylenol Extra Strength) vitamin B complex (B 1 tab PO DAILY 04/01/20 02/22/23 02/22/23 History Complex-Vitamin B12 tablet) albuterol sulfate 90 mcg/actuation 2 puff inhalation Q4H PRN 10/27/21 02/22/23 Unknown Rx aerosol inhaler shortness of breath or wheezing #8.5 grams adalimumab 40 mg/0.8 mL See Rx Instructions SUBCUT 01/07/22 02/22/23 12/06/22 Rx subcutaneous pen kit (Humira Pen) .COMPLEX #4 ea metoprolol tartrate 25 mg tablet 25 mg PO BID #180 tabs 06/18/22 02/22/23 02/22/23 Rx dapagliflozin 10 mg tablet 10 mg PO QAM 90 days #90 tabs 07/07/22 02/22/23 02/22/23 Rx (Farxiga) glipizide 5 mg tablet 5 mg PO BID 90 days #180 tabs 07/07/22 02/22/23 02/22/23 Rx OYXGEN AT 3L PER N/C WITH #1 ea 07/23/22 02/22/23 Unknown Rx CONSERVING DEVICE AND PORTABLE acarbose 25 mg tablet 25 mg PO TID #360 tabs 09/17/22 02/22/23 02/22/23 Rx blood sugar diagnostic (Contour #50 ea 11/06/22 02/22/23 Unknown Rx Next Test Strips) ascorbic acid (vitamin C) 500 mg 500 mg PO DAILY 12/17/22 02/22/23 02/22/23 History tablet (Vitamin C) aspirin 81 mg tablet,delayed 81 mg PO QAM 12/17/22 02/22/23 02/22/23 History release clopidogrel 75 mg tablet 75 mg PO QAM 12/17/22 02/22/23 02/22/23 History diclofenac sodium 1 % topical gel 4 g topical QID PRN Pain 12/17/22 02/22/23 Unknown History (Voltaren Arthritis Pain) ferrous sulfate 325 mg (65 mg 325 mg PO QAM 12/17/22 02/22/23 02/22/23 History iron) tablet finasteride 5 mg tablet 5 mg PO BEDTIME 12/17/22 02/22/23 02/21/23 History isosorbide mononitrate 30 mg 30 mg PO QAM 12/17/22 02/22/23 02/22/23 History tablet,extended release 24 hr multivitamin 1 tab PO QAM 12/17/22 02/22/23 02/22/23 History rivaroxaban 20 mg tablet (Xarelto) 20 mg PO QAM 12/17/22 02/22/23 02/22/23 History simvastatin 40 mg tablet 40 mg PO BEDTIME 12/17/22 02/22/23 02/21/23 History testosterone cypionate 200 mg/mL 200 mg IM Q30D 12/17/22 02/22/23 11/25/22 History intramuscular oil nitroglycerin 0.4 mg sublingual 0.4 mg sublingual Q5M PRN chest 12/21/22 02/22/23 02/01/23 Rx tablet pain #25 tabs promethazine-DM 6.25 mg-15 mg/5 mL 5 - 10 ml PO Q6H PRN cough #200 mL 01/11/23 02/22/23 Unknown Rx oral syrup tamsulosin 0.4 mg capsule 0.4 mg PO BID 90 days #180 caps 01/13/23 02/22/23 02/22/23 Rx ipratropium 0.5 mg-albuterol 3 mg 3 ml inhalation Q4H PRN wheezing 01/18/23 02/22/23 Unknown Rx (2.5 mg base)/3 mL nebulization #90 mL soln NEBULIZER MACHINE AND TUBING #1 ea 01/19/23 02/22/23 Unknown Rx SUPPLIES cetirizine 10 mg tablet 10 mg PO QAM PRN Allergy Symptoms 02/01/23 02/22/23 02/01/23 History nystatin 100,000 unit/gram topical 1 applic topical QID PRN unknown 02/01/23 02/22/23 Unknown History cream sitagliptin phosphate 100 mg 100 mg PO QAM 02/01/23 02/22/23 02/22/23 History tablet (Januvia) sotalol 80 mg tablet 40 mg PO BID 02/01/23 02/22/23 02/22/23 History pantoprazole 40 mg tablet,delayed 40 mg PO BID 30 days #60 tabs 02/06/23 02/22/23 02/22/23 Rx release (Protonix) potassium chloride 10 mEq 10 meq PO QAM #90 tabs 02/16/23 02/22/23 02/22/23 Rx tablet,extended release Portable oxygen @ 3 L per n/c #3 ea 02/17/23 02/22/23 Unknown Rx continuous condom catheters #30 ea 02/17/23 02/22/23 Unknown Rx escitalopram oxalate 20 mg tablet 20 mg PO BEDTIME 30 days #30 tabs 02/17/23 02/22/23 02/21/23 Rx albuterol sulfate 1.25 mg/3 mL 1.25 mg inhalation Q4H PRN 02/22/23 02/22/23 Unknown History solution for nebulization Shortness Of Breath amitriptyline 25 mg tablet 25 mg PO BEDTIME PRN Insomnia 02/22/23 02/22/23 Unknown History furosemide 40 mg tablet 40 mg PO DAILY 02/22/23 02/22/23 02/22/23 History vitamin A-vitamin C-vit E-min 1 tab PO DAILY 02/22/23 02/22/23 02/22/23 History tablet Allergies Allergy/AdvReac Type Severity Reaction Status Date / Time bupropion [From Wellbutrin] Allergy Unknown Unknown Verified 02/22/23 13:32 celecoxib [From Celebrex] Allergy Unknown Unknown Verified 02/22/23 13:32 rofecoxib [From Vioxx] Allergy Unknown Verified 02/22/23 13:32 bactrim Allergy Severe ALGY-Rash Uncoded 02/01/23 14:58 Current Medications Generic Name Dose Route Start Last Admin Trade Name Freq PRN Reason Stop Dose Admin Albuterol/Ipratropium 3 ml 02/22/23 22:15 02/23/23 16:28 Ipratropium-Albuterol 3 Ml Neb INHALATION 3 ml Q6H NIMO Administration Piperacillin Sod/Tazobactam 50 mls @ 12.5 mls/hr 02/22/23 23:00 02/23/23 14:05 Sod 3.375 gm/ Sodium Chloride IV Infused Q8H NIMO Infusion Insulin Human Lispro 0 unit 02/23/23 08:00 02/23/23 12:23 Insulin Lispro 100 Unit/1 Ml SUBCUT 4 unit WM&BEDTIME NIMO Administration Protocol Isosorbide Mononitrate 30 mg 02/23/23 06:00 02/23/23 06:32 Isosorbide Mononitrate Er 30 Mg Tablet PO 30 mg QAM NIMO Administration Levofloxacin 500 mg 02/23/23 06:00 02/23/23 06:32 Levofloxacin 500 Mg Tablet PO 500 mg DAILY@0600 NIMO Administration Protocol Metoprolol Tartrate 25 mg 02/23/23 09:00 02/23/23 08:45 Metoprolol Tartrate 25 Mg Tablet PO 25 mg BID NIMO Administration Pantoprazole Sodium 40 mg 02/23/23 09:00 02/23/23 08:[address] 40 Mg Tablet PO 40 mg DAILY NIMO Administration Pantoprazole Sodium 40 mg 02/23/23 11:30 02/23/23 12:23 Pantoprazole 40 Mg Sdv IVP 40 mg Q12H NIMO Administration Tamsulosin HCl 0.4 mg 02/23/23 09:00 02/23/23 08:46 Tamsulosin 0.4 Mg Capsule PO 0.4 mg BID NIMO Administration PFSH Anesthesia Medical History A-fib Abnormal bilirubin test Abnormal PSA Anemia Atherosclerotic heart disease -has had prior stenting -cardiac workup done in 2019 with nuclear stress testing being negative for ischemia; Echo-EF=55%, mild LVH, no RWMA, trace TR, mild MI -on statin, Plavix, off ASA due to Eliquis Atherosclerotic heart disease of [place] coronary artery without angina pectoris Benign essential hypertension with target blood pressure below 140/90 -BP trending up, continue to monitor -on lasix and HCTZ BPH NOS w ur obs/LUTS CAD (coronary artery disease) CAP (community acquired pneumonia) CKD (chronic kidney disease) Depression Dyslipidemia -on statin Erectile dysfunction due to diseases classified elsewhere Hyperlipidemia Hypertension Hypogonadism Hypogonadism Hypogonadism male Intermittent atrial fibrillation Pneumonia SOB (shortness of breath) Transient atrial fibrillation/flutter -appears to be new onset arrhythmia -had previously been on Metoprolol and Diltiazem which he discontinued on his own due to dizziness -on sotalol 80 mg in AM, 40 mg in PM; off Cardizem drip -appreciate evaluation by Dr. 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 Grandfather CAD (coronary artery disease) Chronic kidney disease (CKD) Diabetes Family/Other CAD (coronary artery disease) Other Rheumatoid arthritis Stroke Denies family history of Lupus Hyperlipidemia Cancer Hypertension Social History Smoking and tobacco status: never smoked Alcohol intake: former Substance/Drug Use: never Marital status: Current occupational status: retired Data Anesthesia 02/23/23 06:54 02/23/23 06:54 Short CBC 02/22/23 02/23/23 Range/Units 14:12 06:54 WBC 6.1 3.1 L (4.0-10.0) 10^3/uL Hgb 7.7 L 8.0 L (11.7-16.6) g/dL Hct 24.4 L 26.1 L (42.0-52.0) % MCV 103.4 H 106.1 H (80-94) fl Plt Count 342 306 (130-400) 10^3/cmm Neut % (Auto) 73.4 % Neut # (Auto) 2.24 (1.8-7.7) 10^3/uL BMP 02/22/23 02/23/23 14:12 06:54 Sodium 135 L 138 Potassium 3.5 3.5 Chloride 98 100 Carbon Dioxide 25 25 BUN 31 H 32 H Creatinine 1.4 H 1.3 H Glucose 175 H 137 H Calcium 8.9 8.7 Cardiac Enzymes 02/22/23 02/22/23 02/22/23 Range/Units 14:12 14:12 16:43 Troponin T Baseline 87 H (0-15) ng/L Troponin T 120 Minute 81.07 H (0-15) ng/L Delta Troponin T -5.93 L (0-10) ABS# Troponin T Hi Sens 6Hr (0-15) ng/L Troponin T Hi Sens 6Hr Delta (0-12) ng/L NT-Pro-B Natriuret Pep 78602 H (0-450) pg/mL 02/22/23 Range/Units 20:20 Troponin T Baseline (0-15) ng/L Troponin T 120 Minute (0-15) ng/L Delta Troponin T (0-10) ABS# Troponin T Hi Sens 6Hr 72.23 H (0-15) ng/L Troponin T Hi Sens 6Hr Delta -14.77 L (0-12) ng/L NT-Pro-B Natriuret Pep (0-450) pg/mL Liver Function 02/22/23 02/23/23 Range/Units 14:12 06:54 Total Bilirubin 0.9 0.7 (0.15-1.2) mg/dL AST 16 16 (0-40) U/L ALT 9 8 (0-41) U/L Alkaline Phosphatase 80 68 (40-130) U/L Albumin 3.0 L 2.6 L (3.5-5.2) g/dL Blood Bank 02/22/23 16:10 Blood Type A Positive Rho(D) Type Positive Antibody Screen Negative Coags 02/22/23 02/23/23 02/23/23 23:40 07:27 14:38 PT 16.60 H INR 1.30 H APTT 41.4 H 92.0 H D Microbiology 02/22/23 16:30 Blood Culture - Preliminary Blood NEGATIVE TO DATE 02/22/23 16:30 Blood Culture - Preliminary Blood NEGATIVE TO DATE 02/23/23 00:45 Gram Stain - Final Sputum - Expectorated Sputum Cardiac Studies: Echocardiogram 08/01/22 Echocardiogram Limited Views 02/02/23 Echocardiogram Ultrasound 04/10/20 Holter Monitor 06/13/20
--- NOTE | 2023-02-23 17:36 | ANE.PACU2 ---
Inpatient post-anesthesia follow up: Airway intact: Yes Vital signs: Temperature 98.6 F Pulse Rate 70 Respiratory Rate 20 Blood Pressure 113/72 Pulse Oximetry 90 Oxygen Delivery Me thod Nasal Cannula Oxygen Flow Rate 4 Fraction of Inspir ed Oxygen Hydration adequate: Yes Nausea and vomiting: No Pain level: 1 Mental status: Baseline
--- NOTE | 2023-02-23 17:41 | PC.NURSE ---
Oxygen weaned to 6 liters per NC
--- NOTE | 2023-02-23 17:43 | PC.NURSE ---
Extended care initiated @ 1734. Patient alert and oriented. Eray completed at bedside and reviewed by Dr. Menjivar. No pain at present
--- NOTE | 2023-02-23 18:38 | PC.NURSE ---
Patient in OBS 12. Oxygen decreased to 4l/nc and tolerating well
[2023-02-23] MEDS: morphine 4 mg/mL SDV 1 mL 2 MG IVP ×2 (19:28→22:46)
--- NOTE | 2023-02-23 20:30 | PC.NURSE ---
Report Given and transported by Charity Vanessa
[2023-02-23] MEDS: vancomycin 1,250 MG/250 ML PIGGYBACK 250 MG IV (21:22)
[2023-02-23] MEDS: escitalopram 10 mg Tablet 20 MG PO (21:22)
[2023-02-23] MEDS: finasteride 5 mg Tablet PO (21:23)
[2023-02-23] MEDS: atorvastatin 40 mg Tablet PO (21:23)
[2023-02-23 22:05] LABS: Glucose Point of Care 150 mg/dL (70-110)
[2023-02-24] VITALS (231 sets, daily range): BP systolic 119–193; BP diastolic 47–106; PULSE 51–90; RESP 14–38; TEMP 36.2–36.6; O2SAT 75–100
[2023-02-24] MEDS: HYDROcodone-acetaminophen 5-325 mg Tablet 1 TAB PO ×4 (01:34→23:15)
[2023-02-24] MEDS: HYDROmorphone 1 mg/mL INJ 1 mL IVP (01:34)
[2023-02-24 03:08] LABS: Hematocrit 26.9 % (42.0-52.0); Hemoglobin 8.1 g/dL (11.7-16.6); Lymphocytes # 0.3 10^3/uL (0.8-4.8); Mean Corpuscular HGB Conc 30.1 g/dL (30.0-36.0); Mean Corpuscular Hemoglobin 32.1 pg (28.0-34.0); Mean Corpuscular Volume 106.7 fl (80-94); Mean Platelet Volume 10.6 fL (7.4-10.4); Monocytes # 0.7 10^3/uL (0.2-0.9); Monocytes % 22.4 %; Neutrophils # 1.86 10^3/uL (1.8-7.7); Neutrophils % 64.2 %; Nucleated Red Blood Cells % 0 %; Platelet Count 292 10^3/cmm (130-400); Red Blood Count 2.52 10^6/uL (4.1-5.3); Red Cell Distribution Width 17.6 % (12.1-15.1); White Blood Count 2.9 10^3/uL (4.0-10.0)
[2023-02-24 03:29] LABS: Anion Gap 12.5 (5-19); Blood Urea Nitrogen 34 mg/dL (8-23); Calcium 8.2 mg/dL (8.5-10.5); Carbon Dioxide 27 mmol/L (22-29); Chloride 104 mmol/L (98-107); Glucose 140 mg/dL (65-115); Osmolality Calculated 300 mOsm/kg (285-295); Potassium 3.5 mmol/L (3.5-5.1); Sodium 140 mmol/L (136-145)
[2023-02-24] MEDS: levoFLOXacin 500 mg Tablet PO (05:17)
[2023-02-24] MEDS: isosorbide mononitrate ER 30 mg Tablet PO (05:17)
--- NOTE | 2023-02-24 06:00 | XR_ITS ---
WS: [id number] Exam: XR chest 1V portable [id number] Date/Time of Exam: 02/24/2023 5:59 AM Reason For Exam: POD#1 s/p thoracic vent placement (on suction) Comparison with the most recent exam 02/23/2023 at 5:32 PM small right upper lobe pneumothorax has dev eloped estimated at 10%. Small bore thoracostomy tube in place in the upper right pleural cavity note d. The tip of the tube is somewhat more medial and inferior compared to the last exam. There is conso lidating infiltrate and atelectasis throughout the right lung. Moderate right pleural effusion is not ed. Left lung is clear and fully expanded as visualized. Cardiomediastinal silhouette is unremarkable for technique. Bony structures are intact. Monitoring leads superimpose the chest. XR/XR chest 1V portable [id number] IMPRESSION: 1. Development of 10% right upper lobe pneumothorax since prior study. Smallbor e chest tube has changed in position since prior study. 2. Infiltrate and atelectasis seen throughout the right lung with moderate righ t pleural effusion.
--- NOTE | 2023-02-24 06:27 | P.PN_ITS ---
Subjective Subjective: POD #1 status post thoracic vent placement for right pneumothorax. Mr. Menjivar states he rested well last night. Minimal thoracic vent insertion site discomfort. Chest x-ray this morning continues to reveal right midlung patchy infiltrates. Small effusion. No airleak while on suction. Vitals/I&O/Wt Last Vital Signs Temp 97.5 F L 02/23/23 17:35 Pulse 53 L 02/24/23 04:00 Resp 16 02/24/23 04:00 BP 145/63 02/24/23 04:00 Pulse Ox 93 02/24/23 04:00 O2 Del Method Nasal Cannula 02/23/23 20:35 O2 Flow Rate 4 02/23/23 20:35 02/23/23 02/23/23 02/24/23 14:59 22:59 06:59 Intake Total 575.95 / 575.95 250 / 825.95 50 / 875.95 Output Total 450 / 450 175 / 625 200 / 825 Balance 125.95 / 125.95 75 / 200.95 -150 / 50.95 Weight last 48 hrs Weight 165 lb Weight 168 lb Physical Exam Resp: COMMON NORMALS: normal respiratory effort and No retractions OTHER: There is some blood in breath sounds in the mid lung field to the right. Thoracic vent insertion site is clean and dry. Data 02/24/23 02:50 02/24/23 02:50 Micro: Microbiology 02/22/23 16:30 Blood Culture - Preliminary Blood NEGATIVE TO DATE 02/22/23 16:30 Blood Culture - Preliminary Blood NEGATIVE TO DATE 02/23/23 00:45 Gram Stain - Final Sputum - Expectorated Sputum A&P Assessment and plan (1) Pneumonia: Persistent right midlung infiltrate. POD #1 status post thoracic vent. Pneumothorax resolved. Plan: We will schedule for bronchoscopy tomorrow morning[facility] Attestations Medical Necessity Statement*: Persistent right midlung field infiltrate And concerns of atypical pneumonia. Coding Level of Care Code Acute Code for [facility] Diagnoses Pneumonia J18.9
[2023-02-24 07:58] LABS: Glucose Point of Care 124 mg/dL (70-110)
[2023-02-24] MEDS: aspirin 81 mg EC Tablet PO (08:41)
[2023-02-24] MEDS: piperacillin-tazobactam 3.375 GM in sodium chloride 0.9% (plus) 50 ML IV ×3 (08:41→23:15)
[2023-02-24] MEDS: tamsulosin 0.4 mg Capsule PO ×2 (08:41→17:04)
[2023-02-24] MEDS: metoprolol tartrate 25 mg Tablet PO ×2 (08:42→17:04)
[2023-02-24] MEDS: ipratropium-albuterol 3 mL Neb INHALATION ×3 (09:01→19:49)
[2023-02-24] MEDS: pantoprazole 40 mg SDV IVP ×2 (12:06→23:15)
[2023-02-24] MEDS: insulin lispro 100 unit/1 mL SUBCUT (12:16)
[2023-02-24 12:31] LABS: Glucose Point of Care 226 mg/dL (70-110)
--- NOTE | 2023-02-24 13:26 | PM.PN ---
Subjective Subjective: This morning I spoke with Dr. Marquez & Dr. Childers Patient and family requesting EGD while he is going for bronchoscopy Hemoglobin is stable 10% pneumothorax Dr. Menjivar is aware plan for bronchoscopy tomorrow Patient is currently on 10 L high flow nasal cannula Leukopenia, afebrile, Creatinine 1.3 stable Sputum showing gram-negative rods Vitals/I&O/Wt Last Vital Signs Temp 97.8 F 02/24/23 07:30 Pulse 65 02/24/23 09:03 Resp 24 H 02/24/23 09:03 BP 146/69 02/24/23 08:00 Pulse Ox 94 02/24/23 09:03 O2 Del Method High Flow Nasal Cannula 02/24/23 09:03 O2 Flow Rate 10 02/24/23 09:03 02/23/23 02/24/23 02/24/23 22:59 06:59 14:59 Intake Total 250 / 825.95 50 / 875.95 410 / 410 Output Total 175 / 625 200 / 825 8 / 8 Balance 75 / 200.95 -150 / 50.95 402 / 402 Weight last 48 hrs Weight 74.843 kg Weight 76.204 kg Physical Exam Narrative: Patient is on 10 L high flow nasal cannula No active distress No active shortness of breath or chest pain Appears very comfortable No conversational dyspnea is at the bedside Euvolemic Abdomen soft Mild rhonchi noted Bilateral breath sounds right diminished as compared to left A-fib with bradycardia heart rate ranging between 55-65 with normal blood pressure Data 02/24/23 02:50 02/24/23 02:50 Micro: Microbiology 02/23/23 00:45 Gram Stain - Final Sputum - Expectorated Sputum Sputum Culture - Preliminary Gram Negative Rods 02/22/23 16:30 Blood Culture - Preliminary Blood NEGATIVE TO DATE 02/22/23 16:30 Blood Culture - Preliminary Blood NEGATIVE TO DATE A&P Assessment and plan (1) Iatrogenic pneumothorax: (2) Rheumatoid arthritis: (3) A-fib: (4) Pleural effusion: (5) Failure of outpatient treatment: (6) Pneumonia: (7) Symptomatic anemia: (8) Pancytopenia: (9) Hypoxia: (10) Low iron: (11) Anemia: (12) Elevated rheumatoid factor: (13) BPH NOS w ur obs/LUTS: (14) Diabetes type 2, uncontrolled: Plan Persistent pneumonia with immunocompromise state Iatrogenic pneumothorax after attempted thoracentesis Currently with chest vent on 10 L high flow nasal cannula Avoid BiPAP because of pneumothorax 10% pneumothorax on today's x-ray Dr. Menjivar is aware Plan for bronchoscopy tomorrow to obtain bronchioloalveolar lavage Still my concern is related to necrotizing pneumonia causing hemothorax Bilateral pleural effusion Right greater than left Iatrogenic pneumothorax Blood noted during thoracentesis hence procedure was aborted Acute on chronic anemia Iron deficiency anemia Hemoglobin stable FOBT +12/17 Anticoagulation on hold Plavix on hold continuing aspirin only for now because of coronary artery disease Heparin on hold since admission A-fib with bradycardia No active symptoms Hemodynamically stable Rheumatoid arthritis: Monoclonal antibody was put on hold due to side effects DNR/DNI Patient will be n.p.o. after midnight Currently on modified diet History of coronary disease for now continue aspirin, Plavix on hold Consulted general surgery Dr. Childers today for EGD with bronchoscopy tomorrow Attestations Medical Necessity Statement*: Continue ICU management Diagnoses Iatrogenic pneumothorax J95.811 Rheumatoid arthritis M06.9 A-fib I48.91 Pleural effusion J90 Failure of outpatient treatment Z78.9 Pneumonia J18.9 Symptomatic anemia D64.9 Pancytopenia D61.818 Hypoxia R09.02 Low iron E61.1 Anemia D64.9 Elevated rheumatoid factor R76.8 BPH NOS w ur obs/LUTS N40.1 Diabetes type 2, uncontrolled
[2023-02-24 13:49] LABS: Methicillin-Resist S.aureu PCR NOT DETECTED (NOT DETECTED)
--- NOTE | 2023-02-24 14:18 | P.CONIM_ITS ---
Providers/Reason For Consult Consulting Physician/Specialty*: Yady Childers MD General Surgery Reason for Consult*: anemia Requesting Physician: Salena Castellanos MD Attending Physician: Salena Castellanos MD Primary Care Provider: Vita Mcelroy NP History of Present Illness History of Present Illness Nicolás Menjivar is a 82 year old male admitted with atypical pneumonia and known macrocytic anemia that tested positive for occult blood. He was to have upper and lower endoscopy as an outpatient for evaluation. Since admission his hemoglobin has been stable without overt signs of GI bleeding. He states that his stools have been dark for a few months but not black. He does not know of any family history of colon cancer. He thinks he had polyps on colonoscopy many years ago. Review of Systems Resp: Reports: dyspnea GI: Reports: vomiting; Denies: hematemesis or hematochezia Medications/Allergies Home Medications Medication Instructions Recorded Confirmed Last Taken Type acetaminophen 500 mg tablet 1,000 mg PO BID 04/01/20 02/22/23 02/22/23 History (Tylenol Extra Strength) vitamin B complex (B 1 tab PO DAILY 04/01/20 02/22/23 02/22/23 History Complex-Vitamin B12 tablet) albuterol sulfate 90 mcg/actuation 2 puff inhalation Q4H PRN 10/27/21 02/22/23 Unknown Rx aerosol inhaler shortness of breath or wheezing #8.5 grams adalimumab 40 mg/0.8 mL See Rx Instructions SUBCUT 01/07/22 02/22/23 12/06/22 Rx subcutaneous pen kit (Humira Pen) .COMPLEX #4 ea metoprolol tartrate 25 mg tablet 25 mg PO BID #180 tabs 06/18/22 02/22/23 02/22/23 Rx dapagliflozin 10 mg tablet 10 mg PO QAM 90 days #90 tabs 07/07/22 02/22/23 02/22/23 Rx (Farxiga) glipizide 5 mg tablet 5 mg PO BID 90 days #180 tabs 07/07/22 02/22/23 02/22/23 Rx OYXGEN AT 3L PER N/C WITH #1 ea 07/23/22 02/22/23 Unknown Rx CONSERVING DEVICE AND PORTABLE acarbose 25 mg tablet 25 mg PO TID #360 tabs 09/17/22 02/22/23 02/22/23 Rx blood sugar diagnostic (Contour #50 ea 11/06/22 02/22/23 Unknown Rx Next Test Strips) ascorbic acid (vitamin C) 500 mg 500 mg PO DAILY 12/17/22 02/22/23 02/22/23 History tablet (Vitamin C) aspirin 81 mg tablet,delayed 81 mg PO QAM 12/17/22 02/22/23 02/22/23 History release clopidogrel 75 mg tablet 75 mg PO QAM 12/17/22 02/22/23 02/22/23 History diclofenac sodium 1 % topical gel 4 g topical QID PRN Pain 12/17/22 02/22/23 Unknown History (Voltaren Arthritis Pain) ferrous sulfate 325 mg (65 mg 325 mg PO QAM 12/17/22 02/22/23 02/22/23 History iron) tablet finasteride 5 mg tablet 5 mg PO BEDTIME 12/17/22 02/22/23 02/21/23 History isosorbide mononitrate 30 mg 30 mg PO QAM 12/17/22 02/22/23 02/22/23 History tablet,extended release 24 hr multivitamin 1 tab PO QAM 12/17/22 02/22/23 02/22/23 History rivaroxaban 20 mg tablet (Xarelto) 20 mg PO QAM 12/17/22 02/22/23 02/22/23 History simvastatin 40 mg tablet 40 mg PO BEDTIME 12/17/22 02/22/23 02/21/23 History testosterone cypionate 200 mg/mL 200 mg IM Q30D 12/17/22 02/22/23 11/25/22 Hi story intramuscular oil nitroglycerin 0.4 mg sublingual 0.4 mg sublingual Q5M PRN chest 12/21/22 02/22/23 02/01/23 Rx tablet pain #25 tabs promethazine-DM 6.25 mg-15 mg/5 mL 5 - 10 ml PO Q6H PRN cough #200 mL 01/11/23 02/22/23 Unknown Rx oral syrup tamsulosin 0.4 mg capsule 0.4 mg PO BID 90 days #180 caps 01/13/23 02/22/23 02/22/23 Rx ipratropium 0.5 mg-albuterol 3 mg 3 ml inhalation Q4H PRN wheezing 01/18/23 02/22/23 Unknown Rx (2.5 mg base)/3 mL nebulization #90 mL soln NEBULIZER MACHINE AND TUBING #1 ea 01/19/23 02/22/23 Unknown Rx SUPPLIES cetirizine 10 mg tablet 10 mg PO QAM PRN Allergy Symptoms 02/01/23 02/22/23 02/01/23 History nystatin 100,000 unit/gram topical 1 applic topical QID PRN unknown 02/01/23 02/22/23 Unknown History cream sitagliptin phosphate 100 mg 100 mg PO QAM 02/01/23 02/22/23 02/22/23 History tablet (Januvia) sotalol 80 mg tablet 40 mg PO BID 02/01/23 02/22/23 02/22/23 History pantoprazole 40 mg tablet,delayed 40 mg PO BID 30 days #60 tabs 02/06/23 02/22/23 02/22/23 Rx release (Protonix) potassium chloride 10 mEq 10 meq PO QAM #90 tabs 02/16/23 02/22/23 02/22/23 Rx tablet,extended release Portable oxygen @ 3 L per n/c #3 ea 02/17/23 02/22/23 Unknown Rx continuous condom catheters #30 ea 02/17/23 02/22/23 Unknown Rx escitalopram oxalate 20 mg tablet 20 mg PO BEDTIME 30 days #30 tabs 02/17/23 02/22/23 02/21/23 Rx albuterol sulfate 1.25 mg/3 mL 1.25 mg inhalation Q4H PRN 02/22/23 02/22/23 Unknown History solution for nebulization Shortness Of Breath amitriptyline 25 mg tablet 25 mg PO BEDTIME PRN Insomnia 02/22/23 02/22/23 Unknown History furosemide 40 mg tablet 40 mg PO DAILY 02/22/23 02/22/23 02/22/23 History vitamin A-vitamin C-vit E-min 1 tab PO DAILY 02/22/23 02/22/23 02/22/23 History tablet Allergies Allergy/AdvReac Type Severity Reaction Status Date / Time bupropion [From Wellbutrin] Allergy Unknown Unknown Verified 02/22/23 13:32 celecoxib [From Celebrex] Allergy Unknown Unknown Verified 02/22/23 13:32 rofecoxib [From Vioxx] Allergy Unknown Verified 02/22/23 13:32 bactrim Allergy Severe ALGY-Rash Uncoded 02/01/23 14:58 Current Medications Generic Name Dose Route Start Last Admin Trade Name Fremili PRN Reason Stop Dose Admin Hydrocodone Bitart/Acetaminophen 1 tab 02/24/23 01:27 02/24/23 08:41 Hydrocodone-Acetaminophen 5-325 Mg Tablet PO 1 tab Q6H PRN Administration MODERATE PAIN Albuterol/Ipratropium 3 ml 02/22/23 22:15 02/24/23 09:01 Ipratropium-Albuterol 3 Ml Neb INHALATION 3 ml Q6H NIMO Administration Aspirin 81 mg 02/24/23 09:00 02/24/23 08:41 Aspirin 81 Mg Ec Tablet PO 81 mg DAILY NIMO Administration Atorvastatin Calcium 40 mg 02/23/23 21:00 02/23/23 21:23 Atorvastatin 40 Mg Tablet PO 40 mg BEDTIME NIMO Administration Escitalopram Oxalate 20 mg 02/23/23 21:00 02/23/23 21:22 Escitalopram 10 Mg Tablet PO 20 mg BEDTIME NIMO Administration Finasteride 5 mg 02/23/23 21:00 02/23/23 21:23 Finasteride 5 Mg Tablet PO 5 mg BEDTIME NIMO Administration Piperacillin Sod/Tazobactam 50 mls @ 12.5 mls/hr 02/22/23 23:00 02/24/23 12:46 Sod 3.375 gm/ Sodium Chloride IV Infused Q8H NIMO Infusion Vancomycin/PEG/NADA/Lysine/Water 1,250 mg in 250 mls @ 250 mls/hr 02/23/23 17:30 02/23/23 22:22 Vancocin IV Infused Q24H NIMO Infusion Insulin Human Lispro 0 unit 02/23/23 08:00 02/24/23 12:16 Insulin Lispro 100 Unit/1 Ml SUBCUT 8 unit WM&BEDTIME NIMO Administration Protocol Isosorbide Mononitrate 30 mg 02/23/23 06:00 02/24/23 05:17 Isosorbide Mononitrate Er 30 Mg Tablet PO 30 mg QAM NIMO Administration Levofloxacin 500 mg 02/23/23 06:00 02/24/23 05:17 Levofloxacin 500 Mg Tablet PO 500 mg DAILY@0600 NIMO Administration Protocol Metoprolol Tartrate 25 mg 02/23/23 09:00 02/24/23 08:42 Metoprolol Tartrate 25 Mg Tablet PO 25 mg BID NIMO Administration Morphine Sulfate 2 mg 02/22/23 22:02 02/23/23 22:46 Morphine 4 Mg/Ml Sdv 1 Ml IVP 2 mg Q4H PRN Administration SEVERE PAIN Pantoprazole Sodium 40 mg 02/23/23 11:30 02/24/23 12:06 Pantoprazole 40 Mg Sdv IVP 40 mg Q12H NIMO Administration Tamsulosin HCl 0.4 mg 02/23/23 09:00 02/24/23 08:41 Tamsulosin 0.4 Mg Capsule PO 0.4 mg BID NIMO Administration PFSH Acute PFSH: Medical History A-fib Abnormal bilirubin test Abnormal PSA Anemia Atherosclerotic heart disease -has had prior stenting -cardiac workup done in 2019 with nuclear stress testing being negative for ischemia; Echo-EF=55%, mild LVH, no RWMA, trace TR, mild RI -on statin, Plavix, off ASA due to Eliquis Atherosclerotic heart disease of [place] coronary artery without angina pectoris Benign essential hypertension with target blood pressure below 140/90 -BP trending up, continue to monitor -on lasix and HCTZ BPH NOS w ur obs/LUTS CAD (coronary artery disease) CAP (community acquired pneumonia) CKD (chronic kidney disease) Depression Dyslipidemia -on statin Erectile dysfunction due to diseases classified elsewhere Hyperlipidemia Hypertension Hypogonadism Hypogonadism Hypogonadism male Intermittent atrial fibrillation Pneumonia SOB (shortness of breath) Transient atrial fibrillation/flutter -appears to be new onset arrhythmia -had previously been on Metoprolol and Diltiazem which he discontinued on his own due to dizziness -on sotalol 80 mg in AM, 40 mg in PM; off Cardizem drip -appreciate evaluation by Dr. Locke -telemetry monitoring -VSS; continue to monitor -Echo: EF=57%, G3DD, mild LVH, no RWMA, mild to moderate MR, moderate TR, mild pulmonary HTN -has been on therapeutic Lovenox due to D-dimer elevation; VTE r/o so now on Eliquis -[id number] score of 5; will need to continue longterm oral anticoagulation Type 2 diabetes mellitus Type 2 diabetes mellitus Weakness Surgical History History of heart artery stent History of knee replacement procedure of left knee Hx of cholecystectomy S/P total knee arthroplasty Status post laser cataract surgery of both eyes Family History Father , AT AGE 86 HEART DISEASE,PA,DIABETES Diabetes CAD (coronary artery disease) Mother , AT AGE 80 No problems noted. Grandfather CAD (coronary artery disease) Chronic kidney disease (CKD) Diabetes Family/Other CAD (coronary artery disease) Other Rheumatoid arthritis Stroke Denies family history of Lupus Hyperlipidemia Cancer Hypertension Social History Smoking and tobacco status: never smoked Alcohol intake: former Substance/Drug Use: never Marital status: Current occupational status: retired Vitals/I&O/Wt Last Vital Signs Temp 97.8 F 02/24/23 07:30 Pulse 65 02/24/23 09:03 Resp 24 H 02/24/23 09:03 BP 146/69 02/24/23 08:00 Pulse Ox 94 02/24/23 09:03 O2 Del Method High Flow Nasal Cannula 02/24/23 09:03 O2 Flow Rate 10 02/24/23 09:03 02/23/23 02/24/23 02/24/23 22:59 06:59 14:59 Intake Total 250 / 825.95 50 / 875.95 410 / 410 Output Total 175 / 625 200 / 825 8 / 8 Balance 75 / 200.95 -150 / 50.95 402 / 402 Weight last 48 hrs Weight 165 lb Physical Exam Const: COMMON NORMALS: no acute distress GENERAL APPEARANCE: ill appearing Resp: EFFORT & INSPECTION: No able to speak in complete sentences AUSCULTATION: rhonchi Cardio: COMMON NORMALS: regular rate and regular rhythm RATE: regular rate RHYTHM: regular rhythm GI: COMMON NORMALS: Soft to palpation INSPECTION: No abdominal distension PALPATION: Yes Soft to palpation, Yes Tenderness to palpation present (GI) (minimal RUQ tenderness), No Guarding due to palpation present (GI), No Palpable mass present and No Rebound tenderness present Data 02/24/23 02:50 02/24/23 02:50 Micro: Microbiology 02/23/23 00:45 Gram Stain - Final Sputum - Expectorated Sputum Sputum Culture - Preliminary Gram Negative Rods 02/22/23 16:30 Blood Culture - Preliminary Blood NEGATIVE TO DATE 02/22/23 16:30 Blood Culture - Preliminary Blood NEGATIVE TO DATE A&P Assessment and plan (1) Symptomatic anemia: Patient's respiratory status is quite tenuous due to pneumonia. He will not tolerate bowel prep for colonoscopy. Although I concur that endoscopic evaluation is indicated, I feel that it is safer to postpone these procedures until he has recovered full respiratory capacity. The bronchoscopy is diagnostically urgent with implications for his current illness. I advised the patient against prolonging the procedure to add endoscopy when the results do not have immediate implications in his care. I think a second sedation episode with full respiratory function is ultimately less risky than additional pro cedures in his current state. He seemed to understand and agreed. Obviously, should he develop cortez rectal bleeding or precipitous drop in hemoglobin, endoscopy could be undertaken at that time. Consult Attestations Other Attestations: Other Attestations: Discussed with Dr. Castellanos. Coding Level of Care Code Acute Code for [facility] Diagnoses Symptomatic anemia D64.9
[2023-02-24 17:15] LABS: Glucose Point of Care 111 mg/dL (70-110)
[2023-02-24] MEDS: vancomycin 1,250 MG/250 ML PIGGYBACK 250 MG IV (17:16)
--- NOTE | 2023-02-24 19:05 | PC.NURSE ---
Patient resting in bed, sitting up dangle feet with each meal which resulted with more CTU output. CTU on waterseal most of shift and physician placed on suction late afternoon see charting for details. Room clean and clutter free with call light within reach. No new events or needs at this time. Tolerated diet and taking in fluids with good UOP.
--- NOTE | 2023-02-24 19:32 | PC.PHAR ---
PHARMACY TO DOSE CONSULT - VANCOMYCIN Patient's trough came back at 11.0. With his stable renal function since admission, we will continue the patient on 1250mg every 24 hours. Pharmacy will continue to monitor the patient's renal function and make adjustments as necessary. Please let us know if there is anything else we can do in the treatment of this patient. Thanks, Danilo Monahan, Pharm.D
[2023-02-24 20:02] LABS: Glucose Point of Care 149 mg/dL (70-110)
[2023-02-24] MEDS: escitalopram 10 mg Tablet 20 MG PO (20:06)
[2023-02-24] MEDS: finasteride 5 mg Tablet PO (20:06)
[2023-02-24] MEDS: atorvastatin 40 mg Tablet PO (20:06)
[2023-02-24] MEDS: morphine 4 mg/mL SDV 1 mL 2 MG IVP (22:01)
[2023-02-25] VITALS (246 sets, daily range): BP systolic 114–182; BP diastolic 55–108; PULSE 56–101; RESP 15–36; TEMP 36.5–36.6; O2SAT 82–100
[2023-02-25 02:45] LABS: Basophils % 0.5 %; Eosinophils % 1.4 %; Hematocrit 26.6 % (42.0-52.0); Hemoglobin 7.8 g/dL (11.7-16.6); Lymphocytes # 0.3 10^3/uL (0.8-4.8); Lymphocytes % 12.1 %; Mean Corpuscular HGB Conc 29.3 g/dL (30.0-36.0); Mean Corpuscular Hemoglobin 32.8 pg (28.0-34.0); Mean Corpuscular Volume 111.8 fl (80-94); Mean Platelet Volume 10.5 fL (7.4-10.4); Monocytes # 0.5 10^3/uL (0.2-0.9); Monocytes % 24.2 %; Neutrophils % 57.9 %; Nucleated Red Blood Cells % 0 %; Platelet Count 271 10^3/cmm (130-400); Red Blood Count 2.38 10^6/uL (4.1-5.3); Red Cell Distribution Width 17.4 % (12.1-15.1); White Blood Count 2.1 10^3/uL (4.0-10.0)
[2023-02-25 03:06] LABS: Blood Urea Nitrogen 27 mg/dL (8-23); Calcium 8.2 mg/dL (8.5-10.5); Carbon Dioxide 25 mmol/L (22-29); Chloride 105 mmol/L (98-107); Glucose 129 mg/dL (65-115); Osmolality Calculated 295 mOsm/kg (285-295); Sodium 139 mmol/L (136-145)
[2023-02-25 03:14] LABS: Anion Gap 12.4 (5-19); Potassium 3.4 mmol/L (3.5-5.1)
--- NOTE | 2023-02-25 04:00 | XR_ITS ---
WS: [id number] Exam: XR chest 1V portable [id number] Date/Time of Exam: 02/25/2023 5:13 AM Reason For Exam: pneumothorax Comparison with the latest exam 02/24/2023 at 5:08 AM. Slightly improved right upper lobe pneumothorax noted estimated at about 5%. Smallbore right chest tu be has been repositioned since the previous study. The tip ends along the lower lateral right pleural cavity. There is infiltrate and atelectasis seen throughout the right lung and right-sided pleural e ffusion. The left lung is clear and fully inflated. The cardiomediastinal silhouette is unremarkable for technique. Subcutaneous emphysema along the right rib cage. Significant DJD of both shoulders. XR/XR chest 1V portable [id number] IMPRESSION: 1. Improved right upper lobe pneumothorax estimated at about 5%. 2. Infiltrate and atelectasis seen throughout the right lung. Right pleural eff usion. 3. Subcutaneous emphysema along the right rib cage which is new since the prior study.
[2023-02-25] MEDS: HYDROcodone-acetaminophen 5-325 mg Tablet 1 TAB PO ×2 (05:14→20:13)
[2023-02-25] MEDS: isosorbide mononitrate ER 30 mg Tablet PO (05:15)
[2023-02-25] MEDS: levoFLOXacin 500 mg Tablet PO (05:15)
--- NOTE | 2023-02-25 06:14 | P.PN_ITS ---
Subjective Subjective: Mr. Menjivar rested well last night. He has been n.p.o. Chest x-ray this morning reveals thoracic vent in good position with perhaps a rim apical pneumothorax. There is no air leak on Pleur-evac suction. Chest x-ray continue to reveal midlung field infiltrative process and some haziness throughout the right hemithorax. Left side remains clear. Vitals/I&O/Wt Last Vital Signs Temp 97.3 F L 02/24/23 15:35 Pulse 59 L 02/25/23 04:25 Resp 21 H 02/25/23 04:25 BP 158/97 02/25/23 04:25 Pulse Ox 98 02/25/23 04:25 O2 Del Method High Flow Nasal Cannula 02/25/23 02:00 O2 Flow Rate 9 02/25/23 02:00 02/24/23 02/24/23 02/25/23 14:59 22:59 06:59 Intake Total 770 / 770 940 / 1710 50 / 1760 Output Total 208 / 208 930 / 1138 600 / 1738 Balance 562 / 562 10 / 572 -550 / 22 Physical Exam Resp: AUSCULTATION: diminished lung sounds on the right Data 02/25/23 02:36 02/25/23 02:36 Micro: Microbiology 02/23/23 00:45 Gram Stain - Final Sputum - Expectorated Sputum Sputum Culture - Preliminary Gram Negative Rods A&P Assessment and plan (1) Pneumonia: We will plan for diagnostic bronchoscopy this morning. Details of risk the procedure again discussed with Mr. Menjivar and his who was present on rounds this morning. All questions been answered. They are eager to proceed. Attestations Medical Necessity Statement*: Right-sided pneumonia Coding Level of Care Code Acute Code for [facility] Diagnoses Pneumonia J18.9
--- NOTE | 2023-02-25 06:55 | ANES.PREANE2 ---
Pre-Anesthetic Assessment Height/Weight: Height 1.88 m Weight 74.843 kg Temp Pulse Resp BP Pulse Ox O2 Del Method O2 Flow Rate 97.3 F L 59 L 21 H 158/97 98 High Flow Nasal Cannula 9 02/24/23 15:35 02/25/23 04:25 02/25/23 04:25 02/25/23 04:25 02/25/23 04:25 02/25/23 02:00 02/25/23 02:00 Operation Date: 02/23/23 16:45 Proposed Procedures p Thoracic Vent(Not Applicable) - Ubaldo Menjivar MD Operation Date: 02/25/23 07:00 Proposed Procedures p Bronchoscopy(Not Applicable) - Ubaldo Menjivar MD Familial anesthetic complications: None Was Beta Jose D taken within 24 hours: N/A Was Clonidine taken within 24 hours: N/A Last intake: > 8 Hrs Social No alcohol and No tobacco Exam alert, oriented x 3 and regular rate & rhythm Airway Mallampati: Class III Dentition: false Pulmonary PTX s/ p thoracic vent, pneumonia CV/HEM Atrial Fibrillation, Anemia, Coronary Artery Disease, Congestive Heart Failure and Hypertension Metabolic Diabetes Mellitus Anesthetic Plan ASA status: 4 Anesthesia: General Risk of > 500 ml blood loss (7ml/kg in children): No Medications/Allergies Home Medications Medication Instructions Recorded Confirmed Last Taken Type acetaminophen 500 mg tablet 1,000 mg PO BID 04/01/20 02/22/23 02/22/23 History (Tylenol Extra Strength) vitamin B complex (B 1 tab PO DAILY 04/01/20 02/22/23 02/22/23 History Complex-Vitamin B12 tablet) albuterol sulfate 90 mcg/actuation 2 puff inhalation Q4H PRN 10/27/21 02/22/23 Unknown Rx aerosol inhaler shortness of breath or wheezing #8.5 grams adalimumab 40 mg/0.8 mL See Rx Instructions SUBCUT 01/07/22 02/22/23 12/06/22 Rx subcutaneous pen kit (Humira Pen) .COMPLEX #4 ea metoprolol tartrate 25 mg tablet 25 mg PO BID #180 tabs 06/18/22 02/22/23 02/22/23 Rx dapagliflozin 10 mg tablet 10 mg PO QAM 90 days #90 tabs 07/07/22 02/22/23 02/22/23 Rx (Farxiga) glipizide 5 mg tablet 5 mg PO BID 90 days #180 tabs 07/07/22 02/22/23 02/22/23 Rx OYXGEN AT 3L PER N/C WITH #1 ea 07/23/22 02/22/23 Unknown Rx CONSERVING DEVICE AND PORTABLE acarbose 25 mg tablet 25 mg PO TID #360 tabs 09/17/22 02/22/23 02/22/23 Rx blood sugar diagnostic (Contour #50 ea 11/06/22 02/22/23 Unknown Rx Next Test Strips) ascorbic acid (vitamin C) 500 mg 500 mg PO DAILY 12/17/22 02/22/23 02/22/23 History tablet (Vitamin C) aspirin 81 mg tablet,delayed 81 mg PO QAM 12/17/22 02/22/23 02/22/23 History release clopidogrel 75 mg tablet 75 mg PO QAM 12/17/22 02/22/23 02/22/23 History diclofenac sodium 1 % topical gel 4 g topical QID PRN Pain 12/17/22 02/22/23 Unknown History (Voltaren Arthritis Pain) ferrous sulfate 325 mg (65 mg 325 mg PO QAM 12/17/22 02/22/23 02/22/23 History iron) tablet finasteride 5 mg tablet 5 mg PO BEDTIME 12/17/22 02/22/23 02/21/23 History isosorbide mononitrate 30 mg 30 mg PO QAM 12/17/22 02/22/23 02/22/23 History tablet,extended release 24 hr multivitamin 1 tab PO QAM 12/17/22 02/22/23 02/22/23 History rivaroxaban 20 mg tablet (Xarelto) 20 mg PO QAM 12/17/22 02/22/23 02/22/23 History simvastatin 40 mg tablet 40 mg PO BEDTIME 12/17/22 02/22/23 02/21/23 History testosterone cypionate 200 mg/mL 200 mg IM Q30D 12/17/22 02/22/23 11/25/22 History intramuscular oil nitroglycerin 0.4 mg sublingual 0.4 mg sublingual Q5M PRN chest 12/21/22 02/22/23 02/01/23 Rx tablet pain #25 tabs promethazine-DM 6.25 mg-15 mg/5 mL 5 - 10 ml PO Q6H PRN cough #200 mL 01/11/23 02/22/23 Unknown Rx oral syrup tamsulosin 0.4 mg capsule 0.4 mg PO BID 90 days #180 caps 01/13/23 02/22/23 02/22/23 Rx ipratropium 0.5 mg-albuterol 3 mg 3 ml inhalation Q4H PRN wheezing 01/18/23 02/22/23 Unknown Rx (2.5 mg base)/3 mL nebulization #90 mL soln NEBULIZER MACHINE AND TUBING #1 ea 01/19/23 02/22/23 Unknown Rx SUPPLIES cetirizine 10 mg tablet 10 mg PO QAM PRN Allergy Symptoms 02/01/23 02/22/23 02/01/23 History nystatin 100,000 unit/gram topical 1 applic topical QID PRN unknown 02/01/23 02/22/23 Unknown History cream sitagliptin phosphate 100 mg 100 mg PO QAM 02/01/23 02/22/23 02/22/23 History tablet (Januvia) sotalol 80 mg tablet 40 mg PO BID 02/01/23 02/22/23 02/22/23 History pantoprazole 40 mg tablet,delayed 40 mg PO BID 30 days #60 tabs 02/06/23 02/22/23 02/22/23 Rx release (Protonix) potassium chloride 10 mEq 10 meq PO QAM #90 tabs 02/16/23 02/22/23 02/22/23 Rx tablet,extended release Portable oxygen @ 3 L per n/c #3 ea 02/17/23 02/22/23 Unknown Rx continuous condom catheters #30 ea 02/17/23 02/22/23 Unknown Rx escitalopram oxalate 20 mg tablet 20 mg PO BEDTIME 30 days #30 tabs 02/17/23 02/22/23 02/21/23 Rx albuterol sulfate 1.25 mg/3 mL 1.25 mg inhalation Q4H PRN 02/22/23 02/22/23 Unknown History solution for nebulization Shortness Of Breath amitriptyline 25 mg tablet 25 mg PO BEDTIME PRN Insomnia 02/22/23 02/22/23 Unknown History furosemide 40 mg tablet 40 mg PO DAILY 02/22/23 02/22/23 02/22/23 History vitamin A-vitamin C-vit E-min 1 tab PO DAILY 02/22/23 02/22/23 02/22/23 History tablet Allergies Allergy/AdvReac Type Severity Reaction Status Date / Time bupropion [From Wellbutrin] Allergy Unknown Unknown Verified 02/22/23 13:32 celecoxib [From Celebrex] Allergy Unknown Unknown Verified 02/22/23 13:32 rofecoxib [From Vioxx] Allergy Unknown Verified 02/22/23 13:32 bactrim Allergy Severe ALGY-Rash Uncoded 02/01/23 14:58 Current Medications Generic Name Dose Route Start Last Admin Trade Name Freq PRN Reason Stop Dose Admin Hydrocodone Bitart/Acetaminophen 1 tab 02/24/23 01:27 02/25/23 05:14 Hydrocodone-Acetaminophen 5-325 Mg Tablet PO 1 tab Q6H PRN Administration MODERATE PAIN Albuterol/Ipratropium 3 ml 02/24/23 20:00 02/25/23 02:50 Ipratropium-Albuterol 3 Ml Neb INHALATION Not Given Q6H.RESP NIMO Aspirin 81 mg 02/24/23 09:00 02/24/23 08:41 Aspirin 81 Mg Ec Tablet PO 81 mg DAILY NIMO Administration Atorvastatin Calcium 40 mg 02/23/23 21:00 02/24/23 20:06 Atorvastatin 40 Mg Tablet PO 40 mg BEDTIME NIMO Administration Escitalopram Oxalate 20 mg 02/23/23 21:00 02/24/23 20:06 Escitalopram 10 Mg Tablet PO 20 mg BEDTIME NIMO Administration Finasteride 5 mg 02/23/23 21:00 02/24/23 20:06 Finasteride 5 Mg Tablet PO 5 mg BEDTIME NIMO Administration Piperacillin Sod/Tazobactam 50 mls @ 12.5 mls/hr 02/22/23 23:00 02/25/23 03:15 Sod 3.375 gm/ Sodium Chloride IV Infused Q8H NIMO Infusion Vancomycin/PEG/NADA/Lysine/Water 1,250 mg in 250 mls @ 250 mls/hr 02/23/23 17:30 02/24/23 18:43 Vancocin IV Infused Q24H NIMO Infusion Insulin Human Lispro 0 unit 02/23/23 08:00 02/24/23 20:06 Insulin Lispro 100 Unit/1 Ml SUBCUT Not Given WM&BEDTIME NIMO Protocol Isosorbide Mononitrate 30 mg 05/30/23 06:00 02/25/23 05:15 Isosorbide Mononitrate Er 30 Mg Tablet PO 30 mg QAM NIMO Administration Levofloxacin 500 mg 02/23/23 06:00 02/25/23 05:15 Levofloxacin 500 Mg Tablet PO 500 mg DAILY@0600 NIMO Administration Protocol Metoprolol Tartrate 25 mg 02/23/23 09:00 02/24/23 17:04 Metoprolol Tartrate 25 Mg Tablet PO 25 mg BID NIMO Administration Morphine Sulfate 2 mg 02/22/23 22:02 02/24/23 22:01 Morphine 4 Mg/Ml Sdv 1 Ml IVP 2 mg Q4H PRN Administration SEVERE PAIN Pantoprazole Sodium 40 mg 02/23/23 11:30 02/24/23 23:15 Pantoprazole 40 Mg Sdv IVP 40 mg Q12H NIMO Administration Tamsulosin HCl 0.4 mg 02/23/23 09:00 02/24/23 17:04 Tamsulosin 0.4 Mg Capsule PO 0.4 mg BID NIMO Administration PFS Anesthesia Medical History A-fib Abnormal bilirubin test Abnormal PSA Anemia Atherosclerotic heart disease -has had prior stenting -cardiac workup done in 2019 with nuclear stress testing being negative for ischemia; Echo-EF=55%, mild LVH, no RWMA, trace TR, mild TN -on statin, Plavix, off ASA due to Eliquis Atherosclerotic heart disease of [place] coronary artery without angina pectoris Benign essential hypertension with target blood pressure below 140/90 -BP trending up, continue to monitor -on lasix and HCTZ BPH NOS w ur obs/LUTS CAD (coronary artery disease) CAP (community acquired pneumonia) CKD (chronic kidney disease) Depression Dyslipidemia -on statin Erectile dysfunction due to diseases classified elsewhere Hyperlipidemia Hypertension Hypogonadism Hypogonadism Hypogonadism male Intermittent atrial fibrillation Pneumonia SOB (shortness of breath) Transient atrial fibrillation/flutter -appears to be new onset arrhythmia -had previously been on Metoprolol and Diltiazem which he discontinued on his own due to dizziness -on sotalol 80 mg in AM, 40 mg in PM; off Cardizem drip -appreciate evaluation by Dr. Locke -telemetry monitoring -VSS; continue to monitor -Echo: EF=57%, G3DD, mild LVH, no RWMA, mild to moderate MR, moderate TR, mild pulmonary HTN -has been on therapeutic Lovenox due to D-dimer elevation; VTE r/o so now on Eliquis -[id number]-[id number] score of 5; will need to continue long term care pharmacist oral anticoagulation Type 2 diabetes mellitus Type 2 diabetes mellitus Weakness Surgical History History of heart artery stent History of knee replacement procedure of left knee Hx of cholecystectomy S/P total knee arthroplasty Status post laser cataract surgery of both eyes Family History Father , AT AGE 86 HEART DISEASE,[place],DIABETES Diabetes CAD (coronary artery disease) Mother , AT AGE 80 No problems noted. Grandfather CAD (coronary artery disease) Chronic kidney disease (CKD) Diabetes Family/Other CAD (coronary artery disease) Other Rheumatoid arthritis Stroke Denies family history of Lupus Hyperlipidemia Cancer Hypertension Social History Smoking and tobacco status: never smoked Alcohol intake: former Substance/Drug Use: never Marital status: Current occupational status: retired Data Anesthesia 02/25/23 02:36 02/25/23 02:36 Short CBC 02/23/23 02/24/23 02/25/23 Range/Units 06:54 02:50 02:36 WBC 3.1 L 2.9 L 2.1 L (4.0-10.0) 10^3/uL Hgb 8.0 L 8.1 L 7.8 L (11.7-16.6) g/dL Hct 26.1 L 26.9 L 26.6 L (42.0-52.0) % MCV 106.1 H 106.7 H 111.8 H (80-94) fl Plt Count 306 292 271 (130-400) 10^3/cmm Neut % (Auto) 73.4 64.2 57.9 % Neut # (Auto) 2.24 1.86 1.20 L (1.8-7.7) 10^3/uL BMP 02/23/23 02/24/23 02/25/23 06:54 02:50 02:36 Sodium 138 140 139 Potassium 3.5 3.5 3.4 L Chloride 100 104 105 Carbon Dioxide 25 27 25 BUN 32 H 34 H 27 H Creatinine 1.3 H 1.3 H 1.2 Glucose 137 H 140 H 129 H Calcium 8.7 8.2 L 8.2 L Liver Function 02/23/23 Range/Units 06:54 Total Bilirubin 0.7 (0.15-1.2) mg/dL AST 16 (0-40) U/L ALT 8 (0-41) U/L Alkaline Phosphatase 68 (40-130) U/L Albumin 2.6 L (3.5-5.2) g/dL Coags 02/23/23 02/23/23 07:27 14:38 PT 16.60 H INR 1.30 H APTT 92.0 H D Microbiology 02/23/23 00:45 Gram Stain - Final Sputum - Expectorated Sputum Sputum Culture - Preliminary Gram Negative Rods Cardiac Studies: Echocardiogram 08/01/22 Echocardiogram Limited Views 02/02/23 Echocardiogram Ultrasound 04/10/20 Holter Monitor 06/13/20
[2023-02-25 07:19] LABS: Glucose Point of Care 121 mg/dL (70-110)
[2023-02-25] MEDS: cetacaine Spray 20 gm Can 1 SPRAY TOPICAL (07:32)
[2023-02-25] MEDS: EPINEPHrine 1 mg/mL INJ XX (07:40)
--- NOTE | 2023-02-25 08:06 | PM.OP ---
Operative Report Date of procedure: February 25, 2023 Pre-op diagnosis: Recurrent right-sided pneumonia Post-op diagnosis: same Procedure done: Flexible diagnostic bronchoscopy with biopsy Specimens removed/disposition: Endobronchial biopsies of the orifice of right lower lobe Surgeon: Ubaldo Menjivar Anesthesia: General Complications: None Condition: stable Disposition: ICU Brief History: Mr. Menjivar is an 82-year-old gentleman with recurrent right-sided pneumonia particular involving the right lower lobe and compressive atelectasis. He has been previously treated but is never completely recovered. He has other chronic medical problems including chronic anemia, rheumatoid arthritis treated with Humira, diabetes mellitus, paroxysmal A-fib, and stage III chronic kidney disease. Because of the recurrence of his pneumonia dating back to November of this year, bronchoscopy has been recommended. Details of risk of procedure were Discussed with Mr. Menjivar and his . Proper consents have been reviewed and signed. Procedure: Procedure: As he currently remains in respiratory isolation, we elected to perform this procedure in the ICU room. Mr. Menjivar underwent general endotracheal anesthesia with an 8.0 endotracheal tube. With adequate anesthesia, flexible bronchoscope was inserted through the endotracheal tube. In a methodical fashion the trachea, maria luz, right main bronchus and associated lobar bronchi were inspected. In a similar fashion the left side was inspected. Secretions were cleared as needed to allow for adequate inspection. Secretions were light and did not require aggressive irrigation. Aspiration of secretions from the right bronchial tree were obtained and sent for appropriate cultures including fungal studies. Findings: Branching anatomy was normal. Main maria luz and subsegmental maria luz were sharp. There was minimal secretions on the left side which was easily cleared. Mucosa was not particularly friable and there were no endobronchial lesions identified. On the right side, secretions were more prominent and specimen was collected by aspiration. Right upper lobe was unremarkable. From the bronchus intermedius distally there was substantial displacement of the membranous bronchus with intermittent and near complete occlusion from this level distally with some sparing to the right middle lobe. This particular involved intermittent obstruction to the right lower lobe orifice. It was easy to pass a scope across this area. Middle lobe bronchus appeared unremarkable. There was some friability and a bit of edema at the orifice to the right lower lobe though no cortez endobronchial lesion was identified. I did elect to obtain endobronchial specimens from this region. Bleeding was controlled with a solution of saline and epinephrine. No cortez endobronchial lesions were identified though it was clear that the right lower lobe was being intermittently obstructed by displacement from the membranous portion of the bronchus just proximal to this region. Once completed, the scope was withdrawn under direct visualization confirming cleared secretions and no substantial bleeding. Endoscopic photos were taken as required to document pathology. Mr. Menjivar tolerated procedure well. He was awakened and extubated in the ICU. I did personnel counselor with his at the completion of the procedure.
--- NOTE | 2023-02-25 08:37 | PC.SOCIAL ---
IMM update IMM updated with patient's . Initialled, dated, timed, and placed in chart.
[2023-02-25] MEDS: piperacillin-tazobactam 3.375 GM in sodium chloride 0.9% (plus) 50 ML IV ×3 (08:47→23:20)
[2023-02-25] MEDS: tamsulosin 0.4 mg Capsule PO ×2 (08:48→17:47)
[2023-02-25] MEDS: aspirin 81 mg EC Tablet PO (08:49)
[2023-02-25] MEDS: ipratropium-albuterol 3 mL Neb INHALATION ×3 (09:01→20:07)
--- NOTE | 2023-02-25 09:16 | PM.PN ---
Subjective Subjective: Hemoglobin 7.8 No hemodynamic instability White count 2.1 Platelet count adequate Patient not complaining active shortness of breath or chest pain Currently on 9 L high flow nasal cannulae Going for bronchoscopy He is n.p.o. Afebrile Vitals/I&O/Wt Last Vital Signs Temp 97.7 F 02/25/23 07:34 Pulse 59 L 02/25/23 09:01 Resp 20 H 02/25/23 09:01 BP 146/82 02/25/23 07:00 Pulse Ox 98 02/25/23 09:01 O2 Del Method Oxymask 02/25/23 09:01 O2 Flow Rate 7 02/25/23 09:01 02/24/23 02/25/23 02/25/23 22:59 06:59 14:59 Intake Total 940 / 1710 50 / 1760 Output Total 930 / 1138 962 / 2100 Balance 10 / 572 -912 / -340 Physical Exam Narrative: This morning patient is on 9 L high flow nasal cannula Chest vent connected to the suction No active chest pain or shortness of breath Hemodynamically stable Looks dehydrated is at the bedside Nonfocal neuro exam No active complaints Afebrile Data 02/25/23 02:36 02/25/23 02:36 Micro: Microbiology 02/23/23 00:45 Gram Stain - Final Sputum - Expectorated Sputum Sputum Culture - Preliminary Gram Negative Rods A&P Assessment and plan (1) Iatrogenic pneumothorax: (2) Rheumatoid arthritis: (3) Elevated troponin: (4) A-fib: (5) Pleural effusion: (6) Failure of outpatient treatment: (7) Pneumonia: (8) Chronic anticoagulation: (9) Symptomatic anemia: (10) Pancytopenia: (11) Nocturia associated with benign prostatic hyperplasia: (12) BPH NOS w ur obs/LUTS: (13) Osteoarthritis of right shoulder: Qualifiers: Osteoarthritis type: primary Qualified Code(s): M19.011 - Primary osteoarthritis, right shoulder Plan Persistent pneumonia Immunocompromised Concern for necrotizing pneumonia Continue broad-spectrum antibiotics Acute on chronic hypoxia requiring 9L high flow nasal cannula Iatrogenic pneumothorax after thoracentesis attempt Chest vent in place Subcutaneous emphysema Tension pneumothorax absent Pneumothorax on 5% Acute on chronic anemia Hemoglobin stable No hemodynamic instability General surgeon was consulted who did not recommend EGD or colonoscopy at this point because of poor pulmonary status BPH continue tamsulosin A-fib: Anticoagulation on hold, heart rate around 60s continue metoprolol Coronary disease continue aspirin for now Hold Plavix and anticoagulating agent Status post bronchoscopy: Operating notes reviewed, sample has been taken today 02/25 AFB sputum sample has been sent 10/30 Currently patient is in reverse isolation DNI/DNI Continue cardiac diet Attestations Medical Necessity Statement*: Continue ICU management Diagnoses Iatrogenic pneumothorax J95.811 Rheumatoid arthritis M06.9 Elevated troponin R77.8 A-fib I48.91 Pleural effusion J90 Failure of outpatient treatment Z78.9 Pneumonia J18.9 Chronic anticoagulation Z79.01 Symptomatic anemia D64.9 Pancytopenia D61.818 Nocturia associated with benign prostatic hyperplasia N40.1; R35.1 BPH NOS w ur obs/LUTS N40.1 Osteoarthritis of right shoulder M19.011 Osteoarthritis type: primary
[2023-02-25 11:19] LABS: Glucose Point of Care 117 mg/dL (70-110)
[2023-02-25] MEDS: pantoprazole 40 mg SDV IVP ×2 (11:46→23:20)
--- NOTE | 2023-02-25 13:23 | ANE.PACU2 ---
Inpatient post-anesthesia follow up: Airway intact: Yes Vital signs: Temperature 97.8 F Pulse Rate 64 Respiratory Rate 20 Blood Pressure 155/86 Pulse Oximetry 97 Oxygen Delivery Me thod High Flow Nasal Ca nnula Oxygen Flow Rate 9 Fraction of Inspir ed Oxygen Hydration adequate: Yes Nausea and vomiting: No Pain level: 1 Mental status: Baseline
[2023-02-25 17:44] LABS: Glucose Point of Care 212 mg/dL (70-110)
[2023-02-25] MEDS: metoprolol tartrate 25 mg Tablet PO (17:47)
[2023-02-25] MEDS: vancomycin 1,250 MG/250 ML PIGGYBACK 250 MG IV (17:47)
[2023-02-25] MEDS: insulin lispro 100 unit/1 mL SUBCUT (17:47)
[2023-02-25] MEDS: escitalopram 10 mg Tablet 20 MG PO (20:13)
[2023-02-25] MEDS: finasteride 5 mg Tablet PO (20:14)
[2023-02-25] MEDS: atorvastatin 40 mg Tablet PO (20:14)
[2023-02-25 20:25] LABS: Glucose Point of Care 159 mg/dL (70-110)
[2023-02-26] VITALS (205 sets, daily range): BP systolic 105–181; BP diastolic 63–97; PULSE 57–115; RESP 15–37; TEMP 36.5–37.1; O2SAT 79–100
[2023-02-26 04:14] LABS: Eosinophils % 1.7 %; Hematocrit 25.5 % (42.0-52.0); Hemoglobin 7.5 g/dL (11.7-16.6); Lymphocytes # 0.2 10^3/uL (0.8-4.8); Lymphocytes % 12.8 %; Mean Corpuscular HGB Conc 29.4 g/dL (30.0-36.0); Mean Corpuscular Hemoglobin 31.8 pg (28.0-34.0); Mean Corpuscular Volume 108.1 fl (80-94); Mean Platelet Volume 10.7 fL (7.4-10.4); Monocytes # 0.5 10^3/uL (0.2-0.9); Monocytes % 28.5 %; Neutrophils # 0.99 10^3/uL (1.8-7.7); Neutrophils % 55.3 %; Nucleated Red Blood Cells % 0 %; Platelet Count 246 10^3/cmm (130-400); Red Blood Count 2.36 10^6/uL (4.1-5.3); White Blood Count 1.8 10^3/uL (4.0-10.0)
[2023-02-26 04:35] LABS: Anion Gap 12.3 (5-19); Blood Urea Nitrogen 19 mg/dL (8-23); Calcium 7.8 mg/dL (8.5-10.5); Carbon Dioxide 26 mmol/L (22-29); Chloride 104 mmol/L (98-107); Glucose 202 mg/dL (65-115); Osmolality Calculated 296 mOsm/kg (285-295); Potassium 3.3 mmol/L (3.5-5.1); Sodium 139 mmol/L (136-145)
[2023-02-26 04:39] LABS: Slide Review Slide Review Perform
[2023-02-26] MEDS: levoFLOXacin 500 mg Tablet PO (05:11)
[2023-02-26] MEDS: isosorbide mononitrate ER 30 mg Tablet PO (05:11)
--- NOTE | 2023-02-26 06:00 | XRR_ITS ---
PROCEDURE INFORMATION: Exam: XR Chest Exam date and time: 02/26/2023 5:18 AM Age: 82 years old Clinical indication: Dyspnea; Additional info: Thoracic vent off of suction: S/P bronch TECHNIQUE: Imaging protocol: Radiologic exam of the chest. Views: 1 view. COMPARISON: CR XR chest 1V portable [id number] 02/25/2023 5:18 AM FINDINGS: Tubes, catheters and devices: There is a tube projecting over the lateral upper right thorax, stable since yesterday. Lungs: There is extensive ill-defined consolidation throughout the right lung, similar findings yesterday. There is mild central and lower lung predominant ill-defined opacity in the left which is more apparent than yesterday. Pleural spaces: Trace residual right apical pneumothorax, decreased since yesterday. Heart/Mediastinum: There is mild enlargement of the cardiac silhouette. Vasculature: The thoracic aorta is ectatic. Bones/joints: There is moderate degenerative disease of the right shoulder. No acute fracture. XR/XR chest 1V portable [id number] IMPRESSION: 1. Stable extensive consolidation in the right lung. 2. Mildly increased opacity in the left lung. 3. Trace residual right pneumothorax, decreased since yesterday.
[2023-02-26 06:13] LABS: Glucose Point of Care 171 mg/dL (70-110)
--- NOTE | 2023-02-26 06:57 | P.PN_ITS ---
Subjective Subjective: Ms. Menjivar is 1 day status post flexible diagnostic bronchoscopy. He is now 3 days status post thoracic vent placement for iatrogenic right pneumothorax during attempted thoracentesis. I have placed his thoracic vent off of suction and self containment yesterday. Chest x-ray this morning reveals no evidence for pneumothorax. He still maintains his ill infiltrative process, particularly in the right midlung field. Overall, however, he states he is feeling better. Vitals/I&O/Wt Last Vital Signs Temp 97.7 F 02/26/23 00:00 Pulse 60 02/26/23 04:35 Resp 20 H 02/26/23 04:35 BP 138/78 02/26/23 04:35 Pulse Ox 96 02/26/23 04:35 O2 Del Method High Flow Nasal Cannula 02/26/23 02:00 O2 Flow Rate 7 02/26/23 02:00 02/25/23 02/25/23 02/26/23 14:59 22:59 06:59 Intake Total 50 / 50 990 / 1040 50 / 1090 Output Total 1325 / 1325 600 / 1925 Balance 50 / 50 -335 / -285 -550 / -835 Physical Exam Chest: OTHER: I removed his right 13 [place] thoracic vent. Occlusive dressing was applied. He tolerated well. Resp: OTHER: Some blunting of breath sounds on the right side which is unchanged from my original exam. Overall however, there may be slight improvement by auscultation and clinically he does appear to be improved. Data 02/26/23 03:54 02/26/23 03:54 Micro: Microbiology 02/25/23 07:37 Gram Stain - Final Lung Right Middle Lobe Bronchial Washings Culture - Preliminary 02/23/23 00:45 Gram Stain - Final Sputum - Expectorated Sputum Sputum Culture - Final Enterobacter cloacae A&P Assessment and plan (1) Iatrogenic pneumothorax: Postop day #3 status post thoracic vent following pneumothorax related to thoracentesis. Thoracic vent was discontinued this morning. Attestations Medical Necessity Statement*: Status post thoracic vent for pneumothorax following thoracentesis Coding Level of Care Code Acute Code for Chg Fwd Diagnoses Iatrogenic pneumothorax J95.811
[2023-02-26] MEDS: ipratropium-albuterol 3 mL Neb INHALATION ×3 (08:08→19:35)
[2023-02-26] MEDS: tamsulosin 0.4 mg Capsule PO ×2 (08:21→18:01)
[2023-02-26] MEDS: aspirin 81 mg EC Tablet PO (08:22)
[2023-02-26] MEDS: piperacillin-tazobactam 3.375 GM in sodium chloride 0.9% (plus) 50 ML IV ×2 (08:22→15:49)
[2023-02-26] MEDS: metoprolol tartrate 25 mg Tablet PO ×2 (08:22→18:01)
[2023-02-26] MEDS: insulin lispro 100 unit/1 mL SUBCUT ×4 (08:22→21:25)
[2023-02-26] MEDS: potassium chloride ER 20 mEq Tablet 40 MEQ PO (08:22)
[2023-02-26 10:52] LABS: Glucose Point of Care 183 mg/dL (70-110)
[2023-02-26] MEDS: lactulose oral liq 20 gm/30 mL UDC PO (11:16)
[2023-02-26] MEDS: pantoprazole 40 mg SDV IVP (11:31)
--- NOTE | 2023-02-26 11:43 | PM.PN ---
Subjective Subjective: Leukopenia noted along lymphopenia , Neutropenia Hypokalemia Patient is currently on 7 L Status post bronchoscopy Thoracic vent has been discontinued this morning by Dr. Menjivar Vitals/I&O/Wt Last Vital Signs Temp 98.2 F 02/26/23 08:00 Pulse 66 02/26/23 08:14 Resp 17 02/26/23 08:03 BP 138/78 02/26/23 04:35 Pulse Ox 94 02/26/23 08:03 O2 Del Method High Flow Nasal Cannula 02/26/23 08:03 O2 Flow Rate 7 02/26/23 08:03 02/25/23 02/26/23 02/26/23 22:59 06:59 14:59 Intake Total 990 / 1040 50 / 1090 200 / 200 Output Total 1325 / 1325 600 / 1925 375 / 375 Balance -335 / -285 -550 / -835 -175 / -175 Physical Exam Narrative: Patient is in good spirits Constipated Abdomen soft GCS 15 Nonfocal neuro exam S1, S2 A-fib without RVR Euvolemic Abdomen soft at the bedside Currently on 7 L nasal cannula high flow Rhonchi and crackles noted right greater than left Data 02/26/23 03:54 02/26/23 03:54 Micro: Microbiology 02/25/23 07:37 Gram Stain - Final Lung Right Middle Lobe Bronchial Washings Culture - Preliminary 02/23/23 00:45 Gram Stain - Final Sputum - Expectorated Sputum Sputum Culture - Final Enterobacter cloacae A&P Assessment and plan (1) Iatrogenic pneumothorax: (2) Rheumatoid arthritis: (3) Elevated troponin: (4) A-fib: (5) Pleural effusion: (6) Failure of outpatient treatment: (7) Symptomatic anemia: (8) Chronic anticoagulation: (9) Nocturia associated with benign prostatic hyperplasia: (10) Neutropenia: Plan Iatrogenic pneumothorax status post thoracic vent placement by Dr. Menjivar Thoracic vent discontinued 02/26 Organizing versus necrotizing pneumonia Currently on broad-spectrum antibiotics Bronchioloalveolar lavage sample requested, bronchoscopy done 02/25 We have requested galactomannan, Aspergillus, fungi tell, Mycobacterium tuberculosis test will be returned hopefully on 02/26 as per the lab which will be reported around 3 PM Patient is in negative isolation Patient experiencing productive cough today Currently on double antipseudomonal coverage along anti-MRSA Anemia with neutropenia Patient get 1 unit PRBC Not a candidate to go for EGD colonoscopy for now Anticoagulation on hold Currently he is on Plavix, held anticoagulating agent FOBT positive in November this year General surgery did not recommend EGD at this point secondary to poor pulmonary status For neutropenia he might need Neupogen versus Neulasta Afebrile Continue Protonix twice a day Cute on chronic hypoxia currently on 7 L, nasal cannula high flow Iatrogenic pneumothorax: Resolving BPH: Continue tamsulosin A-fib anticoagulation on hold A-fib without RVR Constipation: Added lactulose Physical deconditioning added physical therapy today DNR/DNI Cardiac diet Attestations Medical Necessity Statement*: Continue medical management I am anticipating he will stay in the hospital in the next week Diagnoses Iatrogenic pneumothorax J95.811 Rheumatoid arthritis M06.9 Elevated troponin R77.8 A-fib I48.91 Pleural effusion J90 Failure of outpatient treatment Z78.9 Symptomatic anemia D64.9 Chronic anticoagulation Z79.01 Nocturia associated with benign prostatic hyperplasia N40.1; R35.1 Neutropenia D70.9
[2023-02-26] MEDS: sodium chloride 0.9% 100 mL Bag 50 ML IV (15:59)
[2023-02-26 17:52] LABS: Glucose Point of Care 185 mg/dL (70-110)
[2023-02-26] MEDS: vancomycin 1,250 MG/250 ML PIGGYBACK 250 MG IV (20:48)
[2023-02-26 21:19] LABS: Glucose Point of Care 180 mg/dL (70-110)
[2023-02-26] MEDS: atorvastatin 40 mg Tablet PO (21:25)
[2023-02-26] MEDS: escitalopram 10 mg Tablet 20 MG PO (21:25)
[2023-02-26] MEDS: finasteride 5 mg Tablet PO (21:25)
[2023-02-27] VITALS (29 sets, daily range): BP systolic 113–178; BP diastolic 65–113; PULSE 70–100; RESP 16–33; TEMP 36.8–37.1; O2SAT 80–97
[2023-02-27] MEDS: piperacillin-tazobactam 3.375 GM in sodium chloride 0.9% (plus) 50 ML IV ×4 (00:23→23:20)
[2023-02-27] MEDS: pantoprazole 40 mg SDV IVP ×3 (00:23→23:20)
[2023-02-27 06:07] LABS: Hemoglobin 8.1 g/dL (11.7-16.6); Mean Corpuscular Volume 103.4 fl (80-94); Mean Platelet Volume 11.2 fL (7.4-10.4); Platelet Count 249 10^3/cmm (130-400); Red Blood Count 2.61 10^6/uL (4.1-5.3); Red Cell Distribution Width 18.8 % (12.1-15.1); White Blood Count 2.4 10^3/uL (4.0-10.0)
[2023-02-27] MEDS: isosorbide mononitrate ER 30 mg Tablet PO (06:10)
[2023-02-27] MEDS: levoFLOXacin 500 mg Tablet PO (06:10)
[2023-02-27 06:16] LABS: Alanine Aminotransferase 9 U/L (0-41); Albumin Level 2.5 g/dL (3.5-5.2); Alkaline Phosphatase 62 U/L (40-130); Anion Gap 13.4 (5-19); Aspartate Amino Transferase 15 U/L (0-40); Blood Urea Nitrogen 17 mg/dL (8-23); Calcium 8.2 mg/dL (8.5-10.5); Carbon Dioxide 25 mmol/L (22-29); Chloride 103 mmol/L (98-107); Globulin 3.6 g/dL (1.3-4.6); Glucose 107 mg/dL (65-115); Osmolality Calculated 288 mOsm/kg (285-295); Potassium 3.4 mmol/L (3.5-5.1); Sodium 138 mmol/L (136-145); Total Bilirubin 0.6 mg/dL (0.15-1.2); Total Protein 6.1 g/dL (6.6-8.7)
[2023-02-27 07:55] LABS: Absolute Segmented Neutrophil 1.2 10/cmm (1.6-7.1); Anisocytosis 1+; Band Neutrophils Absolute 0.2 10^3/cmm (0.0-1.2); Eosinophils 2 %; Lymphocytes 28 %; Lymphocytes Absolute 0.7 10^3/cmm (1.2-3.4); Monocytes Absolute 0.2 10^3/cmm (0.1-0.6); Poikilocytosis 1+; Segmented Neutrophils 51 %; Total Cells Counted 100 (0-100)
[2023-02-27 07:56] LABS: Absolute Neutrophil 1.4 10^3/cmm (1.4-6.5); Ovalocytes 1+; Platelet Estimate Normal (Normal); Smudge Cells Trace
[2023-02-27 08:04] LABS: Glucose Point of Care 134 mg/dL (70-110)
--- NOTE | 2023-02-27 08:26 | PC.NURSE ---
Patient sitting on side of bed having breakfast. No s/s of distress. Had good bowel movement this morning.
[2023-02-27] MEDS: aspirin 81 mg EC Tablet PO (08:34)
[2023-02-27] MEDS: fluticasone nasal spray 16gm Btl 1 SPRAY NASAL (08:34)
[2023-02-27] MEDS: metoprolol tartrate 25 mg Tablet PO ×2 (08:34→17:13)
[2023-02-27] MEDS: tamsulosin 0.4 mg Capsule PO ×2 (08:34→17:13)
[2023-02-27] MEDS: ipratropium-albuterol 3 mL Neb INHALATION ×3 (08:41→19:46)
--- NOTE | 2023-02-27 11:33 | PC.SOCIAL ---
IMM Update pg 2 of IMM updated and reviewed w/ patient. Copy provided and Copy dated, initialed and placed in chart.
[2023-02-27 12:19] LABS: Glucose Point of Care 225 mg/dL (70-110)
[2023-02-27] MEDS: insulin lispro 100 unit/1 mL SUBCUT ×2 (13:12→17:22)
[2023-02-27] MEDS: vancomycin 1,250 MG/250 ML PIGGYBACK 250 MG IV (17:12)
[2023-02-27 17:32] LABS: Glucose Point of Care 154 mg/dL (70-110)
--- NOTE | 2023-02-27 17:36 | PC.NURSE ---
Patient done well today, uneventful shift. Up to BSC several times. still bedside. Worked with PT. Patient strength improving. Still awaiting isolation results
[2023-02-27 21:01] LABS: Glucose Point of Care 128 mg/dL (70-110)
[2023-02-27] MEDS: HYDROcodone-acetaminophen 5-325 mg Tablet 1 TAB PO (21:11)
[2023-02-27] MEDS: finasteride 5 mg Tablet PO (21:11)
[2023-02-27] MEDS: amitriptyline 25 mg Tablet PO (21:12)
[2023-02-27] MEDS: escitalopram 10 mg Tablet 20 MG PO (21:12)
[2023-02-27] MEDS: atorvastatin 40 mg Tablet PO (21:12)
--- NOTE | 2023-02-27 21:20 | PM.PN ---
Subjective Subjective: Patient reports he is feeling a little better today. Endorses shortness of breath and cough Reports diffuse weakness. Spouse is bedside and supportive. Patient reports being cold but denies fevers, nausea or emesis. Medications: Reviewed: Yes Vitals/I&O/Wt Last Vital Signs Temp 98.3 F 02/27/23 04:00 Pulse 84 02/27/23 19:46 Resp 16 02/27/23 19:46 BP 135/65 02/27/23 17:00 Pulse Ox 95 02/27/23 19:46 O2 Del Method High Flow Nasal Cannula 02/27/23 19:46 O2 Flow Rate 4 02/27/23 19:46 02/27/23 02/27/23 02/27/23 06:59 14:59 22:59 Intake Total 300 / 2012 530 / 530 660 / 1190 Output Total 500 / 1575 600 / 600 Balance -200 / 437 530 / 530 60 / 590 Physical Exam Narrative: General: Patient is awake and alert. Pale appearing. Frail appearing. Head: Normocephalic. Atraumatic. EOM intact. Neck: No JVD. Cardiovascular: RRR. No gallops. No murmurs. Lungs: Bilateral rhonchi. Difficulty speaking in full sentences when talking. Faint crackles. On support. Skin: No jaundice. No rashes. Abdomen: Normal bowel sounds, abdomen soft and nontender. Genito Urinary: Genital exam not performed since complaints not related. Rectal: Rectal exam not performed since no symptoms indicated blood loss. Extremities: No cyanosis or clubbing. Musculoskeletal: Normal muscle mass. Neurological: No myoclonus. Moves all 4 extremities. Data 02/27/23 04:30 02/27/23 04:30 Micro: Microbiology 02/22/23 16:30 Blood Culture - Final Blood NO GROWTH AFTER 5 DAYS 02/22/23 16:30 Blood Culture - Final Blood NO GROWTH AFTER 5 DAYS 02/23/23 15:00 Mycobacterial Smear - Preliminary Sputum - Expectorated Sputum A&P Assessment and plan (1) Iatrogenic pneumothorax: (2) Rheumatoid arthritis: (3) Elevated troponin: (4) A-fib: (5) Pleural effusion: (6) Failure of outpatient treatment: (7) Symptomatic anemia: (8) Chronic anticoagulation: (9) Nocturia associated with benign prostatic hyperplasia: (10) Neutropenia: Plan Iatrogenic pneumothorax -Resolved Organizing versus necrotizing pneumonia -Continue current abx -S/p bronch on 02/25, multiple labs pending -Follow up fungal labs -Follow up TB testing -Spouse reportedly needs work letter when results are available -Continue airborne isolation for TB rule out Anemia with neutropenia -Monitor counts -No indication for transfusion today -Hold AC -Continue PPI Acute on chronic hypoxia -Treat underlying pneumonia -Continue respiratory support -Pulmonary toilet BPH -Tamsulosin A-fib -Hold AC Constipation: -Lactulose Physical deconditioning -Treat infection -Therpay ordered DNR/DNI Attestations Medical Necessity Statement*: Patient requires ongoing hospitalized care for IV abx, TB rule out and supportive care. Coding Level of Care Code Acute Code for Chg Fwd Diagnoses Iatrogenic pneumothorax J95.811 Rheumatoid arthritis M06.9 Elevated troponin R77.8 A-fib I48.91 Pleural effusion J90 Failure of outpatient treatment Z78.9 Symptomatic anemia D64.9 Chronic anticoagulation Z79.01 Nocturia associated with benign prostatic hyperplasia N40.1; R35.1 Neutropenia D70.9
[2023-02-28] VITALS (31 sets, daily range): BP systolic 114–156; BP diastolic 66–96; PULSE 71–101; RESP 18–35; TEMP 36.7; O2SAT 85–97
[2023-02-28] MEDS: morphine 4 mg/mL SDV 1 mL 2 MG IVP (00:49)
[2023-02-28 04:20] LABS: Eosinophils % 0.7 %; Hematocrit 24.9 % (42.0-52.0); Hemoglobin 7.7 g/dL (11.7-16.6); Lymphocytes # 0.4 10^3/uL (0.8-4.8); Lymphocytes % 13.1 %; Mean Corpuscular HGB Conc 30.9 g/dL (30.0-36.0); Mean Corpuscular Volume 100.4 fl (80-94); Mean Platelet Volume 10.9 fL (7.4-10.4); Monocytes # 0.6 10^3/uL (0.2-0.9); Monocytes % 20.8 %; Neutrophils # 1.75 10^3/uL (1.8-7.7); Neutrophils % 63.9 %; Nucleated Red Blood Cells % 0 %; Platelet Count 233 10^3/cmm (130-400); Red Blood Count 2.48 10^6/uL (4.1-5.3); Red Cell Distribution Width 18.6 % (12.1-15.1); White Blood Count 2.7 10^3/uL (4.0-10.0)
[2023-02-28 04:38] LABS: Alanine Aminotransferase 10 U/L (0-41); Albumin Level 2.5 g/dL (3.5-5.2); Alkaline Phosphatase 61 U/L (40-130); Anion Gap 12.4 (5-19); Aspartate Amino Transferase 15 U/L (0-40); Blood Urea Nitrogen 18 mg/dL (8-23); Carbon Dioxide 26 mmol/L (22-29); Chloride 101 mmol/L (98-107); Globulin 3.3 g/dL (1.3-4.6); Glucose 127 mg/dL (65-115); Magnesium 1.7 mg/dL (1.7-2.3); Osmolality Calculated 285 mOsm/kg (285-295); Phosphorus 2.4 mg/dL (2.5-4.5); Potassium 3.4 mmol/L (3.5-5.1); Sodium 136 mmol/L (136-145); Total Bilirubin 0.7 mg/dL (0.15-1.2); Total Protein 5.8 g/dL (6.6-8.7)
[2023-02-28 04:42] LABS: Procalcitonin 0.08 ng/mL (0-0.5)
[2023-02-28] MEDS: piperacillin-tazobactam 3.375 GM in sodium chloride 0.9% (plus) 50 ML IV ×2 (06:01→16:06)
[2023-02-28] MEDS: levoFLOXacin 500 mg Tablet PO (06:01)
[2023-02-28] MEDS: isosorbide mononitrate ER 30 mg Tablet PO (06:01)
[2023-02-28] MEDS: tamsulosin 0.4 mg Capsule PO ×2 (07:45→17:43)
[2023-02-28] MEDS: fluticasone nasal spray 16gm Btl 1 SPRAY NASAL (07:45)
[2023-02-28] MEDS: metoprolol tartrate 25 mg Tablet PO ×2 (07:45→17:44)
[2023-02-28] MEDS: aspirin 81 mg EC Tablet PO (07:45)
[2023-02-28] MEDS: ipratropium-albuterol 3 mL Neb INHALATION ×3 (08:19→19:37)
[2023-02-28 10:27] LABS: Glucose Point of Care 137 mg/dL (70-110)
[2023-02-28] MEDS: pantoprazole 40 mg SDV IVP (11:49)
[2023-02-28] MEDS: insulin lispro 100 unit/1 mL SUBCUT ×2 (11:50→17:44)
[2023-02-28 12:01] LABS: Glucose Point of Care 235 mg/dL (70-110)
[2023-02-28 17:18] LABS: Glucose Point of Care 223 mg/dL (70-110)
[2023-02-28 17:18] LABS: Glucose Point of Care 299 mg/dL (70-110)
[2023-02-28 17:24] LABS: Vancomycin Trough 10.7 ug/mL (10-15)
[2023-02-28 17:34] LABS: Aspergillus AG,EIA,Serum NOT DETECTED; Aspergillus Galactomannan Inde <0.50
[2023-02-28] MEDS: vancomycin 1,250 MG/250 ML PIGGYBACK 250 MG IV (17:43)
--- NOTE | 2023-02-28 19:23 | P.PN_ITS ---
Subjective Subjective: Patient is up to bedside chair. Reporting breathing is better. Still some coughing. Denies fevers. Reports chills overnight. Denies night sweats, chest pain or abdominal pains. Medications: Reviewed: Yes Vitals/I&O/Wt Last Vital Signs Temp 98.7 F 02/27/23 19:00 Pulse 85 02/28/23 16:00 Resp 22 H 02/28/23 16:00 BP 137/73 02/28/23 16:00 Pulse Ox 94 02/28/23 16:00 O2 Del Method High Flow Nasal Cannula 02/28/23 13:30 O2 Flow Rate 4 02/28/23 13:30 02/28/23 02/28/23 02/28/23 06:59 14:59 22:59 Intake Total 540 / 2220 740 / 740 500 / 1240 Output Total 375 / 1350 250 / 250 Balance 165 / 870 740 / 740 250 / 990 Physical Exam Narrative: General: Patient is awake and alert.? Pale appearing.? Frail appearing. Sitting in bedside chair. Head:? Normocephalic. Atraumatic. EOM intact. Neck: No JVD. Cardiovascular: RRR. No gallops. No murmurs. Lungs: Bilateral rhonchi.? Difficulty speaking in full sentences when talking.? Faint crackles.? On support. Skin: No jaundice. No rashes. Abdomen: Normal bowel sounds, abdomen soft and nontender. Extremities: No cyanosis or clubbing. Musculoskeletal: Normal muscle mass. Neurological:? No myoclonus.? Moves all 4 extremities. Data 02/28/23 03:50 02/28/23 03:50 Micro: Microbiology 02/22/23 16:30 Blood Culture - Final Blood NO GROWTH AFTER 5 DAYS 02/22/23 16:30 Blood Culture - Final Blood NO GROWTH AFTER 5 DAYS A&P Assessment and plan (1) Iatrogenic pneumothorax: (2) Rheumatoid arthritis: (3) Elevated troponin: (4) A-fib: (5) Pleural effusion: (6) Failure of outpatient treatment: (7) Symptomatic anemia: (8) Chronic anticoagulation: (9) Nocturia associated with benign prostatic hyperplasia: (10) Neutropenia: Plan Organizing versus necrotizing pneumonia -Continue current abx -S/p bronch on 02/25, multiple labs pending -Follow up fungal labs -Follow up TB testing -Spouse reportedly needs work letter when results are available -Continue airborne isolation for TB rule out Iatrogenic pneumothorax -Resolved Anemia with neutropenia -Monitor counts, improving daily -No indication for transfusion today -Hold AC -Continue PPI Acute on chronic hypoxia -Treat underlying pneumonia -Continue respiratory support -Pulmonary toilet BPH -Tamsulosin A-fib -Hold AC Constipation: -Lactulose Physical deconditioning -Treat infection -Therpay ordered DNR/DNI Attestations Medical Necessity Statement*: Patient requires ongoing hospitalized care for IV abx, TB rule out and suppo rtive care. Coding Level of Care Code Acute Code for Chg Fwd Diagnoses Iatrogenic pneumothorax J95.811 Rheumatoid arthritis M06.9 Elevated troponin R77.8 A-fib I48.91 Pleural effusion J90 Failure of outpatient treatment Z78.9 Symptomatic anemia D64.9 Chronic anticoagulation Z79.01 Nocturia associated with benign prostatic hyperplasia N40.1; R35.1 Neutropenia D70.9
[2023-02-28 21:04] LABS: Glucose Point of Care 121 mg/dL (70-110)
[2023-02-28] MEDS: finasteride 5 mg Tablet PO (21:29)
[2023-02-28] MEDS: amitriptyline 25 mg Tablet PO (21:29)
[2023-02-28] MEDS: atorvastatin 40 mg Tablet PO (21:29)
[2023-02-28] MEDS: escitalopram 10 mg Tablet 20 MG PO (21:29)
[2023-03-01] VITALS (30 sets, daily range): BP systolic 130–170; BP diastolic 60–103; PULSE 59–111; RESP 18–35; TEMP 36.7–37.3; O2SAT 86–96
[2023-03-01] MEDS: piperacillin-tazobactam 3.375 GM in sodium chloride 0.9% (plus) 50 ML IV ×3 (00:17→17:34)
[2023-03-01] MEDS: morphine 4 mg/mL SDV 1 mL 2 MG IVP (00:18)
[2023-03-01] MEDS: pantoprazole 40 mg SDV IVP ×2 (00:18→12:26)
[2023-03-01 04:41] LABS: Eosinophils % 1.1 %; Hematocrit 25.1 % (42.0-52.0); Hemoglobin 7.7 g/dL (11.7-16.6); Lymphocytes # 0.4 10^3/uL (0.8-4.8); Lymphocytes % 15.4 %; Mean Corpuscular HGB Conc 30.7 g/dL (30.0-36.0); Mean Corpuscular Volume 101.2 fl (80-94); Mean Platelet Volume 11.1 fL (7.4-10.4); Monocytes # 0.7 10^3/uL (0.2-0.9); Monocytes % 25.6 %; Neutrophils % 56.4 %; Nucleated Red Blood Cells % 0 %; Platelet Count 244 10^3/cmm (130-400); Red Blood Count 2.48 10^6/uL (4.1-5.3); Red Cell Distribution Width 18.4 % (12.1-15.1); White Blood Count 2.7 10^3/uL (4.0-10.0)
[2023-03-01 05:03] LABS: Alanine Aminotransferase 10 U/L (0-41); Albumin Level 2.4 g/dL (3.5-5.2); Alkaline Phosphatase 65 U/L (40-130); Anion Gap 12.6 (5-19); Aspartate Amino Transferase 20 U/L (0-40); Blood Urea Nitrogen 20 mg/dL (8-23); Calcium 8.2 mg/dL (8.5-10.5); Carbon Dioxide 26 mmol/L (22-29); Chloride 100 mmol/L (98-107); Globulin 3.6 g/dL (1.3-4.6); Glucose 126 mg/dL (65-115); Magnesium 1.8 mg/dL (1.7-2.3); Osmolality Calculated 284 mOsm/kg (285-295); Phosphorus 2.8 mg/dL (2.5-4.5); Potassium 3.6 mmol/L (3.5-5.1); Sodium 135 mmol/L (136-145); Total Bilirubin 0.6 mg/dL (0.15-1.2)
[2023-03-01] MEDS: levoFLOXacin 500 mg Tablet PO (06:07)
[2023-03-01] MEDS: isosorbide mononitrate ER 30 mg Tablet PO (06:07)
[2023-03-01 08:33] LABS: Glucose Point of Care 154 mg/dL (70-110)
[2023-03-01] MEDS: tamsulosin 0.4 mg Capsule PO ×2 (08:45→17:34)
[2023-03-01] MEDS: metoprolol tartrate 25 mg Tablet PO ×2 (08:45→17:34)
[2023-03-01] MEDS: insulin lispro 100 unit/1 mL SUBCUT ×3 (08:45→20:40)
[2023-03-01] MEDS: aspirin 81 mg EC Tablet PO (08:46)
[2023-03-01] MEDS: fluticasone nasal spray 16gm Btl 1 SPRAY NASAL (08:46)
[2023-03-01] MEDS: ipratropium-albuterol 3 mL Neb INHALATION ×3 (08:55→19:39)
--- NOTE | 2023-03-01 10:13 | PC.SOCIAL ---
IMM Update pg 2 of IMM updated and reviewed w/ patient and his . Copy provided and Copy in chart dated and initialed.
--- NOTE | 2023-03-01 12:08 | P.PN_ITS ---
Subjective Subjective: Patient was seen and examined this morning, overall doing better no acute events, has been afebrile. His other vitals and labs have been reviewed. Medications: Reviewed: Yes Medication Review Details: Generic Name Dose Route Start Last Admin Trade Name Freq PRN Reason Stop Dose Admin Hydrocodone Bitart /Acetaminophen 1 tab 02/24/23 01:27 02/27/23 21:11 Hydrocodone-Acet aminophen 5-325 Mg Tablet PO 1 tab Q6H PRN Administration MODERATE PAIN Albuterol/Ipratrop ium 3 ml 02/24/23 20:00 03/01/23 08:55 Ipratropium-Albu terol 3 Ml Neb INHALATION 3 ml Q6H.RESP NIMO Administration Amitriptyline HCl 25 mg 02/22/23 22:19 02/28/23 21:29 Amitriptyline 25 Mg Tablet PO 25 mg BEDTIME PRN Administration Insomnia Aspirin 81 mg 02/24/23 09:00 03/01/23 08:46 Aspirin 81 Mg Ec Tablet PO 81 mg DAILY NIMO Administration Atorvastatin Calci um 40 mg 02/23/23 21:00 02/28/23 21:29 Atorvastatin 40 Mg Tablet PO 40 mg BEDTIME NIMO Administration Escitalopram Oxala te 20 mg 02/23/23 21:00 02/28/23 21:29 Escitalopram 10 Mg Tablet PO 20 mg BEDTIME NIMO Administration Finasteride 5 mg 02/23/23 21:00 02/28/23 21:29 Finasteride 5 Mg Tablet PO 5 mg BEDTIME NIMO Administration Fluticasone Propio inés 1 spray 02/27/23 09:00 03/01/23 08:46 Fluticasone Nasa l [place] 16gm Btl NASAL 1 spray DAILY NIMO Administration Piperacillin Sod/T azobactam 50 mls @ 12.5 mls /hr 02/22/23 23:00 03/01/23 10:16 Sod 3.375 gm/ So dium Chloride IV Infused Q8H NIMO Infusion Vancomycin/PEG/NAD A/Lysine/Water 1,250 mg in 250 m ls @ 250 mls/hr 02/23/23 17:30 02/28/23 18:58 Vancocin IV Infused Q24H NIMO Infusion Insulin Human Lisp ro 0 unit 02/23/23 08:00 03/01/23 08:45 Insulin Lispro 1 00 Unit/1 Ml SUBCUT 4 unit WM&BEDTIME NIMO Administration Protocol Isosorbide Mononit rate 30 mg 02/23/23 06:00 03/01/23 06:07 Isosorbide [place] itrate Er 30 Mg Ta blet PO 30 mg QAM NIMO Administration Levofloxacin 500 mg 02/23/23 06:00 03/01/23 06:07 Levofloxacin 500 Mg Tablet PO 500 mg DAILY@0600 [facility] Administration Protocol Metoprolol Tartrat e 25 mg 02/23/23 09:00 03/01/23 08:45 Metoprolol Tartr ate 25 Mg Tablet PO 25 mg BID [facility] Administration Morphine Sulfate 2 mg 02/22/23 22:02 03/01/23 00:18 Morphine 4 Mg/Ml Sdv 1 Ml IVP 2 mg Q4H PRN Administration SEVERE PAIN Pantoprazole Sodiu m 40 mg 02/23/23 11:30 03/01/23 00:18 Pantoprazole 40 Mg Sdv IVP 40 mg Q12H NIMO Administration Tamsulosin HCl 0.4 mg 02/23/23 09:00 03/01/23 08:45 Tamsulosin 0.4 M g Capsule PO 0.4 mg BID [facility] Administration Vitals/I&O/Wt Last Vital Signs Temp 98.3 F 03/01/23 03:00 Pulse 90 03/01/23 09:00 Resp 27 H 03/01/23 09:00 BP 148/87 03/01/23 08:00 Pulse Ox 92 03/01/23 09:00 O2 Del Method High Flow Nasal Cannula 03/01/23 08:55 O2 Flow Rate 9 03/01/23 08:55 02/28/23 03/01/23 03/01/23 22:59 06:59 14:59 Intake Total 1040 / 1780 400 / 2180 290 / 290 Output Total 500 / 500 350 / 850 Balance 540 / 1280 50 / 1330 290 / 290 Physical Exam Const: COMMON NORMALS: patient oriented x3 HENMT: COMMON NORMALS: normocephalic and atraumatic HEAD & SCALP: normocephalic and atraumatic Resp: COMMON NORMALS: clear to auscultation bilaterally EFFORT & INSPECTION: Yes symmetric chest movement AUSCULTATION: clear to auscultation bilaterally Cardio: COMMON NORMALS: regular rate, regular rhythm, S1 normal heart sound present, S2 normal heart sound present, No gallops present (Cardio), No murmurs present (Cardio), No rub (Cardio) and Peripheral pulses 2+ throughout RATE: regular rate RHYTHM: regular rhythm HEART SOUNDS: S1 normal heart sound present and S2 normal heart sound present PERIPHERAL PULSES: Peripheral pulses 2+ throughout GI: COMMON NORMALS: Normal to inspection, nondistended, normoactive bowel sounds present, Soft to palpation, non-tender, No hepatosplenomegaly present and no masses AUSCULTATION: Yes normoactive bowel sounds PALPATION: Yes Soft to palpation and Yes No hepatosplenomegaly present RECTAL EXAM: Yes deferred Extremity: COMMON NORMALS: no clubbing, cyanosis or edema and no pedal edema Neuro: COMMON NORMALS: patient oriented x3 Data 03/01/23 04:09 03/01/23 04:09 A&P Assessment and plan (1) Iatrogenic pneumothorax: (2) Rheumatoid arthritis: (3) Elevated troponin: (4) A-fib: (5) Pleural effusion: (6) Failure of outpatient treatment: (7) Symptomatic anemia: (8) Chronic anticoagulation: (9) Nocturia associated with benign prostatic hyperplasia: (10) Neutropenia: Plan Iatrogenic pneumothorax status post thoracic vent placement by Dr. Menjivar Thoracic vent discontinued 02/26 Organizing versus necrotizing pneumonia Currently on broad-spectrum antibiotics Bronchioloalveolar lavage sample requested, bronchoscopy done 02/25 We have requested galactomannan, Aspergillus, fungi tell, Mycobacterium tuberculosis test results pending Patient is in negative isolation Patient experiencing productive cough today Currently on double antipseudomonal coverage along anti-MRSA Anemia with neutropenia Patient get 1 unit PRBC Not a candidate to go for EGD colonoscopy for now Anticoagulation on hold Currently he is on Plavix, held anticoagulating agent FOBT positive in November this year General surgery did not recommend EGD at this point secondary to poor pulmonary status For neutropenia he might need Neupogen versus Neulasta Afebrile Continue Protonix twice a day ACute on chronic hypoxia currently on 7 L, nasal cannula high flow Iatrogenic pneumothorax: Resolving BPH: Continue tamsulosin A-fib anticoagulation on hold A-fib without RVR DNR/DNI Cardiac diet Attestations Medical Necessity Statement*: Still in hospital for IV antibiotics Coding Level of Care Code Acute Code for Chg Fwd Diagnoses Iatrogenic pneumothorax J95.811 Rheumatoid arthritis M06.9 Elevated troponin R77.8 A-fib I48.91 Pleural effusion J90 Failure of outpatient treatment Z78.9 Symptomatic anemia D64.9 Chronic anticoagulation Z79.01 Nocturia associated with benign prostatic hyperplasia N40.1; R35.1 Neutropenia D70.9
[2023-03-01 12:24] LABS: Glucose Point of Care 232 mg/dL (70-110)
[2023-03-01 16:26] LABS: Glucose Point of Care 125 mg/dL (70-110)
[2023-03-01] MEDS: vancomycin 1,250 MG/250 ML PIGGYBACK 250 MG IV (17:34)
[2023-03-01 18:34] LABS: Fungitell 1-3-B Glucan Assay 47 pg/mL; Interpretation NEGATIVE
[2023-03-01 20:31] LABS: Glucose Point of Care 177 mg/dL (70-110)
[2023-03-01] MEDS: atorvastatin 40 mg Tablet PO (20:40)
[2023-03-01] MEDS: amitriptyline 25 mg Tablet PO (20:40)
[2023-03-01] MEDS: escitalopram 10 mg Tablet 20 MG PO (20:40)
[2023-03-01] MEDS: finasteride 5 mg Tablet PO (20:40)
[2023-03-02] VITALS (29 sets, daily range): BP systolic 120–166; BP diastolic 61–121; PULSE 63–121; RESP 16–32; TEMP 37.2–37.4; O2SAT 88–97
[2023-03-02] MEDS: piperacillin-tazobactam 3.375 GM in sodium chloride 0.9% (plus) 50 ML IV ×4 (00:01→23:11)
[2023-03-02] MEDS: pantoprazole 40 mg SDV IVP ×3 (00:01→23:11)
--- NOTE | 2023-03-02 03:23 | XRR_ITS ---
PROCEDURE INFORMATION: Exam: XR Chest Exam date and time: 03/02/2023 3:29 AM Age: 82 years old Clinical indication: Dyspnea; Additional info: Short of breath TECHNIQUE: Imaging protocol: Radiologic exam of the chest. Views: 1 view. COMPARISON: CR (CHEST, ) 02/26/2023 5:18 AM FINDINGS: Lungs: Multifocal airspace opacities redemonstrated similar to prior. Coarse reticular interstitial lung changes bilaterally. Pleural spaces: No visible pneumothorax. Query small right pleural effusion. Heart/Mediastinum: Mild cardiac enlargement. Bones/joints: Right-sided thoracic fat removal. XR/XR chest 1V portable [id number] IMPRESSION: Multifocal pneumonia suspected similar to comparison.
--- NOTE | 2023-03-02 03:24 | PC.NURSE ---
Patient observed with increased dyspnea and labored breathing. O2 increased from 6L NC to 10L NC to maintain SpO2 of 89%. Denies chest pain. RT notified. Dr. Isabell caballero. Chest x-ray ordered.
[2023-03-02] MEDS: budesonide 0.5 mg/2 mL Neb 0.25 MG INHALATION (05:02)
[2023-03-02] MEDS: ipratropium-albuterol 3 mL Neb INHALATION ×4 (05:02→19:52)
--- NOTE | 2023-03-02 05:06 | PC.NURSE ---
Physician communication Patient's oxygen requirement increased with increased shortness of breath. Dr. Whyte updated on patient status; orders received for 20 mg lasix IVP once and a one time duone/pulmicort breathing treatment. Orders placed.
[2023-03-02] MEDS: FUROsemide 10 mg/mL SDV 2mL 20 MG IVP (05:50)
[2023-03-02] MEDS: levoFLOXacin 500 mg Tablet PO (05:50)
[2023-03-02] MEDS: isosorbide mononitrate ER 30 mg Tablet PO (05:52)
[2023-03-02 06:51] LABS: Glucose Point of Care 131 mg/dL (70-110)
[2023-03-02 07:30] LABS: Histoplasma Antigen (Quant) NONE DETECTED; Histoplasma Antigen Interpreta NEGATIVE; Histoplasma Antigen Specimen URINE
[2023-03-02 08:24] LABS: Glucose Point of Care 143 mg/dL (70-110)
[2023-03-02] MEDS: insulin lispro 100 unit/1 mL SUBCUT ×2 (08:46→17:33)
[2023-03-02] MEDS: aspirin 81 mg EC Tablet PO (08:47)
[2023-03-02] MEDS: fluticasone nasal spray 16gm Btl 1 SPRAY NASAL (08:47)
[2023-03-02] MEDS: tamsulosin 0.4 mg Capsule PO ×2 (08:47→17:33)
[2023-03-02] MEDS: metoprolol tartrate 25 mg Tablet PO ×2 (08:47→17:33)
[2023-03-02] MEDS: HYDROcodone-acetaminophen 5-325 mg Tablet 1 TAB PO (08:58)
[2023-03-02 09:18] LABS: Basophils % 0.3 %; Eosinophils % 0.6 %; Hematocrit 28.3 % (42.0-52.0); Hemoglobin 8.7 g/dL (11.7-16.6); Lymphocytes # 0.3 10^3/uL (0.8-4.8); Lymphocytes % 9.9 %; Mean Corpuscular HGB Conc 30.7 g/dL (30.0-36.0); Mean Corpuscular Hemoglobin 31.6 pg (28.0-34.0); Mean Corpuscular Volume 102.9 fl (80-94); Monocytes # 1.1 10^3/uL (0.2-0.9); Neutrophils # 1.81 10^3/uL (1.8-7.7); Nucleated Red Blood Cells % 0 %; Platelet Count 306 10^3/cmm (130-400); Red Blood Count 2.75 10^6/uL (4.1-5.3); Red Cell Distribution Width 18.5 % (12.1-15.1); White Blood Count 3.4 10^3/uL (4.0-10.0)
[2023-03-02 09:36] LABS: Anion Gap 14.3 (5-19); Blood Urea Nitrogen 18 mg/dL (8-23); Carbon Dioxide 26 mmol/L (22-29); Chloride 99 mmol/L (98-107); Glucose 122 mg/dL (65-115); Osmolality Calculated 285 mOsm/kg (285-295); Potassium 3.3 mmol/L (3.5-5.1); Sodium 136 mmol/L (136-145)
[2023-03-02 11:08] LABS: Glucose Point of Care 118 mg/dL (70-110)
[2023-03-02] MEDS: vancomycin 1,250 MG/250 ML PIGGYBACK 250 MG IV (17:33)
--- NOTE | 2023-03-02 17:34 | P.PN_ITS ---
Subjective Subjective: Patient was seen and examined this morning, he had a rough night and was visibly more short of breath yesterday night had to be given, Lasix 20 IV one-time dose, x-ray chest done this morning has shown: Multifocal airspace opacity, not much change prior to previous x-rays. Medications: Reviewed: Yes Medication Review Details: Generic Name Dose Route Start Last Admin Trade Name Freq PRN Reason Stop Dose Admin Albuterol/Ipratrop ium 3 ml 02/24/23 20:00 03/02/23 14:35 Ipratropium-Albu terol 3 Ml Neb INHALATION 3 ml Q6H.RESP NIMO Administration Amitriptyline HCl 25 mg 02/22/23 22:19 03/01/23 20:40 Amitriptyline 25 Mg Tablet PO 25 mg BEDTIME PRN Administration Insomnia Aspirin 81 mg 02/24/23 09:00 03/02/23 08:47 Aspirin 81 Mg Ec Tablet PO 81 mg DAILY NIMO Administration Atorvastatin Calci um 40 mg 02/23/23 21:00 03/01/23 20:40 Atorvastatin 40 Mg Tablet PO 40 mg BEDTIME NIMO Administration Escitalopram Oxala te 20 mg 02/23/23 21:00 03/01/23 20:40 Escitalopram 10 Mg Tablet PO 20 mg BEDTIME NIMO Administration Finasteride 5 mg 02/23/23 21:00 03/01/23 20:40 Finasteride 5 Mg Tablet PO 5 mg BEDTIME NIMO Administration Fluticasone Propio inés 1 spray 02/27/23 09:00 03/02/23 08:47 Fluticasone Nasa l [place] 16gm Btl NASAL 1 spray DAILY NIMO Administration Piperacillin Sod/T azobactam 50 mls @ 12.5 mls /hr 02/22/23 23:00 03/02/23 17:32 Sod 3.375 gm/ So dium Chloride IV 12.5 mls/hr Q8H NIMO Administration Vancomycin/PEG/NAD A/Lysine/Water 1,250 mg in 250 m ls @ 250 mls/hr 02/23/23 17:30 03/02/23 17:33 Vancocin IV 250 mls/hr Q24H NIMO Administration Insulin Human Lisp ro 0 unit 02/23/23 08:00 03/02/23 17:33 Insulin Lispro 1 00 Unit/1 Ml SUBCUT 6 unit WM&BEDTIME NIMO Administration Protocol Isosorbide Mononit rate 30 mg 02/23/23 06:00 03/02/23 05:52 Isosorbide [place] itrate Er 30 Mg Ta blet PO 30 mg QAM NIMO Administration Levofloxacin 500 mg 02/23/23 06:00 03/02/23 05:50 Levofloxacin 500 Mg Tablet PO 500 mg DAILY@0600 [facility] Administration Protocol Metoprolol Tartrat e 25 mg 02/23/23 09:00 03/02/23 17:33 Metoprolol Tartr ate 25 Mg Tablet PO 25 mg BID [facility] Administration Pantoprazole Sodiu m 40 mg 02/23/23 11:30 03/02/23 11:11 Pantoprazole 40 Mg Sdv IVP 40 mg Q12H [facility] Administration Tamsulosin HCl 0.4 mg 02/23/23 09:00 03/02/23 17:33 Tamsulosin 0.4 M g Capsule PO 0.4 mg BID NIMO Administration Vitals/I&O/Wt Last Vital Signs Temp 99.0 F 03/02/23 09:00 Pulse 81 03/02/23 16:00 Resp 26 H 03/02/23 16:00 BP 120/66 03/02/23 16:00 Pulse Ox 94 03/02/23 16:00 O2 Del Method High Flow Nasal Cannula 03/02/23 14:35 O2 Flow Rate 10 03/02/23 14:35 03/02/23 03/02/23 03/02/23 06:59 14:59 22:59 Intake Total 50 / 1400 650 / 650 Output Total 60 / 910 1500 / 1500 Balance -10 / 490 -850 / -850 Physical Exam Const: COMMON NORMALS: patient oriented x3 HENMT: COMMON NORMALS: normocephalic and atraumatic HEAD & SCALP: normocephalic and atraumatic Resp: EFFORT & INSPECTION: Yes symmetric chest movement OTHER: Coarse breath sounds Cardio: COMMON NORMALS: regular rate, regular rhythm, S1 normal heart sound present, S2 normal heart sound present, No gallops present (Cardio), No murmurs present (Cardio), No rub (Cardio) and Peripheral pulses 2+ throughout RATE: regular rate RHYTHM: regular rhythm HEART SOUNDS: S1 normal heart sound present and S2 normal heart sound present PERIPHERAL PULSES: Peripheral pulses 2+ throughout GI: COMMON NORMALS: Normal to inspection, nondistended, normoactive bowel sounds present, Soft to palpation, non-tender, No hepatosplenomegaly present and no masses AUSCULTATION: Yes normoactive bowel sounds PALPATION: Yes Soft to palpation and Yes No hepatosplenomegaly present RECTAL EXAM: Yes deferred Extremity: COMMON NORMALS: no clubbing, cyanosis or edema and no pedal edema Neuro: COMMON NORMALS: patient oriented x3 Urinary Catheter Management: Baires: Cath Placed During This Visit: yes Reason for Continuing Indwelling Catheter: Accurate Measurement of Urinary Output in Critically Ill Patients Urinary Catheter Date of Insertion: 03/01/23 Urinary Catheter Time of Insertion: 15:21 Data 03/02/23 09:00 03/02/23 09:00 Micro: Microbiology 02/25/23 07:37 Fungal Smear - Preliminary Other Source A&P Assessment and plan (1) Iatrogenic pneumothorax: (2) Rheumatoid arthritis: (3) Elevated troponin: (4) A-fib: (5) Pleural effusion: (6) Failure of outpatient treatment: (7) Symptomatic anemia: (8) Chronic anticoagulation: (9) Nocturia associated with benign prostatic hyperplasia: (10) Neutropenia: Plan Iatrogenic pneumothorax status post thoracic vent placement by Dr. Menjivar Thoracic vent discontinued 02/26 Organizing versus necrotizing pneumonia Currently on broad-spectrum antibiotics Bronchioloalveolar lavage sample requested, bronchoscopy done 02/25 We have requested galactomannan, Aspergillus, fungi tell, Mycobacterium tuberculosis test results pending Patient is in negative isolation Patient experiencing productive cough today Currently on double antipseudomonal coverage along anti-MRSA Anemia with neutropenia Patient get 1 unit PRBC Not a candidate to go for EGD colonoscopy for now Anticoagulation on hold Currently he is on Plavix, held anticoagulating agent FOBT positive in November this year General surgery did not recommend EGD at this point secondary to poor pulmonary status For neutropenia he might need Neupogen versus Neulasta Afebrile Continue Protonix twice a day ACute on chronic hypoxia currently on 7 L, nasal cannula high flow Iatrogenic pneumothorax: Resolving BPH: Continue tamsulosin A-fib anticoagulation on hold A-fib without RVR DNR/DNI Cardiac diet Attestations Medical Necessity Statement*: Needs to be in hospital for management of respiratory distress need for IV antibiotic. Coding Level of Care Code Acute Code for Chg Fwd Diagnoses Iatrogenic pneumothorax J95.811 Rheumatoid arthritis M06.9 Elevated troponin R77.8 A-fib I48.91 Pleural effusion J90 Failure of outpatient treatment Z78.9 Symptomatic anemia D64.9 Chronic anticoagulation Z79.01 Nocturia associated with benign prostatic hyperplasia N40.1; R35.1 Neutropenia D70.9
[2023-03-02 17:44] LABS: Glucose Point of Care 181 mg/dL (70-110)
[2023-03-02] MEDS: escitalopram 10 mg Tablet 20 MG PO (20:17)
[2023-03-02] MEDS: atorvastatin 40 mg Tablet PO (20:17)
[2023-03-02] MEDS: finasteride 5 mg Tablet PO (20:17)
[2023-03-02 20:32] LABS: Glucose Point of Care 112 mg/dL (70-110)
[2023-03-03] VITALS (32 sets, daily range): BP systolic 130–172; BP diastolic 62–133; PULSE 79–114; RESP 16–33; TEMP 36.3–37.7; O2SAT 71–94
[2023-03-03 03:06] LABS: Basophils % 0.3 %; Eosinophils % 0.7 %; Hematocrit 26.2 % (42.0-52.0); Hemoglobin 8.1 g/dL (11.7-16.6); Lymphocytes # 0.3 10^3/uL (0.8-4.8); Lymphocytes % 8.6 %; Mean Corpuscular HGB Conc 30.9 g/dL (30.0-36.0); Mean Corpuscular Hemoglobin 31.5 pg (28.0-34.0); Mean Corpuscular Volume 101.9 fl (80-94); Mean Platelet Volume 11.1 fL (7.4-10.4); Monocytes # 1.1 10^3/uL (0.2-0.9); Monocytes % 35.4 %; Neutrophils # 1.63 10^3/uL (1.8-7.7); Nucleated Red Blood Cells % 0 %; Platelet Count 284 10^3/cmm (130-400); Red Blood Count 2.57 10^6/uL (4.1-5.3); Red Cell Distribution Width 18.3 % (12.1-15.1)
[2023-03-03 03:22] LABS: Anion Gap 15.6 (5-19); Blood Urea Nitrogen 17 mg/dL (8-23); Calcium 8.2 mg/dL (8.5-10.5); Carbon Dioxide 26 mmol/L (22-29); Chloride 97 mmol/L (98-107); Glucose 143 mg/dL (65-115); Osmolality Calculated 284 mOsm/kg (285-295); Potassium 3.6 mmol/L (3.5-5.1); Sodium 135 mmol/L (136-145)
[2023-03-03] MEDS: isosorbide mononitrate ER 30 mg Tablet PO (05:23)
[2023-03-03] MEDS: acetaminophen 325 mg Tablet 650 MG PO (05:23)
[2023-03-03] MEDS: levoFLOXacin 500 mg Tablet PO (05:44)
[2023-03-03 06:28] LABS: Glucose Point of Care 180 mg/dL (70-110)
[2023-03-03] MEDS: piperacillin-tazobactam 3.375 GM in sodium chloride 0.9% (plus) 50 ML IV ×3 (07:17→23:24)
[2023-03-03] MEDS: insulin lispro 100 unit/1 mL SUBCUT ×4 (07:59→20:43)
[2023-03-03] MEDS: ipratropium-albuterol 3 mL Neb INHALATION ×3 (08:49→20:09)
[2023-03-03] MEDS: tamsulosin 0.4 mg Capsule PO ×2 (09:20→17:23)
[2023-03-03] MEDS: metoprolol tartrate 25 mg Tablet PO ×2 (09:20→17:23)
[2023-03-03] MEDS: aspirin 81 mg EC Tablet PO (09:20)
[2023-03-03] MEDS: saline nasal spray 44mL Btl 1 SPRAY NASAL (09:21)
[2023-03-03] MEDS: fluticasone nasal spray 16gm Btl 1 SPRAY NASAL (09:21)
[2023-03-03 11:21] LABS: Glucose Point of Care 167 mg/dL (70-110)
[2023-03-03] MEDS: pantoprazole 40 mg SDV IVP ×2 (12:08→23:24)
--- NOTE | 2023-03-03 13:16 | PC.SOCIAL ---
Imm update Imm updated with . Copy of page 2 provided. verbalized understanding. Copy in chart initialed, dated and timed.
[2023-03-03 16:20] LABS: Histoplasma capsulatum H Ab NEGATIVE; Histoplasma capsulatum M Ab POSITIVE
--- NOTE | 2023-03-03 16:40 | PM.PN ---
Subjective Subjective: Nicolás reports he is doing okay today. Better than yesterday. Had some hallucinations last night. Feels like shortness of breath is improved. Able to eat a little bit more today. Medications: Reviewed: Yes Vitals/I&O/Wt Last Vital Signs Temp 99 F 03/03/23 13:00 Pulse 99 03/03/23 15:00 Resp 28 H 03/03/23 15:00 BP 154/72 03/03/23 15:00 Pulse Ox 93 03/03/23 15:00 O2 Del Method High Flow Nasal Cannula 03/03/23 14:38 O2 Flow Rate 6 03/03/23 14:38 03/03/23 03/03/23 03/03/23 06:59 14:59 22:59 Intake Total 50 / 1120 950 / 950 Output Total 375 / 1875 325 / 325 Balance -325 / -755 625 / 625 Physical Exam Narrative: General exam no distress Neck is supple Cardiovascular regular rate and rhythm Lungs coarse breath sounds bilaterally Abdomen is soft with positive bowel sounds Extremities no cyanosis, edema, cap refill brisk Skin no rash Urinary Catheter Management: Baires: Cath Placed During This Visit: yes Reason for Continuing Indwelling Catheter: Accurate Measurement of Urinary Output in Critically Ill Patients Urinary Catheter Date of Insertion: 03/01/23 Urinary Catheter Time of Insertion: 15:21 Data 03/03/23 02:04 03/03/23 02:04 A&P Assessment and plan (1) Iatrogenic pneumothorax: This has resolved. Thoracic vent has been removed. (2) ARDS (adult respiratory distress syndrome): This appears to be improving. (3) Pneumonia: Concern he may have had necrotic pneumonia versus hemorrhage. He is still coughing up some pinkish sputum. Continue to wean oxygen as tolerated Tmax is 100.0 Currently on antibiotics Zosyn, vancomycin, Levaquin Note that he grew Enterobacter out of his sputum on bronchoscopy. TB and fungal studies are pending. MRSA PCR previously was negative. Today will be his seventh day of treatment. Consider discontinuing vancomycin, and potentially Levaquin after today CBC, CMP in the morning (4) Anemia: He received 1 unit of packed red blood cells yesterday. No need for further transfusion today, he is compensated Check CBC, CMP in the morning Qualifiers: Anemia type: unspecified type Qualified Code(s): D64.9 - Anemia, unspecified (5) A-fib: Heart rate is currently under control Continue metoprolol Holding anticoagulation currently secondary to anemia Plan Hallucinations. Consistent with ICU psychosis. Reorientation by nursing staff frequently. Multiple other medical problems as outlined in past medical history SCDs for DVT prophylaxis currently. Attestations Medical Necessity Statement*: Needs continued hospital stay for IV antibiotics secondary to pneumonia. Diagnoses Iatrogenic pneumothorax J95.811 ARDS (adult respiratory distress syndrome) J80 Pneumonia J18.9 Anemia D64.9 Anemia type: unspecified type A-fib I48.91 Time Spent (min) 49
[2023-03-03] MEDS: vancomycin 1,250 MG/250 ML PIGGYBACK 250 MG IV (16:54)
[2023-03-03 17:07] LABS: Glucose Point of Care 175 mg/dL (70-110)
--- NOTE | 2023-03-03 19:51 | PC.NURSE ---
Shift SUmmary: Uneventful shift, oxygen requirements have been variable, but have stayed around 5-7L NC. Patient has been becoming increasingly confused. WHen his left his bedside for about 3 hours he became agitated and yelling at staff, but still able to be verbally redirected. WHen returns he is more calm, but still confused. Frequently has hallucinations of seeing friends or family. He states he knows it isn't real because it is a someone who he knows has passed, or lives very far away and likely isn't here.
[2023-03-03 20:17] LABS: Glucose Point of Care 194 mg/dL (70-110)
[2023-03-03] MEDS: atorvastatin 40 mg Tablet PO (20:45)
[2023-03-03] MEDS: finasteride 5 mg Tablet PO (20:45)
[2023-03-03] MEDS: escitalopram 10 mg Tablet 20 MG PO (20:45)
[2023-03-04] VITALS (38 sets, daily range): BP systolic 102–167; BP diastolic 59–117; PULSE 80–125; RESP 9–34; TEMP 36.4–37.7; O2SAT 80–98
[2023-03-04] MEDS: haloperidol inj 5 mg/mL INJ 1 mL IM ×2 (00:32→03:26)
[2023-03-04] MEDS: FUROsemide 10 mg/mL SDV 2mL 20 MG IVP (00:43)
[2023-03-04] MEDS: ipratropium-albuterol 3 mL Neb INHALATION ×4 (01:30→19:45)
--- NOTE | 2023-03-04 02:02 | XRR_ITS ---
PROCEDURE INFORMATION: Exam: XR Chest Exam date and time: 03/04/2023 1:19 AM Age: 82 years old Clinical indication: Shortness of breath; Patient HX: Worsening hypoxia. Pending tb R/O. ; Additional info: SOB, increase o2 needs TECHNIQUE: Imaging protocol: Radiologic exam of the chest. Views: 1 view. COMPARISON: CR (CHEST, ) 03/02/2023 3:29 AM FINDINGS: Lungs: Multifocal parenchymal airspace disease more significant on right than left similar to comparison, however there may be some increased patchy left perihilar opacity. Low lung volumes persist. Pleural spaces: Query small effusions. Negative pneumothorax. Heart/Mediastinum: Borderline cardiomegaly. Bones/joints: Unremarkable. XR/XR chest 1V portable [id number] IMPRESSION: Extensive nonspecific airspace disease redemonstrated. Mild worsening of left perihilar airspace disease component.
[2023-03-04 03:05] LABS: Basophils % 0.2 %; Eosinophils % 0.2 %; Hematocrit 26.2 % (42.0-52.0); Hemoglobin 8.3 g/dL (11.7-16.6); Lymphocytes # 0.2 10^3/uL (0.8-4.8); Lymphocytes % 5.2 %; Mean Corpuscular HGB Conc 31.7 g/dL (30.0-36.0); Mean Corpuscular Hemoglobin 32.3 pg (28.0-34.0); Mean Corpuscular Volume 101.9 fl (80-94); Mean Platelet Volume 10.7 fL (7.4-10.4); Monocytes # 1.3 10^3/uL (0.2-0.9); Monocytes % 28.3 %; Neutrophils # 2.85 10^3/uL (1.8-7.7); Neutrophils % 64.5 %; Nucleated Red Blood Cells % 0 %; Platelet Count 296 10^3/cmm (130-400); Red Blood Count 2.57 10^6/uL (4.1-5.3); Red Cell Distribution Width 18.5 % (12.1-15.1); White Blood Count 4.4 10^3/uL (4.0-10.0)
[2023-03-04 03:25] LABS: Alanine Aminotransferase 14 U/L (0-41); Albumin Level 2.7 g/dL (3.5-5.2); Alkaline Phosphatase 96 U/L (40-130); Anion Gap 17.3 (5-19); Aspartate Amino Transferase 20 U/L (0-40); Blood Urea Nitrogen 19 mg/dL (8-23); Calcium 8.3 mg/dL (8.5-10.5); Carbon Dioxide 26 mmol/L (22-29); Chloride 98 mmol/L (98-107); Globulin 4.2 g/dL (1.3-4.6); Glucose 113 mg/dL (65-115); Magnesium 1.8 mg/dL (1.7-2.3); Osmolality Calculated 289 mOsm/kg (285-295); Potassium 3.3 mmol/L (3.5-5.1); Sodium 138 mmol/L (136-145); Total Bilirubin 0.9 mg/dL (0.15-1.2); Total Protein 6.9 g/dL (6.6-8.7)
[2023-03-04] MEDS: levoFLOXacin 500 mg Tablet PO (05:14)
[2023-03-04] MEDS: isosorbide mononitrate ER 30 mg Tablet PO (05:14)
[2023-03-04] MEDS: diclofenac 1% Topical Gel 100 gm 4 APPLIC TOPICAL (06:10)
[2023-03-04] MEDS: piperacillin-tazobactam 3.375 GM in sodium chloride 0.9% (plus) 50 ML IV ×3 (07:32→22:59)
[2023-03-04] MEDS: lidocaine 1% 5 ML in potassium chloride premix 100 ML 26.25 ML IV (07:33)
[2023-03-04 07:59] LABS: Glucose Point of Care 187 mg/dL (70-110)
[2023-03-04] MEDS: dexmedetomidine 400 MCG in sodium chloride 0.9% (100 ml) 100 ML IV (08:39)
[2023-03-04] MEDS: insulin lispro 100 unit/1 mL SUBCUT ×2 (08:41→17:29)
[2023-03-04] MEDS: tamsulosin 0.4 mg Capsule PO ×2 (08:43→17:23)
[2023-03-04] MEDS: metoprolol tartrate 25 mg Tablet PO ×2 (08:43→17:23)
[2023-03-04] MEDS: aspirin 81 mg EC Tablet PO (08:43)
[2023-03-04] MEDS: fluconazole premix 400 MG/200 ML PIGGYBACK 200 MG IV (09:28)
--- NOTE | 2023-03-04 09:56 | PC.SLP ---
No treatment provided at nursing request. Pt currently NPO
[2023-03-04] MEDS: pantoprazole 40 mg SDV IVP ×2 (11:31→22:58)
[2023-03-04 11:55] LABS: Glucose Point of Care 72 mg/dL (70-110)
--- NOTE | 2023-03-04 13:58 | P.PN_ITS ---
Subjective Subjective: Nicolás had some agitation last night. He required Haldol. His FiO2 requirement went up to 75% high flow with 45 L flow. He denies any complaints. He acknowledges hallucinations. He denies any pain. He does not feel short of breath. Medications: Reviewed: Yes Vitals/I&O/Wt Last Vital Signs Temp 99.1 F 03/04/23 13:00 Pulse 86 03/04/23 13:40 Resp 20 H 03/04/23 13:30 BP 148/70 03/04/23 13:00 Pulse Ox 94 03/04/23 13:30 O2 Del Method Heated High Flow 03/04/23 13:30 O2 Flow Rate 45 03/04/23 13:30 FiO2 60 03/04/23 13:30 03/03/23 03/04/23 03/04/23 22:59 06:59 14:59 Intake Total 600 / 1550 50 / 1600 355 / 355 Output Total 475 / 800 1525 / 2325 400 / 400 Balance 125 / 750 -1475 / -725 -45 / -45 Physical Exam Narrative: General exam no distress Neck is supple Cardiovascular regular rate and rhythm Lungs coarse breath sounds bilaterally Abdomen is soft with positive bowel sounds Extremities no cyanosis, edema, cap refill brisk Skin no rash Urinary Catheter Management: Baires: Cath Placed During This Visit: yes Reason for Continuing Indwelling Catheter: Accurate Measurement of Urinary Out put in Critically Ill Patients Urinary Catheter Date of Insertion: 03/01/23 Urinary Catheter Time of Insertion: 15:21 Data 03/04/23 02:40 03/04/23 02:40 A&P Assessment and plan (1) Iatrogenic pneumothorax: This has resolved. Thoracic vent has been removed. (2) ARDS (adult respiratory distress syndrome): FiO2 requirement went up last night. Infiltrate seems a little worse, particularly on the left. (3) Pneumonia: Concern he may have had necrotic pneumonia versus hemorrhage. He is still coughing up some pinkish sputum. Continue to wean oxygen as tolerated Tmax is 100.0 Currently on antibiotics Zosyn, vancomycin, Levaquin Note that he grew Enterobacter out of his sputum on bronchoscopy. TB and fungal studies are pending. Coccidioides antibody was positive. Considering his worsening, will add amphotericin B and fluconazole. Risks and benefits discussed with the family. Discussed worsening, and they would not want escalation of care. He is already allow natural . If he continues to get worse, requires pressors, requires BiPAP would consider moving to comfort measures. Check cryptococcal serology No change in antibiotics today secondary to worsening CBC, CMP in the morning (4) Anemia: He received 1 unit of packed red blood cells March 02. Hemoglobin is stable No need for transfusion today Check CBC, CMP in the morning Qualifiers: Anemia type: unspecified type Qualified Code(s): D64.9 - Anemia, unspecified (5) A-fib: Heart rate is currently under control Continue metoprolol Holding anticoagulation currently secondary to anemia Plan Hallucinations. Consistent with ICU psychosis. Precedex initiated Hypokalemia, supplement Multiple other medical problems as outlined in past medical history SCDs for DVT prophylaxis currently. Attestations Medical Necessity Statement*: Needs continued hospitalization secondary to respiratory failure from pneumonia with ARDS requiring a high amount of FiO2. Critical Care Time: The high probability of a clinically significant, sudden or life threatening deterioration of the patient's [respiratory, infectious] system(s) required my full and direct attention, intervention and personal management. The critical care time is as shown. This time is in addition to time spent performing any reported procedures but includes the following: [x] Data and vital sign review and interpretation [x] Patient assessment, examination and intervention [x] Documentation [x] Medication orders and management Critical Care Time (min): 43 Coding Level of Care Code Critical Care >/= 30 minutes Critical care time (in minutes): 43 The high probability of a clinically significant, sudden or life threatening deterioration, as referenced in this documentation, required my full and direct attention, intervention and personal management. The critical care time shown is in addition to time spent performing any reported separately billable procedures and includes the following: [x] Data and vital sign review and interpretation [x ] Patient assessment, examination and intervention [x] Medication orders and management [x] Patient/Family updates as able [x] Care Coordination and Documentation. Diagnoses Iatrogenic pneumothorax J95.811 ARDS (adult respiratory distress syndrome) J80 Pneumonia J18.9 Anemia D64.9 Anemia type: unspecified type A-fib I48.91
[2023-03-04] MEDS: vancomycin 1,250 MG/250 ML PIGGYBACK 250 MG IV (16:38)
[2023-03-04 16:58] LABS: Glucose Point of Care 169 mg/dL (70-110)
--- NOTE | 2023-03-04 17:17 | PC.NURSE ---
SHift Summary: uneventful shift patient has rested in bed throughout the day. Was started on precedex which seems to have calmed patient compared to yesterday, but he occaisonally has easily redirected angry outburts, especially when his leaves the room. Lab results suggestive of possible fungal infection and antifungals started, TB results still pending. total urine output has been 550 mL.
[2023-03-04 20:18] LABS: Glucose Point of Care 88 mg/dL (70-110)
[2023-03-04] MEDS: dexmedetomidine 400 MCG in sodium chloride 0.9% (100 ml) 100 ML 15.57 MCG IV (20:23)
[2023-03-04] MEDS: finasteride 5 mg Tablet PO (20:24)
[2023-03-04] MEDS: atorvastatin 40 mg Tablet PO (20:24)
[2023-03-04] MEDS: escitalopram 10 mg Tablet 20 MG PO (20:24)
[2023-03-04] MEDS: haloperidol inj 5 mg/mL INJ 1 mL 1 MG IM ×2 (21:10→22:59)
[2023-03-04] MEDS: OLANZapine 10 mg VIAL 5 MG IM (23:46)
[2023-03-05] VITALS (31 sets, daily range): BP systolic 103–157; BP diastolic 57–96; PULSE 66–112; RESP 15–30; TEMP 36.4–36.7; O2SAT 79–98
[2023-03-05] MEDS: dexmedetomidine 400 MCG in sodium chloride 0.9% (100 ml) 100 ML 23.35 MCG IV (00:56)
[2023-03-05 03:24] LABS: Basophils % 0.4 %; Hematocrit 24.5 % (42.0-52.0); Hemoglobin 7.6 g/dL (11.7-16.6); Lymphocytes # 0.2 10^3/uL (0.8-4.8); Lymphocytes % 6.5 %; Mean Corpuscular Hemoglobin 31.8 pg (28.0-34.0); Mean Corpuscular Volume 102.5 fl (80-94); Mean Platelet Volume 11.9 fL (7.4-10.4); Monocytes # 0.7 10^3/uL (0.2-0.9); Monocytes % 24.6 %; Neutrophils # 1.86 10^3/uL (1.8-7.7); Neutrophils % 67.4 %; Nucleated Red Blood Cells % 0 %; Platelet Count 240 10^3/cmm (130-400); Red Blood Count 2.39 10^6/uL (4.1-5.3); Red Cell Distribution Width 18.4 % (12.1-15.1); White Blood Count 2.8 10^3/uL (4.0-10.0)
[2023-03-05] MEDS: ipratropium-albuterol 3 mL Neb INHALATION ×4 (03:30→19:58)
[2023-03-05 03:32] LABS: Alanine Aminotransferase 16 U/L (0-41); Albumin Level 2.9 g/dL (3.5-5.2); Alkaline Phosphatase 137 U/L (40-130); Blood Urea Nitrogen 27 mg/dL (8-23); Calcium 7.9 mg/dL (8.5-10.5); Carbon Dioxide 26 mmol/L (22-29); Chloride 102 mmol/L (98-107); Globulin 3.4 g/dL (1.3-4.6); Glucose 99 mg/dL (65-115); Osmolality Calculated 297 mOsm/kg (285-295); Sodium 141 mmol/L (136-145); Total Bilirubin 0.8 mg/dL (0.15-1.2); Total Protein 6.3 g/dL (6.6-8.7)
[2023-03-05 03:33] LABS: Anion Gap 16.9 (5-19); Potassium 3.9 mmol/L (3.5-5.1)
[2023-03-05 03:34] LABS: Aspartate Amino Transferase 38 U/L (0-40)
[2023-03-05 03:51] LABS: Slide Review Slide Review Perform
[2023-03-05] MEDS: dexmedetomidine 400 MCG in sodium chloride 0.9% (100 ml) 100 ML 19.46 MCG IV ×3 (05:24→23:43)
[2023-03-05] MEDS: levoFLOXacin 500 mg Tablet PO (05:42)
[2023-03-05] MEDS: isosorbide mononitrate ER 30 mg Tablet PO (05:42)
[2023-03-05 07:25] LABS: Glucose Point of Care 160 mg/dL (70-110)
[2023-03-05] MEDS: fluconazole premix 400 MG/200 ML PIGGYBACK 200 MG IV (07:43)
[2023-03-05] MEDS: insulin lispro 100 unit/1 mL SUBCUT ×2 (07:44→11:51)
[2023-03-05] MEDS: piperacillin-tazobactam 3.375 GM in sodium chloride 0.9% (plus) 50 ML IV ×3 (07:44→22:55)
[2023-03-05] MEDS: metoprolol tartrate 25 mg Tablet PO ×2 (08:08→17:03)
[2023-03-05] MEDS: fluticasone nasal spray 16gm Btl 1 SPRAY NASAL (08:08)
[2023-03-05] MEDS: aspirin 81 mg EC Tablet PO (08:08)
[2023-03-05] MEDS: tamsulosin 0.4 mg Capsule PO ×2 (08:08→17:03)
--- NOTE | 2023-03-05 08:56 | PC.PT ---
Pt on hold from Physical Therapy tx today. Spoke to YAMILA Hernadez who reports that pt is maxed out on Placidex today and is not appropriate for participation at this time. Agreed to hold for today and reattempt tomorrow.
--- NOTE | 2023-03-05 11:08 | P.PN_ITS ---
Subjective Subjective: Patient was seen and examined this morning, continues to be on heated high flow, requirement of which has not significantly gone down, currently requiring high- dose Precedex, to facilitate, compliance with heated high flow. White blood cell count has gone down to 2.8, hemoglobin is also down trended to 7.6, kidney function is stable, currently has decent urine output. Medications: Reviewed: Yes Medication Review Details: Generic Name Dose Route Start Last Admin Trade Name Freq PRN Reason Stop Dose Admin Albuterol/Ipratrop ium 3 ml 02/24/23 20:00 03/02/23 14:35 Ipratropium-Albu terol 3 Ml Neb INHALATION 3 ml Q6H.RESP NIMO Administration Amitriptyline HCl 25 mg 02/22/23 22:19 03/01/23 20:40 Amitriptyline 25 Mg Tablet PO 25 mg BEDTIME PRN Administration Insomnia Aspirin 81 mg 02/24/23 09:00 03/02/23 08:47 Aspirin 81 Mg Ec Tablet PO 81 mg DAILY NIMO Administration Atorvastatin Calci um 40 mg 02/23/23 21:00 03/01/23 20:40 Atorvastatin 40 Mg Tablet PO 40 mg BEDTIME NIMO Administration Escitalopram Oxala te 20 mg 02/23/23 21:00 03/01/23 20:40 Escitalopram 10 Mg Tablet PO 20 mg BEDTIME NIMO Administration Finasteride 5 mg 02/23/23 21:00 03/01/23 20:40 Finasteride 5 Mg Tablet PO 5 mg BEDTIME NIMO Administration Fluticasone Propio inés 1 spray 02/27/23 09:00 03/02/23 08:47 Fluticasone [place]asa l [place] 16gm Btl NASAL 1 spray DAILY NIMO Administration Piperacillin Sod/T azobactam 50 mls @ 12.5 mls /hr 02/22/23 23:00 03/02/23 17:32 Sod 3.375 gm/ So dium Chloride IV 12.5 mls/hr Q8H NIMO Administration Vancomycin/PEG/NAD A/Lysine/Water 1,250 mg in 250 m ls @ 250 mls/hr 02/23/23 17:30 03/02/23 17:33 Vancocin IV 250 mls/hr Q24H NIMO Administration Insulin Human Lisp ro 0 unit 02/23/23 08:00 03/02/23 17:33 Insulin Lispro 1 00 Unit/1 Ml SUBCUT 6 unit WM&BEDTIME NIMO Administration Protocol Isosorbide Mononit rate 30 mg 02/23/23 06:00 03/02/23 05:52 Isosorbide [place] itrate Er 30 Mg Ta blet PO 30 mg QAM NIMO Administration Levofloxacin 500 mg 02/23/23 06:00 03/02/23 05:50 Levofloxacin 500 Mg Tablet PO 500 mg DAILY@0600 [facility] Administration Protocol Metoprolol Tartrat e 25 mg 02/23/23 09:00 03/02/23 17:33 Metoprolol Tartr ate 25 Mg Tablet PO 25 mg BID [facility] Administration Pantoprazole Sodiu m 40 mg 02/23/23 11:30 03/02/23 11:11 Pantoprazole 40 Mg Sdv IVP 40 mg Q12H [facility] Administration Tamsulosin HCl 0.4 mg 02/23/23 09:00 03/02/23 17:33 Tamsulosin 0.4 M g Capsule PO 0.4 mg BID NIMO Administration Vitals/I&O/Wt Last Vital Signs Temp 98.0 F 03/05/23 08:00 Pulse 75 03/05/23 08:52 Resp 28 H 03/05/23 08:52 BP 144/77 03/05/23 08:00 Pulse Ox 94 03/05/23 08:52 O2 Del Method Heated High Flow 03/05/23 08:38 O2 Flow Rate 45 03/05/23 08:52 FiO2 60 03/05/23 10:00 03/04/23 03/05/23 03/05/23 22:59 06:59 14:59 Intake Total 636.631 / 1024.821 222.493 / 1247.314 296.38 / 296.38 Output Total 350 / 750 300 / 1050 Balance 286.631 / 274.821 -77.507 / 197.314 296.38 / 296.38 Physical Exam Const: COMMON NORMALS: patient oriented x3 HENMT: COMMON NORMALS: normocephalic and atraumatic HEAD & SCALP: normocephalic and atraumatic Resp: OTHER: Coarse breath sounds Cardio: COMMON NORMALS: regular rate, regular rhythm, S1 normal heart sound present, S2 normal heart sound present, No gallops present (Cardio), No murmurs present (Cardio), No rub (Cardio) and Peripheral pulses 2+ throughout RATE: regular rate RHYTHM: regular rhythm HEART SOUNDS: S1 normal heart sound present and S2 normal heart sound present PERIPHERAL PULSES: Peripheral pulses 2+ throughout GI: COMMON NORMALS: Normal to inspection, nondistended, normoactive bowel sounds present, Soft to palpation, non-tender, No hepatosplenomegaly present and no masses AUSCULTATION: Yes normoactive bowel sounds PALPATION: Yes Soft to palpation and Yes No hepatosplenomegaly present RECTAL EXAM: Yes deferred Extremity: COMMON NORMALS: no clubbing, cyanosis or edema and no pedal edema Neuro: COMMON NORMALS: patient oriented x3 Urinary Catheter Management: Baires: Cath Placed During This Visit: yes Reason for Continuing Indwelling Catheter: Accurate Measurement of Urinary Output in Critically Ill Patients Urinary Catheter Date of Insertion: 03/01/23 Urinary Catheter Time of Insertion: 15:21 Data 03/05/23 02:47 03/05/23 02:47 A&P Assessment and plan (1) Iatrogenic pneumothorax: This has resolved. Thoracic vent has been removed. (2) ARDS (adult respiratory distress syndrome): FiO2 requirement went up last night. Infiltrate seems a little worse, particularly on the left. (3) Pneumonia: Concern he may have had necrotic pneumonia versus hemorrhage. He is still coughing up some pinkish sputum. Continue to wean oxygen as tolerated Tmax is 100.0 Currently on antibiotics Zosyn, vancomycin, Levaquin Note that he grew Enterobacter out of his sputum on bronchoscopy. TB and fungal studies are pending. Coccidioides antibody was positive. Considering his worsening, will add amphotericin B and fluconazole. Risks and benefits discussed with the family. Discussed worsening, and they would not want escalation of care. He is already allow natural . If he continues to get worse, requires pressors, requires BiPAP would consider moving to comfort measures. cryptococcal serology:Negative (4) Anemia: He received 1 unit of packed red blood cells March 02. Hemoglobin is stable No need for transfusion today Check CBC, CMP in the morning Qualifiers: Anemia type: unspecified type Qualified Code(s): D64.9 - Anemia, unspecified (5) A-fib: Heart rate is currently under control Continue metoprolol Holding anticoagulation currently secondary to anemia Plan Hallucinations. Consistent with ICU psychosis. Precedex initiated Hypokalemia, supplement Multiple other medical problems as outlined in past medical history SCDs for DVT prophylaxis currently. Attestations Medical Necessity Statement*: Needs to be in hospital management respiratory failure. Coding Level of Care Code Acute Code for [facility] Diagnoses Iatrogenic pneumothorax J95.811 ARDS (adult respiratory distress syndrome) J80 Pneumonia J18.9 Anemia D64.9 Anemia type: unspecified type A-fib I48.91
[2023-03-05] MEDS: pantoprazole 40 mg SDV IVP ×2 (11:12→22:56)
[2023-03-05 11:27] LABS: Glucose Point of Care 157 mg/dL (70-110)
[2023-03-05] MEDS: vancomycin 1,250 MG/250 ML PIGGYBACK 250 MG IV (16:42)
[2023-03-05] MEDS: dexmedetomidine 400 MCG in sodium chloride 0.9% (100 ml) 100 ML 15.57 MCG IV (17:02)
[2023-03-05 17:12] LABS: Glucose Point of Care 116 mg/dL (70-110)
[2023-03-05 18:25] LABS: Fungitell 1-3-B Glucan Assay 49 pg/mL; Interpretation NEGATIVE
[2023-03-05] MEDS: atorvastatin 40 mg Tablet PO (20:15)
[2023-03-05] MEDS: finasteride 5 mg Tablet PO (20:15)
[2023-03-05 20:16] LABS: Glucose Point of Care 101 mg/dL (70-110)
[2023-03-05] MEDS: escitalopram 10 mg Tablet 20 MG PO (20:16)
[2023-03-05] MEDS: FUROsemide 10 mg/mL SDV 4mL 40 MG IVP (22:55)
[2023-03-06] VITALS (34 sets, daily range): BP systolic 95–149; BP diastolic 64–98; PULSE 61–126; RESP 13–31; TEMP 36.6–36.9; O2SAT 85–98
[2023-03-06 00:46] LABS: Histoplasma Galactomannan Ag <0.2 ng/mL
[2023-03-06] MEDS: ipratropium-albuterol 3 mL Neb INHALATION ×4 (02:57→19:04)
[2023-03-06 04:39] LABS: Basophils % 0.3 %; Hematocrit 28.5 % (42.0-52.0); Hemoglobin 8.2 g/dL (11.7-16.6); Lymphocytes # 0.6 10^3/uL (0.8-4.8); Lymphocytes % 15.2 %; Mean Corpuscular HGB Conc 28.8 g/dL (30.0-36.0); Mean Corpuscular Hemoglobin 31.7 pg (28.0-34.0); Mean Platelet Volume 11.8 fL (7.4-10.4); Monocytes # 0.8 10^3/uL (0.2-0.9); Monocytes % 22.2 %; Neutrophils # 2.26 10^3/uL (1.8-7.7); Neutrophils % 61.2 %; Nucleated Red Blood Cells % 0 %; Platelet Count 249 10^3/cmm (130-400); Red Blood Count 2.59 10^6/uL (4.1-5.3); Red Cell Distribution Width 18.6 % (12.1-15.1); White Blood Count 3.7 10^3/uL (4.0-10.0)
[2023-03-06 05:05] LABS: Alanine Aminotransferase 16 U/L (0-41); Albumin Level 2.4 g/dL (3.5-5.2); Alkaline Phosphatase 136 U/L (40-130); Aspartate Amino Transferase 31 U/L (0-40); Blood Urea Nitrogen 31 mg/dL (8-23); Calcium 8.1 mg/dL (8.5-10.5); Carbon Dioxide 19 mmol/L (22-29); Chloride 102 mmol/L (98-107); Globulin 3.8 g/dL (1.3-4.6); Glucose 130 mg/dL (65-115); Osmolality Calculated 300 mOsm/kg (285-295); Sodium 141 mmol/L (136-145); Total Bilirubin 0.9 mg/dL (0.15-1.2); Total Protein 6.2 g/dL (6.6-8.7)
[2023-03-06 05:06] LABS: Anion Gap 23.1 (5-19); Potassium 3.1 mmol/L (3.5-5.1)
[2023-03-06] MEDS: isosorbide mononitrate ER 30 mg Tablet PO (05:23)
[2023-03-06] MEDS: dexmedetomidine 400 MCG in sodium chloride 0.9% (100 ml) 100 ML 19.46 MCG IV ×2 (05:23→10:17)
[2023-03-06] MEDS: levoFLOXacin 500 mg Tablet PO (05:23)
[2023-03-06] MEDS: fluconazole premix 400 MG/200 ML PIGGYBACK 200 MG IV (07:38)
[2023-03-06] MEDS: piperacillin-tazobactam 3.375 GM in sodium chloride 0.9% (plus) 50 ML IV ×2 (07:38→16:15)
[2023-03-06 07:50] LABS: Glucose Point of Care 173 mg/dL (70-110)
[2023-03-06] MEDS: metoprolol tartrate 25 mg Tablet PO ×2 (08:00→17:37)
[2023-03-06] MEDS: tamsulosin 0.4 mg Capsule PO ×2 (08:00→17:37)
[2023-03-06] MEDS: fluticasone nasal spray 16gm Btl 1 SPRAY NASAL (08:00)
[2023-03-06] MEDS: insulin lispro 100 unit/1 mL SUBCUT ×2 (08:00→18:01)
[2023-03-06] MEDS: aspirin 81 mg EC Tablet PO (08:00)
[2023-03-06] MEDS: pantoprazole 40 mg SDV IVP (10:30)
--- NOTE | 2023-03-06 10:32 | XRR_ITS ---
PROCEDURE INFORMATION: Exam: XR Chest Exam date and time: 03/06/2023 9:44 AM Age: 82 years old Clinical indication: Shortness of breath; Additional info: SOB TECHNIQUE: Imaging protocol: Radiologic exam of the chest. Views: 1 view. COMPARISON: CR (CHEST, ) 03/04/2023 1:19 AM FINDINGS: Lungs: There is diffuse airspace disease in the right mid and upper lobe and the right lower lobe. The left perihilar region also shows parenchymal densities. These findings were present on prior examination and appears similar. These findings correspond to differential diagnosis of pneumonia or pulmonary edema Pleural spaces: Unremarkable. No pleural effusion. No pneumothorax. Heart/Mediastinum: Unremarkable. No cardiomegaly. Bones/joints: Unremarkable. There are 2 metallic pins in the left humerus XR/XR chest 1V portable [id number] IMPRESSION: 1. Stable bilateral parenchymal lung densities pneumonia or pulmonary edema 2. There are metallic pins seen in the left humeral head
--- NOTE | 2023-03-06 12:21 | XRR_ITS ---
PROCEDURE INFORMATION: Exam: XR Chest Exam date and time: 03/06/2023 12:34 PM Age: 82 years old Clinical indication: Device placement; Picc; Additional info: Picc placement TECHNIQUE: Imaging protocol: Radiologic exam of the chest. Views: 1 view. COMPARISON: CR (CHEST, ) 03/06/2023 9:44 AM FINDINGS: Lungs: Parenchymal densities are present in the right perihilar and right lower lobe regions. The lungs show low volume. These findings were present on prior examination and appear decreased in size. The left perihilar interstitial density seen on prior examination have now resolved. Pleural spaces: Unremarkable. No pleural effusion. No pneumothorax. Heart/Mediastinum: Unremarkable. No cardiomegaly. Bones/joints: Unremarkable. A left side PICC line extends into the SVC XR/XR chest 1V portable [id number] IMPRESSION: 1. Right lung mid and lower lobe parenchymal densities decreased since prior 2. Resolution 2 left perihilar interstitial densities 3. Left side PICC line in the SVC
[2023-03-06] MEDS: lidocaine 1% 5 ML in potassium chloride premix 100 ML 26.25 ML IV (12:38)
[2023-03-06 13:25] LABS: Glucose Point of Care 80 mg/dL (70-110)
--- NOTE | 2023-03-06 14:18 | PM.PN ---
Subjective Subjective: Patient was seen and examined this morning, was much more alert awake today, states that shortness of breath is slightly better, x-ray chest has shown some improvement, continue to be afebrile, patient vitals and labs have been reviewed. Medications: Reviewed: Yes Medication Review Details: Generic Name Dose Route Start Last Admin Trade Name Freq PRN Reason Stop Dose Admin Acetaminophen 650 mg 02/22/23 22:02 03/03/23 05:23 Acetaminophen 32 5 Mg Tablet PO 650 mg Q6H PRN Administration Mild/Mod Pain Or Temp >/= 101 Albuterol/Ipratrop ium 3 ml 02/24/23 20:00 03/06/23 13:25 Ipratropium-Albu terol 3 Ml Neb INHALATION 3 ml Q6H.RESP NIMO Administration Amitriptyline HCl 25 mg 02/22/23 22:19 03/01/23 20:40 Amitriptyline 25 Mg Tablet PO 25 mg BEDTIME PRN Administration Insomnia Aspirin 81 mg 02/24/23 09:00 03/06/23 08:00 Aspirin 81 Mg Ec Tablet PO 81 mg DAILY NIMO Administration Atorvastatin Calci um 40 mg 02/23/23 21:00 03/05/23 20:15 Atorvastatin 40 Mg Tablet PO 40 mg BEDTIME NIMO Administration Diclofenac Sodium 4 applic 02/22/23 22:28 03/04/23 06:10 Diclofenac 1% To pical Gel 100 Gm TOPICAL 4 applic QID PRN Administration Pain Escitalopram Oxala te 20 mg 02/23/23 21:00 03/05/23 20:16 Escitalopram 10 Mg Tablet PO 20 mg BEDTIME NIMO Administration Finasteride 5 mg 02/23/23 21:00 03/05/23 20:15 Finasteride 5 Mg Tablet PO 5 mg BEDTIME NIMO Administration Fluticasone Propio inés 1 spray 02/27/23 09:00 03/06/23 08:00 Fluticasone Nasa l [place] 16gm Btl NASAL 1 spray DAILY NIMO Administration Haloperidol Lactat e 1 mg 03/04/23 21:06 03/04/23 22:59 Haloperidol Inj 5 Mg/Ml Inj 1 Ml IM 1 mg Q2H PRN Administration AGITATION Piperacillin Sod/T azobactam 50 mls @ 12.5 mls /hr 02/22/23 23:00 03/06/23 11:47 Sod 3.375 gm/ So dium Chloride IV Infused Q8H NIMO Infusion Vancomycin/PEG/NAD A/Lysine/Water 1,250 mg in 250 m ls @ 250 mls/hr 02/23/23 17:30 03/05/23 18:01 Vancocin IV Infused Q24H NIMO Infusion Amphotericin B 300 mg/ 250 mls @ 125 mls /hr 03/04/23 10:00 03/06/23 12:37 Dextrose IV 125 mls/hr Q24H NIMO Administration Fluconazole 400 mg in 200 mls @ 200 mls/hr 03/04/23 08:00 03/06/23 09:04 Diflucan Premix IV Infused Q24H NIMO Infusion Dexmedetomidine HC l 400 mcg/ 104 mls @ 0 mls/h r 03/04/23 08:00 03/06/23 13:46 Sodium Chloride IV 0.9 mcg/kg/hr .Q0M NIMO 17.51 mls/hr Titration Protocol Per Protocol Insulin Human Lisp ro 0 unit 02/23/23 08:00 03/06/23 13:22 Insulin Lispro 1 00 Unit/1 Ml SUBCUT Not Given WM&BEDTIME NIMO Protocol Isosorbide Mononit rate 30 mg 02/23/23 06:00 03/06/23 05:23 Isosorbide [place] itrate Er 30 Mg Ta blet PO 30 mg QAM NIMO Administration Levofloxacin 500 mg 02/23/23 06:00 03/06/23 05:23 Levofloxacin 500 Mg Tablet PO 500 mg DAILY@0600 NIMO Administration Protocol Metoprolol Tartrat e 25 mg 02/23/23 09:00 03/06/23 08:00 Metoprolol Tartr ate 25 Mg Tablet PO 25 mg BID NIMO Administration Pantoprazole Sodiu m 40 mg 02/23/23 11:30 03/06/23 10:30 Pantoprazole 40 Mg Sdv IVP 40 mg Q12H NIMO Administration Sodium Chloride 1 spray 03/03/23 08:54 03/03/23 09:21 Saline Nasal Spr ay 44ml Btl NASAL 1 spray PRN PRN Administration DRYNESS Tamsulosin HCl 0.4 mg 02/23/23 09:00 03/06/23 08:00 Tamsulosin 0.4 M g Capsule PO 0.4 mg BID NIMO Administration Vitals/I&O/Wt Last Vital Signs Temp 98.0 F 03/06/23 12:00 Pulse 120 H 03/06/23 14:00 Resp 26 H 03/06/23 13:35 BP 133/85 03/06/23 13:00 Pulse Ox 94 03/06/23 13:35 O2 Del Method Heated High Flow 03/06/23 12:00 O2 Flow Rate 45 03/06/23 13:35 FiO2 80 03/06/23 13:35 03/05/23 03/06/23 03/06/23 22:59 06:59 14:59 Intake Total 454 / 1108.00 258 / 1366.00 463.140 / 463.140 Output Total 725 / 1275 1825 / 3100 Balance -271 / -167.00 -1567 / -1734.00 463.140 / 463.140 Physical Exam HENMT: COMMON NORMALS: normocephalic and atraumatic HEAD & SCALP: normocephalic and atraumatic Resp: OTHER: Coarse breath sounds Cardio: COMMON NORMALS: regular rate, regular rhythm, S1 normal heart sound present, S2 normal heart sound present, No gallops present (Cardio), No murmurs present (Cardio), No rub (Cardio) and Peripheral pulses 2+ throughout RATE: regular rate RHYTHM: regular rhythm HEART SOUNDS: S1 normal heart sound present and S2 normal heart sound present PERIPHERAL PULSES: Peripheral pulses 2+ throughout GI: COMMON NORMALS: Normal to inspection, nondistended, normoactive bowel sounds present, Soft to palpation, non-tender, No hepatosplenomegaly present and no masses AUSCULTATION: Yes normoactive bowel sounds PALPATION: Yes Soft to palpation and Yes No hepatosplenomegaly present RECTAL EXAM: Yes deferred Extremity: COMMON NORMALS: no clubbing, cyanosis or edema and no pedal edema Urinary Catheter Management: Baires: Cath Placed During This Visit: yes Reason for Continuing Indwelling Catheter: Accurate Measurement of Urinary Output in Critically Ill Patients Urinary Catheter Date of Insertion: 03/01/23 Urinary Catheter Time of Insertion: 15:21 Data 03/06/23 03:51 03/06/23 03:51 Micro: Microbiology 03/04/23 02:40 Cryptococcal Antigen (Serum) - Final Blood A&P Assessment and plan (1) Iatrogenic pneumothorax: This has resolved. Thoracic vent has been removed. (2) ARDS (adult respiratory distress syndrome): FiO2 requirement went up last night. Infiltrate seems a little worse, particularly on the left. (3) Pneumonia: Concern he may have had necrotic pneumonia versus hemorrhage. He is still coughing up some pinkish sputum. Currently on Zosyn, vancomycin, Levaquin Note that he grew Enterobacter out of his sputum on bronchoscopy. TB and fungal studies are pending. Coccidioides antibody was positive. Considering his worsening, amphotericin B and fluconazole was started on 03/04 .Risks and benefits discussed with the family. Continue heated high flow oxygen through nasal cannula. Discussed worsening, and they would not want escalation of care. He is already allow natural . If he continues to get worse, requires pressors, requires BiPAP would consider moving to comfort measures. cryptococcal serology:Negative (4) Anemia: He received 1 unit of packed red blood cells March 02. Hemoglobin is stable No need for transfusion today Check CBC, CMP in the morning Qualifiers: Anemia type: unspecified type Qualified Code(s): D64.9 - Anemia, unspecified (5) A-fib: Heart rate is currently under control Continue metoprolol Holding anticoagulation currently secondary to anemia Plan Hallucinations. Consistent with ICU psychosis. Precedex initiated Hypokalemia, supplement Multiple other medical problems as outlined in past medical history SCDs for DVT prophylaxis currently. Attestations Medical Necessity Statement*: Patient is in hospital for management of respiratory failure. Coding Level of Care Code Acute Code for [facility] Diagnoses Iatrogenic pneumothorax J95.811 ARDS (adult respiratory distress syndrome) J80 Pneumonia J18.9 Anemia D64.9 Anemia type: unspecified type A-fib I48.91
[2023-03-06] MEDS: dexmedetomidine 400 MCG in sodium chloride 0.9% (100 ml) 100 ML 17.51 MCG IV ×2 (16:15→22:18)
[2023-03-06] MEDS: vancomycin 1,250 MG/250 ML PIGGYBACK 250 MG IV (17:39)
[2023-03-06 17:57] LABS: Glucose Point of Care 216 mg/dL (70-110)
[2023-03-06] MEDS: acetaminophen 325 mg Tablet 650 MG PO (18:00)
[2023-03-06 20:31] LABS: Glucose Point of Care 105 mg/dL (70-110)
[2023-03-06] MEDS: atorvastatin 40 mg Tablet PO (20:34)
[2023-03-06] MEDS: escitalopram 10 mg Tablet 20 MG PO (20:34)
[2023-03-06] MEDS: finasteride 5 mg Tablet PO (20:35)
[2023-03-06] MEDS: LORazepam 2 mg/mL INJ 1 mL IVP (20:35)
[2023-03-06] MEDS: FUROsemide 10 mg/mL SDV 10mL 60 MG IVP (23:56)
[2023-03-07] VITALS (16 sets, daily range): BP systolic 105–157; BP diastolic 60–92; PULSE 77–116; RESP 18–34; O2SAT 72–93
[2023-03-07] MEDS: pantoprazole 40 mg SDV IVP (01:22)
[2023-03-07] MEDS: piperacillin-tazobactam 3.375 GM in sodium chloride 0.9% (plus) 50 ML IV (01:22)
[2023-03-07] MEDS: ipratropium-albuterol 3 mL Neb INHALATION ×2 (03:04→08:23)
[2023-03-07] MEDS: dexmedetomidine 400 MCG in sodium chloride 0.9% (100 ml) 100 ML 17.51 MCG IV (04:49)
[2023-03-07 05:42] LABS: Eosinophils % 0.3 %; Hematocrit 24.4 % (42.0-52.0); Hemoglobin 7.5 g/dL (11.7-16.6); Lymphocytes # 0.2 10^3/uL (0.8-4.8); Lymphocytes % 4.6 %; Mean Corpuscular HGB Conc 30.7 g/dL (30.0-36.0); Mean Corpuscular Hemoglobin 31.9 pg (28.0-34.0); Mean Corpuscular Volume 103.8 fl (80-94); Mean Platelet Volume 11.9 fL (7.4-10.4); Monocytes # 0.7 10^3/uL (0.2-0.9); Monocytes % 19.9 %; Neutrophils # 2.55 10^3/uL (1.8-7.7); Neutrophils % 73.8 %; Nucleated Red Blood Cells % 0 %; Platelet Count 251 10^3/cmm (130-400); Red Blood Count 2.35 10^6/uL (4.1-5.3); White Blood Count 3.5 10^3/uL (4.0-10.0)
[2023-03-07 06:06] LABS: Alanine Aminotransferase 15 U/L (0-41); Albumin Level 2.4 g/dL (3.5-5.2); Alkaline Phosphatase 119 U/L (40-130); Anion Gap 16.8 (5-19); Aspartate Amino Transferase 22 U/L (0-40); Blood Urea Nitrogen 34 mg/dL (8-23); Carbon Dioxide 25 mmol/L (22-29); Chloride 106 mmol/L (98-107); Globulin 3.5 g/dL (1.3-4.6); Glucose 172 mg/dL (65-115); Osmolality Calculated 312 mOsm/kg (285-295); Sodium 145 mmol/L (136-145); Total Bilirubin 0.6 mg/dL (0.15-1.2); Total Protein 5.9 g/dL (6.6-8.7)
[2023-03-07 06:24] LABS: Potassium 2.8 mmol/L (3.5-5.1)
[2023-03-07] MEDS: morphine 4 mg/mL SDV 1 mL IVP ×3 (10:48→14:10)
[2023-03-07] MEDS: glycopyrrolate 0.2 mg/mL SDV 2 mL IV (10:48)
--- NOTE | 2023-03-07 12:00 | PM.MISC ---
Miscellaneous Note Purpose of Documentation: I was asked to see this patient with worsening pneumonia in infectious disease consult upon resuming call by Dr. Ambrocio for positive coccidiodes and histoplasma serology. Patient had been started on ambisome and fluconazole in addition to antibiotics zosyn, vancomycin and levaquin. Reviewed chart extensively. Unfortunately it appears patient has clinically deteriorated and has been transitioned to comfort care management after discussion between family and primary team. In keeping with patient's overall goals of care for comfort management only, ID consult has been cancelled.
[2023-03-07] MEDS: LORazepam 2 mg/mL INJ 1 mL IVP ×2 (12:12→14:09)
--- NOTE | 2023-03-07 14:28 | PC.NURSE ---
Report called to YAMILA Kenyon on [facility] floor. Patient will be transferred by bed accompanied by this nurse and . All belongings placed at bedside.
--- NOTE | 2023-03-07 16:16 | PM.PN ---
Subjective Subjective: Patient was seen and examined this morning, he had a rough night, supplemental oxygen requirement had to be increased to 100%, given his overall poor progression, and failure to respond appropriately to aggressive medical management, patient has been made comfort care by family. Medications: Reviewed: Yes Medication Review Details: Generic Name Dose Route Start Last Admin Trade Name Freq PRN Reason Stop Dose Admin Acetaminophen 650 mg 02/22/23 22:02 03/06/23 18:00 Acetaminophen 32 5 Mg Tablet PO 650 mg Q6H PRN Administration Mild/Mod Pain Or Temp >/= 101 Glycopyrrolate 0.2 mg 03/07/23 09:46 03/07/23 10:48 Glycopyrrolate 0 .2 Mg/Ml Sdv 2 Ml IV 0.2 mg Q4H PRN Administration Excessive Secreti ons, Rattling Lorazepam 2 mg 03/05/23 08:38 03/07/23 12:12 Lorazepam 2 Mg/M l Inj 1 Ml IVP 2 mg Q4H PRN Administration ANXIETY Lorazepam 2 mg 03/07/23 09:46 03/07/23 14:09 Lorazepam 2 Mg/M l Inj 1 Ml IVP 2 mg Q30M PRN Administration SEIZURES Morphine Sulfate 2 - 10 mg 03/07/23 09:46 03/07/23 14:10 Morphine 4 Mg/Ml Sdv 1 Ml IVP 4 mg Q15M PRN Administration Moderate To Sever e Pain or SOB Vitals/I&O/Wt Last Vital Signs Temp 98.0 F 03/06/23 22:00 Pulse 114 H 03/07/23 12:00 Resp 30 H 03/07/23 12:00 BP 105/72 03/07/23 11:00 Pulse Ox 93 03/07/23 10:00 O2 Del Method Heated High Flow 03/07/23 08:15 O2 Flow Rate 45 03/07/23 08:29 FiO2 100 03/07/23 08:29 03/07/23 03/07/23 03/07/23 06:59 14:59 22:59 Intake Total 154 / 1652.354 70.009 / 70.009 Output Total 1450 / 2150 Balance -1296 / -497.646 70.009 / 70.009 Physical Exam Const: COMMON NORMALS: patient oriented x3 HENMT: COMMON NORMALS: normocephalic and atraumatic HEAD & SCALP: normocephalic and atraumatic Resp: COMMON NORMALS: clear to auscultation bilaterally EFFORT & INSPECTION: Yes symmetric chest movement AUSCULTATION: clear to auscultation bilaterally OTHER: Coarse breath sounds Cardio: COMMON NORMALS: regular rate, regular rhythm, S1 normal heart sound present, S2 normal heart sound present, No gallops present (Cardio), No murmurs present (Cardio), No rub (Cardio) and Peripheral pulses 2+ throughout RATE: regular rate RHYTHM: regular rhythm HEART SOUNDS: S1 normal heart sound present and S2 normal heart sound present PERIPHERAL PULSES: Peripheral pulses 2+ throughout GI: COMMON NORMALS: Normal to inspection, nondistended, normoactive bowel sounds present, Soft to palpation, non-tender, No hepatosplenomegaly present and no masses AUSCULTATION: Yes normoactive bowel sounds PALPATION: Yes Soft to palpation and Yes No hepatosplenomegaly present RECTAL EXAM: Yes deferred Extremity: COMMON NORMALS: no clubbing, cyanosis or edema and no pedal edema Neuro: COMMON NORMALS: patient oriented x3 Urinary Catheter Management: Baires: Cath Placed During This Visit: yes Reason for Continuing Indwelling Catheter: Accurate Measurement of Urinary Output in Critically Ill Patients Urinary Catheter Date of Insertion: 03/01/23 Urinary Catheter Time of Insertion: 15:21 Data 03/07/23 05:01 03/07/23 05:01 A&P Assessment and plan (1) Iatrogenic pneumothorax: This has resolved. Thoracic vent has been removed. (2) ARDS (adult respiratory distress syndrome): FiO2 requirement went up last night. Infiltrate seems a little worse, particularly on the left. (3) Pneumonia: Concern he may have had necrotic pneumonia versus hemorrhage. He is still coughing up some pinkish sputum. Currently on Zosyn, vancomycin, Levaquin Note that he grew Enterobacter out of his sputum on bronchoscopy. TB and fungal studies are pending. Coccidioides antibody was positive. Considering his worsening, amphotericin B and fluconazole was started on 03/04 .Risks and benefits discussed with the family. Continue heated high flow oxygen through nasal cannula. Discussed worsening, and they would not want escalation of care. He is already allow natural . If he continues to get worse, requires pressors, requires BiPAP would consider moving to comfort measures. cryptococcal serology:Negative (4) Anemia: He received 1 unit of packed red blood cells March 02. Hemoglobin is stable No need for transfusion today Check CBC, CMP in the morning Qualifiers: Anemia type: unspecified type Qualified Code(s): D64.9 - Anemia, unspecified (5) A-fib: Heart rate is currently under control Continue metoprolol Holding anticoagulation currently secondary to anemia (6) Need for comfort care: Plan Hallucinations. Consistent with ICU psychosis. Precedex initiated Hypokalemia, supplement Multiple other medical problems as outlined in past medical history SCDs for DVT prophylaxis currently. Attestations Medical Necessity Statement*: In hospital for comfort care. Coding Level of Care Code Acute Code for [facility] Fwd Diagnoses Iatrogenic pneumothorax J95.811 ARDS (adult respiratory distress syndrome) J80 Pneumonia J18.9 Anemia D64.9 Anemia type: unspecified type A-fib I48.91 Need for comfort care
--- NOTE | 2023-03-07 20:14 | PC.NURSE ---
ROUNDING Pt is unresponsive this evening. Resp are becoming more shallow each time check in with family. Multiple family members at bedside. Pt does not appear to be in any pain but enc family to let nurse know if they believe he is uncomfortable. O2 is on per NC. Full physical assessment not done per family request
[2023-03-08] VITALS (8 sets, daily range): BP systolic 105–163; BP diastolic 58–85; PULSE 105–116; RESP 20–24; TEMP 36.6–36.8; O2SAT 72–82
[2023-03-08] MEDS: morphine 10 mg/0.5 mL oral liq UD SUBLINGUAL (00:22)
[2023-03-08] MEDS: LORazepam 2 mg/mL INJ 1 mL IVP ×5 (00:22→16:59)
[2023-03-08 03:26] LABS: Hematocrit 28.7 % (42.0-52.0); Hemoglobin 8.6 g/dL (11.7-16.6); Mean Corpuscular Hemoglobin 31.6 pg (28.0-34.0); Mean Corpuscular Volume 105.5 fl (80-94); Platelet Count 349 10^3/cmm (130-400); Red Blood Count 2.72 10^6/uL (4.1-5.3); Red Cell Distribution Width 19.4 % (12.1-15.1); White Blood Count 3.3 10^3/uL (4.0-10.0)
[2023-03-08] MEDS: lanolin oint 7 gm 1 APPLIC TOPICAL (03:26)
[2023-03-08 03:40] LABS: Alanine Aminotransferase 20 U/L (0-41); Albumin Level 2.8 g/dL (3.5-5.2); Alkaline Phosphatase 136 U/L (40-130); Anion Gap 16.9 (5-19); Aspartate Amino Transferase 32 U/L (0-40); Blood Urea Nitrogen 45 mg/dL (8-23); Calcium 8.3 mg/dL (8.5-10.5); Carbon Dioxide 25 mmol/L (22-29); Chloride 109 mmol/L (98-107); Globulin 3.8 g/dL (1.3-4.6); Glucose 154 mg/dL (65-115); Osmolality Calculated 321 mOsm/kg (285-295); Sodium 148 mmol/L (136-145); Total Bilirubin 0.7 mg/dL (0.15-1.2); Total Protein 6.6 g/dL (6.6-8.7)
[2023-03-08 04:02] LABS: Band Neutrophils Absolute 0.1 10^3/cmm (0.0-1.2); Total Cells Counted 100 (0-100)
[2023-03-08 04:03] LABS: Absolute Segmented Neutrophil 1.9 10/cmm (1.6-7.1); Eosinophils 0 %; Lymphocytes 14 %; Lymphocytes Absolute 0.5 10^3/cmm (1.2-3.4); Monocytes Absolute 0.8 10^3/cmm (0.1-0.6); Platelet Estimate Increased (Normal); Segmented Neutrophils 58 %
[2023-03-08 04:04] LABS: Ovalocytes 1+; Toxic Granulation 1+; Toxic Vacuolation 1+
[2023-03-08 04:05] LABS: Anisocytosis 1+; Macrocytosis 1+; Polychromasia Trace
[2023-03-08 04:06] LABS: Tear Drop Cells 1+
[2023-03-08 04:13] LABS: Potassium 2.9 mmol/L (3.5-5.1)
[2023-03-08] MEDS: morphine 4 mg/mL SDV 1 mL IVP ×5 (08:06→16:59)
[2023-03-08] MEDS: glycopyrrolate 0.2 mg/mL SDV 2 mL IV (10:48)
--- NOTE | 2023-03-08 16:09 | PM.PN ---
Subjective Subjective: Hospital course, labs appreciated. Patient seen with multiple family members at bedside. Patient currently on comfort measures status. On examination looks comfortable though slightly gasping for air. Vitals/I&O/Wt Last Vital Signs Temp 98.2 F 03/08/23 11:44 Pulse 105 H 03/08/23 11:44 Resp 20 H 03/08/23 13:21 BP 105/72 03/08/23 11:44 Pulse Ox 82 L 03/08/23 11:44 O2 Del Method Nasal Cannula 03/08/23 11:44 O2 Flow Rate 3 03/08/23 08:00 FiO2 100 03/07/23 08:29 03/08/23 03/08/23 03/08/23 06:59 14:59 22:59 Intake Total 0 / 70.009 0 / 0 Output Total 225 / 700 Balance -225 / -629.991 0 / 0 Physical Exam Narrative: Deferred given comfort measures status only. Urinary Catheter Management: Baires: Cath Placed During This Visit: yes Reason for Continuing Indwelling Catheter: Hospice/Comfort/Palliative Care Urinary Catheter Date of Insertion: 03/01/23 Urinary Catheter Time of Insertion: 15:21 Data 03/08/23 03:19 03/08/23 03:19 A&P Assessment and plan (1) Need for comfort care: (2) Iatrogenic pneumothorax: (3) ARDS (adult respiratory distress syndrome): (4) A-fib: (5) Hypernatremia: (6) Neutropenia: (7) Coccidioidomycosis: (8) CHRISTIAN (acute kidney injury): (9) Histoplasmosis pneumonia: (10) Pneumonia: (11) Anemia: Qualifiers: Anemia type: unspecified type Qualified Code(s): D64.9 - Anemia, unspecified Plan Given multiple comorbidities, acute illness patient was made comfort measures status only as per patient's DPOA. Plan: Continue pain and anxiety medication as per comfort measures status only. No further labs. Vitals as per protocol. Follow-up QuantiFERON study. Discussed in detail with patient's spouse at bedside. Discussed about options of hospice at SNF versus hospice at home. She would like to discuss further with the family members and think over it before making a decision. Family had further multiple questions which were answered in detail. Case management alerted. 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
--- NOTE | 2023-03-08 17:35 | PC.NURSE ---
Patient rested in bed throughout shift on comfort care with and family by his side. Frequent rounding for comfort measures and checking on family. Oral care and repositioning frequently for comfort. More family members came in late in shift and requested to removed the oxygen for comfort. Oxygen was removed by family. Called into room to check patient, patient passed at 1730.
--- NOTE | 2023-03-08 19:19 | PC.NURSE ---
[facility] notified on patient expiration at 1800. [facility] called this nurse back at 1830 to let us know patient has been declined for donation. [facility] in [place] contacted for release of body.
--- NOTE | 2023-03-08 20:43 | PC.NURSE ---
Body released to [facility] @ 2021
[2023-03-09 13:59] LABS: Quantiferon Mitogen 1.62 IU/mL; Quantiferon Nil 0.03 IU/mL; Quantiferon Plus TB1 0.01 IU/mL; Quantiferon Plus TB2 0.01 IU/mL; Quantiferon TB Gold NEGATIVE (NEGATIVE)
[2023-06-23 15:40] LABS: P. Jirovecii DNA QL PCR NOT DETECTED; P. Jirovecii DNA QL PCR Source BAL
== END 2023-03-08 17:30 | disposition expired | DRG 177 ==
LOC: ER 17:12 → MEDSURG 18:02 → ICU 02-23 19:50 → MEDSURG 03-07 14:44
PROVIDERS: Internal Medicine; Student in an Organized Health Care Education/Training Program; Thoracic Surgery (Cardiothoracic Vascular Surgery); Admitting Provider Student in an Organized Health Care Education/Training Program; Emergency Provider Emergency Medicine; PCP Nurse Practitioner Family; Visit Provider Internal Medicine
PROC: 0B9P30Z Drainage of Left Pleura with Drainage Device, Percutaneous Approach (ICD-10-PCS; CPT 32551; principal; 2023-02-23 16:45)
PROC: 0BJ08ZZ Inspection of Tracheobronchial Tree, Via Natural or Artificial Opening Endoscopic (ICD-10-PCS; CPT 31622; principal; 2023-02-25 07:00)
DX: B39.2 Pulmonary histoplasmosis capsulati, unspecified (principal); J80 Acute respiratory distress syndrome; J95.811 Postprocedural pneumothorax; E87.0 Hyperosmolality and hypernatremia; N17.9 Acute kidney failure, unspecified; F05 Delirium due to known physiological condition; D84.821 Immunodeficiency due to drugs; D61.818 Other pancytopenia; J90 Pleural effusion, not elsewhere classified; Z51.5 Encounter for palliative care; I48.0 Paroxysmal atrial fibrillation; D70.9 Neutropenia, unspecified; B38.2 Pulmonary coccidioidomycosis, unspecified; D53.9 Nutritional anemia, unspecified; M06.9 Rheumatoid arthritis, unspecified; E11.22 Type 2 diabetes mellitus with diabetic chronic kidney disease; E11.65 Type 2 diabetes mellitus with hyperglycemia; I12.9 Hypertensive chronic kidney disease with stage 1 through stage 4 chronic kidney disease, or unspecified chronic kidney disease; N18.30 Chronic kidney disease, stage 3 unspecified; I25.10 Atherosclerotic heart disease of native coronary artery without angina pectoris; Z95.5 Presence of coronary angioplasty implant and graft; N40.1 Benign prostatic hyperplasia with lower urinary tract symptoms; R35.1 Nocturia; Z87.01 Personal history of pneumonia (recurrent); F32.A Depression, unspecified; E78.5 Hyperlipidemia, unspecified; E87.6 Hypokalemia; K59.00 Constipation, unspecified; Z66 Do not resuscitate; Z79.69 Long term (current) use of other immunomodulators and immunosuppressants; E86.0 Dehydration; R77.8 Other specified abnormalities of plasma proteins; Z96.652 Presence of left artificial knee joint; R19.5 Other fecal abnormalities
CPT/HCPCS: 12345; 32555; 36415; 36416; 36430; 36569; 51702; 71045; 71260; 76604; 80048; 80053; 80202; 82962; 83605; 83615; 83735; 83880; 84100; 84145; 84484; 85007; 85025; 85027; 85610; 85730; 86403; 86480; 86635; 86698; 86850; 86900; 86920; 87015; 87040; 87070; 87077; 87102; 87116; 87186; 87205; 87206; 87305; 87385; 87449; 87641; 87798; 87801; 88309; 92523; 92526; 92610; 93005; 94640; 96365; 96367; 96372; 96375; 96376; 97110; 97162; 97530; 99285; C1751; C9113; J0171; J0289; J1170; J1450; J1630; J1644; J1815; J1940; J2060; J2250; J2270; J2543; J2704; J2920; J3010; J3370; J3480; J3490; J7050; J7060; J7626; P9016; Q9967